=== PATIENT | female | born 1935 | race Caucasian/White ===

== ENCOUNTER → 2017-07-28 | Day surgery (SDC) | payer OTHER, BC ==
[2017-07-20 10:43] VITALS: Ht 161.3 cm; Wt 67.3 kg
[~2017-07-28] VITALS: Ht 161.3 cm; Wt 67.3 kg
[~2017-07-28] MED LIST: 500ML BSS 0.3ML EPI 1:1000PF IRRIG ONE; ACETAMINOPHEN 325 MG TAB PO PRN; AMVISC PLUS 0.8ML SYRINGE INT OCU ONE; ASPI-435 PO; ATOR-24 PO; ATROPINE SULFATE 0.1 MG/ML 5ML SYR IV PRN; BSS FLUSH ONE; CARV3.122 PO; DULO60CA44 PO; ENDOCOAT 0.85ML SYRINGE INT OCU ONE; EpHEDrine SULFATE INJ 50 MG/ML AMP IV PRN; EpINEphrine INJ 1MG/ML AMP 1 MG/ML AMP ONE; GABA-113 PO; HYDR-4716 PO; ISOS60TA2 PO; LACTATED RINGER'S 1000ML 500 ML IV SCH; LIDOCAINE 4% OP SOLN DROP CHARGE ONE; LIDOCAINE 4% OP SOLN DROP CHARGE OPR SCH; LIDOCAINE HCL 1% MPF 2 ML VIAL ONE; LISI20TA3 PO; MIDAZOLAM HCL 1 MG/ML 2ML VIAL ONE; MIX: 4ML BSS 1ML EPI 1:1000 PF TOP ONE; MOXIFLOXACIN OPH SOLN PER DROP CHARGE ONE; PLN/10 PO; POVIDONE-IODINE OP SOLN 30 ML BTL ONE; PROPARACAINE 0.5% OP SOLN PER DROP CHARGE OPR SCH; TOBRAMYCIN/DEXAMETHASONE OPH OINT PER APPLN CHARGE ONE
[2017-07-28] MEDS: PHENYLEPHRINE HCL 2.5% OP SOLN PER DROP CHARGE OPR SCH ×3 (08:31→08:41)
[2017-07-28] MEDS: TROPICAMIDE 1% OP SOLN PER DROP CHARGE OPR SCH ×3 (08:32→08:42)
[2017-07-28] MEDS: CYCLOPENTOLATE HCL 1% OP SOLN PER DROP CHARGE OPR SCH ×3 (08:33→08:43)
[2017-07-28] MEDS: MOXIFLOXACIN OPH SOLN PER DROP CHARGE OPR SCH ×3 (08:34→08:44)
--- NOTE | 2017-07-28 08:40 | History & Physical Bridge - [place] ---
H&P Re-Evaluation Bridge Note: I have examined the patient, reviewed the History & Physical and in the interval since the performance of the History & Physical I have noted the following changes of clinical significance: No changes noted
--- NOTE | 2017-07-28 09:44 | [facility] Post Operative Brief Note ---
Immediate Operative Summary Operative Date Jul 28, 2017. Pre-Operative Diagnosis Right Eye Cataract Post-Operative Diagnosis same as preop Procedure(s) Performed Right Cataract Phacoemulsification With Intraocular Lens Implant Surgeon Dr. Nieves Manager [employer] Surgeon(s) none Estimated Blood Loss 0ml Findings right cataract Specimens none per surgeon Complication(s) None Disposition
--- NOTE | 2017-07-28 09:45 | [facility] Operative Report ---
Operative Report Date of Service Jul 28, 2017. Operative Report DATE OF OPERATION: 07/28/17 PREOPERATIVE DIAGNOSIS: Senile nuclear cataract, right eye POSTOPERATIVE DIAGNOSIS: Senile nuclear cataract, right eye PROCEDURE PERFORMED: Phacoemulsification with intraocular lens implantation, right eye SURGEON: Dr. Brandyn Nieves ANESTHESIA: Topical with 1% intracameral lidocaine and monitored anesthesia care COMPLICATIONS: None DESCRIPTION OF PROCEDURE: After positively identifying the patient both verbally and by wristband in the preoperative area, the right eye was marked as the operative eye. The patient was then brought back to the operating room by the anesthesia and nursing staff where they were given a drop of Lidocaine and betadine into the operative eye. They were then sterilely prepped and draped in the standard fashion typical for ophthalmic surgery. Steri-strips were placed along the upper eyelids to keep the lashes back, and a lid speculum was placed into the operative eye. At this point, a documented time out was performed with members of the ophthalmology, nursing, and anesthesia staffs all agreeing upon the correct patient, correct location for surgery, correct procedure, and correct type and power of intraocular lens to be implanted. The microscope was then swung into position. First, a paracentesis wound was made using a sideport blade. Then, in sequence, 1% preservative-free lidocaine followed by Endocoat viscoelastic was injected into the anterior chamber. Next , the main incision was made with a keratome blade in triplanar fashion. A sharp cystotome was introduced into the eye and used to create a tear in the anterior capsule, which was directed into a continuous curvilinear capsulorrhexis using Utrata forceps. Hydrodissection was then performed with BSS on a flat-tip cannula. Next, the phacoemulsification handpiece was introduced into the eye and used to remove the nucleus in a [id number] fashion. This was done without complication and then the irrigation-aspiration handpiece was introduced into the eye and used to remove all remaining cortical and epinuclear material. Amvisc was then injected into the anterior chamber as well as into the capsular bag and using the lens injector system, an MX60 22.5 D lens, serial number [id number], and expiration date 01/2020 was injected into the capsular bag and rotated into the correct position. Next, the irrigation- aspiration handpiece was used to remove all remaining Amvisc. BSS was used to hydrate the main wound, and then BSS was injected into the paracentesis site to reach physiologic pressure and then the main wound was checked and found to be watertight. The patient was given drops of Vigamox and Tobradex ointment into the operative eye, and then the surrounding area was cleaned and dried. A clear plastic shield was placed over the eye and the patient was then sat up and taken from the operating room by the anesthesia staff having tolerated the procedure well and suffering no complications. DISPOSITION: The patient was returned to the recovery room in stable condition. I attest to the content of the Intraoperative Record and any orders documented therein. Any exceptions are noted below.
[2017-07-28 09:46] VITALS: TEMP 36.3
--- NOTE | 2017-07-28 09:46 | Discharge Instructions-SurgCtr ---
Discharge Instructions Date of Service Jul 28, 2017. Visit Reason for Visit: Cataract Right Eye Discharge Discharge Diagnosis / Problem: right cataract Discharge Goals Goal(s): Decrease discomfort, Improve function Activity Recommendations Activity Limitations: as noted below Anesthesia . Post Anesthesia Instructions: If you have had General Anesthesia or IV Sedation: * Do not drive today. * Resume driving when surgeon permits. * Do not make important decisions or sign legal documents today. * Call surgeon for: 1. Temperature elevations greater than 101 degrees F. 2. Uncontrollable pain. 3. Excessive bleeding. 4. Persistent nausea and vomiting. 5. Medication intolerance (nausea, vomiting or rash). * For nausea and vomiting use only clear liquids such as: tea, soda, bouillon until nausea subsides, then gradually increase diet as tolerated. * If you have any concerns or questions, call your surgeon's office. If physician is unavailable and it is an emergency, call 911 or go to the nearest emergency room. . Instructions / Follow-Up Instructions / Follow-Up ACTIVITY RECOMMENDATIONS: * Light activities. * You may walk outside, read, watch television. * You may notice redness on the white part of the eye and some blurry vision - this is normal. MEDICATIONS: Resume previous medications unless instructed otherwise by your surgeon. Start all eye drops at 12 pm today: * Eye drops (today): Prednisone - one drop in operative eye every 2 hours while awake Ofloxacin - one drop in operative eye every 2 hours while awake Prolensa - one drop in operative eye daily SPECIAL CARE INSTRUCTIONS: * Tape plastic shield over eye to sleep at night. Call your doctor at with any concerns or problems. FOLLOW UP VISIT: Follow-up with Dr Nieves at [facility] as scheduled. Diet Recommendations Home Diet: no limitations Procedures Procedures Performed: Right Cataract Phacoemulsification With Intraocular Lens Implant Pending Studies Studies pending at discharge: no Medical Emergencies . Who to Call and When: Medical Emergencies: If at any time you feel your situation is an emergency, please call 911 immediately. . Non-Emergent Contact Non-Emergency issues call your: Surgeon . . "Provider Documentation" section prepared by Brandyn Nieves. .
[2017-07-28 10:10] VITALS: BP 118/64; PULSE 59; O2SAT 96
--- NOTE | 2017-07-28 10:25 | Anesthesia Progress Nt - [facility] ---
Anesthesia Post Op Note Date & Time Jul 28, 2017 at 10:25 Vital Signs Pain Intensity: 0 Vital Signs Past 12 Hours Date Time Temp Pulse Resp B/P (MAP) Pulse Ox O2 Delivery O2 Flow Rate FiO2 07/28/17 10:10 59 18 118/64 (82) 96 Room Air 07/28/17 09:46 36.3 85 16 127/74 (91) 96 Room Air 07/28/17 08:22 36.2 70 22 114/67 (83) 98 Room Air Notes Mental Status: alert / awake / arousable, participated in evaluation Pt Amnestic to Procedure: Yes Nausea / Vomiting: adequately controlled Pain: adequately controlled Airway Patency, RR, SpO2: stable & adequate BP & HR: stable & adequate Hydration State: stable & adequate Anesthetic Complications: no major complications apparent
== END | disposition home or self-care (01) ==
LOC: X.SURG 08:11
PROVIDERS: ATTEND Ophthalmology
DX: H25.11 Age-related nuclear cataract, right eye (principal); E11.9 Type 2 diabetes mellitus without complications; I10 Essential (primary) hypertension; E78.00 Pure hypercholesterolemia, unspecified; M06.9 Rheumatoid arthritis, unspecified; Z79.82 Long term (current) use of aspirin; Z79.899 Other long term (current) drug therapy

== ENCOUNTER → 2017-08-11 | Day surgery (SDC) | payer OTHER, BC ==
[2017-08-05 07:37] VITALS: Ht 161.3 cm; Wt 67.3 kg
[~2017-08-11] VITALS: Ht 161.3 cm; Wt 67.3 kg
[~2017-08-11] MED LIST changes: +CYCLOPENTOLATE HCL 1% OP SOLN PER DROP CHARGE OPL SCH; +LACTATED RINGER'S 1000ML 1,000 ML IV SCH; +LIDOCAINE 4% OP SOLN DROP CHARGE OPL SCH; -LIDOCAINE 4% OP SOLN DROP CHARGE OPR SCH; +MOXIFLOXACIN OPH SOLN PER DROP CHARGE OPL SCH; +PHENYLEPHRINE HCL 2.5% OP SOLN PER DROP CHARGE OPL SCH; +PROPARACAINE 0.5% OP SOLN PER DROP CHARGE OPL SCH; -PROPARACAINE 0.5% OP SOLN PER DROP CHARGE OPR SCH; +TROPICAMIDE 1% OP SOLN PER DROP CHARGE OPL SCH
[2017-08-11] MEDS: PHENYLEPHRINE HCL 2.5% OP SOLN PER DROP CHARGE OPL SCH ×3 (08:02→08:12)
[2017-08-11] MEDS: TROPICAMIDE 1% OP SOLN PER DROP CHARGE OPL SCH ×3 (08:03→08:13)
[2017-08-11] MEDS: CYCLOPENTOLATE HCL 1% OP SOLN PER DROP CHARGE OPL SCH ×3 (08:04→08:14)
[2017-08-11] MEDS: MOXIFLOXACIN OPH SOLN PER DROP CHARGE OPL SCH ×3 (08:05→08:15)
--- NOTE | 2017-08-11 09:15 | [facility] Post Operative Brief Note ---
Immediate Operative Summary Operative Date Aug 11, 2017. Pre-Operative Diagnosis Cataract Left Eye Post-Operative Diagnosis Same Procedure(s) Performed Left Cataract Phacoemulsification With Intraocular Lens Implant Surgeon Dr. Nieves Director Trade Surgeon(s) None Estimated Blood Loss 0 mL Findings Consistent with Post-Op Diagnosis Specimens None Anesthesia Type MAC Complication(s) none Disposition Accompanied Pt To Recovery: no Disposition:
--- NOTE | 2017-08-11 09:16 | [facility] Operative Report ---
Operative Report Date of Service Aug 11, 2017. Operative Report DATE OF OPERATION: 08/11/17 PREOPERATIVE DIAGNOSIS: Senile nuclear cataract, left eye POSTOPERATIVE DIAGNOSIS: Senile nuclear cataract, left eye PROCEDURE PERFORMED: Phacoemulsification with intraocular lens implantation, left eye SURGEON: Dr. Brandyn Nieves ANESTHESIA: Topical with 1% intracameral lidocaine and monitored anesthesia care COMPLICATIONS: None DESCRIPTION OF PROCEDURE: After positively identifying the patient both verbally and by wristband in the preoperative area, the left eye was marked as the operative eye. The patient was then brought back to the operating room by the anesthesia and nursing staff where they were given a drop of Lidocaine and betadine into the operative eye. They were then sterilely prepped and draped in the standard fashion typical for ophthalmic surgery. Steri-strips were placed along the upper eyelids to keep the lashes back, and a lid speculum was placed into the operative eye. At this point, a documented time out was performed with members of the ophthalmology, nursing, and anesthesia staffs all agreeing upon the correct patient, correct location for surgery, correct procedure, and correct type and power of intraocular lens to be implanted. The microscope was then swung into position. First, a paracentesis wound was made using a sideport blade. Then, in sequence, 1% preservative-free lidocaine followed by Endocoat viscoelastic was injected into the anterior chamber. Next , the main incision was made with a keratome blade in triplanar fashion. A sharp cystotome was introduced into the eye and used to create a tear in the anterior capsule, which was directed into a continuous curvilinear capsulorrhexis using Utrata forceps. Hydrodissection was then performed with BSS on a flat-tip cannula. Next, the phacoemulsification handpiece was introduced into the eye and used to remove the nucleus in a [id number] fashion. This was done without complication and then the irrigation-aspiration handpiece was introduced into the eye and used to remove all remaining cortical and epinuclear material. Amvisc was then injected into the anterior chamber as well as into the capsular bag and using the lens injector system, an MX60 22.0 D lens, serial number [id number], and expiration date 03/2020 was injected into the capsular bag and rotated into the correct position. Next, the irrigation- aspiration handpiece was used to remove all remaining Amvisc. BSS was used to hydrate the main wound, and then BSS was injected into the paracentesis site to reach physiologic pressure and then the main wound was checked and found to be watertight. The patient was given drops of Vigamox and Tobradex ointment into the operative eye, and then the surrounding area was cleaned and dried. A clear plastic shield was placed over the eye and the patient was then sat up and taken from the operating room by the anesthesia staff having tolerated the procedure well and suffering no complications. DISPOSITION: The patient was returned to the recovery room in stable condition. I attest to the content of the Intraoperative Record and any orders documented therein. Any exceptions are noted below.
--- NOTE | 2017-08-11 09:17 | Discharge Instructions-SurgCtr ---
Discharge Instructions Date of Service Aug 11, 2017. Visit Reason for Visit: Cataract Left Eye Discharge Discharge Diagnosis / Problem: left cataract Discharge Goals Goal(s): Decrease discomfort, Improve function Activity Recommendations Activity Limitations: as noted below Anesthesia . Post Anesthesia Instructions: If you have had General Anesthesia or IV Sedation: * Do not drive today. * Resume driving when surgeon permits. * Do not make important decisions or sign legal documents today. * Call surgeon for: 1. Temperature elevations greater than 101 degrees F. 2. Uncontrollable pain. 3. Excessive bleeding. 4. Persistent nausea and vomiting. 5. Medication intolerance (nausea, vomiting or rash). * For nausea and vomiting use only clear liquids such as: tea, soda, bouillon until nausea subsides, then gradually increase diet as tolerated. * If you have any concerns or questions, call your surgeon's office. If physician is unavailable and it is an emergency, call 911 or go to the nearest emergency room. . Instructions / Follow-Up Instructions / Follow-Up ACTIVITY RECOMMENDATIONS: * Light activities. * You may walk outside, read, watch television. * You may notice redness on the white part of the eye and some blurry vision - this is normal. MEDICATIONS: Resume previous medications unless instructed otherwise by your surgeon. Start all eye drops at 11:30 am today: * Eye drops (today): Prednisone - one drop in operative eye every 2 hours while awake Ofloxacin - one drop in operative eye every 2 hours while awake Prolensa - one drop in operative eye daily SPECIAL CARE INSTRUCTIONS: * Tape plastic shield over eye to sleep at night. Call your doctor at with any concerns or problems. FOLLOW UP VISIT: Follow-up with Dr Nieves at [facility] as scheduled. Diet Recommendations Home Diet: no limitations Procedures Procedures Performed: Left Cataract Phacoemulsification With Intraocular Lens Implant Pending Studies Studies pending at discharge: no Medical Emergencies . Who to Call and When: Medical Emergencies: If at any time you feel your situation is an emergency, please call 911 immediately. . Non-Emergent Contact Non-Emergency issues call your: Surgeon . . "Provider Documentation" section prepared by Brandyn Nieves. .
[2017-08-11 09:18] VITALS: TEMP 36.3
[2017-08-11 09:47] VITALS: BP 144/65; PULSE 55; O2SAT 96
--- NOTE | 2017-08-11 09:49 | Anesthesia Progress Nt - [facility] ---
Anesthesia Post Op Note Date & Time Aug 11, 2017 at 09:49 Vital Signs Pain Intensity: 0 Vital Signs Past 12 Hours Date Time Temp Pulse Resp B/P (MAP) Pulse Ox O2 Delivery O2 Flow Rate FiO2 08/11/17 09:47 55 20 144/65 (91) 96 Room Air 08/11/17 09:18 36.3 50 16 145/64 (91) 96 Room Air 08/11/17 07:52 36.7 60 16 133/70 (91) 96 Room Air Notes Mental Status: alert / awake / arousable, participated in evaluation Pt Amnestic to Procedure: Yes Nausea / Vomiting: adequately controlled Pain: adequately controlled Airway Patency, RR, SpO2: stable & adequate BP & HR: stable & adequate Hydration State: stable & adequate Anesthetic Complications: no major complications apparent
== END | disposition home or self-care (01) ==
LOC: X.SURG 07:31
PROVIDERS: ATTEND Ophthalmology
DX: H25.12 Age-related nuclear cataract, left eye (principal); I25.10 Atherosclerotic heart disease of native coronary artery without angina pectoris; I10 Essential (primary) hypertension; E11.9 Type 2 diabetes mellitus without complications; F01.50 Vascular dementia, unspecified severity, without behavioral disturbance, psychotic disturbance, mood disturbance, and anxiety; M06.9 Rheumatoid arthritis, unspecified; E78.00 Pure hypercholesterolemia, unspecified; Z90.49 Acquired absence of other specified parts of digestive tract; Z90.710 Acquired absence of both cervix and uterus; Z79.82 Long term (current) use of aspirin

== ENCOUNTER 2022-05-11 16:49 | Inpatient (IN) ==
[2022-05-11] MEDS ORDERED: ALBUT/IPRATROP 3MG/0.5MG NEB 3 ML VIAL NEB STA (16:58)
--- NOTE | 2022-05-11 17:02 | Emergency Department Note ---
Impression & Plan Pulmonary edema, AMARIS (acute kidney injury), Hypoxia, Abnormal EKG, Elevated troponin I level ED Provider Note NAME: LEV BRODY AGE: 87 SEX: F : 1935 ARRIVES VIA: Ambulance INFORMANT: Patient, EMS ED PROVIDER(S): Case Valdovinos DO CHIEF COMPLAINT: Shortness of breath HPI: The patient is an 87-year-old female who presented to the emergency department from her personal [place] [facility] for an evaluation of shortness of breath. The patient does not normally wear oxygen. She was noted to have significant shortness of breath yesterday. She had supplemental oxygen placed. The patient had a COVID test done yesterday which was negative. She continued to have worsening symptoms today and was referred to the emergency department by the primary care physician for further evaluation. She denies having any cough. She denies having any chest pain or vomiting. She denies having any recent fevers. The patient has been vaccinated against COVID-19. She denies any recent traveling. She said no lower extremity swelling or pain. The patient states that she has had worsening symptoms with exertion. She notices when she lies flat she also has worsening symptoms. ROS: See above HPI for pertinent positives & negatives. A total of 10 systems reviewed and were otherwise negative. PAST MEDICAL HISTORY: See Below PAST SURGICAL HISTORY: See Below FAMILY HISTORY: See Below SOCIAL HISTORY: See Below HOME MEDICATIONS: See Below ALLERGIES: See Below VITALS: See Below PHYSICAL EXAMINATION: GENERAL: Patient is awake alert in no acute distress patient is resting comfortably and showing no signs of anxiety EYES: The conjunctivae are clear. The pupils are round and reactive. EARS, NOSE, MOUTH AND THROAT: The nose is without any evidence of any deformity. Mucous membranes are moist. Tongue is midline. NECK: The neck is nontender and supple. RESPIRATORY: Shallow respirations were noted. Scattered rhonchi were noted throughout. There was mild conversational dyspnea appreciated. CARDIOVASCULAR: Regular rate and rhythm noted there no murmurs rubs or gallops normal S1 normal S2. GASTROINTESTINAL: The abdomen is soft. Abdomen is nontender. MUSCULOSKELETAL/EXTREMITIES: There is no evidence of gross deformity full range of motion is noted in the hips and shoulders. SKIN: The skin is warm and dry. There is no significant pedal edema. Trace pedal edema was noted bilaterally. NEUROLOGIC: Patient is awake alert and oriented x3 MEDICAL DECISION MAKING: The patient is an 87-year-old female who presented to the emergency department for an evaluation of difficulty breathing. The patient's history and physical exam appear to be consistent with pulmonary edema. Chest x-ray was not overwhelmingly consistent but blood work would appear to be more consistent with pulmonary edema. I discussed the patient's laboratory and radiographic studies with her. She was treated with IV Lasix in the emergency department. She was reevaluated multiple times. Ultimately I [facility] have agreed to evaluate the patient in the emergency department for further management and disposition. Triage Nursing notes reviewed. Prior medical records reviewed Vital Signs: reviewed and remarkable for elevated blood pressure. Differential diagnosis: Reactive airway disease, pneumonia, pneumothorax, COPD, CHF, infections, cardiac ischemia, pulmonary embolism, musculoskeletal, gastrointestinal, as well as other pathologies. ER treatment provided: See below Diagnostics interpreted by me: ECG: EKG was obtained in the emergency department. My interpretation is sinus rhythm at 87 bpm. There was no PVCs noted. Inferior and low lateral ST depressions were noted. This was compared to a tracing from April 19, 2019. The ST segment abnormalities are new compared to the previous tracing. Cardiac Monitoring: An order was placed for continuous cardiac monitoring. The monitor shows a rate of 74 bpm with sinus rhythm. Laboratory studies: As stated above and show below. Imaging studies: See below Consultation(s): I discussed this case with Dr. Fonseca who [facility]. Past Med/Surg History Medical History (Updated 05/11/22 @ 19:36 by Case Valdovinos DO) Arthritis "RA + osteo per records" Cerebrovascular disease "TIA 2011" Chronic kidney disease (CKD), stage III (moderate) Dementia Diabetes mellitus, type II Dyslipidemia History of ischemic bowel disease "ischemic colitis 2011" History of squamous cell carcinoma of skin Hypertension Peripheral neuropathy Surgical History Status post cholecystectomy Status post hysterectomy Family History Other No pertinent family history Social History Smoking Status: Former smoker Tobacco Type: Cigarettes Preferred Language: Setswana marital status: current occupational status: retired Feels Safe at Home: Yes Allergies Allergies Allergy/AdvReac Type Severity Reaction Status Date / Time Penicillins Allergy Intermediate RASH - HAS Verified 05/11/22 19:37 TOLERATED ROCEPHIN codeine Allergy Unknown Verified 05/11/22 19:38 meloxicam Allergy Unknown Verified 05/11/22 19:38 ferrous fumarate AdvReac Mild stomach Verified 05/11/22 19:37 upset Home Meds Home Medications Medication Instructions Recorded Confirmed atorvastatin 40 mg tablet 40 mg PO QPM 10/28/18 05/11/22 gabapentin 300 mg capsule 300 mg PO BID 10/28/18 05/11/22 isosorbide mononitrate 60 mg 60 mg PO DAILY 10/28/18 05/11/22 tablet,extended release 24 hr acetaminophen 500 mg capsule 500 mg PO Q6H 05/11/22 05/11/22 acetaminophen 500 mg tablet 500 mg PO Q6H PRN Pain 05/11/22 05/11/22 aspirin 81 mg chewable tablet 81 mg PO DAILY 05/11/22 05/11/22 (Aspirin Childrens) calcium carbonate 600 mg-vitamin 1 tab PO QPM 05/11/22 05/11/22 D3 10 mcg (400 unit) tablet (Calcium 600 + D(3)) chlorthalidone 25 mg tablet 12.5 mg PO QAM 05/11/22 05/11/22 cyanocobalamin (vitamin B-12) 1,000 mcg PO DAILY 05/11/22 05/11/22 1,000 mcg tablet (Vitamin B-12) felodipine 5 mg tablet,extended 5 mg PO DAILY 05/11/22 05/11/22 release 24 hr guaifenesin 600 mg tablet, 600 mg PO Q12H PRN Congestion 05/11/22 05/11/22 extended release 12 hr hydralazine 50 mg tablet 50 mg PO TID 05/11/22 05/11/22 lisinopril 40 mg tablet 40 mg PO QPM 05/11/22 05/11/22 omeprazole 40 mg capsule,delayed 40 mg PO DAILY 05/11/22 05/11/22 release Results & Data (ED) Vital Signs Vital Signs - 24 hr 05/11/22 17:37 05/11/22 17:38 05/11/22 17:38 Temperature Temperature Source Pulse Rate 84 89 Pulse Rate from SpO2 Sensor 86 88 Pulse Rhythm Pulse Strength Respiratory Rate Respiratory Effort / Characteristics Respiratory Depth Respiratory Pattern Blood Pressure 178/98 H Blood Pressure Mean 124 Blood Pressure Position Pulse Oximetry 97 96 Oxygen Delivery Method Oxygen Flow Rate Sepsis Recent Fever Within 48 Hours Sepsis New/Unexplained Change in Mental Status Sepsis Action Taken by Nursing 05/11/22 17:40 05/11/22 17:50 05/11/22 17:52 Temperature Temperature Source Pulse Rate 88 85 88 Pulse Rate from SpO2 Sensor 88 84 88 Pulse Rhythm Pulse Strength Respiratory Rate 21 20 Respiratory Effort / Characteristics Respiratory Depth Respiratory Pattern Blood Pressure Blood Pressure Mean Blood Pressure Position Pulse Oximetry 97 96 96 Oxygen Delivery Method Oxygen Flow Rate Sepsis Recent Fever Within 48 Hours Sepsis New/Unexplained Change in Mental Status Sepsis Action Taken by Nursing 05/11/22 17:52 05/11/22 17:55 05/11/22 17:55 Temperature Temperature Source Pulse Rate 92 H Pulse Rate from SpO2 Sensor 92 H Pulse Rhythm Pulse Strength Respiratory Rate 20 Respiratory Effort / Characteristics Respiratory Depth Respiratory Pattern Blood Pressure 221/140 H 191/99 H Blood Pressure Mean 167 129 Blood Pressure Position Pulse Oximetry 96 Oxygen Delivery Method Oxygen Flow Rate Sepsis Recent Fever Within 48 Hours Sepsis New/Unexplained Change in Mental Status Sepsis Action Taken by Nursing 05/11/22 18:00 05/11/22 18:01 05/11/22 18:01 Temperature Temperature Source Pulse Rate 92 H 92 H Pulse Rate from SpO2 Sensor 92 H 93 H Pulse Rhythm Pulse Strength Respiratory Rate 19 20 Respiratory Effort / Characteristics Respiratory Depth Respiratory Pattern Blood Pressure 217/96 H Blood Pressure Mean 136 Blood Pressure Position Pulse Oximetry 97 96 Oxygen Delivery Method Oxygen Flow Rate Sepsis Recent Fever Within 48 Hours Sepsis New/Unexplained Change in Mental Status Sepsis Action Taken by Nursing 05/11/22 18:10 05/11/22 17:59 05/11/22 17:59 Temperature 37.2 C Temperature Source Oral Pulse Rate 89 90 Pulse Rate from SpO2 Sensor 90 Pulse Rhythm Regular Pulse Strength Normal Respiratory Rate 16 20 Respiratory Effort / Characteristics Spontaneous Non-Labored Spontaneous Respiratory Depth Normal Normal Respiratory Pattern Regular Regular Blood Pressure 178/86 H Blood Pressure Mean 116 Blood Pressure Position Lying Pulse Oximetry 97 98 Oxygen Delivery Method Nasal Cannula Nasal Cannula Oxygen Flow Rate 4 4 Sepsis Recent Fever Within 48 Hours No Sepsis New/Unexplained Change in Mental Status N/A Sepsis Action Taken by Nursing No Action Required 05/11/22 18:15 05/11/22 18:15 05/11/22 18:30 Temperature Temperature Source Pulse Rate 87 91 H Pulse Rate from SpO2 Sensor 88 91 H Pulse Rhythm Pulse Strength Respiratory Rate 15 21 Respiratory Effort / Characteristics Respiratory Depth Respiratory Pattern Blood Pressure 220/105 H Blood Pressure Mean 143 Blood Pressure Position Pulse Oximetry 97 100 Oxygen Delivery Method Oxygen Flow Rate Sepsis Recent Fever Within 48 Hours Sepsis New/Unexplained Change in Mental Status Sepsis Action Taken by Nursing 05/11/22 18:31 05/11/22 18:31 05/11/22 18:45 Temperature Temperature Source Pulse Rate 91 H Pulse Rate from SpO2 Sensor 92 H Pulse Rhythm Pulse Strength Respiratory Rate 22 Respiratory Effort / Characteristics Respiratory Depth Respiratory Pattern Blood Pressure 198/106 H 211/114 H Blood Pressure Mean 136 146 Blood Pressure Position Pulse Oximetry 99 Oxygen Delivery Method Oxygen Flow Rate Sepsis Recent Fever Within 48 Hours Sepsis New/Unexplained Change in Mental Status Sepsis Action Taken by Nursing 05/11/22 18:45 05/11/22 19:00 05/11/22 19:00 Temperature Temperature Source Pulse Rate 91 H 88 Pulse Rate from SpO2 Sensor 91 H 88 Pulse Rhythm Pulse Strength Respiratory Rate 16 15 Respiratory Effort / Characteristics Respiratory Depth Respiratory Pattern Blood Pressure 191/105 H Blood Pressure Mean 133 Blood Pressure Position Pulse Oximetry 97 97 Oxygen Delivery Method Oxygen Flow Rate Sepsis Recent Fever Within 48 Hours Sepsis New/Unexplained Change in Mental Status Sepsis Action Taken by Nursing 05/11/22 19:15 05/11/22 19:15 05/11/22 19:30 Temperature Temperature Source Pulse Rate 85 Pulse Rate from SpO2 Sensor 85 Pulse Rhythm Pulse Strength Respiratory Rate 14 Respiratory Effort / Characteristics Respiratory Depth Respiratory Pattern Blood Pressure 206/81 H 181/75 H Blood Pressure Mean 122 110 Blood Pressure Position Pulse Oximetry 98 Oxygen Delivery Method Oxygen Flow Rate Sepsis Recent Fever Within 48 Hours Sepsis New/Unexplained Change in Mental Status Sepsis Action Taken by Nursing 05/11/22 19:30 05/11/22 19:45 05/11/22 19:45 Temperature Temperature Source Pulse Rate 72 83 Pulse Rate from SpO2 Sensor 72 82 Pulse Rhythm Pulse Strength Respiratory Rate 16 17 Respiratory Effort / Characteristics Respiratory Depth Respiratory Pattern Blood Pressure 200/80 H Blood Pressure Mean 120 Blood Pressure Position Pulse Oximetry 97 98 Oxygen Delivery Method Oxygen Flow Rate Sepsis Recent Fever Within 48 Hours Sepsis New/Unexplained Change in Mental Status Sepsis Action Taken by Nursing 05/11/22 20:00 05/11/22 20:00 05/11/22 20:15 Temperature Temperature Source Pulse Rate 79 Pulse Rate from SpO2 Sensor 80 Pulse Rhythm Pulse Strength Respiratory Rate 14 Respiratory Effort / Characteristics Respiratory Depth Respiratory Pattern Blood Pressure 214/80 H 218/84 H Blood Pressure Mean 124 128 Blood Pressure Position Pulse Oximetry 97 Oxygen Delivery Method Oxygen Flow Rate Sepsis Recent Fever Within 48 Hours Sepsis New/Unexplained Change in Mental Status Sepsis Action Taken by Nursing 05/11/22 20:15 05/11/22 20:30 05/11/22 20:30 Temperature Temperature Source Pulse Rate 84 81 Pulse Rate from SpO2 Sensor 84 81 Pulse Rhythm Pulse Strength Respiratory Rate 17 14 Respiratory Effort / Characteristics Respiratory Depth Respiratory Pattern Blood Pressure 208/93 H Blood Pressure Mean 131 Blood Pressure Position Pulse Oximetry 98 98 Oxygen Delivery Method Oxygen Flow Rate Sepsis Recent Fever Within 48 Hours Sepsis New/Unexplained Change in Mental Status Sepsis Action Taken by Nursing 05/11/22 20:45 05/11/22 20:45 05/11/22 21:00 Temperature Temperature Source Pulse Rate 79 Pulse Rate from SpO2 Sensor 78 Pulse Rhythm Pulse Strength Respiratory Rate 18 Respiratory Effort / Characteristics Respiratory Depth Respiratory Pattern Blood Pressure 190/84 H 177/78 H Blood Pressure Mean 119 111 Blood Pressure Position Pulse Oximetry 98 Oxygen Delivery Method Oxygen Flow Rate Sepsis Recent Fever Within 48 Hours Sepsis New/Unexplained Change in Mental Status Sepsis Action Taken by Nursing 05/11/22 21:00 05/11/22 21:15 05/11/22 21:15 Temperature Temperature Source Pulse Rate 76 75 Pulse Rate from SpO2 Sensor 76 75 Pulse Rhythm Pulse Strength Respiratory Rate 19 15 Respiratory Effort / Characteristics Respiratory Depth Respiratory Pattern Blood Pressure 160/77 H Blood Pressure Mean 104 Blood Pressure Position Pulse Oximetry 98 98 Oxygen Delivery Method Oxygen Flow Rate Sepsis Recent Fever Within 48 Hours Sepsis New/Unexplained Change in Mental Status Sepsis Action Taken by Nursing 05/11/22 21:30 05/11/22 21:30 05/11/22 21:45 Temperature Temperature Source Pulse Rate 81 Pulse Rate from SpO2 Sensor 81 Pulse Rhythm Pulse Strength Respiratory Rate 17 Respiratory Effort / Characteristics Respiratory Depth Respiratory Pattern Blood Pressure 205/95 H 201/135 H Blood Pressure Mean 131 157 Blood Pressure Position Pulse Oximetry 96 Oxygen Delivery Method Oxygen Flow Rate Sepsis Recent Fever Within 48 Hours Sepsis New/Unexplained Change in Mental Status Sepsis Action Taken by Nursing 05/11/22 21:45 05/11/22 22:00 05/11/22 22:00 Temperature Temperature Source Pulse Rate 85 77 Pulse Rate from SpO2 Sensor 85 76 Pulse Rhythm Pulse Strength Respiratory Rate 16 17 Respiratory Effort / Characteristics Respiratory Depth Respiratory Pattern Blood Pressure 205/86 H Blood Pressure Mean 125 Blood Pressure Position Pulse Oximetry 94 94 Oxygen Delivery Method Oxygen Flow Rate Sepsis Recent Fever Within 48 Hours Sepsis New/Unexplained Change in Mental Status Sepsis Action Taken by Nursing 05/11/22 22:15 05/11/22 22:15 Temperature Temperature Source Pulse Rate 74 Pulse Rate from SpO2 Sensor 75 Pulse Rhythm Pulse Strength Respiratory Rate 14 Respiratory Effort / Characteristics Respiratory Depth Respiratory Pattern Blood Pressure 195/78 H Blood Pressure Mean 117 Blood Pressure Position Pulse Oximetry 92 Oxygen Delivery Method Oxygen Flow Rate Sepsis Recent Fever Within 48 Hours Sepsis New/Unexplained Change in Mental Status Sepsis Action Taken by [facility] Medications Current Medication List: was personally reviewed by me Laboratory Data Attestation: I reviewed the patient's lab results. Result diagrams: 05/11/22 17:52 05/11/22 17:52 Lab Results 05/11/22 05/11/22 05/11/22 Range/Units 17:30 17:52 17:52 WBC 15.27 H (4.8-10.8) K/ul RBC 3.72 L (3.93-5.22) M/uL Hgb 11.7 L (12.0-16.0) g/dl Hct 35.1 (34.1-44.9) % MCV 94.4 (80.0-100.0) fL MCH 31.5 (25.0-34.0) pg MCHC 33.3 (32.0-36.0) g/dL RDW Std Deviation 41.1 (36.4-46.3) fL RDW Coeff of Paul 11.9 (11.5-14.5) % Plt Count 171 (130-400) K/uL MPV 9.9 (9.4-12.3) fL Immature Gran % (Auto) 0.5 % Neut % (Auto) 90.7 % Lymph % (Auto) 4.6 % [place] % (Auto) 3.5 % Eos % (Auto) 0.1 % Baso % (Auto) 0.6 % Neut # (Auto) 13.85 H (1.4-6.5) K/uL Lymph # (Auto) 0.70 L (1.2-3.4) K/uL [place] # (Auto) 0.54 (0.24-0.82) K/uL Eos # (Auto) 0.01 (0-0.50) K/uL Baso # (Auto) 0.09 (0-0.2) K/uL Immature Gran # (Auto) 0.08 H (0.00-0.02) K/uL PT (9.0-12.0) Seconds INR (0.9-1.1) APTT (21.0-31.0) Seconds PTT Ratio VBG pH (7.36-7.41) VBG pCO2 (38-50) mmHg VBG pO2 mmHg VBG HCO3 mmol/L VBG O2 Saturation % VBG Base Excess mEq/L Sodium (136-145) mmol/L Potassium (3.5-5.1) mmol/L Chloride (98-107) mmol/L Carbon Dioxide (21-32) mmol/L Anion Gap (3-11) BUN (6-23) mg/dl Creatinine (0.6-1.2) mg/dl Est Cr Clr Drug Dosing ml/min Est GFR ( Amer) ml/min Est GFR (Non-Af Amer) ml/min BUN/Creatinine Ratio (10-20) Glucose (70-99(Fasting)) mg/dl Lactate (0.4-2.0) mmol/L Calcium (8.5-10.1) mg/dl Magnesium (1.7-2.4) mg/dl Total Bilirubin (0.2-1.0) mg/dl Direct Bilirubin (0-0.2) mg/dl AST (13-39) U/L ALT (7-52) U/L Alkaline Phosphatase (34-104) U/L Troponin I High Sens (0-14) pg/ml B-Natriuretic Peptide 334 H (0-100) pg/ml Total Protein (6.0-8.3) gm/dl Albumin (3.4-5.0) gm/dl Procalcitonin (0-0.5) ng/ml SARS-CoV-2 (PCR) NEGATIVE (Negative) Influenza Type A (PCR) Negative (Neg) Influenza Type B (PCR) Negative (Neg) RSV (RT-PCR) Negative (Neg) 05/11/22 05/11/22 05/11/22 Range/Units 17:52 17:52 17:52 WBC (4.8-10.8) K/ul RBC (3.93-5.22) M/uL Hgb (12.0-16.0) g/dl Hct (34.1-44.9) % MCV (80.0-100.0) fL MCH (25.0-34.0) pg MCHC (32.0-36.0) g/dL RDW Std Deviation (36.4-46.3) fL RDW Coeff of Paul (11.5-14.5) % Plt Count (130-400) K/uL MPV (9.4-12.3) fL Immature Gran % (Auto) % Neut % (Auto) % Lymph % (Auto) % [place] % (Auto) % Eos % (Auto) % Baso % (Auto) % Neut # (Auto) (1.4-6.5) K/uL Lymph # (Auto) (1.2-3.4) K/uL [place] # (Auto) (0.24-0.82) K/uL Eos # (Auto) (0-0.50) K/uL Baso # (Auto) (0-0.2) K/uL Immature Gran # (Auto) (0.00-0.02) K/uL PT 10.4 (9.0-12.0) Seconds INR 1.0 (0.9-1.1) APTT 24.2 (21.0-31.0) Seconds PTT Ratio 0.9 VBG pH (7.36-7.41) VBG pCO2 (38-50) mmHg VBG pO2 mmHg VBG HCO3 mmol/L VBG O2 Saturation % VBG Base Excess mEq/L Sodium 141 (136-145) mmol/L Potassium 4.4 (3.5-5.1) mmol/L Chloride 108 H (98-107) mmol/L Carbon Dioxide 25 (21-32) mmol/L Anion Gap 8 (3-11) BUN 38 H (6-23) mg/dl Creatinine 2.20 H (0.6-1.2) mg/dl Est Cr Clr Drug Dosing 17.6 ml/min Est GFR ( Amer) 22.8 ml/min Est GFR (Non-Af Amer) 19.6 ml/min BUN/Creatinine Ratio 17.3 (10-20) Glucose 157 H (70-99(Fasting)) mg/dl Lactate 0.8 (0.4-2.0) mmol/L Calcium 9.3 (8.5-10.1) mg/dl Magnesium 1.9 (1.7-2.4) mg/dl Total Bilirubin 0.7 (0.2-1.0) mg/dl Direct Bilirubin 0.1 (0-0.2) mg/dl AST 13 (13-39) U/L ALT 12 (7-52) U/L Alkaline Phosphatase 62 (34-104) U/L Troponin I High Sens 22.4 H (0-14) pg/ml B-Natriuretic Peptide (0-100) pg/ml Total Protein 6.6 (6.0-8.3) gm/dl Albumin 4.0 (3.4-5.0) gm/dl Procalcitonin (0-0.5) ng/ml SARS-CoV-2 (PCR) (Negative) Influenza Type A (PCR) (Neg) Influenza Type B (PCR) (Neg) RSV (RT-PCR) (Neg) 05/11/22 05/11/22 Range/Units 17:52 17:53 WBC (4.8-10.8) K/ul RBC (3.93-5.22) M/uL Hgb (12.0-16.0) g/dl Hct (34.1-44.9) % MCV (80.0-100.0) fL MCH (25.0-34.0) pg MCHC (32.0-36.0) g/dL RDW Std Deviation (36.4-46.3) fL RDW Coeff of Paul (11.5-14.5) % Plt Count (130-400) K/uL MPV (9.4-12.3) fL Immature Gran % (Auto) % Neut % (Auto) % Lymph % (Auto) % [place] % (Auto) % Eos % (Auto) % Baso % (Auto) % Neut # (Auto) (1.4-6.5) K/uL Lymph # (Auto) (1.2-3.4) K/uL [place] # (Auto) (0.24-0.82) K/uL Eos # (Auto) (0-0.50) K/uL Baso # (Auto) (0-0.2) K/uL Immature Gran # (Auto) (0.00-0.02) K/uL PT (9.0-12.0) Seconds INR (0.9-1.1) APTT (21.0-31.0) Seconds PTT Ratio VBG pH 7.36 (7.36-7.41) VBG pCO2 45 (38-50) mmHg VBG pO2 55 mmHg VBG HCO3 25 mmol/L VBG O2 Saturation 88.1 % VBG Base Excess -0.4 mEq/L Sodium (136-145) mmol/L Potassium (3.5-5.1) mmol/L Chloride (98-107) mmol/L Carbon Dioxide (21-32) mmol/L Anion Gap (3-11) BUN (6-23) mg/dl Creatinine (0.6-1.2) mg/dl Est Cr Clr Drug Dosing ml/min Est GFR ( Amer) ml/min Est GFR (Non-Af Amer) ml/min BUN/Creatinine Ratio (10-20) Glucose (70-99(Fasting)) mg/dl Lactate (0.4-2.0) mmol/L Calcium (8.5-10.1) mg/dl Magnesium (1.7-2.4) mg/dl Total Bilirubin (0.2-1.0) mg/dl Direct Bilirubin (0-0.2) mg/dl AST (13-39) U/L ALT (7-52) U/L Alkaline Phosphatase (34-104) U/L Troponin I High Sens (0-14) pg/ml B-Natriuretic Peptide (0-100) pg/ml Total Protein (6.0-8.3) gm/dl Albumin (3.4-5.0) gm/dl Procalcitonin < 0.05 (0-0.5) ng/ml SARS-CoV-2 (PCR) (Negative) Influenza Type A (PCR) (Neg) Influenza Type B (PCR) (Neg) RSV (RT-PCR) (Neg) Administered Medications Discontinued Medications Albuterol (Albut/Ipratrop 3mg/0.5mg Neb 3 Ml Vial) 3 ml NEB NOW STA; Protocol Stop: 05/11/22 16:59 Last Admin: 05/11/22 18:17 Dose: 3 ml Documented By: [id number] Furosemide (Furosemide 40 Mg/4 Ml Vial) 40 mg IV ONE ONE Stop: 05/11/22 19:32 Last Admin: 05/11/22 20:27 Dose: 40 mg Documented By: BRAYAN Labetalol HCl (Labetalol Hcl Iv 5 Mg/Ml 20ml) 10 mg IV NOW STA Stop: 05/11/22 22:33 Last Admin: 05/11/22 23:13 Dose: 10 mg Documented By: DENNIS Co-signed By: WILLOW Imaging Data Radiologist's Impression: Chest X-Ray 05/11/22 16:59 XR chest 1V portable CLINICAL HISTORY: Sepsis TECHNIQUE: Single frontal radiograph of the chest was obtained. Comparison: Comparison is made to chest radiograph 04/19/2019 FINDINGS: No lines and tubes are seen. Calcified aortic knob is seen. The lungs are clear. No evidence of pleural effusion or pneumothorax. IMPRESSION: No acute chest disease. ACT 112: Negative or not required by law. Electronically signed by: Clinton Pat M.D. 05/11/2022 6:30 PM Discharge Plan Visit Data Chief Complaint: Shortness of Breath/Dyspnea Stated Complaint: SUSPECTED COVID, SOB ED Provider: Case Valdovinos Discharge Problem: Pulmonary edema, AMARIS (acute kidney injury), Hypoxia, Abnormal EKG, Elevated troponin I level Patient Disposition: Admitted As Inpatient Discharge Instructions Interventions: ED Discharge Assessment Last Done: 05/11/22 23:19 : Pulmonary edema Qualifiers: Chronicity: acute Qualified Code(s): J81.0 - Acute pulmonary edema
[2022-05-11 18:13] LABS: Hematocrit (blood only) 35.1 % (34.1-44.9); Hemoglobin 11.7 g/dl (12.0-16.0); Mean Corpuscular Hemoglobin 31.5 pg (25.0-34.0); Mean Corpuscular Hgb Conc 33.3 g/dL (32.0-36.0); Mean Corpuscular Volume 94.4 fL (80.0-100.0); Mean Platelet Volume 9.9 fL (9.4-12.3); Platelet Count 171 K/uL (130-400); RDW Coefficient of Variation 11.9 % (11.5-14.5); RDW Standard Deviation 41.1 fL (36.4-46.3); Red Blood Count 3.72 M/uL (3.93-5.22); White Blood Count 15.27 K/ul (4.8-10.8)
[2022-05-11 18:15] LABS: Base Excess VBG -0.4 mEq/L; HCO3 VBG 25 mmol/L; Oxygen Saturation VBG 88.1 %; PCO2 VBG 45 mmHg (38-50); PO2 VBG 55 mmHg; pH VBG 7.36 (7.36-7.41)
[2022-05-11 18:28] LABS: Partial Thromboplastin Ratio 0.9; Partial Thromboplastin Time 24.2 Seconds (21.0-31.0); Prothrombin Time 10.4 Seconds (9.0-12.0)
[2022-05-11 18:30] LABS: Influenza A virus by PCR Negative (Neg); Influenza B virus by PCR Negative (Neg); RSV by PCR Negative (Neg); SARS CoV2 RNA(COVID-19)Cepheid NEGATIVE (Negative)
--- NOTE | 2022-05-11 18:31 | XRay Report ---
XR chest 1V portable CLINICAL HISTORY: Sepsis TECHNIQUE: Single frontal radiograph of the chest was obtained. Comparison: Comparison is made to chest radiograph 04/19/2019 FINDINGS: No lines and tubes are seen. Calcified aortic knob is seen. The lungs are clear. No evidence of pleur al effusion or pneumothorax. IMPRESSION: No acute chest disease. ACT 112: Negative or not required by law. Electronically signed by: Clinton Pat M.D. 05/11/2022 6:30 PM
[2022-05-11 18:37] LABS: Basophils # (auto) 0.09 K/uL (0-0.2); Basophils % (auto) 0.6 %; Eosinophils # (auto) 0.01 K/uL (0-0.50); Eosinophils % (auto) 0.1 %; Immature Granulocytes # (auto) 0.08 K/uL (0.00-0.02); Immature Granulocytes % (auto) 0.5 %; Lymphocytes % (auto) 4.6 %; Monocytes # (auto) 0.54 K/uL (0.24-0.82); Monocytes % (auto) 3.5 %; Neutrophils # (auto) 13.85 K/uL (1.4-6.5); Neutrophils % (auto) 90.7 %
[2022-05-11 18:39] LABS: BUN Creatinine Ratio 17.3 (10-20); Bilirubin Direct 0.1 mg/dl (0-0.2); Bilirubin,Total 0.7 mg/dl (0.2-1.0); Calcium 9.3 mg/dl (8.5-10.1); Creatinine Clr Calc Pharmacy 17.6 ml/min; Est GFR (African American) 22.8 ml/min; Est GFR (Non-African American) 19.6 ml/min; Magnesium 1.9 mg/dl (1.7-2.4); Potassium 4.4 mmol/L (3.5-5.1); Total Protein 6.6 gm/dl (6.0-8.3)
[2022-05-11 19:06] LABS: Troponin I High Sensitivity 22.4 pg/ml (0-14)
[2022-05-11] MEDS ORDERED: FUROSEMIDE 40 MG/4 ML VIAL IV ONE (19:31)
[2022-05-11] MEDS ORDERED: LABETALOL HCL IV 5 MG/ML 20ML IV STA (22:32)
--- NOTE | 2022-05-11 23:39 | History and Physical Report ---
DATE OF ADMISSION: 05/11/2022. CHIEF COMPLAINT: Shortness of breath. 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 As per the daughter and as per the longterm, the patient was feeling weak. Her legs gave away and she was short of breath and oxygen saturation was like in the 80s on room air and her blood pressure was running high and she has low-grade fever of 99.9 and she was brought in here. The ER thought her to be in pulmonary congestion and gave her a dose of Lasix. The patient is currently mostly drowsy. Blood pressure running high in 200s. She can tell her name, she knows that she is in the hospital, but she denies all the complaints. Denies any headache. Denies chest pain. Denies nausea, denies abdominal pain, no diarrhea. As per longterm, no other complaints. Currently on nasal cannula, she is saturating okay. ALLERGIES: PENICILLINS, CODEINE, MELOXICAM, FERROUS FUMARATE. PAST MEDICAL HISTORY: As mentioned above. PAST SURGICAL HISTORY: Cataract surgery, EGD, EGD with endoscopic ultrasound, injection to lumbosacral spine, radical hysterectomy, cholecystectomy, tonsillectomy and adenoidectomy. MEDICATIONS: The patient is on Tylenol 500 mg p.o. q.6 hours p.r.n., aspirin 81 mg p.o. daily, atorvastatin 40 mg p.o. p.m., calcium plus vitamin D one tablet p.o. p.m., chlorthalidone 12.5 mg p.o. a.m., vitamin B12 1000 mcg p.o. daily, felodipine 5 mg p.o. daily, gabapentin 300 mg p.o. t.i.d., guaifenesin 600 mg p.o. b.i.d. p.r.n., hydralazine 50 mg p.o. t.i.d., Imdur 60 mg p.o. daily, lisinopril 40 mg p.o. daily, omeprazole 40 mg p.o. daily. FAMILY HISTORY: Significant for mother had melanoma metastatic cancer, hypertension; father has heart disorder, hypertension; brother has diabetes. SOCIAL HISTORY: , no smoking, no alcohol, no drug use. Currently living at [facility]. REVIEW OF SYSTEMS: As per HPI. Could not get complete review of systems. PHYSICAL EXAMINATION: GENERAL: The patient is old and frail, not in acute distress, somewhat drowsy. VITAL SIGNS: Temperature 37.2, pulse 74, respiratory rate 14, blood pressure 195/78, oxygen 92% on 4 liters. HEENT: Pupils equal, round and reactive to light. Oral mucosa dry. NECK: No JVD. No neck masses. CARDIOVASCULAR: S1 and S2 heard. Regular rate and rhythm. No murmur, no gallop. RESPIRATORY SYSTEM: Normal AP diameter. No accessory muscle use. No wheezing, no crackles. ABDOMEN: Soft, bowel sounds present, nontender, no distention. CENTRAL NERVOUS SYSTEM: Alert and oriented to name and place. Obeys simple commands. No facial droop. Speech is low voice. Moves extremities. EXTREMITIES: Bilateral lower extremity +2 edema present, no erythema seen. LABORATORY DATA: WBC 15.2, hemoglobin 11.7, hematocrit 35.1, platelets 171. PT 10.4, INR 1, APTT 24.2. Venous blood gas; pH of 7.36, pCO2 of 45. Sodium 141, potassium 4.4, chloride 108, bicarbonate 25, BUN 38, creatinine 2.2, serum glucose 157. Lactate 0.8, calcium 9.3, magnesium 1.9, total bilirubin 0.7, direct bilirubin 0.1, AST 13, ALT 12, alkaline phosphatase 62. Troponin I high sensitivity 22.4. BNP 334. Procalcitonin less than 0.015. SARS-CoV-2 PCR negative. Influenza A and B PCR negative. RSV PCR negative. IMAGING: Chest x-ray: No acute chest disease. EKG: Accelerated junctional rhythm, nonspecific ST abnormalities at a rate of 87. ASSESSMENT AND PLAN: This is an 87-year-old female who presents with it looks like the reason for shortness of breath. 1. Shortness of breath requiring oxygen, low-grade fever at longterm, has some leukocytosis. Chest x-ray is okay. We will follow the cultures. We will follow the urinalysis. COVID, influenza and RSV negative. Emergency Room gave her a dose of Lasix for possible congestive heart failure or pulmonary congestion. Empirically starting on doxycycline and Rocephin for any bronchitis. Could be a viral illness. Closely monitor in the med-telemetry. 2. Hypertensive urgency. As per daughter, the patient has difficult to control blood pressure. She is on felodipine, hydralazine, Imdur, and lisinopril. The patient is on chlorthalidone. We will place on IV labetalol p.r.n. Monitor in the telemetry floor. Monitor blood pressure. Consult cardiology to help with blood pressure control. 3. Lower extremity edema, probably could be from the chronic kidney disease. We will also get an echocardiogram. Received a dose of Lasix in the Emergency Room. We will also get lower extremity Dopplers and D-dimer levels. 4. Chronic kidney disease stage IV, creatinine of 2.2, seems to be at baseline. While she is in the hospital, consult with nephrology. Follow the repeat laboratories in the a.m. 5. Gastroesophageal reflux disease, on omeprazole. 6. Diabetes, not on any medication. Place on insulin sliding scale. Follow HbA1c levels. 7. Hyperlipidemia, on statin. 8. Mild vascular dementia. As per daughter, she knows where she is and she is alert and oriented, but sometimes had difficulty with daily activities. We will monitor for any delirium. 9. History of transient ischemic attack, on statin and aspirin. 10. Deep venous thrombosis prophylaxis, IV heparin. Addendum; Lower extremity Doppler came back positive with left lower extremity DVT. Started on iv heparin. DISPOSITION: Closely monitor in the med-tele. PT/OT prior to discharge. Social service to help with discharge planning. Level 1, full code if there is a chance of recovery as per my discussion with the daughter. Job ID: [id number] [facility]
[2022-05-12] MEDS ORDERED: INFLUENZA VACCINE HIGH DOSE PF 65+ 0.7 ML SYR IM ONE (00:04)
[2022-05-12] MEDS ORDERED: LABETALOL HCL IV 5 MG/ML 20ML IV PRN (00:08)
[2022-05-12] MEDS ORDERED: LEVALBUTEROL HCL 0.63 MG/3 ML NEB NEB PRN (00:08)
[2022-05-12] MEDS ORDERED: ACETAMINOPHEN 325 MG TAB PO PRN (00:08)
[2022-05-12] MEDS ORDERED: POLYETHYLENE (MIRALAX) 17 GM PACK PO PRN (00:08)
[2022-05-12] MEDS ORDERED: NITROGLYCERIN SL 0.4 MG/TAB TAB SL PRN (00:08)
[2022-05-12] MEDS ORDERED: guaiFENesin 600 MG TABCR PO PRN (00:08)
[2022-05-12] MEDS: cefTRIAXone SODIUM 1,000 MG in DEXTROSE 5% 50 ML IV SCH (01:03)
[2022-05-12] MEDS: DOXYCYCLINE HYCLATE 100 MG in DEXTROSE 5% 100 ML IV SCH ×2 (01:59→12:51)
[2022-05-12] MEDS ORDERED: Heparin IV Adult Wt-Based Low-Dose WITH Bolus Protocol IV SCH (03:17)
[2022-05-12] MEDS ORDERED: HEPARIN SOD (PORCINE) 1000 UNIT/ML IV ONE ×2 (03:21→10:35)
[2022-05-12] MEDS ORDERED: HEPARIN SODIUM/DEXTROSE 25,000 UNITS/500 ML BAG IV SCH (03:30)
[2022-05-12] MEDS ORDERED: HEPARIN SOD 5,000 UNIT/0.5 ML VIAL SQ SCH (06:00)
[2022-05-12 06:38] LABS: Basophils # (auto) 0.09 K/uL (0-0.2); Basophils % (auto) 0.8 %; Eosinophils # (auto) 0.25 K/uL (0-0.50); Eosinophils % (auto) 2.1 %; Hematocrit (blood only) 34.5 % (34.1-44.9); Hemoglobin 11.1 g/dl (12.0-16.0); Immature Granulocytes # (auto) 0.05 K/uL (0.00-0.02); Immature Granulocytes % (auto) 0.4 %; Lymphocytes # (auto) 1.34 K/uL (1.2-3.4); Lymphocytes % (auto) 11.5 %; Mean Corpuscular Hemoglobin 30.6 pg (25.0-34.0); Mean Corpuscular Hgb Conc 32.2 g/dL (32.0-36.0); Mean Platelet Volume 9.6 fL (9.4-12.3); Monocytes # (auto) 0.62 K/uL (0.24-0.82); Monocytes % (auto) 5.3 %; Neutrophils # (auto) 9.31 K/uL (1.4-6.5); Neutrophils % (auto) 79.9 %; Platelet Count 159 K/uL (130-400); RDW Coefficient of Variation 11.9 % (11.5-14.5); Red Blood Count 3.63 M/uL (3.93-5.22); White Blood Count 11.66 K/ul (4.8-10.8)
--- NOTE | 2022-05-12 06:43 | Ultrasound Report ---
BILATERAL LOWER EXTREMITY VENOUS DOPPLER HISTORY: Acute pain and swelling of the bilateral lower extremities LOWER EXT EDEMA. DVT? COMPARISON STUDY: Doppler study 06/01/2010 FINDINGS: There is normal compressibility, flow, and augmentation within the right lower extremity de ep venous structures. Occlusive thrombus is noted within one of the duplicated left-sided popliteal v eins. The left lower leg veins are suboptimally visualized secondary to patient body habitus. Subcuta neous edema of the lower legs. IMPRESSION: 1. Left lower extremity DVT. 2. No DVT of the right lower extremity. ACT 112: Negative or not required by law. Electronically signed by: Hilton Martinez M.D. 05/12/2022 6:41 AM
[2022-05-12 07:21] LABS: BUN Creatinine Ratio 16.8 (10-20); Calcium 9.1 mg/dl (8.5-10.1); Creatinine Clr Calc Pharmacy 15.9 ml/min; Est GFR (African American) 20.7 ml/min; Est GFR (Non-African American) 17.9 ml/min; Potassium 4.1 mmol/L (3.5-5.1)
[2022-05-12 07:22] LABS: Troponin I High Sensitivity 31.1 pg/ml (0-14)
[2022-05-12 07:24] LABS: D Dimer 1010 ug/L FEU (0-500)
[2022-05-12] MEDS: INSULIN ASPART PER UNIT SC SCH ×4 (08:05→21:40)
[2022-05-12] MEDS: ASPIRIN 81 MG CHEW PO SCH (08:21)
[2022-05-12] MEDS: CHLORTHALIDONE 25 MG TAB PO SCH (08:22)
[2022-05-12] MEDS: CYANOCOBALAMIN (B-12) 500 MCG TABLET PO SCH (08:22)
[2022-05-12] MEDS: FELODIPINE 5 MG TABCR PO SCH (08:23)
[2022-05-12] MEDS: GABAPENTIN 300 MG CAP PO SCH ×2 (08:23→20:59)
[2022-05-12 10:29] LABS: Partial Thromboplastin Ratio 1.2; Partial Thromboplastin Time 33.7 Seconds (21.0-31.0)
[2022-05-12] MEDS ORDERED: HEPARIN IV BOLUS 2,000 UNITS in SYRINGE 0 ML IV ONE (10:45)
--- NOTE | 2022-05-12 11:12 | Electrocardiogram Report ---
Test Reason : Blood Pressure : / mmHG Vent. Rate : 087 BPM Atrial Rate : 089 BPM P-R Int : 000 ms QRS Dur : 084 ms QT Int : 362 ms P-R-T Axes : 000 027 040 degrees QTc Int : 435 ms Probably sinus rhythm Nonspecific ST and T wave abnormality Abnormal ECG When compared with ECG of 19-APR-2019 14:42, Nonspecific T wave abnormality, worse in Lateral leads Confirmed by Bryan Acuña ([id number]) on 05/12/2022 11:12:01 AM Referred By: REFERRED SELF Confirmed By:Shawn Acuña
--- NOTE | 2022-05-12 11:19 | Consultation Report ---
NEPHROLOGY CONSULTATION NOTE DATE OF SERVICE: 05/12/2022. REASON FOR CONSULTATION: Chronic kidney disease with shortness of breath and hypoxia. HISTORY OF PRESENT ILLNESS: The patient is an 87-year-old female who is a resident of [facility] resident with past medical history significant for longstanding diabetes, chron ic kidney disease stage IV with more recent baseline creatinine in the low 2s, diabetic peripheral ne uropathy, hyperlipidemia, hypertension, junctional bradycardia, history of mild mitral regurgitation, history of 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, fibromyalgia and vascular dementia, presented to [facility] yesterday because of shortness of breath, low-grade fever, chills as well as severe gener alized weakness. Daughter felt she was short of breath and her oxygen saturation dropped to 80% on r oom air, and she had a low-grade temperature of 99.9, after which she was brought to the Emergency De partment. In the Emergency Department, she did receive one dose of Lasix for presumed pulmonary krishna estion. Blood pressure has been high at the assisted living as well as in the Emergency Department a nd it is still high. She is currently getting heparin drip for presumptive/rule out DVT/PE. She has already had a duplex of the lower extremity and was positive for the blood clot in the left lower ex tremity. The patient is requiring 3 liters oxygen as of now. Normally, she does not require oxygen. Renal function for now has remained pretty close to baseline with a reading of a creatinine of 2.38 . She is making urine. ALLERGIES: PENICILLIN, CODEINE, MELOXICAM, FERROUS FUMARATE. PAST MEDICAL HISTORY: As mentioned in the HPI. PAST SURGICAL HISTORY: Cataract surgery, EGD, endoscopic ultrasound, lumbosacral spine injection, ra dical hysterectomy, cholecystectomy, tonsillectomy and adenoidectomy. MEDICATIONS: At home was reviewed in detail and is as per the reconciliation list and the H and P. FAMILY HISTORY: Not significant for any renal disease or dialysis. SOCIAL HISTORY: She is . No smoking, no alcohol, no drugs. She is currently a resident of [facility]. REVIEW OF SYSTEMS: As detailed in HPI; unless stated otherwise, 12 systems reviewed and negative. PHYSICAL EXAMINATION: GENERAL: Elderly white female who is awake, alert, oriented x3. She is not in overt respiratory dis tress, although she is requiring 3 liters of oxygen by nasal cannula. VITAL SIGNS: Blood pressure most recently is 171/74, pulse rate 70, temperature 37.4. HEENT: Mucous membrane is moist. NECK: Supple. No jugular venous distention. CHEST: Bilateral decreased breath sounds, occasional crackles. CARDIOVASCULAR: S1 and S2, regular. ABDOMEN: Soft, nontender, slightly obese. EXTREMITIES: Show edema, about 1+ in the left lower extremity and trace in the right. NEUROLOGIC: She is awake, alert and oriented. Normal speech. Moving all 4 extremities. LABORATORY TEST: She had a duplex of the lower extremity, which was positive for left lower extremit y DVT. Chest x-ray was unremarkable. D-dimer was very elevated. Creatinine is 2.38. BUN is 40. S odium, potassium bicarbonate, calcium are normal. Magnesium is normal. Hemoglobin 11.1, WBC count w as elevated at 15,000, platelet count 159,000. Influenza, COVID, RSV negative. ASSESSMENT AND PLAN: An 87-year-old female with multiple medical problems including longstanding abram betkelvin with chronic kidney disease stage IV with baseline creatinine in the low 2s, is now admitted wi th shortness of breath, hypoxia. She was found to have left lower extremity DVT, so at this point, t he presumptive diagnosis is PE causing hypoxia and shortness of breath. I have been consulted for di uretics management given her underlying CKD IV. Chronic kidney disease IV. Current creatinine is very slightly higher than her baseline. This is no t unexpected given acute hemodynamic issues related with possible PE and left lower extremity DVT, wh ich does cause some hypoxia. At this advanced age with underlying CKD, hypoxia is enough to cause so me renal dysfunction. As of now, the rise of creatinine is very minimal, if any. Continue to suppor t hemodynamic status, especially oxygen, and blood pressure. As long as her hemodynamic status and h er oxygen level remains good, we can expect stabilization of the kidney. I would avoid giving contra st agent. At this point, I would empirically assume this is a case of PE. Noninvasive tests like ec hocardiogram and V/Q scan can be done. Cardiology is on board and we will defer to them. No further workup is needed from acute renal failure standpoint unless we see significant rise in her creatinin e in the coming days. Thank you very much for the consult. Job ID: [id number]
--- NOTE | 2022-05-12 11:24 | Cardiology Consultation ---
Date of Consultation May 12, 2022 Assessment & Plan (1) Hypoxia: (2) Elevated troponin I level: (3) Deep vein thrombosis, lower left extremity: (4) Hypertension: (5) Hypertensive urgency: Plan 87-year-old female admitted from [facility] with concern for COVID-like symptoms - shortness of breath, weakness, fatigue, aches, observed hypoxemia. Testing for COVID, influenza, and RSV negative. Chest x-ray clear. Examination with mild volume overload clinically appearing to be secondary to medications (felodipine, hydralazine, gabapentin). History and examination not suggestive of an acute coronary syndrome or systolic dysfunction. Patient may have an element of diastolic heart failure secondary to the longstanding hypertension (chronically requiring five antihypertensive agents). Cardiology consultation requested secondary to hypertensive urgency; blood pressures improving after receiving her typical antihypertensive regimen as well as one dose of IV furosemide and 10 mg IV labetalol on admission. Recommend observation of blood pressure for now, continuing her typical outpatient antihypertensive regimen. Venous duplex notable for left lower extremity DVT with overall clinical presentation concerning for suspected acute pulmonary embolism. Patient prescribed IV heparin, maintaining oxygen saturations with supplemental oxygen at 3 L/min via nasal cannula. Recommend further workup as per Hospitalist. Supervising Physician Co-Signing Physician Notes Patient was seen and personally examined. Evaluation and findings as above. 87-year-old female with longstanding hypertension multiple drug regimen presented with hypertension and dyspnea/hypoxia with clear chest x-ray. Venous duplex consistent with left lower extremity DVT and physical findings and testing suspicious for probable pulmonary embolus as well. Physical exam not notable for acute distress. Blood pressures are trending towards better control. No audible rales or wheeze Echocardiogram demonstrates mild left hypertrophy with normal left ventricular systolic function, aortic sclerosis. Indirect evidence of moderate elevation in pulmonary pressure Issues addressed as follows 1. Longstanding hypertension with elevated blood pressures on presentation. As above would resume prehospital medications. On review patient on hydralazine and isosorbide prehospital not ordered. Hydralazine order will be placed at slightly reduced dosing 25 mg 3 times daily. Will likely need to titrate up and resume isosorbide as clinical course progresses. 2. DVT and likely pulmonary embolus. Would treat as such. Echocardiogram reflects moderate elevation in pulmonary pressures with normal left ventricular systolic function. History of Present Illness Reason for Consultation: Hypertensive Urgency Requesting Physician: Raymundo Attending Physician: Santino History of Present Illness Ms. Fidelia Hidalgo is a very pleasant 87-year-old female who was admitted to [facility] on May 11, 2022 from [facility] with complaints of COVID-like symptoms, feeling achy, fatigued, weakness, short of breath. Mild fall noted by daughter. Daughter Kerline Stacy present for consultation. Hypoxemia observed along with low-grade fever leading to ER evaluation. In the ER the patient received a dose of IV Lasix due to concern for pulmonary congestion. Chest x-ray showed no active chest disease, with clear lungs, no evidence of pleural effusion or pneumothorax. SARS-CoV2 as well as testing for Influenza and RSV were negative. An elevated D-dimer lead to a bilateral lower extremity venous duplex revealing occlusive thrombus within one of the duplicated left-sided popliteal veins. The lower left leg was suboptimally visualized. No right lower extremity DVT observed. Subcutaneous edema noted in both lower extremities. High-sensitivity troponin I mildly elevated 22.4, 31.1, 28.4 pg/mL. EKG was technically limited, appearing to reveal sinus rhythm at 87 bpm, without overt acute ST segment elevated. Continuous telemetry monitoring revealing sinus rhythm predominantly in the 60s; no atrial fibrillation, significant bradycardia, pauses, or high degree heart block observed. Supplemental oxygen corrected with 3 L/min via nasal cannula with attempts at discontinuation revealing ongoing hypoxemia this morning. Creatinine 2.20 on admission, 2.38 this morning. Patient denies pleuritic chest pain, exertional chest pain, palpitations, cough, orthopnea, or PND. Patient with chronic peripheral edema, notably prescribed felodipine, hydralazine, and gabapentin. No dizziness, near syncope, or true syncope. No chills. No night sweats. No new or notable lumps, bumps, bruises, or bleeding. No hemoptysis, melena, hematochezia, or hematuria. No dysuria. No rash. Appetite has been OK. No dysphagia. Past Medical and Surgical History: Longstanding labile hypertension Stage IV chronic kidney disease Vascular dementia History of TIA Type 2 diabetes mellitus with peripheral neuropathy Dyslipidemia Finley's esophagus Fibromyalgia Ischemic bowel disease Chart history of rheumatoid arthritis Nonmelanoma skin cancer Lumbar spinal stenosis Depression Cataract surgery Hysterectomy Cholecystectomy Tonsillectomy and adenoidectomy Family History: Father following a [place]. Mother from liver cancer. Social History: Non-smoker. Rare alcohol. No illegal drug use. Originally from [place], [place]. 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 Resident of [facility]. 1 daughter, Adriana Stacy ) Allergies Allergy/AdvReac Type Severity Reaction Status Date / Time Penicillins Allergy Intermediate RASH - HAS Verified 05/11/22 19:37 TOLERATED ROCEPHIN codeine Allergy Unknown Verified 05/11/22 19:38 meloxicam Allergy Unknown Verified 05/11/22 19:38 ferrous fumarate AdvReac Mild stomach Verified 05/11/22 19:37 upset Home Medications Medication Instructions Recorded Confirmed Type atorvastatin 40 mg tablet 40 mg PO QPM 10/28/18 05/11/22 History gabapentin 300 mg capsule 300 mg PO BID 10/28/18 05/11/22 History isosorbide mononitrate 60 mg 60 mg PO DAILY 10/28/18 05/11/22 History tablet,extended release 24 hr acetaminophen 500 mg capsule 500 mg PO Q6H 05/11/22 05/11/22 History acetaminophen 500 mg tablet 500 mg PO Q6H PRN Pain 05/11/22 05/11/22 History aspirin 81 mg chewable tablet 81 mg PO DAILY 05/11/22 05/11/22 History (Aspirin Childrens) calcium carbonate 600 mg-vitamin 1 tab PO QPM 05/11/22 05/11/22 History D3 10 mcg (400 unit) tablet (Calcium 600 + D(3)) chlorthalidone 25 mg tablet 12.5 mg PO QAM 05/11/22 05/11/22 History cyanocobalamin (vitamin B-12) 1,000 mcg PO DAILY 05/11/22 05/11/22 History 1,000 mcg tablet (Vitamin B-12) felodipine 5 mg tablet,extended 5 mg PO DAILY 05/11/22 05/11/22 History release 24 hr guaifenesin 600 mg tablet, 600 mg PO Q12H PRN Congestion 05/11/22 05/11/22 History extended release 12 hr hydralazine 50 mg tablet 50 mg PO TID 05/11/22 05/11/22 History lisinopril 40 mg tablet 40 mg PO QPM 05/11/22 05/11/22 History omeprazole 40 mg capsule,delayed 40 mg PO DAILY 05/11/22 05/11/22 History release Patient History Medical History (Updated 05/12/22 @ 11:23 by Rom Ayon) Arthritis "RA + osteo per records" Cerebrovascular disease "TIA 2011" Chronic kidney disease (CKD), stage III (moderate) Dementia Diabetes mellitus, type II Dyslipidemia History of ischemic bowel disease "ischemic colitis 2011" History of squamous cell carcinoma of skin Hypertension Peripheral neuropathy Surgical History Status post cholecystectomy Status post hysterectomy Family History Other No pertinent family history Social History Smoking Status: Never smoker Tobacco Type: Cigarettes Hx Alcohol Use: Yes Alcohol type: wine Hx Substance Use: No Preferred Language: [place] Rheumatology Specialist Required: No Beliefs That Will Affect Care: None marital status: Current Living Situation: Personal Care Facility Current Living Situation Comment: lives in an assisted living appartment current occupational status: retired Feels Safe at Home: Yes Safety Concerns: Feels Safe At This Time Assistive Devices: Cane and Walker Review of Systems Review of Systems: Complete Review of Systems is as stated above, negative, or noncontributory. Physical Exam Physical Exam: General: A&Ox3. NAD. HENT: Normocephalic. Atraumatic. Eyes: PER. Conjunctiva pink, sclera clear. Neck: No carotid bruits. No JVD. No HJR. Heart: RRR, 66 bpm. Grade II/ systolic murmur heart best at the lower left sternal border. No rub. Lungs: Clear to auscultation. Abdomen: +BS. Soft. Nontender. No masses or organomegaly. Extremities: Mild nonpitting edema, lymphedematous changes. No clubbing. No cyanosis. Limited neurological examination is without focal deficits. Pulses: radial=2/4, posterior tibial=1/4. Results & Data ([facility]) Vital Signs (Past 12 Hours) Vital Signs Temp Pulse Pulse Resp BP Pulse Ox Pulse Ox 05/12/22 07:15 37.4 C 70 18 171/74 H 98 05/12/22 04:43 70 05/12/22 00:00 05/12/22 03:03 36.8 C 56 L 18 178/72 H 96 05/12/22 00:08 94 05/11/22 23:30 37.1 C 69 17 96 O2 Del Method O2 Del Method O2 Flow Rate O2 Flow Rate 05/12/22 07:15 Nasal Cannula 3 05/12/22 04:43 05/12/22 00:00 Nasal Cannula 05/12/22 03:03 Nasal Cannula 2.0 05/12/22 00:08 Nasal Cannula 3 05/11/22 23:30 Nasal Cannula 2 Laboratory Results Cardiac Enzymes 05/11/22 05/11/22 05/12/22 Range/Units 17:52 17:52 06:13 AST 13 (13-39) U/L Troponin I High Sens 22.4 H 31.1 H (0-14) pg/ml B-Natriuretic Peptide 334 H (0-100) pg/ml 05/12/22 Range/Units 09:56 AST (13-39) U/L Troponin I High Sens 28.4 H (0-14) pg/ml B-Natriuretic Peptide (0-100) pg/ml Coagulation 05/11/22 05/11/22 05/12/22 Range/Units 17:52 17:52 09:56 PT 10.4 (9.0-12.0) Seconds APTT 24.2 33.7 H (21.0-31.0) Seconds B-Natriuretic Peptide 334 H (0-100) pg/ml CBC 05/11/22 05/12/22 Range/Units 17:52 06:13 WBC 15.27 H 11.66 H (4.8-10.8) K/ul RBC 3.72 L 3.63 L (3.93-5.22) M/uL Hgb 11.7 L 11.1 L (12.0-16.0) g/dl Hct 35.1 34.5 (34.1-44.9) % Plt Count 171 159 (130-400) K/uL Neut # (Auto) 13.85 H 9.31 H (1.4-6.5) K/uL Lymph # (Auto) 0.70 L 1.34 (1.2-3.4) K/uL Pike # (Auto) 0.54 0.62 (0.24-0.82) K/uL Eos # (Auto) 0.01 0.25 (0-0.50) K/uL Baso # (Auto) 0.09 0.09 (0-0.2) K/uL Comprehensive Metabolic Panel 05/11/22 05/12/22 Range/Units 17:52 06:13 Sodium 141 142 (136-145) mmol/L Potassium 4.4 4.1 (3.5-5.1) mmol/L Chloride 108 H 106 (98-107) mmol/L Carbon Dioxide 25 28 (21-32) mmol/L BUN 38 H 40 H (6-23) mg/dl Creatinine 2.20 H 2.38 H (0.6-1.2) mg/dl Glucose 157 H 135 H (70-99(Fasting)) mg/dl Calcium 9.3 9.1 (8.5-10.1) mg/dl Direct Bilirubin 0.1 (0-0.2) mg/dl AST 13 (13-39) U/L ALT 12 (7-52) U/L Alkaline Phosphatase 62 (34-104) U/L Total Protein 6.6 (6.0-8.3) gm/dl Albumin 4.0 (3.4-5.0) gm/dl Intake and Output 05/11/22 05/12/22 05/12/22 22:59 06:59 14:59 Intake Total 420 / 420 87.967 / 87.967 Balance 420 / 420 87.967 / 87.967 Intake: IV 170 / 170 87.967 / 87.967 Doxycycline Hyclate 100 mg In 110 / 110 Dextrose 5% 100 ml @ 50 mls/hr IV Q12H RANI Rx#:[id number] Heparin Sodium/Dextrose 25,000 87.967 / 87.967 units In 500 ml @ 700 UNITS/HR 14 mls/hr IV .Q24H RANI Rx#: [id number] cefTRIAXone SODIUM 1,000 mg In 60 / 60 Dextrose 5% 50 ml @ 100 mls/hr IV Q24H RANI Rx#:[id number] Oral 250 / 250 Other: Weight 73.3 kg 70.1 kg Weight Measurement Method Built in [facility] Built in [facility]
--- NOTE | 2022-05-12 12:31 | Hospitalist Progress Note ---
Date of Service May 12, 2022 Assessment & Plan (1) Hypoxia: Plan: - patient with hypoxia in high 80s - continue oxygen supplementation by NC - wean as tolerated - concern for PE given findings of DVT and no signs of pneumonia on CXR or by history - given unclear picture, will continue empiric abx for now - can discontinue if V/Q scan positive - started on heparin ggt for DVT - will continue - V/Q scan to evaluate for PE - no CTA due to CKD - TTE ordered - will likely transition to apixaban once TTE completed - continue on telemetry for now (2) Deep vein thrombosis, lower left extremity: Plan: - started on heparin ggt as above - transition to apixaban pending TTE (3) Chronic kidney disease (CKD), stage III (moderate): Plan: - mild elevation in Cr from baseline likely in setting of likely PE and hypoxia - continue oxygen supplementation while hypoxic - renal consult - monitor UOP - trend Cr - avoid nephrotoxic medications (4) Dementia: Plan: - noted - AAOx3 (5) Dyslipidemia: Plan: - continue statin (6) Diabetes mellitus, type II: Plan: - a1c 10/2021 6.4% - repeat pending - SSI for now - monitor FSG AC+HS - diabetic diet Plan DVT ppx: heparin ggt Code Status: Full Code Dispo: telemetry Quoc De MD [facility] Medicine Admission and Anticipated Discharge Date Admission Date: May 11, 2022 Subjective Patient with DM, CKD, HLD, HTN, vascular dementia, spinal stenosis with walker assistance with ambulation presented with weakness and shortness of breath. Found to have left LE DVT, started on heparin drip. Hypoxia requiring O2 by NC, not in respiratory distress, concern for PE. V/Q scan pending. Renal and cardiology consulted for elevated Cr and HTN. Patient reports feeling better since admission. Denies chest pain, shortness of breath, n/v/d, abdominal pain, leg swelling. Reports did have a small fall but denied hitting her head, LOC, chest pain, palpitations, SOB, light headedness prior to fall. Review of Systems Review of Systems: All systems reviewed & are unremarkable except as noted in Subjective Physical Exam Physical Exam: GENERAL: The patient is old and frail, not in acute distress, somewhat drowsy. HEENT: Pupils equal, round and reactive to light. Oral mucosa dry. NECK: No JVD. No neck masses. CARDIOVASCULAR: S1 and S2 heard. Regular rate and rhythm. No murmur, no gallop. RESPIRATORY SYSTEM: Normal AP diameter. No accessory muscle use. No wheezing, no crackles. ABDOMEN: Soft, bowel sounds present, nontender, no distention. CENTRAL NERVOUS SYSTEM: Alert and oriented to name and place. Obeys simple commands. No facial droop. Speech is low voice. Moves extremities. EXTREMITIES: Bilateral lower extremity with no edema present, no erythema seen. Results & Data Results & Data ([facility]) Vital Signs (Past 12 Hours) Vital Signs Temp Pulse Pulse Resp BP Pulse Ox O2 Del Method 05/12/22 11:23 37.6 C H 59 L 18 134/48 L 96 Nasal Cannula 05/12/22 07:15 37.4 C 70 18 171/74 H 98 Nasal Cannula 05/12/22 04:43 70 05/12/22 03:03 36.8 C 56 L 18 178/72 H 96 Nasal Cannula O2 Flow Rate 05/12/22 11:23 3 05/12/22 07:15 3 05/12/22 04:43 05/12/22 03:03 2.0 Diagnostic Findings Laboratory Results WBC 11.66 K/ul (4.8-10.8) H 05/12/22 06:13 RBC 3.63 M/uL (3.93-5.22) L 05/12/22 06:13 Hgb 11.1 g/dl (12.0-16.0) L 05/12/22 06:13 Hct 34.5 % (34.1-44.9) 05/12/22 06:13 MCV 95.0 fL (80.0-100.0) 05/12/22 06:13 MCH 30.6 pg (25.0-34.0) 05/12/22 06:13 MCHC 32.2 g/dL (32.0-36.0) 05/12/22 06:13 RDW Std Deviation 42.0 fL (36.4-46.3) 05/12/22 06:13 RDW Coeff of Paul 11.9 % (11.5-14.5) 05/12/22 06:13 Plt Count 159 K/uL (130-400) 05/12/22 06:13 MPV 9.6 fL (9.4-12.3) 05/12/22 06:13 Immature Gran % (Auto) 0.4 % 05/12/22 06:13 Neut % (Auto) 79.9 % 05/12/22 06:13 Lymph % (Auto) 11.5 % 05/12/22 06:13 [place] % (Auto) 5.3 % 05/12/22 06:13 Eos % (Auto) 2.1 % 05/12/22 06:13 Baso % (Auto) 0.8 % 05/12/22 06:13 Neut # (Auto) 9.31 K/uL (1.4-6.5) H 05/12/22 06:13 Lymph # (Auto) 1.34 K/uL (1.2-3.4) 05/12/22 06:13 [place] # (Auto) 0.62 K/uL (0.24-0.82) 05/12/22 06:13 Eos # (Auto) 0.25 K/uL (0-0.50) 05/12/22 06:13 Baso # (Auto) 0.09 K/uL (0-0.2) 05/12/22 06:13 Immature Gran # (Auto) 0.05 K/uL (0.00-0.02) H 05/12/22 06:13 PT 10.4 Seconds (9.0-12.0) 05/11/22 17:52 INR 1.0 (0.9-1.1) 05/11/22 17:52 APTT 33.7 Seconds (21.0-31.0) H 05/12/22 09:56 PTT Ratio 1.2 05/12/22 09:56 D-Dimer 1010 ug/L FEU (0-500) H* 05/12/22 06:13 VBG pH 7.36 (7.36-7.41) 05/11/22 17:53 VBG pCO2 45 mmHg (38-50) 05/11/22 17:53 VBG pO2 55 mmHg 05/11/22 17:53 VBG HCO3 25 mmol/L 05/11/22 17:53 VBG O2 Saturation 88.1 % 05/11/22 17:53 VBG Base Excess -0.4 mEq/L 05/11/22 17:53 Sodium 142 mmol/L (136-145) 05/12/22 06:13 Potassium 4.1 mmol/L (3.5-5.1) 05/12/22 06:13 Chloride 106 mmol/L (98-107) 05/12/22 06:13 Carbon Dioxide 28 mmol/L (21-32) 05/12/22 06:13 Anion Gap 8 (3-11) 05/12/22 06:13 BUN 40 mg/dl (6-23) H 05/12/22 06:13 Creatinine 2.38 mg/dl (0.6-1.2) H 05/12/22 06:13 Est Cr Clr Drug Dosing 15.9 ml/min 05/12/22 06:13 Est GFR ( Amer) 20.7 ml/min 05/12/22 06:13 Est GFR (Non-Af Amer) 17.9 ml/min 05/12/22 06:13 BUN/Creatinine Ratio 16.8 (10-20) 05/12/22 06:13 Glucose 135 mg/dl (70-99(Fasting)) H 05/12/22 06:13 POC Glucose 189 mg/dl (70-99) H 05/12/22 11:43 Lactate 0.8 mmol/L (0.4-2.0) 05/11/22 17:52 Calcium 9.1 mg/dl (8.5-10.1) 05/12/22 06:13 Magnesium 2.0 mg/dl (1.7-2.4) 05/12/22 06:13 Total Bilirubin 0.7 mg/dl (0.2-1.0) 05/11/22 17:52 Direct Bilirubin 0.1 mg/dl (0-0.2) 05/11/22 17:52 AST 13 U/L (13-39) 05/11/22 17:52 ALT 12 U/L (7-52) 05/11/22 17:52 Alkaline Phosphatase 62 U/L (34-104) 05/11/22 17:52 Troponin I High Sens 28.4 pg/ml (0-14) H 05/12/22 09:56 B-Natriuretic Peptide 334 pg/ml (0-100) H 05/11/22 17:52 Total Protein 6.6 gm/dl (6.0-8.3) 05/11/22 17:52 Albumin 4.0 gm/dl (3.4-5.0) 05/11/22 17:52 Procalcitonin < 0.05 ng/ml (0-0.5) 05/11/22 17:52 SARS-CoV-2 (PCR) NEGATIVE (Negative) 05/11/22 17:30 Influenza Type A (PCR) Negative (Neg) 05/11/22 17:30 Influenza Type B (PCR) Negative (Neg) 05/11/22 17:30 RSV (RT-PCR) Negative (Neg) 05/11/22 17:30 Impressions Chest X-Ray 05/11/22 16:59 XR chest 1V portable CLINICAL HISTORY: Sepsis TECHNIQUE: Single frontal radiograph of the chest was obtained. Comparison: Comparison is made to chest radiograph 04/19/2019 FINDINGS: No lines and tubes are seen. Calcified aortic knob is seen. The lungs are clear. No evidence of pleural effusion or pneumothorax. IMPRESSION: No acute chest disease. ACT 112: Negative or not required by law. Electronically signed by: Clinton Pat M.D. 05/11/2022 6:30 PM Venous Doppler Study 05/12/22 00:08 BILATERAL LOWER EXTREMITY VENOUS DOPPLER HISTORY: Acute pain and swelling of the bilateral lower extremities LOWER EXT EDEMA. DVT? COMPARISON STUDY: Doppler study 06/01/2010 FINDINGS: There is normal compressibility, flow, and augmentation within the right lower extremity deep venous structures. Occlusive thrombus is noted within one of the duplicated left-sided popliteal veins. The left lower leg veins are suboptimally visualized secondary to patient body habitus. Subcutaneous edema of the lower legs. IMPRESSION: 1. Left lower extremity DVT. 2. No DVT of the right lower extremity. ACT 112: Negative or not required by law. Electronically signed by: Hilton Martinez M.D. 05/12/2022 6:41 AM Medications Administered Current Inpatient Medications Acetaminophen (Acetaminophen 325 Mg Tab) 650 mg PO Q4H PRN PRN Reason: Pain or Fever Stop: 06/11/22 00:07 Aspirin (Aspirin 81 Mg Chew) 81 mg PO DAILY RANI Stop: 06/11/22 08:59 Last Admin: 05/12/22 08:21 Dose: 81 mg Atorvastatin Calcium (Atorvastatin 40 Mg Tab) 40 mg PO QPM RANI Stop: 06/11/22 20:59 Calcium/Vitamin D (Calcium 600mg + Vit D 400 Iu Tab) 1 tab PO QPM RANI Stop: 06/11/22 20:59 Chlorthalidone (Chlorthalidone 25 Mg Tab) 12.5 mg PO QAM RANI Stop: 06/11/22 08:59 Last Admin: 05/12/22 08:22 Dose: 12.5 mg Cyanocobalamin (Cyanocobalamin (B-12) 500 Mcg Tablet) 1,000 mcg PO DAILY RANI Stop: 06/11/22 08:59 Last Admin: 05/12/22 08:22 Dose: 1,000 mcg Felodipine (Felodipine 5 Mg Tabcr) 5 mg PO DAILY RANI Stop: 06/11/22 08:59 Last Admin: 05/12/22 08:23 Dose: 5 mg Gabapentin (Gabapentin 300 Mg Cap) 300 mg PO BID RANI Stop: 06/11/22 08:59 Last Admin: 05/12/22 08:23 Dose: 300 mg Guaifenesin (Guaifenesin 600 Mg Tabcr) 600 mg PO Q12H PRN PRN Reason: Congestion Stop: 06/11/22 00:07 Doxycycline Hyclate 100 mg/ (Dextrose) 110 mls @ 50 mls/hr IV Q12H [facility] Stop: 05/19/22 00:59 Last Infusion: 05/12/22 04:33 Dose: Infused Ceftriaxone Sodium 1,000 mg/ (Dextrose) 60 mls @ 100 mls/hr IV Q24H [facility]; Protocol Stop: 05/19/22 00:29 Last Infusion: 05/12/22 02:03 Dose: Infused Heparin Sodium/Dextrose (Heparin Sodium/Dextrose) 25,000 units in 500 mls @ 16 mls/hr IV .Q24H [facility]; Protocol Stop: 06/11/22 03:29 Last Titration: 05/12/22 10:34 Dose: 800 units/hr, 16 mls/hr Insulin Aspart (Insulin Aspart Per Unit) 0 units SC ACHS [facility] Stop: 06/11/22 07:29 Last Admin: 05/12/22 08:05 Dose: Not Given Labetalol HCl (Labetalol Hcl Iv 5 Mg/Ml 20ml) 10 mg IV Q4H PRN PRN Reason: Hypertension Stop: 06/11/22 00:07 Levalbuterol HCl (Levalbuterol Hcl 0.63 Mg/3 Ml Neb) 0.63 mg NEB Q4H PRN; Protocol PRN Reason: Shortness Of Breath Or Wheezing Stop: 06/11/22 00:07 Nitroglycerin (Nitroglycerin Sl 0.4 Mg/Tab Tab) 0.4 mg SL Q5M PRN PRN Reason: Chest Pain Stop: 06/11/22 00:07 Polyethylene Glycol (Polyethylene (Miralax) 17 Gm Pack) 17 gm PO DAILY PRN PRN Reason: Constipation Stop: 06/11/22 00:07
[2022-05-12 13:55] LABS: Estimated Average Glucose 151 mg/dl; Hemoglobin A1C 6.9 % (4.5-5.6)
--- NOTE | 2022-05-12 15:02 | Nuclear Medicine Report ---
NM pul perfusion CLINICAL HISTORY: eval for PE Technique: Perfusion imaging was performed in multiple projections after the intravenous injection of 5.4 mCi of Tc-99m labeled macroaggregated albumin (MAA). Comparison: None available at the time of this dictation. FINDINGS/IMPRESSION: Homogeneous perfusion was seen bilaterally. Low probability of pulmonary emboli sm. ACT 112: Negative or not required by law. Electronically signed by: Clinton Pat M.D. 05/12/2022 3:01 PM
[2022-05-12 17:29] LABS: Partial Thromboplastin Time 56.3 Seconds (21.0-31.0)
[2022-05-12] MEDS: hydrALAZINE HCL 25 MG TAB PO SCH (20:59)
[2022-05-12] MEDS: ATORVASTATIN 40 MG TAB PO SCH (20:59)
[2022-05-12] MEDS: CALCIUM 600MG + VIT D 400 IU TAB PO SCH (20:59)
[2022-05-12] MEDS: APIXABAN 5 MG TABLET PO SCH (20:59)
[2022-05-13] MEDS: cefTRIAXone SODIUM 1,000 MG in DEXTROSE 5% 50 ML IV SCH ×2 (01:02→22:45)
[2022-05-13] MEDS: DOXYCYCLINE HYCLATE 100 MG in DEXTROSE 5% 100 ML IV SCH (01:40)
[2022-05-13 03:00] LABS: Appearance Urine Clear (Clear); Bacteria Urine Automated Negative (Negative); Bilirubin Urine Negative (Negative); Blood Urine Negative (Negative); Color Urine Yellow; Epithelial Cell Urine Auto >30 /lpf (0-5); Glucose Urine UA Negative (Negative); Ketones Urine Negative (Negative); Leukocyte Esterase Urine Trace (Negative); Nitrite Urine Negative (Negative); Protein Urine 3+ (Negative); Specific Gravity Urine 1.014 (1.000-1.030); Urobilinogen Urine Negative (Negative); pH Urine 6.5 (4.5-7.5)
[2022-05-13 06:11] LABS: Basophils # (auto) 0.08 K/uL (0-0.2); Basophils % (auto) 1.2 %; Eosinophils # (auto) 0.33 K/uL (0-0.50); Eosinophils % (auto) 4.9 %; Hematocrit (blood only) 30.7 % (34.1-44.9); Hemoglobin 9.7 g/dl (12.0-16.0); Immature Granulocytes # (auto) 0.02 K/uL (0.00-0.02); Immature Granulocytes % (auto) 0.3 %; Lymphocytes # (auto) 1.34 K/uL (1.2-3.4); Mean Corpuscular Hemoglobin 30.5 pg (25.0-34.0); Mean Corpuscular Hgb Conc 31.6 g/dL (32.0-36.0); Mean Corpuscular Volume 96.5 fL (80.0-100.0); Mean Platelet Volume 9.9 fL (9.4-12.3); Monocytes % (auto) 10.5 %; Neutrophils # (auto) 4.22 K/uL (1.4-6.5); Neutrophils % (auto) 63.1 %; Platelet Count 135 K/uL (130-400); RDW Standard Deviation 42.3 fL (36.4-46.3); Red Blood Count 3.18 M/uL (3.93-5.22); White Blood Count 6.69 K/ul (4.8-10.8)
[2022-05-13 06:20] LABS: Partial Thromboplastin Time 27.5 Seconds (21.0-31.0)
[2022-05-13 07:10] LABS: Albumin Globulin Ratio 1.5 (0.9-2); Albumin Level 3.3 gm/dl (3.4-5.0); BUN Creatinine Ratio 18.1 (10-20); Bilirubin,Total 0.4 mg/dl (0.2-1.0); Calcium 8.6 mg/dl (8.5-10.1); Creatinine Clr Calc Pharmacy 16.6 ml/min; Globulin 2.2 gm/dl (2.5-4.0); Magnesium 1.9 mg/dl (1.7-2.4); Phosphorus 4.3 mg/dl (2.5-4.9); Potassium 4.4 mmol/L (3.5-5.1); Total Protein 5.5 gm/dl (6.0-8.3)
[2022-05-13] MEDS: GABAPENTIN 300 MG CAP PO SCH ×2 (08:00→22:44)
[2022-05-13] MEDS: CYANOCOBALAMIN (B-12) 500 MCG TABLET PO SCH (08:00)
[2022-05-13] MEDS: hydrALAZINE HCL 25 MG TAB PO SCH ×3 (08:00→22:44)
[2022-05-13] MEDS: ASPIRIN 81 MG CHEW PO SCH (08:00)
[2022-05-13] MEDS: CHLORTHALIDONE 25 MG TAB PO SCH (08:00)
[2022-05-13] MEDS: FELODIPINE 5 MG TABCR PO SCH (08:01)
[2022-05-13] MEDS: APIXABAN 5 MG TABLET PO SCH ×2 (08:01→22:44)
[2022-05-13] MEDS: INSULIN ASPART PER UNIT SC SCH ×4 (08:06→22:22)
--- NOTE | 2022-05-13 09:32 | Nephrology Progress Note ---
Date of Service May 13, 2022 Assessment & Plan Admission and Anticipated Discharge Date Admission Date: May 11, 2022 Subjective S----Still on 2 lit o2. making urine. BP somewhat lower than yesterday. No new issues, PHYSICAL EXAMINATION: GENERAL: Elderly white female who is awake, alert, oriented x3. She is not in overt respiratory distress, although she is requiring 3 liters of oxygen by nasal cannula. HEENT: Mucous membrane is moist. NECK: Supple. No jugular venous distention. CHEST: Bilateral decreased breath sounds, occasional crackles. CARDIOVASCULAR: S1 and S2, regular. ABDOMEN: Soft, nontender, slightly obese. EXTREMITIES: Show edema, about 1+ in the left lower extremity and trace in the right. NEUROLOGIC: She is awake, alert and oriented. Normal speech. Moving all 4 extremities. LABORATORY TEST: She had a duplex of the lower extremity, which was positive for left lower extremity DVT. Chest x-ray was unremarkable. D-dimer was very elevated. Creatinine down a bit today. Sodium, potassium bicarbonate, calcium are normal. Magnesium is normal. ASSESSMENT AND PLAN: An 87-year-old female with multiple medical problems including longstanding diabetes with chronic kidney disease stage IV with baseline creatinine in the low 2s, is now admitted with shortness of breath, hypoxia. She was found to have left lower extremity DVT, so at this point, the presumptive diagnosis is PE causing hypoxia and shortness of breath. I have been consulted for diuretics management given her underlying CKD IV. Chronic kidney disease IV with Slight AMARIS in the setting OF Hypoxia, DVT/ ? PE--- Admission creatinine is very slightly higher than her baseline. This is not unexpected given acute hemodynamic issues related with possible PE and left lower extremity DVT, which does cause some hypoxia. At this advanced age with underlying CKD, hypoxia is enough to cause some renal dysfunction. As of now, the rise of creatinine is very minimal, if any. Continue to support hemodynamic status, especially oxygen, and blood pressure. As long as her hemodynamic status and her oxygen level remains good, we can expect stabilization of the kidney. I would avoid giving contrast agent. At this point, I would empirically assume this is a case of PE. Noninvasive tests like echocardiogram and V/Q scan can be done. Cardiology is on board and we will defer to them. No further workup is needed from acute renal failure standpoint unless we see significant rise in her creatinine in the coming days. Creat is down a bit today . Continue same. Results & Data ([facility]) Vital Signs (Past 12 Hours) Vital Signs Temp Pulse Pulse Resp BP BP Pulse Ox 05/13/22 07:44 144/93 H 05/13/22 07:32 37.5 C 55 L 18 145/71 H 99 05/13/22 07:00 50 L 05/12/22 22:10 52 L 05/13/22 04:06 36.9 C 53 L 18 145/71 H 98 05/13/22 00:08 05/13/22 00:03 36.8 C 51 L 18 169/62 H 99 Pulse Ox O2 Del Method O2 Del Method O2 Flow Rate O2 Flow Rate 05/13/22 07:44 05/13/22 07:32 05/13/22 07:00 05/12/22 22:10 05/13/22 04:06 Nasal Cannula 2.0 05/13/22 00:08 99 Nasal Cannula 3.5 05/13/22 00:03 Nasal Cannula 3.5
--- NOTE | 2022-05-13 10:22 | Cardiology Progress Note ---
Date of Service May 13, 2022 Assessment & Plan (1) Hypoxia: (2) Elevated troponin I level: (3) Deep vein thrombosis, lower left extremity: (4) Hypertension: (5) Hypertensive urgency: Plan 87-year-old female admitted from [facility] with concern for COVID-like symptoms - shortness of breath, weakness, fatigue, aches, observed hypoxemia. Testing for COVID, influenza, and RSV negative. Chest x-ray clear. Examination with mild volume overload clinically appearing to be secondary to medications (felodipine, hydralazine, gabapentin). History and examination not suggestive of an acute coronary syndrome or systolic dysfunction. Patient may have an element of diastolic heart failure secondary to the longstanding hypertension (chronically requiring five antihypertensive agents). Cardiology consultation requested secondary to hypertensive urgency. Blood pressures have improved since presentation. Recommend resumption of isosorbide at 30 mg/day. There is room to increase hydralazine if/when needed. Venous duplex notable for left lower extremity DVT with overall clinical presentation concerning for suspected acute pulmonary embolism despite pulmonary perfusion imaging findings of low probability of pulmonary embolism. Echocardiogram this admission with moderate elevation in pulmonary pressures, preserved left ventricular systolic function. Admission and Anticipated Discharge Date Admission Date: May 11, 2022 Supervising Physician Co-Signing Physician Notes Patient chart and patient examined assessment as above. No acute cardiac complaints. Chest x-ray on admission without signs or symptoms of heart failure exam not consistent with such. Hydralazine resumed at reduced dose as well as isosorbide mononitrate would continue as above Subjective Patient seen and examined. Chart, medications, and telemetry reviewed. Lone complaint voiced is that of epistaxis when blowing her nose. No chest pain, palpitations, unusual shortness of breath, orthopnea, PND, dizziness, near syncope, hemoptysis, melena, hematochezia, or hematuria. Telemetry: Sinus/sinus bradycardia with heart rates predominantly in the 50s and 60s. PVCs in a pattern of bigeminy observed overnight, asymptomatic. May 12, 2022 TTE interpretation summary ([facility], Dr. Granados): Normal size LV. Mild concentric LVH. Normal LV wall motion. Ejection fraction 55 to 60%. Normal RV wall thickness. Aortic valve sclerosis without significant aortic valve stenosis. Trace tricuspid regurgitation. RVSP 40 to 50 mmHg. Review of Systems Review of Systems: Complete Review of Systems is as stated above, negative, or noncontributory. Physical Exam Physical Exam: General: A&Ox3. NAD. HENT: Normocephalic. Atraumatic. Eyes: PER. Conjunctiva pink, sclera clear. Neck: No carotid bruits. No JVD. No HJR. Heart: RRR, 60 bpm. Grade II/ systolic murmur heart best at the lower left sternal border. No rub. Lungs: Clear to auscultation. Abdomen: +BS. Soft. Nontender. No masses or organomegaly. Extremities: Mild nonpitting edema, lymphedematous changes. No clubbing. No cyanosis. Limited neurological examination is without focal deficits. Pulses: radial=2/4, posterior tibial=1/4. Results & Data ([facility]) Vital Signs (Past 12 Hours) Vital Signs Temp Pulse Pulse Resp BP BP Pulse Ox 05/13/22 08:00 05/13/22 07:44 144/93 H 05/13/22 07:32 37.5 C 55 L 18 145/71 H 99 05/13/22 07:00 50 L 05/13/22 04:06 36.9 C 53 L 18 145/71 H 98 05/13/22 00:08 05/13/22 00:03 36.8 C 51 L 18 169/62 H 99 Pulse Ox O2 Del Method O2 Del Method O2 Flow Rate O2 Flow Rate 05/13/22 08:00 Nasal Cannula 2 05/13/22 07:44 05/13/22 07:32 05/13/22 07:00 05/13/22 04:06 Nasal Cannula 2.0 05/13/22 00:08 99 Nasal Cannula 3.5 05/13/22 00:03 Nasal Cannula 3.5 Laboratory Results Cardiac Enzymes 05/12/22 05/13/22 Range/Units 09:56 05:34 AST 13 (13-39) U/L Troponin I High Sens 28.4 H (0-14) pg/ml Coagulation 05/12/22 05/12/22 05/13/22 Range/Units 09:56 16:43 05:34 APTT 33.7 H 56.3 H* 27.5 (21.0-31.0) Seconds CBC 05/13/22 Range/Units 05:34 WBC 6.69 (4.8-10.8) K/ul RBC 3.18 L (3.93-5.22) M/uL Hgb 9.7 L (12.0-16.0) g/dl Hct 30.7 L (34.1-44.9) % Plt Count 135 (130-400) K/uL Neut # (Auto) 4.22 (1.4-6.5) K/uL Lymph # (Auto) 1.34 (1.2-3.4) K/uL Stokes # (Auto) 0.70 (0.24-0.82) K/uL Eos # (Auto) 0.33 (0-0.50) K/uL Baso # (Auto) 0.08 (0-0.2) K/uL Comprehensive Metabolic Panel 05/13/22 Range/Units 05:34 Sodium 141 (136-145) mmol/L Potassium 4.4 (3.5-5.1) mmol/L Chloride 109 H (98-107) mmol/L Carbon Dioxide 27 (21-32) mmol/L BUN 41 H (6-23) mg/dl Creatinine 2.26 H (0.6-1.2) mg/dl Glucose 116 H (70-99(Fasting)) mg/dl Calcium 8.6 (8.5-10.1) mg/dl AST 13 (13-39) U/L ALT 10 (7-52) U/L Alkaline Phosphatase 45 (34-104) U/L Total Protein 5.5 L (6.0-8.3) gm/dl Albumin 3.3 L (3.4-5.0) gm/dl Intake and Output 05/12/22 05/13/22 05/13/22 22:59 06:59 14:59 Intake Total 298.933 / 740.900 354 / 740.900 Output Total 201 / 251 50 / 251 100 / 100 Balance 97.933 / 489.900 304 / 489.900 -100 / -100 Intake: IV 248.933 / 690.900 354 / 690.900 Doxycycline Hyclate 100 mg In 110 / 220 110 / 220 Dextrose 5% 100 ml @ 50 mls/hr IV Q12H [facility] Rx#:[id number] Heparin Sodium/Dextrose 25,000 138.933 / 410.900 184 / 410.900 units In 500 ml @ 800 UNITS/HR 16 mls/hr IV .Q24H [facility] Rx#: [id number] cefTRIAXone SODIUM 1,000 mg In 60 / 60 Dextrose 5% 50 ml @ 100 mls/hr IV Q24H [facility] Rx#:[id number] Oral 50 / 50 Output: Urine 200 / 250 50 / 250 100 / 100 # Bowel Movements / Other: # Unmeasured Voids 1 Weight 68.9 kg Weight Measurement Method Standing Scale
[2022-05-13] MEDS: ISOSORBIDE MONO EXTENDED REL 30 MG TABCR PO SCH (10:57)
--- NOTE | 2022-05-13 11:08 | CT Scan Report ---
CT chest diagnostic wo con CT DOSE: 213.97 mGy.cm HISTORY: hypoxia TECHNIQUE: Multiaxial CT images of the chest were performed without contrast. A dose lowering techni que was utilized adhering to the principles of ALARA. COMPARISON: None. FINDINGS: There is mild respiratory motion artifact. Moderate diffuse bronchial wall thickening. Part ial opacification of a few the bibasilar bronchi. There is moderate focal narrowing within the bronch us intermedius likely due to secretions. There are trace secretions within the left mainstem bronchus . Scattered punctate calcified granuloma within the lungs. There are few scattered tree-in-bud nodula r opacities within the lungs. There are few scattered subcentimeter indeterminate pulmonary nodules w ith the largest in the right lower lobe on image 138 measuring 3 mm. These are of doubtful clinical s ignificance given the patient's age. No focal lung consolidations. No pneumothorax. The visualized li nasreen, spleen, and adrenal glands are unremarkable. Partially visualized right renal hypodense lesions. Questionable dilatation of the main pancreatic duct may be artifactual. This is only partially visua lized on this study. Normal esophagus. The heart is normal in size. Normal caliber thoracic aorta. No pleural or pericardial effusions. Small hiatus hernia is noted. There are few prominent AP window ly mph nodes measuring up to 12 mm in short axis diameter. There are few prominent bilateral hilar lymph nodes measuring up to 9 mm in short axis diameter. IMPRESSION: 1. Moderate diffuse bronchial wall thickening with a small amount of tracheal/bronchial secretions an d a few scattered tree-in-bud nodular opacities. This is nonspecific but could be due to a chronic br onchitis and/or mild infectious bronchiolitis. 2. No focal lung consolidations identified. 3. A few prominent mediastinal and bilateral hilar lymph nodes. These may be reactive. 4. Questionable dilatation of the main pancreatic duct which may be artifactual. This is only partial ly visualized on this study. Consider follow-up abdominal ultrasound for further evaluation. ACT 112: Negative or not required by law. Electronically signed by: Clement Carson M.D. 05/13/2022 11:07 AM
[2022-05-13] MEDS ORDERED: OXYMETAZOLINE 0.05% 30 ML BTL ONE (12:00)
--- NOTE | 2022-05-13 12:12 | Hospitalist Progress Note ---
Date of Service May 13, 2022 Assessment & Plan (1) Hypoxia: Plan: Secondary to acute bronchitis Pulmonary embolism ruled out COVID-19 PUI - patient with hypoxia in high 80s - continue oxygen supplementation by UT - wean as tolerated - concern for PE given findings of DVT and no signs of pneumonia on CXR or by history - given unclear picture, will continue empiric abx for now - can discontinue if V/Q scan positive - started on heparin ggt for DVT - will continue - V/Q scan to evaluate for PE -negative 05/13 Weaned off oxygen Continue ceftriaxone plus doxycycline And hypertonic saline twice daily Ask incentive spirometry, flutter valve Add Mucinex Discussed with infection control committee, patient exhibiting signs and symptoms of COVID-19 infection, outbreak of COVID-19 in [facility] reported by daughter Will place patient under isolation, repeat COVID test on May 15 Acute on chronic diastolic (congestive) heart failure, resolved -Lasix given Hold chlorthalidone for now in light of patient's creatinine level Repeat in the morning (2) Deep vein thrombosis, lower left extremity: Plan: - started on heparin ggt as above -Transitioned to Eliquis (3) Chronic kidney disease (CKD), stage III (moderate): Plan: - mild elevation in Cr from baseline likely in setting of likely PE and hypoxia - renal consult - monitor UOP - avoid nephrotoxic medications Monitor creatinine (4) Dementia: Plan: - noted - AAOx2 (5) Dyslipidemia: Plan: - continue statin (6) Diabetes mellitus, type II: Plan: - a1c 10/2021 6.4% -A1c 6.9 - SSI for now - monitor FSG AC+HS - diabetic diet BSG 113, 151 Plan DVT ppx: heparin ggt Code Status: Full Code Dispo: Pending PT and OT evaluation plan of care discussed with patient and her daughter Kerline over the phone in detail and at length all questions answered They are understanding, agreeable, comfortable with the plan of care Admission and Anticipated Discharge Date Admission Date: May 11, 2022 Subjective Follow-up for hypoxia, left lower extremity DVT, etc. Seen sitting up in bedside chair, comfortable, in good spirits Mostly oriented, answering all questions mostly appropriate States she feels improved compared to admission Still having some cough, nonproductive No chest pain, hemoptysis No leg pain No other symptoms Review of Systems Review of Systems: all noted and negative except for above Physical Exam 2 Physical Exam: General- oriented x 2, not in distress, speaks in sentences with no effort or accessory muscle use Eyes- anicteric Neck- no JVD Lungs-mild rhonchi bilaterally, no wheezing Heart- normal rate, regular rhythm; no murmurs Abdomen- normal bowel sounds, nondistended, soft, nontender Extremities- no pretibial edema, no calf tenderness Neuro- alert, oriented x 2; no gross focal neurologic deficits Skin- warm & dry Results & Data Results & Data ([facility]) Vital Signs (Past 12 Hours) Vital Signs Temp Pulse Pulse Resp BP BP Pulse Ox 05/13/22 11:27 05/13/22 10:39 68 05/13/22 10:15 36.8 C 72 18 192/68 H 95 05/13/22 08:00 05/13/22 07:44 144/93 H 05/13/22 07:32 37.5 C 55 L 18 145/71 H 99 05/13/22 07:00 50 L 05/13/22 04:06 36.9 C 53 L 18 145/71 H 98 O2 Del Method O2 Flow Rate 05/13/22 11:27 Room Air 05/13/22 10:39 05/13/22 10:15 05/13/22 08:00 Nasal Cannula 2 05/13/22 07:44 05/13/22 07:32 05/13/22 07:00 05/13/22 04:06 Nasal Cannula 2.0 all noted and reviewed including below
[2022-05-13] MEDS: SODIUM CHLOR 7% 4 ML NEB NEB SCH ×2 (12:17→19:26)
[2022-05-13] MEDS: DOXYCYCLINE HYCLATE 100 MG CAP PO SCH ×2 (13:15→22:44)
[2022-05-13] MEDS: CALCIUM 600MG + VIT D 400 IU TAB PO SCH (22:44)
[2022-05-13] MEDS: ATORVASTATIN 40 MG TAB PO SCH (22:45)
[2022-05-14] MEDS: SODIUM CHLOR 7% 4 ML NEB NEB SCH ×2 (06:02→19:25)
[2022-05-14] MEDS: CYANOCOBALAMIN (B-12) 500 MCG TABLET PO SCH (08:13)
[2022-05-14] MEDS: ISOSORBIDE MONO EXTENDED REL 30 MG TABCR PO SCH (08:13)
[2022-05-14] MEDS: DOXYCYCLINE HYCLATE 100 MG CAP PO SCH ×2 (08:14→20:54)
[2022-05-14] MEDS: FELODIPINE 5 MG TABCR PO SCH (08:14)
[2022-05-14] MEDS: hydrALAZINE HCL 25 MG TAB PO SCH (08:15)
[2022-05-14] MEDS: GABAPENTIN 300 MG CAP PO SCH ×2 (08:15→20:54)
[2022-05-14] MEDS: APIXABAN 5 MG TABLET PO SCH ×2 (08:15→20:55)
[2022-05-14] MEDS: INSULIN ASPART PER UNIT SC SCH ×4 (08:39→20:38)
[2022-05-14] MEDS ORDERED: ISOSORBIDE MONO EXTENDED REL 30 MG TABCR PO ONE (10:45)
--- NOTE | 2022-05-14 10:48 | Cardiology Progress Note ---
Date of Service May 14, 2022 Assessment & Plan (1) Hypoxia: (2) Elevated troponin I level: (3) Deep vein thrombosis, lower left extremity: (4) Hypertension: (5) Hypertensive urgency: Plan 87-year-old female admitted from [facility] with concern for COVID-like symptoms. Initial COVID testing negative with repeat testing scheduled for 05/15/2022. Cardiology consultation requested secondary to hypertensive urgency in a patient with known longstanding labile hypertension requiring five antihypertensive drug regimen chronically. Blood pressures have improved with resumption of patient's outpatient antihypertensive drugs with hydralazine and isosorbide dosing reduced as compared to prior to arrival dosages. Would resume prior dosing of isosorbide of 60 mg/day prior to titration of hydralazine if/when needed. Venous duplex notable for left lower extremity DVT with overall clinical presentation concerning for suspected acute pulmonary embolism despite pulmonary perfusion imaging findings of low probability of pulmonary embolism. Echocardiogram this admission with moderate elevation in pulmonary pressures, preserved left ventricular systolic function. Telemetry remains benign. Please contact with further questions or concerns. Admission and Anticipated Discharge Date Admission Date: May 11, 2022 Supervising Physician Co-Signing Physician Notes Chart and management will be reviewed. Assessment as above. Medications increased to prehospital dosings of hydralazine and isosorbide. Patient appropriately anticoagulated Would consider formal nocturnal oximetry given transient hypoxia noted Subjective Patient seen and examined in Room 280 while in full PPE - patient under isolation, scheduled for repeat COVID testing on May 15. Chart, medications, and telemetry reviewed. No complaints or concerns. + Cough, productive of phlegm observed. No chest pain, palpitations, shortness of breath, orthopnea, PND, dizziness, near syncope, hemoptysis, melena, hematochezia, or hematuria. Telemetry: Sinus/sinus bradycardia with heart rates predominantly in the 50s and 60s. May 12, 2022 TTE interpretation summary ([facility], Dr. Granados): Normal size LV. Mild concentric LVH. Normal LV wall motion. Ejection fraction 55 to 60%. Normal RV wall thickness. Aortic valve sclerosis without significant aortic valve stenosis. Trace tricuspid regurgitation. RVSP 40 to 50 mmHg. Review of Systems Review of Systems: Complete Review of Systems is as stated above, negative, or noncontributory. Physical Exam Physical Exam: General: A&Ox3. NAD. HENT: Normocephalic. Atraumatic. Eyes: PER. Conjunctiva pink, sclera clear. Neck: No carotid bruits. No JVD. No HJR. Heart: RRR, 60 bpm. Grade II/ systolic murmur heart best at the lower left sternal border. No rub. Lungs: Decreased. Diminished. Scattered expiratory wheeze. Diffuse rhonchi that improve post cough. Abdomen: +BS. Soft. Nontender. No masses or organomegaly. Extremities: Lymphedematous changes. No clubbing. No cyanosis. Limited neurological examination is without focal deficits. Pulses: radial=2/4, posterior tibial=1/4. Results & Data ([facility]) Vital Signs (Past 12 Hours) Vital Signs Temp Pulse Pulse Resp BP BP Pulse Ox 05/14/22 08:30 05/14/22 07:00 37.1 C 64 18 168/70 H 93 05/14/22 07:18 67 05/14/22 07:07 76 05/14/22 06:03 71 18 89 L 05/14/22 03:43 37.4 C 67 18 169/70 H 90 05/13/22 23:58 189/73 H O2 Del Method 05/14/22 08:30 Room Air 05/14/22 07:00 Room Air 05/14/22 07:18 05/14/22 07:07 05/14/22 06:03 Room Air 05/14/22 03:43 Room Air 05/13/22 23:58 Laboratory Results Intake and Output 05/13/22 05/14/22 05/14/22 22:59 06:59 14:59 Intake Total 150 / 600 210 / 600 Balance 150 / 500 210 / 500 Intake: IV 60 / 60 cefTRIAXone SODIUM 1,000 mg In 60 / 60 Dextrose 5% 50 ml @ 100 mls/hr IV Q24H [facility] Rx#:[id number] Oral 150 / 540 150 / 540 Other: # Unmeasured Voids 2 Weight 70.5 kg Weight Measurement Method Built in [facility]
[2022-05-14] MEDS: hydrALAZINE TAB 50 MG TAB PO SCH ×2 (13:12→20:53)
--- NOTE | 2022-05-14 14:52 | Hospitalist Progress Note ---
Date of Service May 14, 2022 Assessment & Plan (1) Hypoxia: Plan: Secondary to acute bronchitis Pulmonary embolism ruled out COVID-19 PUI - patient with hypoxia in high 80s - continue oxygen supplementation by [place] - wean as tolerated - concern for PE given findings of DVT and no signs of pneumonia on CXR or by history - given unclear picture, will continue empiric abx for now - can discontinue if V/Q scan positive - started on heparin ggt for DVT - will continue - V/Q scan to evaluate for PE -negative 05/14 Off oxygen since yesterday Gradually improving daily Continue ceftriaxone plus doxycycline hypertonic saline twice daily incentive spirometry, flutter valve Mucinex twice daily Discussed with infection control committee, patient exhibiting signs and symptoms of COVID-19 infection, outbreak of COVID-19 in [place] facility reported by daughter Will place patient under isolation, repeat COVID test on May 15 Acute on chronic diastolic (congestive) heart failure, resolved -Lasix given Resume chlorthalidone Repeat PRP tomorrow Hypertension Hydralazine started 50 mg 3 times daily Imdur increased to 60 mg p.o. daily (2) Deep vein thrombosis, lower left extremity: Plan: - started on heparin ggt as above -Transitioned to Eliquis (3) Chronic kidney disease (CKD), stage III (moderate): Plan: - mild elevation in Cr from baseline likely in setting of likely PE and hypoxia - renal consult - monitor UOP - avoid nephrotoxic medications Monitor creatinine (4) Dementia: Plan: - noted - AAOx2 (5) Dyslipidemia: Plan: - continue statin (6) Diabetes mellitus, type II: Plan: - a1c 10/2021 6.4% -A1c 6.9 - SSI for now - monitor FSG AC+HS - diabetic diet BSG 142, 151 Plan DVT ppx: Eliquis Code Status: Full Code Dispo: Return to [place] when medically stable PT and OT evaluation plan of care discussed with patient and her daughter Kerline over the phone in detail and at length all questions answered They are understanding, agreeable, comfortable with the plan of care Admission and Anticipated Discharge Date Admission Date: May 11, 2022 Subjective Follow-up for acute bronchitis, left lower extremity DVT, etc. Seen resting in bed, watching TV, alert, answers questions appropriately States she feels improved overall Breathing continues to improve, coughing less No chest pain No leg pain No fevers or chills, appetite is good No other symptoms Review of Systems Review of Systems: all noted and negative except for above Physical Exam Physical Exam: General- oriented x 3, not in distress, speaks in sentences with no effort or accessory muscle use Eyes- anicteric Neck- no JVD Lungs-mild rhonchi bilaterally, no crackles or wheezing Heart- normal rate, regular rhythm; no murmurs Abdomen- normal bowel sounds, nondistended, soft, no tenderness Extremities- no pretibial edema, no calf tenderness Neuro- alert, oriented x 3; no gross focal neurologic deficits Skin- warm & dry Results & Data Results & Data ([facility]) Vital Signs (Past 12 Hours) Vital Signs Temp Pulse Pulse Resp BP BP Pulse Ox 05/14/22 13:08 61 152/60 H 94 05/14/22 11:00 37.0 C 61 18 133/67 94 05/14/22 08:30 05/14/22 07:00 37.1 C 64 18 168/70 H 93 05/14/22 07:18 67 05/14/22 07:07 76 05/14/22 06:03 71 18 89 L 05/14/22 03:43 37.4 C 67 18 169/70 H 90 O2 Del Method 05/14/22 13:08 Room Air 05/14/22 11:00 Room Air 05/14/22 08:30 Room Air 05/14/22 07:00 Room Air 05/14/22 07:18 05/14/22 07:07 05/14/22 06:03 Room Air 05/14/22 03:43 Room Air all noted and reviewed including below
[2022-05-14] MEDS: LEVALBUTEROL 1.25MG/0.5ML NEB NEB SCH (19:25)
[2022-05-14] MEDS: guaiFENesin 600 MG TABCR PO SCH (20:54)
[2022-05-14] MEDS: CALCIUM 600MG + VIT D 400 IU TAB PO SCH (20:55)
[2022-05-14] MEDS: ATORVASTATIN 40 MG TAB PO SCH (20:55)
[2022-05-14] MEDS ORDERED: hydrALAZINE HCL 25 MG TAB PO STA (23:18)
[2022-05-15] MEDS: cefTRIAXone SODIUM 1,000 MG in DEXTROSE 5% 50 ML IV SCH (00:01)
[2022-05-15] MEDS: FELODIPINE 5 MG TABCR PO SCH (02:19)
[2022-05-15] MEDS: LEVALBUTEROL 1.25MG/0.5ML NEB NEB SCH ×2 (07:10→19:19)
[2022-05-15] MEDS: SODIUM CHLOR 7% 4 ML NEB NEB SCH (07:10)
[2022-05-15] MEDS: INSULIN ASPART PER UNIT SC SCH ×5 (07:59→20:34)
[2022-05-15] MEDS: hydrALAZINE HCL 25 MG TAB PO SCH ×3 (08:05→20:03)
[2022-05-15] MEDS: APIXABAN 5 MG TABLET PO SCH ×2 (08:05→20:25)
[2022-05-15] MEDS: GABAPENTIN 300 MG CAP PO SCH ×2 (08:06→20:27)
[2022-05-15] MEDS: guaiFENesin 600 MG TABCR PO SCH ×2 (08:06→20:04)
[2022-05-15] MEDS: ISOSORBIDE MONO EXTENDED REL 60 MG TABCR PO SCH (08:06)
[2022-05-15] MEDS: DOXYCYCLINE HYCLATE 100 MG CAP PO SCH ×2 (08:06→20:26)
[2022-05-15] MEDS: CYANOCOBALAMIN (B-12) 500 MCG TABLET PO SCH (08:07)
[2022-05-15 09:31] LABS: Creatinine Clr Calc Pharmacy 16.5 ml/min; Est GFR (African American) 21.7 ml/min; Est GFR (Non-African American) 18.7 ml/min
[2022-05-15 09:53] LABS: BUN Creatinine Ratio 20.5 (10-20); Calcium 9.4 mg/dl (8.5-10.1); Creatinine Clr Calc Pharmacy 16.5 ml/min; Est GFR (African American) 21.7 ml/min; Est GFR (Non-African American) 18.7 ml/min; Potassium 4.1 mmol/L (3.5-5.1)
[2022-05-15] MEDS: CHLORTHALIDONE 25 MG TAB PO SCH (10:24)
[2022-05-15] MEDS: ACETYLCYSTEINE 10% INHAL SOLN 4 ML **DISPENSED BY RESP. INH SCH ×2 (10:38→19:19)
[2022-05-15] MEDS: ADVANCED PROBIOTIC 1250 MG CAPSULE PO SCH (10:53)
--- NOTE | 2022-05-15 18:02 | Hospitalist Progress Note ---
Date of Service May 15, 2022 Assessment & Plan (1) Hypoxia: Plan: Secondary to acute bronchitis Pulmonary embolism ruled out COVID-19 infection ruled out - patient with hypoxia in high 80s - continue oxygen supplementation by [place] - wean as tolerated - concern for PE given findings of DVT and no signs of pneumonia on CXR or by history - given unclear picture, will continue empiric abx for now - can discontinue if V/Q scan positive - started on heparin ggt for DVT - will continue - V/Q scan to evaluate for PE -negative 05/15 Weaned off of oxygen since 2 days ago, but was noted to have desaturation while ambulating with PT 2 days ago Gradually improving daily, still having rhonchi Change hypertonic saline to Mucomyst twice daily Chest percussion therapy ordered twice daily Continue ceftriaxone plus doxycycline Probiotics daily incentive spirometry, flutter valve Mucinex twice daily Continue to monitor closely Will need two-step exercise test before discharge Third COVID test negative Discussed with infection control committee, will remove isolation precautions for COVID-19 Acute on chronic diastolic (congestive) heart failure, resolved -Lasix given Resume chlorthalidone Hypertension Hydralazine started 50 mg 3 times daily Imdur 60 mg p.o. daily Felodipine restarted Continue to monitor closely (2) Deep vein thrombosis, lower left extremity: Plan: - started on heparin ggt as above -Transitioned to Eliquis Tolerating Eliquis so far (3) Chronic kidney disease (CKD), stage III (moderate): Plan: - mild elevation in Cr from baseline likely in setting of likely PE and hypoxia - renal consult - monitor UOP - avoid nephrotoxic medications Monitor creatinine, stable 2.2 (4) Dementia: Plan: - noted - AAOx2 (5) Dyslipidemia: Plan: - continue statin (6) Diabetes mellitus, type II: Plan: - a1c 10/2021 6.4% -A1c 6.9 - SSI for now - monitor FSG AC+HS - diabetic diet BSG 117, 137 Plan DVT ppx: Eliquis Code Status: Full Code Dispo: Return to [place] when medically stable PT and OT evaluation plan of care discussed with patient and her daughter Kerline at the bedside in detail and at length all questions answered They are understanding, agreeable, comfortable with the plan of care Admission and Anticipated Discharge Date Admission Date: May 11, 2022 Subjective Follow-up for acute bronchitis, left extremity DVT, etc. Seen with patient's daughter Kerline at the bedside visiting Sitting up in bed, awake and alert, comfortable, not in distress States she feels better today Breathing is okay, has occasional intermittent dry cough No chest pain, no fevers or chills No leg pain No other symptoms Review of Systems Review of Systems: all noted and negative except for above Physical Exam Physical Exam: General- oriented x 2, not in distress, speaks in sentences with no effort or accessory muscle use Eyes- anicteric Neck- no JVD Lungs-positive rhonchi bilaterally, no wheezing Heart- normal rate, regular rhythm; no murmurs Abdomen- normal bowel sounds, nondistended, soft, nontender Extremities- no pretibial edema, no calf tenderness Neuro- alert, oriented x 3; no gross focal neurologic deficits Skin- warm & dry Results & Data Results & Data ([facility]) Vital Signs (Past 12 Hours) Vital Signs Temp Pulse Pulse Resp BP Pulse Ox O2 Del Method 05/15/22 15:15 61 05/15/22 15:14 36.9 C 57 L 20 174/61 H 94 Room Air 05/15/22 12:08 37.1 C 67 21 144/83 H 94 Room Air 05/15/22 10:38 62 20 95 Room Air 05/15/22 09:27 Room Air 05/15/22 08:16 36.9 C 61 19 173/65 H 91 Room Air 05/15/22 07:14 57 L 05/15/22 07:10 59 L 18 95 Room Air all noted and reviewed including below
[2022-05-15] MEDS: CALCIUM 600MG + VIT D 400 IU TAB PO SCH (20:26)
[2022-05-15] MEDS: ATORVASTATIN 40 MG TAB PO SCH (20:26)
[2022-05-16] MEDS: cefTRIAXone SODIUM 1,000 MG in DEXTROSE 5% 50 ML IV SCH (00:30)
[2022-05-16] MEDS: ACETYLCYSTEINE 10% INHAL SOLN 4 ML **DISPENSED BY RESP. INH SCH ×2 (07:07→20:18)
[2022-05-16] MEDS: APIXABAN 5 MG TABLET PO SCH ×2 (07:45→20:00)
[2022-05-16] MEDS: CHLORTHALIDONE 25 MG TAB PO SCH (07:46)
[2022-05-16] MEDS: GABAPENTIN 300 MG CAP PO SCH ×2 (07:47→20:00)
[2022-05-16] MEDS: ISOSORBIDE MONO EXTENDED REL 60 MG TABCR PO SCH (07:47)
[2022-05-16] MEDS: hydrALAZINE HCL 25 MG TAB PO SCH ×2 (07:47→13:28)
[2022-05-16] MEDS: CYANOCOBALAMIN (B-12) 500 MCG TABLET PO SCH (07:47)
[2022-05-16] MEDS: DOXYCYCLINE HYCLATE 100 MG CAP PO SCH ×2 (07:47→19:58)
[2022-05-16] MEDS: FELODIPINE 5 MG TABCR PO SCH (07:47)
[2022-05-16] MEDS: guaiFENesin 600 MG TABCR PO SCH ×2 (07:47→19:59)
[2022-05-16] MEDS: ADVANCED PROBIOTIC 1250 MG CAPSULE PO SCH (07:48)
[2022-05-16] MEDS: INSULIN ASPART PER UNIT SC SCH ×4 (08:28→21:15)
[2022-05-16] MEDS ORDERED: FELODIPINE 5 MG TABCR PO ONE (09:00)
--- NOTE | 2022-05-16 14:17 | Hospitalist Progress Note ---
Date of Service May 16, 2022 Assessment & Plan (1) Hypoxia: Plan: Secondary to acute bronchitis Pulmonary embolism ruled out COVID-19 infection ruled out - patient with hypoxia in high 80s - continue oxygen supplementation by [place] - wean as tolerated - concern for PE given findings of DVT and no signs of pneumonia on CXR or by history - given unclear picture, will continue empiric abx for now - can discontinue if V/Q scan positive - started on heparin ggt for DVT - will continue - V/Q scan to evaluate for PE -negative 05/16 Weaned off of oxygen since 2 days ago, but was noted to have desaturation while ambulating with PT 2 days ago remains stable on room air still has rhonchi Mucomyst twice daily Chest percussion therapy ordered --> patient cannot tolerated Continue ceftriaxone plus doxycycline Probiotics daily incentive spirometry, flutter valve Mucinex twice daily Continue to monitor closely Will need two-step exercise test before discharge Third COVID test negative Discussed with infection control committee, will remove isolation precautions f or COVID-19 Acute on chronic diastolic (congestive) heart failure, resolved -Lasix given Resume chlorthalidone Hypertension Hydralazine started 50 mg 3 times daily Imdur 60 mg p.o. daily Felodipine increased to 10mg daily Continue to monitor closely --> BP decreased to systolic 120s HR 40s- likely from vasovagal reflex from flutter valve, improved to 70s --> Hold BP meds for now to prevent hypotension Reevaluate in the afternoon (2) Deep vein thrombosis, lower left extremity: Plan: - started on heparin ggt as above -Transitioned to Eliquis Tolerating Eliquis so far (3) Chronic kidney disease (CKD), stage III (moderate): Plan: - mild elevation in Cr from baseline likely in setting of likely PE and hypoxia - renal consult - monitor UOP - avoid nephrotoxic medications Monitor creatinine, stable 2.2 (4) Dementia: Plan: - noted - AAOx2 (5) Dyslipidemia: Plan: - continue statin (6) Diabetes mellitus, type II: Plan: - a1c 10/2021 6.4% -A1c 6.9 - SSI for now - monitor FSG AC+HS - diabetic diet BSG 106, 135 Plan DVT ppx: Eliquis Code Status: Full Code Dispo: Return to [place] when medically stable PT and OT evaluation plan of care discussed with patient and her daughter Kerline at the bedside in detail and at length all questions answered They are understanding, agreeable, comfortable with the plan of care Admission and Anticipated Discharge Date Admission Date: May 11, 2022 Subjective ff up for LLE DVT, Acute Bronchitis, etc seen resting in bed, comfortable states she feels fine overall breathing is fine dry cough- intermittent now no chest pain, dyspnea, palpitations, dizziness no other symptoms Review of Systems Review of Systems: all noted and negative except for above Physical Exam Physical Exam: General- oriented x 2, not in distress, speaks in sentences with no effort or accessory muscle use Eyes- anicteric Neck- no JVD Lungs- (+) rhonchi BL no wheezing Heart- normal rate, regular rhythm; no murmurs Abdomen- normal bowel sounds, nondistended, soft, nontender Extremities- no pretibial edema, no calf tenderness Neuro- alert, oriented x 2; no gross focal neurologic deficits Skin- warm & dry Results & Data Results & Data ([facility]) Vital Signs (Past 12 Hours) Vital Signs Temp Pulse Pulse Resp BP BP Pulse Ox 05/16/22 13:24 72 20 128/60 92 05/16/22 12:27 44 L 05/16/22 11:41 36.8 C 57 L 19 146/68 H 97 05/16/22 08:00 55 L 05/16/22 07:54 37 C 55 L 20 200/68 H 94 05/16/22 04:39 05/16/22 04:37 59 L 05/16/22 03:36 36.9 C 63 18 197/61 H 95 O2 Del Method 05/16/22 13:24 Room Air 05/16/22 12:27 05/16/22 11:41 Room Air 05/16/22 08:00 05/16/22 07:54 Room Air 05/16/22 04:39 Room Air 05/16/22 04:37 05/16/22 03:36 Room Air all noted and reviewed including below
[2022-05-16] MEDS: CALCIUM 600MG + VIT D 400 IU TAB PO SCH (19:59)
[2022-05-16] MEDS: ATORVASTATIN 40 MG TAB PO SCH (19:59)
[2022-05-17] MEDS: cefTRIAXone SODIUM 1,000 MG in DEXTROSE 5% 50 ML IV SCH (01:27)
[2022-05-17] MEDS: INSULIN ASPART PER UNIT SC SCH ×2 (07:48→13:10)
[2022-05-17] MEDS: CHLORTHALIDONE 25 MG TAB PO SCH (08:05)
[2022-05-17] MEDS: APIXABAN 5 MG TABLET PO SCH ×2 (08:05→20:54)
[2022-05-17] MEDS: ISOSORBIDE MONO EXTENDED REL 60 MG TABCR PO SCH (08:06)
[2022-05-17] MEDS: FELODIPINE 5 MG TABCR PO SCH (08:06)
[2022-05-17] MEDS: guaiFENesin 600 MG TABCR PO SCH ×2 (08:06→20:55)
[2022-05-17] MEDS: DOXYCYCLINE HYCLATE 100 MG CAP PO SCH ×2 (08:06→20:55)
[2022-05-17] MEDS: CYANOCOBALAMIN (B-12) 500 MCG TABLET PO SCH (08:06)
[2022-05-17] MEDS: ADVANCED PROBIOTIC 1250 MG CAPSULE PO SCH (08:06)
[2022-05-17] MEDS: GABAPENTIN 300 MG CAP PO SCH ×2 (08:06→20:55)
[2022-05-17] MEDS ORDERED: FELODIPINE 5 MG TABCR PO SCH (09:00)
[2022-05-17 11:38] LABS: Basophils # (auto) 0.11 K/uL (0-0.2); Basophils % (auto) 1.3 %; Eosinophils # (auto) 0.28 K/uL (0-0.50); Eosinophils % (auto) 3.4 %; Hematocrit (blood only) 32.6 % (34.1-44.9); Hemoglobin 10.5 g/dl (12.0-16.0); Immature Granulocytes # (auto) 0.06 K/uL (0.00-0.02); Immature Granulocytes % (auto) 0.7 %; Lymphocytes # (auto) 2.16 K/uL (1.2-3.4); Mean Corpuscular Hemoglobin 30.4 pg (25.0-34.0); Mean Corpuscular Hgb Conc 32.2 g/dL (32.0-36.0); Mean Corpuscular Volume 94.5 fL (80.0-100.0); Mean Platelet Volume 9.7 fL (9.4-12.3); Monocytes # (auto) 0.69 K/uL (0.24-0.82); Monocytes % (auto) 8.3 %; Neutrophils % (auto) 60.3 %; Platelet Count 196 K/uL (130-400); RDW Coefficient of Variation 11.7 % (11.5-14.5); RDW Standard Deviation 39.8 fL (36.4-46.3); Red Blood Count 3.45 M/uL (3.93-5.22)
[2022-05-17] MEDS: hydrALAZINE HCL 25 MG TAB PO SCH ×3 (11:55→21:11)
[2022-05-17 12:01] LABS: BUN Creatinine Ratio 22.8 (10-20); Calcium 9.4 mg/dl (8.5-10.1); Creatinine Clr Calc Pharmacy 15.4 ml/min; Est GFR (African American) 20.4 ml/min; Est GFR (Non-African American) 17.6 ml/min; Potassium 4.7 mmol/L (3.5-5.1)
--- NOTE | 2022-05-17 12:21 | Hospitalist Progress Note ---
Date of Service May 17, 2022 Assessment & Plan (1) Hypoxia: Plan: Secondary to acute bronchitis Pulmonary embolism ruled out COVID-19 infection ruled out - patient with hypoxia in high 80s - continue oxygen supplementation by [place] - wean as tolerated - concern for PE given findings of DVT and no signs of pneumonia on CXR or by history - given unclear picture, will continue empiric abx for now - can discontinue if V/Q scan positive - started on heparin ggt for DVT - will continue - V/Q scan to evaluate for PE -negative 05/17 Remains on room air at rest Two-step exercise test performed today, no hypoxia noted Rhonchi improving Patient cannot tolerate Mucomyst, transition back to hypertonic saline Chest percussion therapy ordered --> patient cannot tolerate Continue ceftriaxone plus doxycycline day number 6 out of 7 Probiotics daily incentive spirometry, flutter valve encouraged Mucinex twice daily Continue to monitor closely Third COVID test negative Discussed with infection control committee, will remove isolation precautions for COVID-19 Acute on chronic diastolic (congestive) heart failure, resolved -Lasix given Resumed chlorthalidone Hypertension Hydralazine increased to 75 mg 3 times daily Usual Imdur 60 mg p.o. daily, Felodipine 5 mg p.o. 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 Yesterday, junctional bradycardia episode noted around 11 30-12 30, patient asymptomatic, BP stable Today, had another episode at 10:30 AM, asymptomatic, BP stable Messaged cardiology service, no intervention unless patient develops symptoms-in that case, discussion for pacemaker will be performed Continue to monitor closely (2) Deep vein thrombosis, lower left extremity: Plan: - started on heparin ggt as above -Transitioned to Eliquis Tolerating Eliquis, no signs of bleeding (3) Chronic kidney disease (CKD), stage III (moderate): Plan: - mild elevation in Cr from baseline likely in setting of likely PE and hypoxia - renal consult - monitor UOP - avoid nephrotoxic medications Monitor creatinine, stable 2.4 (4) Dementia: Plan: - noted - AAOx2 (5) Dyslipidemia: Plan: - continue statin (6) Diabetes mellitus, type II: Plan: - a1c 10/2021 6.4% -A1c 6.9 - SSI for now - monitor FSG AC+HS - diabetic diet BSG 164 Plan DVT ppx: Eliquis Code Status: Full Code Dispo: Return to [place] when medically stable PT and OT evaluation Admission and Anticipated Discharge Date Admission Date: May 11, 2022 Subjective Follow-up for left lower extremity DVT, acute bronchitis, etc. Seen resting in bed, comfortable, not in distress Good spirits, smiling On room air States she feels fine overall Denies shortness of breath, cough Denies abdominal pain, nausea or vomiting Denies leg pain or chest pain Ambulate in the hallways today with no problems No other symptoms Review of Systems 2 Review of Systems: all noted and negative except for above Physical Exam Physical Exam: General- oriented x 3, not in distress, speaks in sentences with no effort or accessory muscle use Eyes- anicteric Neck- no JVD Lungs-mild rhonchi bilaterally, improved compared to yesterday No wheezing Heart- normal rate, regular rhythm; no murmurs Abdomen- normal bowel sounds, nondistended, soft, nontender Extremities- no pretibial edema, no calf tenderness Neuro- alert, oriented x 3; no gross focal neurologic deficits Skin- warm & dry Results & Data Results & Data ([facility]) Vital Signs (Past 12 Hours) Vital Signs Temp Pulse Pulse Pulse Pulse Pulse Resp 05/17/22 11:49 37.1 C 68 19 05/17/22 08:00 52 L 05/17/22 09:17 71 86 60 05/17/22 07:51 36.9 C 49 L 21 05/17/22 07:42 05/17/22 02:59 36.8 C 57 L 16 05/17/22 01:49 EST Resp Resp Resp BP BP Pulse Ox Pulse Ox 05/17/22 11:49 141/69 H 91 05/17/22 08:00 05/17/22 09:17 19 18 18 90 05/17/22 07:51 189/72 H 95 05/17/22 07:42 05/17/22 02:59 193/65 H 93 05/17/22 01:49 EST Pulse Ox Pulse Ox O2 Del Method 05/17/22 11:49 Room Air 05/17/22 08:00 05/17/22 09:17 91 96 05/17/22 07:51 Room Air 05/17/22 07:42 Room Air 05/17/22 02:59 Room Air 05/17/22 01:49 EST Room Air all noted and reviewed including below
[2022-05-17] MEDS: SODIUM CHLOR 7% 4 ML NEB NEB SCH ×2 (12:51→19:46)
--- NOTE | 2022-05-17 13:41 | Nephrology Progress Note ---
Date of Service May 17, 2022 Assessment & Plan Admission and Anticipated Discharge Date Admission Date: May 11, 2022 Subjective Subjective S----Now room air. Slowly getting better. Some issues with heart rhythm yesterday but was felt chronic. making urine. BP fine, PHYSICAL EXAMINATION: GENERAL: Elderly white female who is awake, alert, oriented x3. She is not in overt respiratory distress, although she is requiring 3 liters of oxygen by nasal cannula. HEENT: Mucous membrane is moist. NECK: Supple. No jugular venous distention. CHEST: Bilateral decreased breath sounds, occasional crackles. CARDIOVASCULAR: S1 and S2, regular. ABDOMEN: Soft, nontender, slightly obese. EXTREMITIES: Show edema, about 1+ in the left lower extremity and trace in the right. NEUROLOGIC: She is awake, alert and oriented. Normal speech. Moving all 4 extremities. LABORATORY TEST: She had a duplex of the lower extremity, which was positive for left lower extremity DVT. Chest x-ray was unremarkable. D-dimer was very elevated. Creatinine down a bit today. Sodium, potassium bicarbonate, calcium are normal. Magnesium is normal. ASSESSMENT AND PLAN: An 87-year-old female with multiple medical problems including longstanding diabetes with chronic kidney disease stage IV with baseline creatinine in the low 2s, is now admitted with shortness of breath, hypoxia. She was found to have left lower extremity DVT, so at this point, the presumptive diagnosis is PE causing hypoxia and shortness of breath. I have been consulted for diuretics management given her underlying CKD IV. Chronic kidney disease IV with Slight AMARIS in the setting OF Hypoxia, DVT/ ? PE--- Admission creatinine is very slightly higher than her baseline. This is not unexpected given acute hemodynamic issues related with possible PE and left lower extremity DVT, which does cause some hypoxia. At this advanced age with underlying CKD, hypoxia is enough to cause some renal dysfunction. As of now, the rise of creatinine is very minimal, if any. Continue to support hemodynamic status, especially oxygen, and blood pressure. As long as her hemodynamic status and her oxygen level remains good, we can expect stabilization of the kidney. I would avoid giving contrast agent. At this point, I would empirically assume this is a case of PE. Noninvasive tests like echocardiogram and V/Q scan can be done. Cardiology is on board and we will defer to them. No further workup is needed from acute renal failure standpoint unless we see significant rise in her creatinine in the coming days. rec: 1 Creat up a tiny bit today but overall has been near baseline in the 2.2 to 2.4 range for almost a week now. Continue same. daily labs. maintain good vital signs and o2 level. Results & Data ([facility]) Vital Signs (Past 12 Hours) Vital Signs Temp Pulse Pulse Pulse Pulse Pulse Resp 05/17/22 12:51 65 18 05/17/22 11:49 37.1 C 68 19 05/17/22 08:00 52 L 05/17/22 09:17 71 86 60 05/17/22 07:51 36.9 C 49 L 21 05/17/22 07:42 05/17/22 02:59 36.8 C 57 L 16 05/17/22 01:49 EST Resp Resp Resp BP BP Pulse Ox Pulse Ox 05/17/22 12:51 93 05/17/22 11:49 141/69 H 91 05/17/22 08:00 05/17/22 09:17 19 18 18 90 05/17/22 07:51 189/72 H 95 05/17/22 07:42 05/17/22 02:59 193/65 H 93 05/17/22 01:49 EST Pulse Ox Pulse Ox O2 Del Method 05/17/22 12:51 Room Air, Nasal Cannula 05/17/22 11:49 Room Air 05/17/22 08:00 05/17/22 09:17 91 96 05/17/22 07:51 Room Air 05/17/22 07:42 Room Air 05/17/22 02:59 Room Air 05/17/22 01:49 EST Room Air
--- NOTE | 2022-05-17 13:42 | Electrocardiogram Report ---
Test Reason : Blood Pressure : / mmHG Vent. Rate : 044 BPM Atrial Rate : 032 BPM P-R Int : 000 ms QRS Dur : 082 ms QT Int : 500 ms P-R-T Axes : 000 029 069 degrees QTc Int : 427 ms Junctional bradycardia with retrogarde P wave Abnormal ECG When compared with ECG of 11-MAY-2022 17:24, Junctional rhythm has replaced NSR Nonspecific T wave abnormality no longer evident in Lateral leads Confirmed by Jose Suh ([id number]) on 05/17/2022 1:41:59 PM Referred By: REFERRED SELF Confirmed By:Jose Suh
[2022-05-17] MEDS: ATORVASTATIN 40 MG TAB PO SCH (20:54)
[2022-05-17] MEDS: CALCIUM 600MG + VIT D 400 IU TAB PO SCH (20:55)
[2022-05-17 23:54] LABS: BUN Creatinine Ratio 23.4 (10-20); Calcium 9.2 mg/dl (8.5-10.1); Creatinine Clr Calc Pharmacy 15.2 ml/min; Est GFR (African American) 20.1 ml/min; Est GFR (Non-African American) 17.3 ml/min; Potassium 4.1 mmol/L (3.5-5.1)
[2022-05-18] MEDS: cefTRIAXone SODIUM 1,000 MG in DEXTROSE 5% 50 ML IV SCH (00:10)
[2022-05-18] MEDS ORDERED: hydrALAZINE TAB 50 MG TAB PO SCH (04:45)
[2022-05-18] MEDS: SODIUM CHLOR 7% 4 ML NEB NEB SCH (07:06)
--- NOTE | 2022-05-18 07:12 | Nephrology Progress Note ---
Date of Service May 18, 2022 Assessment & Plan (1) Hypertensive urgency: Plan: ongoing -started on hydralazine overnight -consider increasing felodipine as well -continue chlorthalidone -daily bmp (2) CKD (chronic kidney disease) stage 4, GFR 15-29 ml/min: Plan: 87-year-old female with multiple medical problems including longstanding diabetes and chronic kidney disease stage IV with baseline creatinine in the low 2s admitted 05/11 with shortness of breath, hypoxia. She was found to have left lower extremity DVT >>> presumptive diagnosis is PE causing hypoxia and shortness of breath. Nephro consulted for diuretics management given her underlying CKD IV. Chronic kidney disease IV w/ creatinine as of yesterday at upper limit of her range in the setting OF Hypoxia, DVT/ ? PE--- Admission creatinine is very slightly higher than her baseline, not reaching AMARIS so far though certainly at risk for this. most recent creat levels not unexpected given acute hemodynamic issues related with possible PE and left lower extremity DVT, hypoxia. At this advanced age with underlying CKD, hypoxia is enough to cause some renal dysfunction. As of now, the rise of creatinine is very minimal, if any. -f/u today's labs -Continue to support hemodynamic status, especially oxygen -continue avoiding IV contrast and other nephrotoxins Admission and Anticipated Discharge Date Admission Date: May 11, 2022 Results & Data ([facility]) Vital Signs (Past 12 Hours) Vital Signs Temp Pulse Pulse Resp BP BP Pulse Ox 05/18/22 04:24 36.7 C 51 L 18 185/72 H 95 05/17/22 22:20 55 L 05/17/22 22:42 36.7 C 58 L 20 180/69 H 94 05/17/22 23:50 05/17/22 19:29 36.7 C 57 L 18 176/93 H 94 05/17/22 19:47 68 18 95 O2 Del Method 05/18/22 04:24 Room Air 05/17/22 22:20 05/17/22 22:42 Room Air 05/17/22 23:50 Room Air 05/17/22 19:29 Room Air 05/17/22 19:47 Room Air
[2022-05-18 07:53] LABS: Creatinine Clr Calc Pharmacy 15.3 ml/min; Est GFR (African American) 20.1 ml/min; Est GFR (Non-African American) 17.3 ml/min
[2022-05-18] MEDS: guaiFENesin 600 MG TABCR PO SCH (08:38)
[2022-05-18] MEDS: APIXABAN 5 MG TABLET PO SCH (08:38)
[2022-05-18] MEDS: ADVANCED PROBIOTIC 1250 MG CAPSULE PO SCH (08:38)
[2022-05-18] MEDS: DOXYCYCLINE HYCLATE 100 MG CAP PO SCH (08:38)
[2022-05-18] MEDS: GABAPENTIN 300 MG CAP PO SCH (08:38)
[2022-05-18] MEDS: CHLORTHALIDONE 25 MG TAB PO SCH (08:38)
[2022-05-18] MEDS: ISOSORBIDE MONO EXTENDED REL 60 MG TABCR PO SCH (08:39)
[2022-05-18] MEDS: FELODIPINE 5 MG TABCR PO SCH (08:39)
[2022-05-18] MEDS: CYANOCOBALAMIN (B-12) 500 MCG TABLET PO SCH (08:39)
[2022-05-18] MEDS: hydrALAZINE TAB 50 MG TAB PO SCH ×2 (08:52→13:05)
--- NOTE | 2022-05-18 10:38 | Hospitalist Progress Note ---
Date of Service May 18, 2022 Assessment & Plan (1) Deep vein thrombosis, lower left extremity: Plan: (1) Hypoxia: Plan: Secondary to acute bronchitis Pulmonary embolism ruled out COVID-19 infection ruled out - patient with hypoxia in high 80s - continue oxygen supplementation by MA - wean as tolerated - concern for PE given findings of DVT and no signs of pneumonia on CXR or by history - given unclear picture, will continue empiric abx for now - can discontinue if V/Q scan positive - started on heparin ggt for DVT - will continue - V/Q scan to evaluate for PE -negative 05/18 Remains on room air at rest Two-step exercise test performed, no hypoxia noted Rhonchi much better Given hypertonic saline nebs twice daily Patient cannot tolerate Mucomyst or chest percussion therapy Completed course of ceftriaxone and doxycycline x7 days Given probiotics Given incentive spirometry and flutter valve Given Mucinex, continue x2 more days Third COVID test negative Discussed with infection control committee, okay to remove isolation precautions for COVID-19 Acute on chronic diastolic (congestive) heart failure, resolved -Lasix given Resumed chlorthalidone -Euvolemic now Hypertension Hydralazine increased to 75 mg 3 times daily--blood pressure on the lower side For now continue hydralazine 50 mg 3 times daily, may increase gradually to 75 mg 1-3 times a day for blood pressure persistently above 160 Continue usual Imdur 60 mg p.o. daily, Felodipine 5 mg p.o. daily Lisinopril discontinued given patient's CKD, creatinine clearance Junctional bradycardia Chronic as per [facility] records 05/16/2022, junctional bradycardia episode noted around 11 30-12 30, patient asymptomatic, BP stable 05/17/2020, had another episode at 10:30 AM, asymptomatic, BP stable Messaged cardiology service, no intervention unless patient develops symptoms-in that case, discussion for pacemaker will be performed Continue to monitor closely Follow-up with cardiology as an outpatient (2) Deep vein thrombosis, lower left extremity: Plan: - started on heparin ggt as above -Transitioned to Eliquis Tolerating Eliquis, no signs of bleeding -Eliquis 10 mg twice daily times 6 out of 7 Will need 10 mg Eliquis twice daily until tomorrow May 19, 2022 and then Transition to Eliquis 5 mg twice daily (3) Chronic kidney disease (CKD), stage III (moderate): Plan: - mild elevation in Cr from baseline likely in setting of likely PE and hypoxia - renal consulted - monitor UOP - avoid nephrotoxic medications Monitor creatinine, slightly higher than baseline, 2.4 Continue to monitor as an outpatient closely Repeat PRP in 1 week per primary care physician (4) Dementia: Plan: - noted - AAOx2 (5) Dyslipidemia: Plan: - continue statin (6) Diabetes mellitus, type II: Plan: - a1c 10/2021 6.4% Continue diabetic diet Disposition: Return to [facility] today Follow-up with PCP in 1 week Follow-up with cardiology and nephrology in 2 weeks. Admission and Anticipated Discharge Date Admission Date: May 11, 2022 Subjective ff up for acute bronchitis, LLE DVT, etc seen resting in bed, comfortable in good spirits oriented, answers questions appropriately states she feels fine overall today Breathing is much better, denies cough, shortness of breath Ambulating with her walker with no problems No chest pain or leg pain No other symptoms States she is ready for discharge today Review of Systems Review of Systems: all noted and negative except for above Physical Exam Physical Exam: General- oriented x 3, not in distress, speaks in sentences with no effort or accessory muscle use Eyes- anicteric Neck- no JVD Lungs-very mild rhonchi bilaterally, no wheezing, good air entry bilaterally Heart- normal rate, regular rhythm; no murmurs Abdomen- normal bowel sounds, nondistended, soft, nontender Extremities- no pretibial edema, no calf tenderness Neuro- alert, oriented x 3; no gross focal neurologic deficits Skin- warm & dry Results & Data Results & Data ([facility]) Vital Signs (Past 12 Hours) Vital Signs Temp Pulse Pulse Resp BP BP Pulse Ox 05/18/22 09:43 05/18/22 08:37 68 H 172/71 H 05/18/22 07:36 36.8 C 53 L 18 176/56 H 94 05/18/22 07:20 57 L 05/18/22 07:14 60 18 93 05/18/22 04:24 36.7 C 51 L 18 185/72 H 95 05/17/22 22:42 36.7 C 58 L 20 180/69 H 94 05/17/22 23:50 O2 Del Method 05/18/22 09:43 Room Air 05/18/22 08:37 05/18/22 07:36 Room Air 05/18/22 07:20 05/18/22 07:14 Room Air 05/18/22 04:24 Room Air 05/17/22 22:42 Room Air 05/17/22 23:50 Room Air all noted and reviewed including below
--- NOTE | 2022-05-18 11:07 | Discharge Summary ---
Discharge Summary Date of Service May 18, 2022 Notes For Next Care Provider Repeat basic metabolic profile to assess renal function in 1 week postdischarge. Lisinopril discontinued secondary to elevated creatinine, CKD stage IV. Will need cardiology and nephrology follow-up in 2 to 3 weeks. Started on Eliquis for first episode of left lower extremity DVT, seems to be unprovoked. Abdominal ultrasound to assess Questionable dilatation of the main pancreatic duct which may be artifactual. This is only partially visualized on this study. Medication Changes From Visit Eliquis 10 mg p.o. twice daily x2 days then 5 mg p.o. 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 As per the daughter and as per the care home, the patient was feeling weak. Her legs gave away and she was short of breath and oxygen saturation was like in the 80s on room air and her blood pressure was running high and she has low-grade fever of 99.9 and she was brought in here. The ER thought her to be in pulmonary congestion and gave her a dose of Lasix. The patient is currently mostly drowsy. Blood pressure running high in 200s. She can tell her name, she knows that she is in the hospital, but she denies all the complaints. Denies any headache. Denies chest pain. Denies nausea, denies abdominal pain, no diarrhea. As per care home, no other complaints. Currently on nasal cannula, she is saturating okay. Admission Exam Per Admitting Provider GENERAL: The patient is old and frail, not in acute distress, somewhat drowsy. VITAL SIGNS: Temperature 37.2, pulse 74, respiratory rate 14, blood pressure 195/78, oxygen 92% on 4 liters. HEENT: Pupils equal, round and reactive to light. Oral mucosa dry. NECK: No JVD. No neck masses. CARDIOVASCULAR: S1 and S2 heard. Regular rate and rhythm. No murmur, no gallop. RESPIRATORY SYSTEM: Normal AP diameter. No accessory muscle use. No wheezing, no crackles. ABDOMEN: Soft, bowel sounds present, nontender, no distention. CENTRAL NERVOUS SYSTEM: Alert and oriented to name and place. Obeys simple commands. No facial droop. Speech is low voice. Moves extremities. EXTREMITIES: Bilateral lower extremity +2 edema present, no erythema seen. Principal Dx & Hospital Course #1 = Principal Diagnosis (1) Deep vein thrombosis, lower left extremity: Hypoxia: Plan: Secondary to acute bronchitis Pulmonary embolism ruled out COVID-19 infection ruled out - patient with hypoxia in high 80s - V/Q scan to evaluate for PE -negative 05/18 Remains on room air at rest Two-step exercise test performed, no hypoxia noted Rhonchi much better Given hypertonic saline nebs twice daily Patient cannot tolerate Mucomyst or chest percussion therapy Completed course of ceftriaxone and doxycycline x7 days Given probiotics Given incentive spirometry and flutter valve Given Mucinex, continue x2 more days Third COVID test negative Discussed with infection control committee, okay to remove isolation precautions for COVID-19 Deep vein thrombosis, lower left extremity: Plan: -Appears to be unprovoked DVT - started on heparin ggt as above -Transitioned to Eliquis Tolerating Eliquis, no signs of bleeding -Eliquis 10 mg twice daily times 6 out of 7 Will need 10 mg Eliquis twice daily until tomorrow May 19, 2022 and then Transition to Eliquis 5 mg twice daily Mild Acute on chronic diastolic (congestive) heart failure, resolved -Lasix given at the ER Resumed chlorthalidone -Euvolemic now Hypertension Hydralazine increased to 75 mg 3 times daily--blood pressure on the lower side For now continue hydralazine 50 mg 3 times daily, may increase gradually to 75 mg 1-3 times a day for blood pressure persistently above 160 Continue usual Imdur 60 mg p.o. daily, Felodipine 5 mg p.o. daily Lisinopril discontinued given patient's CKD, creatinine clearance Junctional bradycardia Chronic as per [facility] records 05/16/2022, junctional bradycardia episode noted around 11 30-12 30, patient asymptomatic, BP stable 05/17/2020, had another episode at 10:30 AM, asymptomatic, BP stable Messaged cardiology service, no intervention unless patient develops symptoms-in that case, discussion for pacemaker will be performed Continue to monitor closely Follow-up with cardiology as an outpatient Abnormal CT finding Questionable dilatation of the main pancreatic duct which may be artifactual. This is only partially visualized on this study. Consider follow-up abdominal ultrasound for further evaluation. -- patient needs abdominal US (3) Chronic kidney disease (CKD), stage III (moderate): Plan: - mild elevation in Cr from baseline likely in setting of likely PE and hypoxia - renal consulted - monitor UOP - avoid nephrotoxic medications Monitor creatinine, slightly higher than baseline, 2.4 Continue to monitor as an outpatient closely Repeat PRP in 1 week per primary care physician (4) Dementia: Plan: - noted - AAOx2 (5) Dyslipidemia: Plan: - continue statin (6) Diabetes mellitus, type II: Plan: - a1c 10/2021 6.4% Continue diabetic diet Disposition: Return to [facility] today Follow-up with PCP in 1 week Follow-up with cardiology and nephrology in 2 weeks. Discharge Exam General- oriented x 3, not in distress, speaks in sentences with no effort or accessory muscle use Eyes- anicteric Neck- no JVD Lungs-very mild rhonchi bilaterally, no wheezing, good air entry bilaterally Heart- normal rate, regular rhythm; no murmurs Abdomen- normal bowel sounds, nondistended, soft, nontender Extremities- no pretibial edema, no calf tenderness Neuro- alert, oriented x 3; no gross focal neurologic deficits Skin- warm & dry Updated Medication List Medication Instructions Recorded Confirmed Type atorvastatin 40 mg tablet 40 mg PO QPM 10/28/18 05/11/22 History gabapentin 300 mg capsule 300 mg PO BID 10/28/18 05/11/22 History isosorbide mononitrate 60 mg 60 mg PO DAILY 10/28/18 05/11/22 History tablet,extended release 24 hr acetaminophen 500 mg capsule 500 mg PO Q6H 05/11/22 05/11/22 History acetaminophen 500 mg tablet 500 mg PO Q6H PRN Pain 05/11/22 05/11/22 History aspirin 81 mg chewable tablet 81 mg PO DAILY 05/11/22 05/11/22 History (Aspirin Childrens) calcium carbonate 600 mg-vitamin 1 tab PO QPM 05/11/22 05/11/22 History D3 10 mcg (400 unit) tablet (Calcium 600 + D(3)) chlorthalidone 25 mg tablet 12.5 mg PO QAM 05/11/22 05/11/22 History cyanocobalamin (vitamin B-12) 1,000 mcg PO DAILY 05/11/22 05/11/22 History 1,000 mcg tablet (Vitamin B-12) felodipine 5 mg tablet,extended 5 mg PO DAILY 05/11/22 05/11/22 History release 24 hr guaifenesin 600 mg tablet, 600 mg PO Q12H PRN Congestion 05/11/22 05/11/22 History extended release 12 hr hydralazine 50 mg tablet 50 mg PO TID 05/11/22 05/11/22 History lisinopril 40 mg tablet 40 mg PO QPM 05/11/22 05/11/22 History omeprazole 40 mg capsule,delayed 40 mg PO DAILY 05/11/22 05/11/22 History release L.acidop,casei,lactis,rham-B.lact,ema 2 cap PO DAILY 14 days #28 caps 05/18/22 Rx 625 mg (10 billion cell) capsule (Advanced Probiotic) apixaban 5 mg tablet (Eliquis) 5 mg PO UD #60 tabs 05/18/22 Rx Hospital Stay Data Consultations 05/11/22 20:27 ED Decision to Admit Stat 05/12/22 08:00 Consult Cardiology Routine Consult Nephrology Routine Diagnostic Imagining Performed 05/12/22 00:08 US venous doppler LE BI Urgent FINDINGS: There is normal compressibility, flow, and augmentation within the right lower extremity deep venous structures. Occlusive thrombus is noted within one of the duplicated left-sided popliteal veins. The left lower leg veins are suboptimally visualized secondary to patient body habitus. Subcutaneous edema of the lower legs. IMPRESSION: 1. Left lower extremity DVT. 2. No DVT of the right lower extremity. 05/13/22 08:49 CT chest diagnostic wo con Routine CT chest diagnostic wo con CT DOSE: 213.97 mGy.cm HISTORY: hypoxia TECHNIQUE: Multiaxial CT images of the chest were performed without contrast. A dose lowering technique was utilized adhering to the principles of ALARA. COMPARISON: None. FINDINGS: There is mild respiratory motion artifact. Moderate diffuse bronchial wall thickening. Partial opacification of a few the bibasilar bronchi. There is moderate focal narrowing within the bronchus intermedius likely due to secretions. There are trace secretions within the left mainstem bronchus. Scattered punctate calcified granuloma within the lungs. There are few scattered tree-in-bud nodular opacities within the lungs. There are few scattered subcentimeter indeterminate pulmonary nodules with the largest in the right lower lobe on image 138 measuring 3 mm. These are of doubtful clinical significance given the patient's age. No focal lung consolidations. No p neumothorax. The visualized liver, spleen, and adrenal glands are unremarkable. Partially visualized right renal hypodense lesions. Questionable dilatation of the main pancreatic duct may be artifactual. This is only partially visualized on this study. Normal esophagus. The heart is normal in size. Normal caliber thoracic aorta. No pleural or pericardial effusions. Small hiatus hernia is noted. There are few prominent AP window lymph nodes measuring up to 12 mm in short axis diameter. There are few prominent bilateral hilar lymph nodes measuring up to 9 mm in short axis diameter. IMPRESSION: 1. Moderate diffuse bronchial wall thickening with a small amount of tracheal/bronchial secretions and a few scattered tree-in-bud nodular opacities. This is nonspecific but could be due to a chronic bronchitis and/or mild infectious bronchiolitis. 2. No focal lung consolidations identified. 3. A few prominent mediastinal and bilateral hilar lymph nodes. These may be reactive. 4. Questionable dilatation of the main pancreatic duct which may be artifactual. This is only partially visualized on this study. Consider follow-up abdominal ultrasound for further evaluation. ACT 112: Negative or not required by law. Pending Results Patient Have Any Pending Studies at Discharge: Yes Discharge Instructions Given to Patient (Per Discharging Provider) PLEASE REFER TO YOUR NEW MEDICATION LIST AND FOLLOW INSTRUCTIONS CAREFULLY. YOUR NEW MEDICATIONS INCLUDE: ELIQUIS: 10 MG TWICE DAILY, FROM MAY 18, to MAY AT 8, THEN 5 MG TWICE DAILY MUCINEX 600 MG TWICE DAILY X2 DAYS CHECK BLOOD PRESSURE TWICE A DAY IN THE MORNING AND LATE AFTERNOON. CAN INCREASE HYDRALAZINE TO 75 MG IF SYSTOLIC BLOOD PRESSURE MORE THAN 160. FALL PRECAUTIONS PLEASE ASKED PATIENT CURRENTLY ON ELIQUIS AND ASPIRIN. IF PATIENT HAS HAD TRAUMA, EVEN IF SHE IS ASYMPTOMATIC, PLEASE SEND THE PATIENT TO THE ER FOR CT SCAN OF THE HEAD. PLEASE CALL YOUR PRIMARY CARE PHYSICIAN OR RETURN TO THE ER IF WITH WORSENING OF SYMPTOMS, INCLUDING Shortness of breath, cough, fevers or chills, bleeding, dizziness, etc. FOLLOW UP WITH PRIMARY CARE PHYSICIAN OUTLINED ABOVE. Follow-up with anchor operator and sieve repairer in 2 to 3 weeks. Total Time Total Time Spent Total Time Spent (In Minutes): >30 minutes
[2022-05-19] MEDS ORDERED: APIXABAN 5 MG TABLET PO SCH (21:00)
[2022-05-20] MEDS ORDERED: APIXABAN 5 MG TABLET PO SCH (21:00)
== END 2022-05-18 14:02 | disposition home or self-care (01) | DRG 299 ==
LOC: ED 16:49 → SUATTDRO 22:30 → 2E 22:30 → 2N 05-13 10:00

== ENCOUNTER 2024-08-17 19:19 | Inpatient (IN) ==
--- NOTE | 2024-08-17 19:22 | Emergency Department Note ---
Past Med/Surg History Problem List (Updated 08/17/24 @ 21:31 by Sotero Brown DO) Pulmonary hypertension Vascular dementia without behavioral disturbance Uncontrolled hypertension Acute on chronic heart failure with preserved ejection fraction Left lower lobe pneumonia Acute hypoxic respiratory failure Severe sepsis with acute organ dysfunction CKD (chronic kidney disease) stage 4, GFR 15-29 ml/min Hypertensive urgency Deep vein thrombosis, lower left extremity Pulmonary edema (Acute) AMARIS (acute kidney injury) (Acute) Hypoxia (Acute) Abnormal EKG (Acute) Elevated troponin I level (Acute) Hypertension (Chronic) Chronic kidney disease (CKD), stage III (moderate) (Chronic) Diabetes mellitus, type II (Chronic) Dementia (Chronic) Dyslipidemia (Chronic) History of squamous cell carcinoma of skin (Chronic) Peripheral neuropathy (Chronic) Cerebrovascular disease (Chronic) "TIA 2011" History of ischemic bowel disease (Chronic) "ischemic colitis 2011" Arthritis (Chronic) "RA + osteo per records" AMARIS (acute kidney injury) Medical History Arthritis "RA + osteo per records" Cerebrovascular disease "TIA 2011" CKD (chronic kidney disease) stage 4, GFR 15-29 ml/min Dementia Diabetes mellitus, type II Dyslipidemia History of ischemic bowel disease "ischemic colitis 2011" History of squamous cell carcinoma of skin Hypertension Peripheral neuropathy Surgical History Status post cholecystectomy Status post hysterectomy Family History Other No pertinent family history Social History Smoking Status: Never smoker Tobacco Type: Cigarettes Hx Alcohol Use: Yes Alcohol type: wine Hx Substance Use: No Preferred Language: [place]se Communication Ability: Effective Chain Repairer Required: No Beliefs That Will Affect Care: Anabaptist marital status: / Current Living Situation: Care Home Current Living Situation Comment: at [place] current occupational status: retired Feels Safe at Home: Yes Assistive Devices: Walker Allergies Allergies Allergy/AdvReac Type Severity Reaction Status Date / Time Penicillins Allergy Intermediate RASH - HAS Verified 08/17/24 20:11 TOLERATED ROCEPHIN codeine Allergy Unknown Verified 08/17/24 20:11 meloxicam Allergy Unknown Verified 08/17/24 20:11 ferrous fumarate AdvReac Mild stomach Verified 08/17/24 20:11 upset Home Meds Home Medications Medication Instructions Recorded Confirmed atorvastatin 40 mg tablet 40 mg PO QPM 10/28/18 08/17/24 gabapentin 300 mg capsule 300 mg PO BID 10/28/18 08/17/24 isosorbide mononitrate 60 mg 60 mg PO DAILY 10/28/18 08/17/24 tablet,extended release 24 hr acetaminophen 500 mg capsule 500 mg PO Q6H 05/11/22 08/17/24 acetaminophen 500 mg tablet 500 mg PO QID PRN .SEVERE PAIN 05/11/22 08/17/24 aspirin 81 mg chewable tablet 81 mg PO DAILY 05/11/22 08/17/24 (Aspirin Childrens) calcium 600 mg (as 1 tab PO QPM 05/11/22 08/17/24 carbonate)-vitamin D3 10 mcg (400 unit) tablet (Calcium 600 + D(3)) cyanocobalamin (vitamin B-12) 1,000 mcg PO QAM 05/11/22 08/17/24 1,000 mcg tablet (Vitamin B-12) hydralazine 50 mg tablet 50 mg PO TID 05/11/22 08/17/24 Kzsmuywkbuqbk-Ejsgdtjxmspxhkv-O.thermophilus 2 cap PO TID 06/12/22 08/17/24 3 billion cell capsule (Advanced Probiotic-14) meclizine 12.5 mg tablet 12.5 mg PO Q6 PRN Dizziness 06/12/22 08/17/24 torsemide 20 mg tablet 20 mg PO QAM 06/12/22 08/17/24 felodipine 10 mg tablet,extended 10 mg PO QAM 08/17/24 08/17/24 release 24 hr isosorbide mononitrate 30 mg 30 mg PO DAILY PRN SBP > 170 08/17/24 08/17/24 tablet,extended release 24 hr omeprazole 20 mg capsule,delayed 20 mg PO QAM 08/17/24 08/17/24 release polyvinyl alcohol 1.4 % eye drops 2 drp ophthalmic (eye) QID 08/17/24 08/17/24 Results & Data (ED) Vital Signs Vital Signs - 24 hr 08/17/24 19:20 08/17/24 19:23 08/17/24 19:36 Temperature 38.8 C H Temperature Source Axillary Pulse Rate 90 81 68 Pulse Rate [Apical] Respiratory Rate 25 H 22 18 Respiratory Effort / Characteristics Non-Labored Spontaneous Short of Breath Respiratory Depth Normal Deep Respiratory Pattern Regular Blood Pressure 192/76 H Blood Pressure [Left Arm] Blood Pressure Mean 114 Blood Pressure Mean [Left Arm] Blood Pressure Position Lying Blood Pressure Position [Left Arm] Pulse Oximetry 100 100 98 Oxygen Delivery Method BiPAP BiPAP Oxygen Flow Rate Fraction of Inspired Oxygen 40 Sepsis Recent Fever Within 48 Hours Yes Sepsis New/Unexplained Change in Mental Status N/A Sepsis Action Taken by Nursing Physician Notified 08/17/24 19:38 08/17/24 19:46 08/17/24 19:53 Temperature Temperature Source Pulse Rate 74 Pulse Rate [Apical] 67 60 Respiratory Rate 16 Respiratory Effort / Characteristics Non-Labored Spontaneous Respiratory Depth Normal Respiratory Pattern Regular Blood Pressure Blood Pressure [Left Arm] 175/86 H 166/107 H Blood Pressure Mean Blood Pressure Mean [Left Arm] 115 126 Blood Pressure Position Blood Pressure Position [Left Arm] Semi-fowlers Lying Pulse Oximetry 98 98 Oxygen Delivery Method BiPAP BiPAP Oxygen Flow Rate Fraction of Inspired Oxygen Sepsis Recent Fever Within 48 Hours Sepsis New/Unexplained Change in Mental Status Sepsis Action Taken by Nursing 08/17/24 21:00 08/17/24 21:38 Temperature 37.0 C Temperature Source Oral Pulse Rate Pulse Rate [Apical] 60 60 Respiratory Rate 16 17 Respiratory Effort / Characteristics Non-Labored Spontaneous Respiratory Depth Normal Respiratory Pattern Regular Blood Pressure Blood Pressure [Left Arm] 171/69 H 164/64 H Blood Pressure Mean Blood Pressure Mean [Left Arm] 103 97 Blood Pressure Position Blood Pressure Position [Left Arm] Lying Lying Pulse Oximetry 98 98 Oxygen Delivery Method Nasal Cannula Nasal Cannula Oxygen Flow Rate 3 3 Fraction of Inspired Oxygen Sepsis Recent Fever Within 48 Hours Sepsis New/Unexplained Change in Mental Status Sepsis Action Taken by Nursing Laboratory Data 08/17/24 19:34 08/17/24 19:34 Lab Results 08/17/24 08/17/24 Range/Units 19:34 19:40 WBC 23.07 H (4.8-10.8) K/ul RBC 4.02 L (4.20-5.40) M/uL Hgb 11.8 L (12.0-16.0) g/dl Hct 36.6 L (37.0-47.0) % MCV 91.0 (80.0-100.0) fL MCH 29.4 (25.0-34.0) pg MCHC 32.2 (32.0-36.0) g/dL RDW Std Deviation 40.0 (36.4-46.3) fL RDW Coeff of Paul 11.9 (11.5-14.5) % Plt Count 253 (130-400) K/uL MPV 10.0 (9.4-12.4) fL Immature Gran % (Auto) 0.5 % Neut % (Auto) 88.5 % Lymph % (Auto) 4.7 % [place] % (Auto) 5.2 % Eos % (Auto) 0.6 % Baso % (Auto) 0.5 % Neut # (Auto) 20.41 H (1.40-6.50) K/uL Lymph # (Auto) 1.09 L (1.20-3.40) K/uL [place] # (Auto) 1.19 H (0.11-0.59) K/uL Eos # (Auto) 0.14 (0.00-0.50) K/uL Baso # (Auto) 0.12 (0.00-0.20) K/uL Immature Gran # (Auto) 0.12 (0.01-0.20) K/uL PT 10.6 (9.0-12.0) Seconds INR 1.0 (0.9-1.1) APTT 24 (21-31) Seconds PTT Ratio 0.9 VBG pH 7.30 L (7.36-7.41) VBG pCO2 48 (38-50) mmHg VBG pO2 44 mmHg VBG HCO3 24 mmol/L VBG O2 Saturation 70.0 % VBG Base Excess -3.2 mEq/L Sodium 140 (136-145) mmol/L Potassium 5.1 (3.5-5.1) mmol/L Chloride 103 (98-107) mmol/L Carbon Dioxide 26 (21-32) mmol/L Anion Gap 11 (3-11) BUN 51 H (6-23) mg/dl Creatinine 3.64 H (0.6-1.2) mg/dl Est Cr Clr Drug Dosing 9.7 ml/min eGFR 11.50 BUN/Creatinine Ratio 14.0 (10-20) Glucose 239 H (70-99(Fasting)) mg/dl Lactate 3.2 H* (0.4-2.0) mmol/L Calcium 9.8 (8.6-10.3) mg/dl Magnesium 2.0 (1.7-2.4) mg/dl Total Bilirubin 0.6 (0.2-1.0) mg/dl Direct Bilirubin 0.1 (0-0.2) mg/dl AST 12 L (13-39) U/L ALT 11 (7-52) U/L Alkaline Phosphatase 75 (34-104) U/L Troponin I High Sens 30.2 H (0-14) pg/ml B-Natriuretic Peptide 348 H (0-100) pg/ml Total Protein 7.8 (6.0-8.3) gm/dl Albumin 4.5 (3.4-5.0) gm/dl Procalcitonin 0.84 H (0-0.5) ng/ml Adenovirus (PCR) Not Detected (NotDetected) B. pertussis DNA (PCR) Not Detected (NotDetected) B.parapertussis DNA PCR Not Detected (NotDetected) C. pneumoniae DNA (PCR) Not Detected (NotDetected) Coronavirus OC43 (PCR) Not Detected (NotDetected) Coronavirus HKU1 (PCR) Not Detected (NotDetected) Coronavirus 229E (PCR) Not Detected (NotDetected) SARS-CoV-2 (PCR) Not Detected (NotDetected) Coronavirus NL63 (PCR) Not Detected (NotDetected) Human Metapneumovir PCR Not Detected (NotDetected) Influenza Type A (PCR) Not Detected (NotDetected) Influenza Type B (PCR) Not Detected (NotDetected) M. pneumoniae (PCR) Not Detected (NotDetected) Parainfluenza 1 (PCR) Not Detected (NotDetected) Parainfluenza 2 (PCR) Not Detected (NotDetected) Parainfluenza 3 (PCR) Not Detected (NotDetected) Parainfluenza 4 (PCR) Not Detected (NotDetected) RSV (PCR) Not Detected (NotDetected) Entero/Rhino (PCR) Not Detected (NotDetected) Administered Medications Discontinued Medications Piperacillin Sod/Tazobactam Sod (Zosyn) 4.5 gm in 120 mls @ 240 mls/hr IV NOW ONE Stop: 08/17/24 20:55 Last Admin: 08/17/24 21:05 Dose: 240 mls/hr Documented By: Acetaminophen (Ofirmev) 1,000 mg in 100 mls @ 400 mls/hr IV NOW STA Stop: 08/17/24 20:44 Last Infusion: 08/17/24 21:04 Dose: Infused Documented By: Admin: 08/17/24 20:51 Dose: 400 mls/hr Documented By: Imaging Data Radiologist's Impression: Chest X-Ray 08/17/24 19:22 EXAM: Radiograph of the Chest 1 View INDICATION: Sepsis. TECHNIQUE: Frontal view of the chest. COMPARISON: 06/18/2024 FINDINGS: Lungs and pleural spaces: Increased airspace consolidation left lung base and new small left pleural effusion. No pneumothorax. Underlying interstitial scarring is stable. Heart: Stable mild cardiomegaly and pacing device. Mediastinum: Normal contour. Bones/joints: Degenerative changes noted throughout the spine. No acute osseous abnormality seen. Soft tissues: No abnormality noted. No radiopaque foreign body noted. Upper abdomen: No abnormality noted. IMPRESSION: New left basilar pneumonia and small left pleural effusion. Consider mucous plugging. ACT 112: Negative or not required by law. Electronically signed by Luciana Dumont 08-17-2024 7:49 PM Discharge Plan Visit Data Chief Complaint: Hypertension Stated Complaint: SOB, HYPERTENSION ED Provider: Bobby Underwood Forms Stand Alone Forms: My [facility] Prescriptions Prescriptions: No Action atorvastatin 40 mg Tablet 40 mg PO QPM isosorbide mononitrate 60 mg Tablet Extended Release 24 Hr 60 mg PO DAILY gabapentin 300 mg Capsule 300 mg PO BID aspirin [Aspirin Childrens] 81 mg Tablet,Chewable 81 mg PO DAILY hydralazine 50 mg tablet 50 mg PO TID calcium carbonate-vitamin D3 [Calcium 600 + D(3)] 600 mg-10 mcg (400 unit) Tablet 1 tab PO QPM cyanocobalamin (vitamin B-12) [Vitamin B-12] 1,000 mcg tablet 1,000 mcg PO QAM acetaminophen 500 mg Capsule 500 mg PO Q6H Rx Instructions: DO NOT AWAKEN TO ADMINISTER acetaminophen 500 mg Tablet 500 mg PO QID PRN (Reason: .SEVERE PAIN) torsemide 20 mg tablet 20 mg PO QAM Advanced Probiotic-14 3 billion cell Capsule 2 cap PO TID meclizine 12.5 mg Tablet 12.5 mg PO Q6 PRN (Reason: Dizziness) polyvinyl alcohol [Dry Eyes] 1.4 % Drops 2 drp OPHTHALMIC (EYE) QID felodipine 10 mg tablet extended release 24 hr 10 mg PO QAM omeprazole 20 mg capsule,delayed release(DR/EC) 20 mg PO QAM isosorbide mononitrate 30 mg tablet extended release 24 hr 30 mg PO DAILY PRN (Reason: SBP > 170) Rx Instructions: GIVE IN ADDITION TO THE REGULAR ISOSORBIDE 60 MG Referrals Referrals: Harjeet Meneses MD [Primary Care Provider] -
[2024-08-17 19:55] LABS: Base Excess VBG -3.2 mEq/L; HCO3 VBG 24 mmol/L; PCO2 VBG 48 mmHg (38-50); PO2 VBG 44 mmHg
[2024-08-17 20:01] LABS: Hematocrit (blood only) 36.6 % (37.0-47.0); Hemoglobin 11.8 g/dl (12.0-16.0); Mean Corpuscular Hemoglobin 29.4 pg (25.0-34.0); Mean Corpuscular Hgb Conc 32.2 g/dL (32.0-36.0); Platelet Count 253 K/uL (130-400); RDW Coefficient of Variation 11.9 % (11.5-14.5); Red Blood Count 4.02 M/uL (4.20-5.40); White Blood Count 23.07 K/ul (4.8-10.8)
[2024-08-17 20:15] LABS: Albumin Level 4.5 gm/dl (3.4-5.0); Bilirubin Direct 0.1 mg/dl (0-0.2); Bilirubin,Total 0.6 mg/dl (0.2-1.0); Calcium 9.8 mg/dl (8.6-10.3); Creatinine Clr Calc Pharmacy 9.7 ml/min; Potassium 5.1 mmol/L (3.5-5.1); Total Protein 7.8 gm/dl (6.0-8.3)
[2024-08-17 20:20] LABS: Troponin I High Sensitivity 30.2 pg/ml (0-14)
[2024-08-17 20:22] LABS: Basophils # (auto) 0.12 K/uL (0.00-0.20); Basophils % (auto) 0.5 %; Eosinophils # (auto) 0.14 K/uL (0.00-0.50); Eosinophils % (auto) 0.6 %; Immature Granulocytes # (auto) 0.12 K/uL (0.01-0.20); Immature Granulocytes % (auto) 0.5 %; Lymphocytes # (auto) 1.09 K/uL (1.20-3.40); Lymphocytes % (auto) 4.7 %; Monocytes # (auto) 1.19 K/uL (0.11-0.59); Monocytes % (auto) 5.2 %; Neutrophils # (auto) 20.41 K/uL (1.40-6.50); Neutrophils % (auto) 88.5 %
[2024-08-17 20:26] LABS: Partial Thromboplastin Ratio 0.9; Partial Thromboplastin Time 24 Seconds (21-31); Prothrombin Time 10.6 Seconds (9.0-12.0)
--- OUTSIDE RECORDS SUMMARY | 2024-08-17 20:27 | External Medical Summary | Summary of Care ---
Author Name Unknown Organization [facility] Address [address] [place] [address] Phone [phone] Care Team Providers Care Grinding Room Inspector Name Role Phone Harjeet Meneses MD Primary Care Provider + Encounter Details Date Type Department Care Team (Late st Contact Info) Description 08/03/2024 Population Health External Data Unspecified Department Allergies Active Allergy Reactions Criticality Noted Date Comments Codeine 12/07/2012 "bad rashes' Cephalexin Hives 01/14/2022 Fe Fumarate-Fe Gluc-Fe So4 4 Irritates stomach Meloxicam 04/28/2004 May bother stomach . Pt is unsure Penicillins 04/28/2004 Rashes documented as of this encounter (statuses as of 08/03/2024) Medications Gabapentin 300 MG Oral Capsule (Neurontin)Indica tions:Fibromyalgi a Take by mouth 1 Capsule in the morning AND 1 Capsule before bedtime. 180 Capsule 3 11/29/19 22 Active Isosorbide Mononitrate ER 30 MG Oral Tablet Extended Release 24 Hour (Imdur) 1 tablet by mouth NEEDED when systolic blood pressure is greater than 170. This is in addition to the regular isosorbide 60 mg daily 100 Tablet 3 07/28/19 23 Active Meclizine HCl 12.5 MG Oral Tablet (Antivert) 1 Tablet 4 times a day as needed for Dizziness. 06/12/20 22 Active hydrALAZINE HCl 50 MG Oral Tablet (Apresoline)Indic ations:Benign hypertension with chronic kidney disease, stage IV (HCC) Take 1 Tablet by mouth in the morning and 1 Tablet at noon and 1 Tablet before bedtime. 15 Tablet 01/01/20 Active B-12 1000 MCG Oral Tablet Take 1,000 mcg by mouth in the morning. 5 Tablet 01/01/20 Active Aspirin 81 MG Oral Tablet Chewable Take 1 Tablet by mouth in the morning. 5 Tablet 01/01/20 Active Probiotic Advanced Oral Capsule Take 2 capsules 3 times a day 30 Capsule 01/01/20 Active Additional Information Patient taking differently: Take 2 capsules once daily, Reported on 07/18/2024 Torsemide 20 MG Oral Tablet (Demadex) TAKE ONE TABLET BY MOUTH EVERY MORNING FOR FLUID RETENTION 90 Tablet 1 03/30/20 Active Isosorbide Mononitrate ER 60 MG Oral Tablet Extended Release 24 Hour (Imdur)Indication s:HTN, goal below 140/90 TAKE ONE TABLET BY MOUTH EVERY DAY FOR HEARTDO NOT CUT,CRUSH OR CHEW* 90 Tablet 1 03/30/20 Active Atorvastatin Calcium 40 MG Oral Tablet (Lipitor)Indicati ons:Fibromyalgia, Dyslipidemia, goal LDL below 100 TAKE ONE TABLET BY MOUTH EVERY DAY FOR CHOLESTEROL 90 Tablet 1 03/30/20 Active Artificial Tears 0.1-0.3 % Ophthalmic Solution (Dextran 70-Hypromellose) Instill 2 Drops into eye 4 times a day. Active Acetaminophen 500 MG Oral Tablet (Tylenol Extra Strength)Indicati ons:Osteoarthriti s of spine with radiculopathy, lumbar region Take 1 Tablet by mouth 4 times a day as needed for Pain, Severe (Do not wake her up at night.). 20 Tablet 08/27/19 24 Active Omeprazole 20 MG Oral Tablet Delayed Release Take 1 Tablet by mouth in the morning. 90 Tablet 06/16/20 24 Active Zoster Vac Recomb Adjuvanted 50 MCG/0.5ML Intramuscular Suspension Reconstituted (Shingrix)Indicat ions:Need for vaccination for zoster Inject 0.5 mL into a large muscle now and repeat dose in 60 to 180 days 1 Each 07/18/2024 11:30 AM EST 07/18/19 25 Active Felodipine ER 10 MG Oral Tablet Extended Release 24 Hour (Plendil) TAKE ONE TABLET BY MOUTH EVERY DAY IN THE MORNING FOR HYPERTENSION 90 Tablet 3 07/18/19 25 Active documented as of this encounter (statuses as of 08/03/2024) Active Problems Problem Noted Date Diagnosed Date CKD (chronic kidney disease) stage 5, GFR less than 15 ml/min 07/18/2024 History of DVT in adulthood 09/07/2023 Overview (09/07/2023): Left popliteal 2021 Pacemaker 09/07/2023 DM type 2 with diabetic peripheral neuropathy Lumbar spinal stenosis 10/22/2021 Type 2 diabetes mellitus wit h stage 4 chronic kidney disease, without long-term current use of insulin 08/25/2021 Overview: Per CKD protocol Benign hypertension with chronic kidney disease, stage IV 08/25/2021 Overview: Per CKD protocol Mild mitral regurgitation 10/16/2020 Sick sinus syndrome 03/21/2020 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 07/27/2019 Type 2 diabetes mellitus wit h hemoglobin A1c goal of less than 8.0% 07/17/2019 History of TIA (transient ischemic attack) 10/18 History of ischemic bowel disease 07/13/2017 History of nonmelanoma skin cancer 05/24/2017 Overview (05/24/2017): Hx of SCC in situ on left anterior prajapati - 2012 Inflamed seborrheic keratosis 09/14/2013 Mixed hyperlipidemia Dementia, vascular Fibromyalgia documented as of this encounter (statuses as of 08/03/2024) Resolved Problems Problem Noted Date Diagnosed Date Resolved Date Acute deep vein thrombosis ( DVT) of popliteal vein of left lower extremity 05/28/2022 09/07/2023 Chronic kidney disease, stage 4 (severe) 08/25/2021 09/07/2023 Overview: Per CKD protocol Chronic kidney disease, stage 3b 12/24/2020 08/27/2021 Overview: Per CKD protocol Type 2 diabetes mellitus wit h stage 3b chronic kidney disease 11/19/2020 08/27/2021 Overview: Per CKD protocol Benign hypertension with sta ge 3b chronic kidney disease 11/19/2020 08/27/2021 Overview: Per CKD protocol Diabetes mellitus with stage 3 chronic kidney disease 05/20/2020 11/21/2020 Overview: Per CKD protocol Diabetes mellitus with nephropathy 07/13/2017 08/06/2022 DM type 2 causing CKD stage 3 07/13/2017 05/23/2020 Overview: Per CKD protocol Kidney disease, chronic, sta ge III (GFR 30-59 ml/min) 09/10/2014 10/22/2017 Edema 04/09/2014 07/13/2017 Type 2 diabetes mellitus wit h hemoglobin A1c goal of less than 7.0% 10/13/2013 07/17/2019 Overview (11/05/2015): ICD-10 update of inactive term Type 2 diabetes mellitus wit h hemoglobin A1c goal of 7.0%-8.0% 05/02/2013 10/13/2013 Overview (11/07/2015): ICD-10 update of inactive term Type 2 diabetes, HbA1c goal < 7% 01/13/2013 05/02/2013 SCC (squamous cell carcinoma), leg 12/08/2012 07/13/2017 Overview (12/08/2012): Removed - in situ TIA (transient ischemic attack) 12/04/2011 10/18/2017 Overview (12/04/2011): 2012 Polyneuropathy in other dise ases classified elsewhere 04/28/2004 07/13/2017 Overview (04/28/2004): peripheral OTHER 04/28/2004 12/04/2011 Overview (04/28/2004): vascular dementia Arthritis, rheumatoid 04/28/20042012 Benign hypertension with CKD (chronic kidney disease) stage III 11/21/2020 Overview: Per CKD protocol CKD (chronic kidney disease) stage 3, GFR 30-59 ml/min 03/06/2013 Ischemic bowel disease 07/13 documented as of this encounter (statuses as of 08/03/2024) Immunizations Name Administration Dates Next Due COVID-19 mRNA, LNP-s, No Pre serve, 2-Dose Series (Moderna) 05/26/2021,09/01/2020,08/04/2020 COVID-19 mRNA, LNP-s, No Pre serve, 2-Dose Series (Pfizer) 05/01/2021 Covid-19, Mrna, Lnp-s, Pf, B ivalent, 50 Mcg, IM, 12 yrs and above (Moderna) 12/02/2021 Pneumococcal Conjugate Vacc, 13 Valent (Prevnar) 09/10/2014 Pneumococcal Polysaccharide PPV23 (Pneumovax) 06/16/2004 Season Influenza, Quad, PF, Adjuvanted, 65+ Yrs, IM (FLUAD) 03/21/2020 Seasonal Influenza Vac., MDV , IM, 0.5 mL (Fluzone) 04/26/2014,05/01/2013,05/06/2012,04/1204/26/2015 Seasonal Influenza, PF, 6 M & above, IM , (FluLaval or Fluzone) 05/26/2021,04/07/2018,04/12/2017 Seasonal Influenza, Quadriva lent, No Preserve, IM 05/06/2016,05/21/2015 Seasonal Influenza, Trivalen t, Adjuvanted, 65+ YRS, PF, (Fluad) 03/28/2019 TDAP, Age 7 and older, IM (Adacel) 05/08/2010 Varicella Zoster Vaccine (Adult) 08/04/2007 Zoster Vaccine Recombinant (Shingrix) 07/18/2024 documented as of this encounter Social History Tobacco Use Types Packs/Day Years Used Date Smoking Tobacco: Never Smokeless Tobacco: Never Alcohol Use Standard Drinks/Week Comments Yes 0 (1 standard drink = 0.6 oz pur e alcohol) rarely PHQ-2 Answer Date Recorded PHQ Adult Total Score 0 05/28/2022 Hunger Vital Sign Answer Date Recorded Within the past 12 months, y ou worried that your food would run out before you got the money to buy more. Never true 05/28/20 22 Within the past 12 months, t he food you bought just didn't last and you didn't have money to get more. 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 Not on file Not on file documented as of this encounter Plan of Treatment Upcoming Encounters Date Type Department Care Team (Late st Contact Info) Description 08/24/2024 3:00 PM EST Office Visit Nephrology, [facility] [address] [place] [address] Shaun Solis MD [address] [place] [address] [place] [address] 01/24/2025 3:20 PM EDT Office Visit General Internal Medicine [facility] [address] [address] Harjeet Meneses MD [address] [place] [address] 04/06/2025 10:00 AM EDT Office Visit General Internal Medicine [facility] [address] [place] [address] Harjeet Meneses MD [address] [place] [address] Scheduled Procedures Name Priority Associated Diagnoses Date/Ti me ESOPHAGOGASTRODUODENOSCOPY ( EGD), FLEXIBLE, TRANSORAL, DIAGNOSTIC Recall Finley's esophagus Health Maintenance Due Date Last Done Comments Adult Wellness Visit 03/08/2018 03/08/2017 Depression Screening 05/28/2023 05/28/2022, 12/10/2015 (Unable to do) Finley's Esophagus Surveilance 10/17/2023 10/16/2020, 07/26/2019, 07/26/2019, Additional history exists COVID-19 Vaccine ( season) 2024 12/02/2021, 12/02/2021, 05/26/2021, Additional history exists Influenza Vaccine (FLU shot) (#1) 2024 05/26/2023, 05/26/2021, 05/26/2021, Additional history exists Diabetic Eye Exam 09/07/2024 09/07/2023, , 03/21/2020, Additional history exists Zoster Vaccines (3 of 3) 09/12/2024 07/18/2024, 07/13 HbA1c 01/15/2025 07/18/2024, 08/13, 02/11/2023, Additional history exists Hgb 04/21/2025 04/21/2024, 05/0 12/2023, 10/26/2023, Additional history exists Nephrology Referral 04/21/2025 04/21/2024 PTH 04/21/2025 04/21/2024, 08/12, 02/11/2023, Additional history exists Phosphate 04/21/2025 04/21/2024, 08/12, 02/11/2023, Additional history exists Diabetic Foot Exam 07/18/2025 07/18/2024, 0 02/11/2023, 12/30/2021, Additional history exists DTap/Tdap Vaccines (3 - Td or Tdap) 04/26/2034 04/26/2024, 05/08/2010 Pneumococcal Vaccine: 50+ Years Completed 09/10/2014, 06/16/2004 Albumin/Creatinine Ratio Discontinued 025, 08/27/2023, 02/11/2023, Additional history exists HPV (Gardasil) Vaccine Aged Out No lo nger eligible based on patient's age to complete this topic Hepatitis B Vaccine Aged Out No longe r eligible based on patient's age to complete this topic MENINGOCOCCAL (MENACTRA/MENVEO) Aged Out No longer eligible based on patient's age to complete this topic documented as of this encounter Medical Devices Not on filedocumented as of this encounter Advance Directives Documents on File Type Date Recorded Patient Treating Inspector Expl anation POLST 06/17/2021 [place] [facility] LIFE-SUSTAINING TREATMENT Advance Directives and Living Will 04/21/2016 LIVING WILL LIVING W ILL [facility] Care Teams Grinding Room Inspector Relationship Specialty Start Date End Date Harjeet Meneses MD [address] [facility] [place] [address] PCP - General Internal Medicine 12/04/11 documented as of this encounter
--- OUTSIDE RECORDS SUMMARY | 2024-08-17 20:27 | External Medical Summary | Summary of Care ---
Author Name Unknown Organization [facility] Address [address] [place] [address] Phone [phone] Care Team Providers Care Munitions Factory Worker Name Role Phone Harjeet Meneses MD Primary Care Provider + Encounter Details Date Type Department Care Team (Late st Contact Info) Description 08/04/2024 Result Scan Unspecified Department Seble Barajas, DO [address] [facility] [address] <No scans attached> Allergies Active Allergy Reactions Criticality Noted Date Comments Codeine 12/07/2012 "bad rashes' Cephalexin Hives 01/14/2022 Fe Fumarate-Fe Gluc-Fe So4 4 Irritates stomach Meloxicam 04/28/2004 May bother stomach . Pt is unsure Penicillins 04/28/2004 Rashes documented as of this encounter (statuses as of 08/04/2024) Medications Gabapentin 300 MG Oral Capsule (Neurontin)Indica [...] 60 mg daily 100 Tablet 3 07/28/19 Active Meclizine HCl 12.5 MG Oral Tablet (Antivert) 1 Tablet 4 times a day as needed for Dizziness. 06/12/20 Active hydrALAZINE HCl 50 MG Oral Tablet [...] her up at night.). 20 Tablet 08/27/19 Active Omeprazole 20 MG Oral Tablet Delayed Release Take 1 Tablet by mouth in the morning. 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 04/28/2004 07/13/2017 Overview (04/28/2004): peripheral OTHER 04/28/2004 12/04/2011 Overview (04/28/2004): vascular dementia Arthritis, rheumatoid 04/28/20042012 Benign hypertension with CKD (chronic kidney disease) stage III 11/21/2020 Overview: Per CKD protocol CKD (chronic kidney disease) stage 3, GFR 30-59 ml/min 03/06/2013 Ischemic bowel disease 07/13 documented as of this encounter (statuses as of 08/04/2024) Immunizations Name Administration Dates Next Due COVID-19 [...] Date Job End Date 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 Not on file Not on file documented as of this encounter Plan of Treatment Upcoming Encounters Date Type Department Care Team (Late st Contact Info) Description 08/24/2024 3:00 PM EST Office Visit Nephrology, [place] [address] [place] [address] Shaun Solis MD [address] [place], [place] [address] [address] 01/24/2025 3:20 PM EDT Office Visit General Internal Medicine [facility] [place] [address] [place] [address] Harjeet Meneses MD [facility] [address] [facility] [place] [address] 04/06/2025 10:00 AM EDT Office Visit General Internal Medicine [facility] [place] [address] [place] [address] Harjeet Meneses MD [address] [place] [address] Scheduled Procedures Name Priority Associated Diagnoses Date/Ti [...] Not on filedocumented as of this encounter Procedures Procedure Name Priority Date/Time Associated Diagnosis Comments CARDIOLOGY SCANNED RESULT 08/04/2024 documented in this encounter Results * CARDIOLOGY SCANNED RESULT (08/04/2024) 08/04/2024 Seble Barajas DO OTHER Final R esult documented in this encounter Advance Directives Documents on File Type Date Recorded Patient Data Processing Systems Project Planner Expl anation POLST 06/17/2021 [place] FOR LIFE-SUSTAINING TREATMENT Advance Directives and Living Will 04/21/2016 LIVING WILL LIVING W ILL [facility] Care Teams Munitions Factory Worker Relationship Specialty Start Date End Date Harjeet Meneses MD [address] [place] [address] PCP - General Internal Medicine 12/04/11 documented as of this encounter
--- OUTSIDE RECORDS SUMMARY | 2024-08-17 20:28 | External Medical Summary ---
Author Name Unknown Address Unknown Organization [id number]:[facility] - [address] [facility] [address] Laboratory Report Ordering Provider Test Date Status CHESTER JIMENEZ 07/18/2024 10:01:09 Final Observation Date Value Abnormality Reference (Units ) Status HbA1C 07/18/2024 10:01:09 8.0 Above high normal 4. 0-5.6 (%) Final The use of HbA1c to monitor glycemic status is based on normal hemoglobin and HbA composition. This test should not be used in patients with abnormal hemoglobin that affects the half life of the red blood cell or the in vivo glycation rates. Glucose, estimated average 07/18/2024 10:01:09 183 Above high normal <126 (mg/dL) Jose rosa Performing Location [facility] - [address] [facility] [address]
--- OUTSIDE RECORDS SUMMARY | 2024-08-17 20:28 | External Medical Summary ---
Author Name Unknown Address Unknown Organization [id number]:[facility] [place] [address] Laboratory Report Ordering Provider Test Date Status CHESTER JIMENEZ 07/18/2024 10:01:09 Final Observation Date Value Abnormality Reference (Units ) Status Albumin 07/18/2024 10:01:09 4.5 3.8-5.0 (g/dL) Final AST (Aspartate aminotransferase) 07/18/2024 10:01:09 16 10-35 (U/L) Final Result may be falsely elevat ed due to hemolysis. Alk Phos 07/18/2024 10:01:09 80 35-130 (U/ L) Final ALT (Alanine aminotransferase) 07/18/2024 10:01:09 14 10-35 (U/L) Final Bilirubin, Total 07/18/2024 10:01:09 0.4 <=1 .2 (mg/dL) Final Bilirubin, Direct 07/18/2024 10:01:09 <0.1 0. 0-0.3 (mg/dL) Final Result may be falsely decrea sed due to hemolysis. Protein 07/18/2024 10:01:09 6.9 6.0-8.3 (g /dL) Final Performing Location [facility] [place] [address]
--- OUTSIDE RECORDS SUMMARY | 2024-08-17 20:28 | External Medical Summary | Summary of Care ---
Author Name Unknown Organization [facility] Address [address] [place] [address] Phone [phone] Care Team Providers Care Spooling Supervisor Name Role Phone Harjeet Meneses MD Primary Care Provider + Reason for Visit * Reason Onset Date Comments Advice 07/31/2024 Encounter Details Date Type Department Care Team (Late st Contact Info) Description 07/31/2024 Telephone Nephrology, [address] [address] Shaun Solis MD [address] [place] [id number] Advice Allergies Active Allergy Reactions Criticality Noted Date Comments Codeine 12/07/2012 "bad rashes' Cephalexin Hives 01/14/2022 Fe Fumarate-Fe Gluc-Fe So4 4 Irritates stomach Meloxicam 04/28/2004 May bother stomach . 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 documented in this encounter Plan of Treatment Upcoming Encounters Date Type Department Care Team (Late st Contact Info) Description 08/24/2024 3:00 PM EST Office Visit Nephrology, [facility] [place] [address] [place] [address] [address] Shaun Solis MD [address] [place] [address] [place] [address] 01/24/2025 3:20 PM EDT Office Visit General Internal Medicine [facility] [place] [address] [place] [address] [address] Harjeet Meneses MD [address] [facility] [place] [address] 04/06/2025 10:00 AM EDT Office Visit General Internal Medicine [facility] [place] [address] [place] [address] Harjeet Meneses MD [address] [facility] [place] [address] Scheduled Procedures Name Priority Associated Diagnoses Date/Ti [...] Nephrology Referral 04/21/2025 04/21/2024 PTH 04/21/2025 04/21/2024, 02/12/2023, 02/11/2023, Additional history exists Phosphate 04/21/2025 04/21/2024, [...] Documents on File Type Date Recorded Patient Box Lining Machine Feeder Expl anation POLST 06/17/2021 [place] [facility] FOR LIFE-SUSTAINING TREATMENT Advance Directives and Living Will 04/21/2016 LIVING WILL LIVING W ILL [facility] Care Teams Spooling Supervisor Relationship Specialty Start Date End Date Harjeet Meneses MD [address] [facility] [place] [address] PCP - General Internal Medicine 12/04/11 documented as of this encounter
--- OUTSIDE RECORDS SUMMARY | 2024-08-17 20:28 | External Medical Summary ---
Author Name Unknown Address Unknown Organization [id number]:[facility] [address] [facility] [address] Laboratory Report Ordering Provider Test Date Status CHESTER JIMENEZ 07/18/2024 10:01:09 Final Observation Date Value Abnormality Reference (Units ) Status Triglyceride 07/18/2024 10:01:09 277 Above high normal <=174 (mg/dL) Final Triglyceride Reference Range s (mg/dL):
<150 Acceptable
150-174 Borderline high
175-499 High
>=500 Very high Cholesterol 07/18/2024 10:01:09 200 Above high normal <200 (mg/dL) Final Total Cholesterol Reference Ranges (mg/dL):
<200 Desirable
200-239 Borderline high
>=240 High HDL 07/18/2024 10:01:09 39 Below low normal >49 (mg/dL) Final HDL Cholesterol Reference Ra nges (mg/dL):
>=60 High (Desirable)
<50 Low (Undesirable) For Females
<40 Low (Undesirable) For Males NON-HDL CHOLESTEROL 07/18/2024 10:01:09 161 Above high normal <=159 (mg/dL) Final Non-HDL Cholesterol Referenc e Range (mg/dL):
<100 Target level for high risk ASCVD patient
<130 Optimal for general population
130-159 Near optimal for general population
160-189 Borderline High
190-219 High
>=220 Very High LDL, (calculated) 07/18/2024 10:01:09 106 <= 129 (mg/dL) Final LDL Cholesterol Reference Ra nges (mg/dL):
<70 Target level for high risk ASCVD patient
<100 Optimal for general population
100-129 Near optimal for general population
130-159 Borderline high
160-189 High
>=190 Very high Performing Location [facility] - [address] [facility] [address]
--- OUTSIDE RECORDS SUMMARY | 2024-08-17 20:28 | External Medical Summary | Summary of Care ---
Author Name Unknown Organization [facility] Address [address] [place] [address] Phone [phone] Care Team Providers Care Feed Elevator Worker Name Role Phone Harjeet Meneses MD Primary Care Provider + Reason for Visit * Reason Comments Outpatient Testing Encounter Details Date Type Department Care Team (Late st Contact Info) Description 07/18/2024 10:00 AM EST Laboratory Laboratory [facility] [address] [place] [id number] [facility] Lab Scen[address] [place] [address] Type 2 diabetes mellitus with stage 4 chronic kidney disease, without long-term current use of insulin (HCC); Mixed hyperlipidemia; Encounter for long-term (current) use of medications; DM type 2 with diabetic peripheral neuropathy (HCC) Allergies Active Allergy Reactions Criticality Noted Date Comments Codeine 12/07/2012 "bad rashes' Cephalexin Hives 01/14/2022 Fe Fumarate-Fe Gluc-Fe So4 4 Irritates stomach Meloxicam 04/28/2004 May bother stomach . Pt is unsure Penicillins 04/28/2004 Rashes documented as of this encounter (statuses as of 07/18/2024) Medications Gabapentin 300 MG Oral Capsule (Neurontin)Indica tions:Fibromyalgi a Take by mouth 1 Capsule in the morning AND 1 Capsule before bedtime. 180 Capsule 3 2 Active Isosorbide Mononitrate ER 30 MG Oral Tablet Extended Release 24 Hour (Imdur) 1 tablet by mouth NEEDED when systolic blood pressure is greater than 170. This is in addition to the regular isosorbide 60 mg daily 100 Tablet 3 3 Active Meclizine HCl 12.5 MG Oral Tablet (Antivert) 1 Tablet 4 times a day as needed for Dizziness. 2 Active hydrALAZINE HCl 50 MG Oral Tablet (Apresoline)Indic ations:Benign hypertension with chronic kidney disease, stage IV (HCC) Take 1 Tablet by mouth in the morning and 1 Tablet at noon and 1 Tablet before bedtime. 15 Tablet 3 Active B-12 1000 MCG Oral Tablet Take 1,000 mcg by mouth in the morning. 5 Tablet 3 Active Aspirin 81 MG Oral Tablet Chewable Take 1 Tablet by mouth in the morning. 5 Tablet 3 Active Probiotic Advanced Oral Capsule Take 2 capsules 3 times a day 30 Capsule 3 Active Additional Information Patient taking differently: Take 2 capsules once daily, Reported on 07/18/2024 Torsemide 20 MG Oral Tablet (Demadex) TAKE ONE TABLET BY MOUTH EVERY MORNING FOR FLUID RETENTION 90 Tablet 1 3 Active Isosorbide Mononitrate ER 60 MG Oral Tablet Extended Release 24 Hour (Imdur)Indication s:HTN, goal below 140/90 TAKE ONE TABLET BY MOUTH EVERY DAY FOR HEARTDO NOT CUT,CRUSH OR CHEW* 90 Tablet 1 3 Active Atorvastatin Calcium 40 MG Oral Tablet (Lipitor)Indicati ons:Fibromyalgia, Dyslipidemia, goal LDL below 100 TAKE ONE TABLET BY MOUTH EVERY DAY FOR CHOLESTEROL 90 Tablet 1 3 Active Artificial Tears 0.1-0.3 % Ophthalmic Solution (Dextran 70-Hypromellose) Instill 2 Drops into eye 4 times a day. Active Felodipine ER 10 MG Oral Tablet Extended Release 24 Hour (Plendil) Take 1 Tablet by mouth in the morning. For blood pressure.. 90 Tablet 3 4 Active Acetaminophen 500 MG Oral Tablet (Tylenol Extra Strength)Indicati ons:Osteoarthriti s of spine with radiculopathy, lumbar region Take 1 Tablet by mouth 4 times a day as needed for Pain, Severe (Do not wake her up at night.). 20 Tablet 4 Active Omeprazole 20 MG Oral Tablet Delayed Release Take 1 Tablet by mouth in the morning. 90 Tablet 4 Active Zoster Vac Recomb Adjuvanted 50 MCG/0.5ML Intramuscular Suspension Reconstituted (Shingrix)Indicat ions:Need for vaccination for zoster Inject 0.5 mL into a large muscle now and repeat dose in 60 to 180 days 1 Each 5 Active documented as of this encounter (statuses as of 07/18/2024) Active Problems Problem Noted Date Diagnosed Date [...] as of this encounter (statuses as of 07/18/2024) Resolved Problems Problem Noted Date Diagnosed Date [...] as of this encounter (statuses as of 07/18/2024) Immunizations Name Administration Dates Next Due COVID-19 [...] money to get more. Never true 05/28/2022 Utilities Answer Date Recorded Do you have trouble paying y our heating, water, or electric bill? (Adult - for ages 18 years and over) Not on file 12/28/2023 Is your family able to pay t he heat, water, or electric bill? (Household - for ages 0-17 years) Not on file 12/28/2023 Does your family have access to good internet? (Household - for ages 0-17 years) Not on file 12/28/2023 Social Connections Answer Date Recorded How often do you feel lonely or isolated from those around you? 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 [address] [facility] [place] [id number] Harjeet Meneses MD [address] [facility] [place] [id number] 04/06/2025 10:00 AM EDT Office Visit General Internal Medicine [facility] [place] [address] [facility] [place] [address] Harjeet Meneses MD [address] [facility] [place] [id number] Pending Results Name Type Priority Associated Diagnoses Date /Time HEPATIC FUNCTION PANEL Lab Routine Type 2 diabetes mellitus with stage 4 chronic kidney disease, without long-term current use of insulin ([facility]) 07/18/2024 10:01 AM EST LIPID PANEL WITH DIRECT LDL IF TG IS HIGH Lab Routine Type 2 diabetes mellitus with stage 4 chronic kidney disease, without long-term current use of insulin ([facility]) Mixed hyperlipidemia 07/18/2024 10:01 AM EST MAGNESIUM Lab Routine Encounter for long-term (current) use of medications 07/18/2024 10:01 AM EST HEMOGLOBIN A1C Lab Routine DM type 2 with diabetic peripheral neuropathy ([facility]) 07/18/2024 10:01 AM EST ALBUMIN / CREATININE RATIO, URINE Lab Routine DM type 2 with diabetic peripheral neuropathy ([facility]) 07/18/2024 10:01 AM EST Scheduled Procedures Name Priority Associated Diagnoses Date/Ti me ESOPHAGOGASTRODUODENOSCOPY ( EGD), FLEXIBLE, TRANSORAL, DIAGNOSTIC Recall Finley's esophagus Health Maintenance Due Date Last Done Comments Adult Wellness Visit 03/08/2018 03/08/2017 Depression Screening 05/28/2023 05/28/2022, 12/10/2015 (Unable to do) Finley's Esophagus Surveilance 10/17/2023 10/16/2020, 07/26/2019, 07/26/2019, Additional history exists HbA1c 03/07/2024 09/07/2023, 08/0 09/2022, 08/06/2022, Additional history exists COVID-19 Vaccine ( season) 2024 12/02/2021, 12/02/2021, 05/26/2021, Additional history exists Influenza Vaccine (FLU shot) (#1) 2024 05/26/2023, 05/26/2021, 05/26/2021, Additional history exists Diabetic Eye Exam 09/07/2024 09/07/2023, , 03/21/2020, Additional history exists Zoster Vaccines (3 of 3) 09/12/2024 07/18/2024, 07/13 Hgb 04/21/2025 04/21/2024, 05/0 12/2023, 10/26/2023, Additional history exists Nephrology Referral 04/21/2025 04/21/2024 PTH 04/21/2025 04/21/2024, 08/12, 02/11/2023, Additional history exists Phosphate 04/21/2025 04/21/2024, 08/12, 02/11/2023, Additional history exists Diabetic Foot Exam 07/18/2025 07/18/2024, 0 02/11/2023, 12/30/2021, Additional history exists DTap/Tdap Vaccines (3 - Td or Tdap) 04/26/2034 04/26/2024, 05/08/2010 Pneumococcal Vaccine: 50+ Years Completed 09/10/2014, 06/16/2004 Albumin/Creatinine Ratio Discontinued 024, 02/11/2023, 08/06/2022, Additional history exists HPV (Gardasil) Vaccine Aged [...] Not on filedocumented as of this encounter Visit Diagnoses Diagnosis Type 2 diabetes mellitus with stage 4 chronic kidney disease, without long-term current use of insulin (HCC) Mixed hyperlipidemia Encounter for long-term (current) use of medications Encounter for long-term (current) use of other medications DM type 2 with diabetic peripheral neuropathy (HCC) Type II or unspecified type diabetes mellitus with neurological manifestations, not stated as uncontrolled documented in this encounter Advance Directives Documents on File Type Date Recorded Patient Dust Handler Expl anation POLST 06/17/2021 [place] [facility] FOR LIFE-SUSTAINING TREATMENT Advance Directives and Living Will 04/21/2016 LIVING WILL LIVING W ILL [facility] Care Teams Feed Elevator Worker Relationship Specialty Start Date End Date Harjeet Meneses MD [address] [place] [address] PCP - General Internal Medicine 12/04/11 documented as of this encounter
--- OUTSIDE RECORDS SUMMARY | 2024-08-17 20:28 | External Medical Summary | Summary of Care ---
Author Name Unknown Organization [facility] Address [address] [place] [address] Phone [phone] Care Team Providers Care Med Aide Name Role Phone Harjeet Meneses MD Primary Care Provider + Reason for Visit * Reason Comments eRx-Medication Refill Encounter Details Date Type Department Care Team (Late st Contact Info) Description 07/18/2024 Refill Nephrology, [address] [address] Luma Solis MD [address] [place] [address] Allergies Active Allergy Reactions Criticality Noted Date Comments Codeine 12/07/2012 "bad rashes' Cephalexin Hives 01/14/2022 Fe Fumarate-Fe Gluc-Fe So4 4 Irritates stomach Meloxicam 04/28/2004 May bother stomach . Pt is unsure Penicillins 04/28/2004 Rashes documented as of this encounter (statuses as of 07/18/2024) Medications Gabapentin 300 MG Oral Capsule (Neurontin)Indic ations:Fibromyal claudia Take by mouth 1 Capsule in the morning AND 1 Capsule before bedtime. 180 Capsule 3 022 Active Isosorbide Mononitrate ER 30 MG Oral Tablet Extended Release 24 Hour (Imdur) 1 tablet by mouth NEEDED when systolic blood pressure is greater than 170. This is in addition to the regular isosorbide 60 mg daily 100 Tablet 3 023 Active Meclizine HCl 12.5 MG Oral Tablet (Antivert) 1 Tablet 4 times a day as needed for Dizziness. Active hydrALAZINE HCl 50 MG Oral Tablet (Apresoline)Priya cations:Benign hypertension with chronic kidney disease, stage IV (HCC) Take 1 Tablet by mouth in the morning and 1 Tablet at noon and 1 Tablet before bedtime. 15 Tablet 023 Active B-12 1000 MCG Oral Tablet Take 1,000 mcg by mouth in the morning. 5 Tablet Active Aspirin 81 MG Oral Tablet Chewable Take 1 Tablet by mouth in the morning. 5 Tablet 023 Active Probiotic Advanced Oral Capsule Take 2 capsules 3 times a day 30 Capsule Active Additional Information Patient taking differently: Take 2 capsules once daily, Reported on 07/18/2024 Torsemide 20 MG Oral Tablet (Demadex) TAKE ONE TABLET BY MOUTH EVERY MORNING FOR FLUID RETENTION 90 Tablet 1 023 Active Isosorbide Mononitrate ER 60 MG Oral Tablet Extended Release 24 Hour (Imdur)Indicatio ns:HTN, goal below 140/90 TAKE ONE TABLET BY MOUTH EVERY DAY FOR HEARTDO NOT CUT,CRUSH OR CHEW* 90 Tablet 1 023 Active Atorvastatin Calcium 40 MG Oral Tablet (Lipitor)Indicat ions:Fibromyalgi a,Dyslipidemia, goal LDL below 100 TAKE ONE TABLET BY MOUTH EVERY DAY FOR CHOLESTEROL 90 Tablet 1 023 Active Artificial Tears 0.1-0.3 % Ophthalmic Solution (Dextran 70-Hypromellose) Instill 2 Drops into eye 4 times a day. Active Acetaminophen 500 MG Oral Tablet (Tylenol Extra Strength)Indicat ions:Osteoarthri tis of spine with radiculopathy, lumbar region Take 1 Tablet by mouth 4 times a day as needed for Pain, Severe (Do not wake her up at night.). 20 Tablet 024 Active Omeprazole 20 MG Oral Tablet Delayed Release Take 1 Tablet by mouth in the morning. 90 Tablet 024 Active Zoster Vac Recomb Adjuvanted 50 MCG/0.5ML Intramuscular Suspension Reconstituted (Shingrix)Indica tions:Need for vaccination for zoster Inject 0.5 mL into a large muscle now and repeat dose in 60 to 180 days 1 Each 11:30 AM EST 025 Active Felodipine ER 10 MG Oral Tablet Extended Release 24 Hour (Plendil) TAKE ONE TABLET BY MOUTH EVERY DAY IN THE MORNING FOR HYPERTENSION 90 Tablet 3 025 Active Felodipine ER 10 MG Oral Tablet Extended Release 24 Hour (Plendil) Take 1 Tablet by mouth in the morning. For blood pressure.. 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 Not on file Not on file documented as of this encounter Miscellaneous Notes * Telephone Encounter - Luma Solis MD - 07/18/2024 5:35 PM ESTSigned Prescriptions: Disp Refills Felodipine ER 10 MG Oral Tablet Extended R*90 Tab*3 Sig: TAKE ONE TABLET BY MOUTH EVERY DAY IN THE MORNING FOR HYPERTENSION Authorizing Provider: LUMA SOLIS * Telephone Encounter - Deepa Valdes RN - 07/18/2024 1:24 PM ESTPending Prescriptions: Disp Refills Felodipine ER 10 MG Oral Tablet Extended R*90 Tab*3 Sig: TAKE ONE TABLET BY MOUTH EVERY DAY IN THE MORNING FOR HYPERTENSION * Telephone Encounter - Deepa Valdes RN - 07/18/2024 1:20 PM EST Prescription request received from pharmacy pending. Please authorize. Last OV 04/21/24 Next OV 08/24/24 documented in this encounter Plan of Treatment Upcoming Encounters Date Type Department Care Team (Late st Contact Info) Description 08/24/2024 3:00 PM EST Office Visit Nephrology, [place] [address] [address] [employer], [place] [address] Luma Solis MD [address] [place], [place] [address] [address] 01/24/2025 3:20 PM EDT Office Visit General Internal Medicine [facility] [place] [address] [address] [place] [address] Harjeet Meneses MD [facility] [address] [place], [place] [address] 04/06/2025 10:00 AM EDT Office Visit General Internal Medicine [facility] [place] [address] [place] [address] Harjeet Meneses MD [address] [place], [place] [address] Scheduled Procedures Name Priority Associated Diagnoses Date/Ti me ESOPHAGOGASTRODUODENOSCOPY ( EGD), FLEXIBLE, TRANSORAL, DIAGNOSTIC Recall Finley's esophagus Health Maintenance Due Date Last Done Comments Adult Wellness Visit 03/08/2018 03/08/2017 Depression Screening 05/28/2023 05/28/2022, 12/10/2015 (Unable to do) Finley's Esophagus Surveilance 10/17/2023 10/16/2020, 07/26/2019, 07/26/2019, Additional history exists HbA1c 03/07/2024 07/18/2024, 08/13, 02/11/2023, Additional history exists COVID-19 Vaccine ( season) [...] Documents on File Type Date Recorded 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
--- OUTSIDE RECORDS SUMMARY | 2024-08-17 20:28 | External Medical Summary ---
Author Name Unknown Address Unknown Organization K09[facility] [place] [address] Laboratory Report Ordering Provider Test Date Status LISBETH MESA 07/18/2024 10:01:09 Final Observation Date Value Abnormality Reference (Units ) Status Magnesium 07/18/2024 10:01:09 2.5 1.5-2.6 (m g/dL) Final Performing Location [facility] [place] [address]
--- OUTSIDE RECORDS SUMMARY | 2024-08-17 20:28 | External Medical Summary | Summary of Care ---
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 Name Role Phone Harjeet Meneses MD Primary Care Provider + Reason for Visit * Reason Onset Date Comments Re-Check Routine check up - patient accompanied by daughter Kerline Immunizations 07/18/2024 Shingrix Immunizations 07/18/2024 Encounter Details Date Type Department Care Team (Late st Contact Info) Description 07/18/2024 9:20 AM EST Office Visit General Internal Medicine [facility] [place] [address] [place] [address] Harjeet Meneses MD [address] [place] [address] Vascular dementia without behavioral disturbance (HCC)*; Sick sinus syndrome (HCC); Type 2 diabetes mellitus with stage 4 chronic kidney disease, without long-term current use of insulin (HCC); Benign hypertension with chronic kidney disease, stage IV (HCC); Mixed hyperlipidemia; Type 2 diabetes mellitus with hemoglobin A1c goal of less than 8.0% (HCC); DM type 2 with diabetic peripheral neuropathy (HCC); Need for vaccination for zoster Allergies Active Allergy Reactions Criticality Noted Date [...] 1 Tablet before bedtime. 15 Tablet 01/01/20 23 Active B-12 1000 MCG Oral Tablet Take 1,000 mcg by mouth in the morning. 5 Tablet 01/01/20 23 Active Aspirin 81 MG Oral Tablet Chewable Take 1 Tablet by mouth in the morning. 5 Tablet 01/01/20 23 Active Probiotic Advanced Oral Capsule Take 2 capsules 3 times a day 30 Capsule 01/01/20 23 Active Additional Information Patient taking differently: Take 2 capsules once daily, Reported on 07/18/2024 Torsemide 20 MG Oral Tablet (Demadex) TAKE ONE TABLET BY MOUTH EVERY MORNING FOR FLUID RETENTION 90 Tablet 1 03/30/20 23 Active Isosorbide Mononitrate ER 60 MG Oral Tablet Extended Release 24 Hour (Imdur)Indicatio ns:HTN, goal below 140/90 TAKE ONE TABLET BY MOUTH EVERY DAY FOR HEARTDO NOT CUT,CRUSH OR CHEW* 90 Tablet 1 03/30/20 Active Atorvastatin Calcium 40 MG Oral Tablet (Lipitor)Indicat ions:Fibromyalgi a,Dyslipidemia, goal LDL below 100 TAKE ONE TABLET BY MOUTH EVERY DAY FOR CHOLESTEROL 90 Tablet 1 03/30/20 23 Active Artificial Tears 0.1-0.3 % Ophthalmic Solution (Dextran 70-Hypromellose) Instill 2 Drops into eye 4 times a day. Active Felodipine ER 10 MG Oral Tablet Extended Release 24 Hour (Plendil) Take 1 Tablet by mouth in the morning. For blood pressure.. 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 Not on file 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 Not on file Not on file documented as of this encounter Last Filed Vital Signs Vital Sign Reading Time Taken Comments Blood Pressure 136/46 07/18/2024 9:17 AM EST Pulse 68 07/18/2024 9:17 AM EST Temperature 36.4 C (97.6 F) 07/18/2024 9:17 AM ES T Respiratory Rate 16 07/18/2024 9:17 AM EST Oxygen Saturation - - Inhaled Oxygen Concentration - - Weight 74.1 kg (163 lb 6.4 oz) 07/18/2024 9:17 A M EST Height - - Body Mass Index 28.95 10/26/2023 10:31 AM EDT documented in this encounter Patient Instructions * Patient Instructions* Lawrence Cain RN - 07/18/2024 9:24 AM EST Diabetes: Keeping Feet Healthy Inspect your feet every day for signs of a problem. Diabetes can damage nerves in your feet and cause neuropathy. This condition makes it hard for you to feel injuries or sore spots. Diabetes can also change blood flow, making it harder for small problems, like a blister, to heal properly. In fact, minor injuries can quickly become serious infections that send you to the hospital. Practice self-care to protect your feet and keep them healthy. Take Special Care Inspect your feet daily for problems such as redness, blisters, cracks, dry skin, or numbness. Use a mirror to see the bottoms of your feet. Or, ask for help. Manage your diabetes. Monitor and control your blood sugar. Take all your medications as prescribed. Avoid walking barefoot, even indoors. Wash your feet with warm water and mild soap. Dry well, especially between toes. Dont treat corns or calluses yourself. Talk to your doctor or [employer] (a doctor who specializes in foot care) if you need assistance trimming your toenails. Use moisturizing cream or lotion if you have dry skin, but dont use it between toes. Dont use heating pads on your feet. If you have neuropathy, you could get a burn and not feel it. Stop smoking. Smoking restricts blood flow and can make it harder for wounds to heal. Have Regular Checkups Foot problems can develop quickly. So be sure to follow your healthcare teams schedule for regular checkups. During office visits, take off your shoes and socks as soon as you get in the exam room. Ask your healthcare provider to examine your feet for problems. This will make it easier to find and treat small skin irritations before they get worse. Regular checkups can also help keep track of the blood flow and feeling in your feet. If you have neuropathy, you may need to have checkups more often. Wear Proper Footwear Wearing proper footwear is very important. If areas of your feet have been damaged by too much pressure, your healthcare provider may recommend changing your footwear. In some cases, avoiding high heels or tight work boots may be all thats needed. Or, your healthcare provider may recommend special shoes or custom inserts. These help protect your feet and keep existing irritations from getting worse. If you need special footwear, ask your healthcare provider if you qualify for [employer] diabetic shoe program. Make Sure Shoes and Socks Fit Any pair of shoes--new or old--should feel comfortable as soon as you put them on. There shouldnt be any rubbing when you walk. Wear the right shoe for any activity. For instance, a running shoe is designed to keep your feet injury-free while jogging. Buy shoes at the end of the day, when your feet are larger. Make sure they provide support without feeling too loose. Make sure your socks fit, t oo. Wear soft, seamless, well-padded socks for activity. Cotton or microfiber socks are best to help to absorb sweat. To protect your feet, avoid shoes that are open-toed or open-heeled. If you have questions about what kinds of shoes and socks are best, talk to your healthcare team. Get Regular Exercise Regular exercise improves blood flow in your feet. It also increases foot strength and flexibility.Gentle exercises, like walking or riding a stationary bicycle, are best. You can also do special foot exercises. Just be sure to talk with your healthcare provider before starting any exercise program. Also mention if any exercise causes pain, redness, or other signs of foot problems. Note: If you have any kind of break in the skin of your foot or ankle, keep the area clean. Then call your doctor--especially if the area doesnt appear to be healing. [id number] [employer], [address] [place] [address], [place] [address]. All rights reserved. This information is not intended as a substitute for professional medical care. Always follow your healthcare professional's instructions. ~~PATIENT INSTRUCTIONS FOR SHINGRIX VACCINE~~ Possible side effects of Shingrix vaccine, (shingles), are usually mild and can include: 1. Soreness or redness at injection site 2. Low grade fever 3. Body aches You may use a fever / pain reducing medication as needed for these symptoms. LET YOUR DOCTOR KNOW IMMEDIATELY IF YOU HAVE DIFFICULTY BREATHING OR SWALLOWING, EXPERIENCE ITCHINGOF FEET OR HANDS, HAVE SWELLING OF EYES, FACE OR INSIDE OF NOSE. Shingrix Insurance Billing and Co-Pay Information: Patient was advised they may still have a bill or copay due for the dispensed medication and therefore, [facility] will need to still attempt to collect the bill or copay over the phone or via mailed statement, but any questions regarding the amount billed or ability to pay please contact the pharmacy using the contact information on the bill received. [employer] copays are close to $0. In most cases copays will be around $10. The maximum co-pay patients may get is $200 but [facility] will work on a payment plan with patients if needed. ~~PATIENT INSTRUCTIONS FOR TDAP VACCINE~~ Possible side effects of TDAP vaccine, (tetanus shot), are usually mild and can include: 1. Soreness or redness at injection site 2. Low grade fever 3. Body aches You may use a fever / pain reducing medication as needed for these symptoms. LET YOUR DOCTOR KNOW IMMEDIATELY IF YOU HAVE DIFFICULTY BREATHING OR SWALLOWING, EXPERIENCE ITCHINGOF FEET OR HANDS, HAVE SWELLING OF EYES, FACE OR INSIDE OF NOSE. documented in this encounter Progress Notes * Harjeet Meneses MD - 07/18/2024 9:43 AM EST Chief Complaint Patient presents with Re-Check Routine check up - patient accompanied by daughter Kerline Immunizations Shingrix Immunizations SUBJECTIVE: Fidelia Hidalgo is a 89 year old female with PMH as below who presents for follow up dementia, CKD, HTN. She is with her daughter. Feels good. Memory slowly declining per daughter, but in 01/02 care,doing adl's. Had a fall when didn't use walker, no injury, aware to use 01/02 when moving. Mood is good. Moving bowels. No cp sob, abraham. Follows with nephrology, sometimes bp 180 in evening with automated cuff. No headache complaints. Last pacer check 05/04, daughter feels she is due. Also states have flu and covid booster at residence Patient Active Problem List Diagnosis Mixed hyperlipidemia Dementia, vascular (HCC) Fibromyalgia Inflamed seborrheic keratosis History of nonmelanoma skin cancer History of ischemic bowel disease History of TIA (transient ischemic attack) Type 2 diabetes mellitus with hemoglobin A1c goal of less than 8.0% (HCC) 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 Sick sinus syndrome (HCC) Mild mitral regurgitation Type 2 diabetes mellitus with stage 4 chronic kidney disease, without long-term current use of insulin (HCC) Benign hypertension with chronic kidney disease, stage IV (HCC) Lumbar spinal stenosis DM type 2 with diabetic peripheral neuropathy ([facility]) History of DVT in adulthood Pacemaker CKD (chronic kidney disease) stage 5, GFR less than 15 ml/min ([facility]) Current Outpatient Medications Medication Sig Dispense Refill Gabapentin 300 MG Oral Capsule (Neurontin) Take by mouth 1 Capsule in the morning AND 1 Capsule before bedtime. 180 Capsule 3 Isosorbide Mononitrate ER 30 MG Oral Tablet Extended Release 24 Hour (Imdur) 1 tablet by mouth NEEDED when systolic blood pressure is greater than 170. This is in addition to the regular isosorbide 60 mg daily 100 Tablet 3 hydrALAZINE HCl 50 MG Oral Tablet (Apresoline) Take 1 Tablet by mouth in the morning and 1 Tablet at noon and 1 Tablet before bedtime. 15 Tablet 0 B-12 1000 MCG Oral Tablet Take 1,000 mcg by mouth in the morning. 5 Tablet 0 Aspirin 81 MG Oral Tablet Chewable Take 1 Tablet by mouth in the morning. 5 Tablet 0 Probiotic Advanced Oral Capsule Take 2 capsules 3 times a day (Patient taking differently: Take 2 capsules once daily) 30 Capsule 0 Torsemide 20 MG Oral Tablet (Demadex) TAKE ONE TABLET BY MOUTH EVERY MORNING FOR FLUID RETENTION 90Tablet 1 Isosorbide Mononitrate ER 60 MG Oral Tablet Extended Release 24 Hour (Imdur) TAKE ONE TABLET BY MOUTH EVERY DAY FOR HEARTDO NOT CUT,CRUSH OR CHEW* 90 Tablet 1 Atorvastatin Calcium 40 MG Oral Tablet (Lipitor) TAKE ONE TABLET BY MOUTH EVERY DAY FOR [id number] Tablet 1 Artificial Tears 0.1-0.3 % Ophthalmic Solution (Dextran 70-Hypromellose) Instill 2 Drops into eye 4times a day. Felodipine ER 10 MG Oral Tablet Extended Release 24 Hour (Plendil) Take 1 Tablet by mouth in the morning. For blood pressure.. 90 Tablet 3 Acetaminophen 500 MG Oral Tablet (Tylenol Extra Strength) Take 1 Tablet by mouth 4 times a day as needed for Pain, Severe (Do not wake her up at night.). 20 Tablet 0 Omeprazole 20 MG Oral Tablet Delayed Release Take 1 Tablet by mouth in the morning. 90 Tablet 0 Zoster Vac Recomb Adjuvanted 50 MCG/0.5ML Intramuscular Suspension Reconstituted (Shingrix) Inject 0.5 mL into a large muscle now and repeat dose in 60 to 180 days 1 Each 0 Meclizine HCl 12.5 MG Oral Tablet (Antivert) 1 Tablet 4 times a day as needed for Dizziness. (Patient not taking: Reported on 07/18/2024) No current facility-administered medications for this visit. Review of patient's allergies indicates: Allergen Reactions Codeine "bad rashes' Ed A-Ceph [Cephalexin] Hives Fe Fumarate-Fe Gluc-Fe So4 Irritates stomach Meloxicam May bother stomach . Pt is unsure Penicillins Rashes Health Maintenance Due Topic Date Due Zoster Vaccines (2 of 3) 09/29/2007 Adult Wellness Visit 03/08/2018 Depression Screening 05/28/2023 Finley's Esophagus Surveilance 10/17/2023 HbA1c 03/07/2024 Influenza Vaccine (FLU shot) (1) 03/12/2024 COVID-19 Vaccine ( season) 2024 Albumin/Creatinine Ratio 08/27/2024 ROS: CONSTITUTIONAL: No fevers, sweats, or chills EYE: No recent significant change in vision, No eye pain, redness, discharge, and No diplopia PULMONARY: No cough, sputum, or hemoptysis, No wheezing, No rales, No shortness of breath, and No recent change in breathing CARDIOVASCULAR: No chest pain, No shortness of breath, No dyspnea on exertion, No orthopnea, No paroxysmal nocturnal dyspnea, No edema, No palpitations, and No syncope GASTROINTESTINAL: No abdominal pain, No change in bowel habits, No significant heartburn, No significant change in appetite, No nausea, vomiting, diarrhea, or constipation, No hematemesis, No blood in stools or black tarry stools, No abdominal bloating or early satiety, and No dysphagia ALL OTHER SYSTEMS NEGATIVE I reviewed social, PMH, PSH, and family history and updated where needed. 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 Tobacco Use Smoking status: Never Smokeless tobacco: Never Vaping Use Vaping status: Never Used Substance and Sexual Activity Alcohol use: Yes Comment: rarely Drug use: No Sexual activity: Not Currently Other Topics Concern Not on file Social History Narrative Not on file Social Needs Financial Resource Strain: Not on file Food Insecurity: No Food Insecurity (05/28/2022) Hunger Vital Sign Worried About Running Out of Food in the Last Year: Never true Ran Out of Food in the Last Year: Never true Transportation Needs: Not on file Social Connections: Unknown (12/28/2023) Social Connections How often do you feel lonely or isolated from those around you? (Adult - for ages 18 years and over): Not on file Housing Stability: Not on file Past Medical History: Diagnosis Date Arthritis, rheumatoid (HCC) 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 07/27/2019 Dementia, vascular (HCC) Depressive disorder, not elsewhere classified Diabetes mellitus with nephropathy (HCC) 07/13/2017 DM type 2 causing CKD stage 3 (HCC) 07/13/2017 DM type 2, goal A1c below 7 10/13/2013 Dyslipidemia, goal LDL below 100 Fibromyalgia History of ischemic bowel disease 07/13/2017 History of TIA (transient ischemic attack) 10/18/2017 HTN, goal below 140/90 Ischemic bowel disease (HCC) 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/21/2020 Mild mitral regurgitation 10/16/2020 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) peripheral Preeclampsia At the age of 33 (first ) SCC (squamous cell carcinoma), 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 - in situ TIA (transient ischemic attack) 12/04/2011 Past Surgical History: Procedure Laterality Date CATARACT SURGERY,COMPLEX Bilateral 2018 EGD, FLEXIBLE, DIAGNOSTIC 07/26/2019 Barretts, hiatal hernia, repeat 3 yrs/ESOPHAGOGASTRODUODENOSCOPY (EGD), FLEXIBLE, TRANSORAL, DIAGNOSTIC performed by Deisy Bustamante DO at [facility] EGD, W/ENDOSCOPIC US 07/26/2019 normal bx/ESOPHAGOGASTRODUODENOSCOPY (EGD), FLEXIBLE, TRANSORAL, ENDOSCOPIC ULTRASOUND performed byDeisy Bustamante DO at [facility] EGD, W/ENDOSCOPIC US 10/16/2020 Barretts, hiatal hernia, pancreatic cyst - pseudocyst, CBD dilation, fatty liver, repeat EUS 1 yr, repeat EGD 3 yrs / ESOPHAGOGASTRODUODENOSCOPY (EGD), FLEXIBLE, TRANSORAL, ENDOSCOPIC ULTRASOUND performed by Deisy Bustamante DO at [facility] LUMBAR / SACRAL EPIDURAL, SINGLE LEVEL 07/17/2021 INJECTION TRANSFORAMINAL EPIDURAL LUMBAR OR SACRAL performed by [place] Marlo Martin DO at [facility] LUMBAR / SACRAL EPIDURAL, SINGLE LEVEL 08/07/2021 INJECTION TRANSFORAMINAL EPIDURAL LUMBAR OR SACRAL performed by [place] Marlo Martin DO at [facility] LUMBAR / SACRAL EPIDURAL, SINGLE LEVEL 08/21/2021 INJECTION TRANSFORAMINAL EPIDURAL LUMBAR OR SACRAL performed by Janes Martin DO at OR [facility] RADICAL HYSTERECTOMY 1972 cervix removed REMOVE GALLBLADDER 1985 REMOVE TONSILS & ADENOIDS, AGE 12+ 1945 Family History Problem Relation Name Age of Onset Hypertension Mother Cancer Mother metastatic, unknown Suspected Melanoma Heart Disorder Father Hypertension Father No Past Hx Sister Diabetes Brother Diabetes Grandfather (Maternal) OBJECTIVE: PHYSICAL EXAM: BP 136/46 (BP Site: Left Arm, BP Position: Sitting, BP Cuff Size: Regular) | Pulse 68 | Temp 97.6 F (36.4 C) (Tympanic) | Resp 16 | Wt 163 lb 6.4 oz (74.1 kg) | BMI 28.95 kg/m | BSA 1.81 m General: alert, healthy, and no distress Head: Normocephalic, No masses, lesions, tenderness or abnormalities Eye Exam: conjunctiva are pink and non-injected, sclera clear Heart: regular rate & rhythm, no murmur, no gallops, PMI non-displaced, S-1 normal, and S-2 normal Lungs: normal respiratory rate and rhythm, lungs clear to auscultation Psych: normal affect, no flight of ideas or tangential thought, good eye contact, no pressured speech I reviewed last lft, lipid, A1c ASSESSMENT: (F01.50) Vascular dementia without behavioral disturbance (HCC) (primary encounter diagnosis) (I49.5) Sick sinus syndrome (HCC) (E11.22, N18.4) Type 2 diabetes mellitus with stage 4 chronic kidney disease, without long-term current use of insulin (HCC) (I12.9, N18.4) Benign hypertension with chronic kidney disease, stage IV (HCC) (E78.2) Mixed hyperlipidemia (E11.9) Type 2 diabetes mellitus with hemoglobin A1c goal of less than 8.0% (HCC) (E11.42) DM type 2 with diabetic peripheral neuropathy (HCC) (Z23) Need for vaccination for zoster PLAN: Vascular dementia without behavioral disturbance (HCC) (Primary) Cont assisted living Seems stable Sick sinus syndrome (HCC) Schedule pacer check Type 2 diabetes mellitus with stage 4 chronic kidney disease, without long-term current use of insulin (HCC) Labs today as ordered Benign hypertension with chronic kidney disease, stage IV (HCC) Follows with nephrology Cont felodipine, imdur, torsemide, hydralazine, Mixed hyperlipidemia Cont lipitor Type 2 diabetes mellitus with hemoglobin A1c goal of less than 8.0% (HCC) As above DM type 2 with diabetic peripheral neuropathy (HCC) - DIABETES FOOT EXAM - HEMOGLOBIN A1C; Future; Expected date: 07/18/2024 - ALBUMIN / CREATININE RATIO, URINE; Future; Expected date: 07/18/2024 Need for vaccination for zoster - ZOSTER VACCINE RECOMB, 2 DOSE, IM (SHINGRIX) - ZOSTER VACCINE RECOMB, 2 DOSE, IM (SHINGRIX); Future; Expected date: 09/15/2024 - Zoster Vac Recomb Adjuvanted 50 MCG/0.5ML Intramuscular Suspension Reconstituted (Shingrix); Inject 0.5 mL into a large muscle now and repeat dose in 60 to 180 days Follow Up: Return in about 6 months (around 01/15/2025), or if symptoms worsen or fail to improve, for Labs Today. | For: Labs Today | Check-out note: Pls schedule pacer check with EP(cardiology) Harjeet Meneses MD Lawrence Mckinnon RN - 07/18/2024 9:22 AM EST Socks and Shoes Removed for Annual Diabetic Foot Screening RIGHT FOOT: No Reddened, Cracking, Or Open Areas Noted. RIGHT Dorsalis Pedis Pulse: Palpable RIGHT Posterior Tibial Pulse: Unable to locate RIGHT Monofilament:Patient reports difficulty feeling monofilament at Great toe- plantar surface, Third toe-plantar surface, Ball of Foot-base of 3rd toe, and Ball of Foot-base of little toe LEFT FOOT: No Reddened, Cracking or Open Areas Noted. LEFT Dorsalis Pedis Pulse: Palpable LEFT Posterior Tibial Pulse: Unable to locate LEFT Monofilament:Patient reports difficulty feeling monofilament at Great toe- plantar surface, Ball of Foot-base of great toe, and Ball of Foot-base of little toe Do you need diabetic shoes: N/A DM Foot Exam completed today. Provider aware. Lawrence Cain, RN Hemoglobin a1c ordered today. Provider aware. Lawrence Cain RN Urine albumin/creatinine ratio ordered today. Provider aware. Does the patient have active shingles? No If, yes, patient must wait to receive vaccine till after rash is gone. Does the patient have an illness today with a fever more than 101?F? No Has the patient ever had a serious allergic reaction after receiving a vaccination? No Has the patient had a blood test showing they are not immune to Chicken Pox (rare)? No If yes, should get Chicken pox vaccine instead of shingrix. Verified patient has prescription/drug coverage. Patient has been informed that [facility] [employer] copays are close to $0. In most cases copays will be around $10. The maximum co-pay patients may get could as high as $200. yes Shingrix Vaccine Information Sheet has been provided. Lawrence Cain RN 07/18/2024 9:25 AM Tdap covered under Medicare Part D, prescription order pended for physician to sign. Lawrence Cain RN documented in this encounter Nursing Notes * Lawrence Cain RN - 07/18/2024 9:44 AM EST Pre-Administration Time Out Procedure Performed: Yes Patient Identified (Ask Name/Date of ): Yes Does the patient have a fever greater than 101 degrees today? No Patient allergic to latex? No Has the patient ever fainted after receiving an injection? No VFC Stock: No Immunization(s) verified: Yes, Immunization Name: Shingrix, VIS Sheet(s) given: Yes Verified Side and Site: Yes Verified Shot(s) with Parent(s)/Patient: Yes * Lawrence Cain RN - 07/18/2024 9:27 AM EST Chief Complaint Patient presents with Re-Check Routine check up - patient accompanied by daughter Kerline Immunizations Shingrix Immunizations documented in this encounter Plan of Treatment Upcoming Encounters Date Type Department Care Team (Late st Contact Info) Description 08/24/2024 3:00 PM EST Office Visit Nephrology, [facility] [address] [place] [address] Shaun Solis MD [address] [place] [id number] 01/24/2025 3:20 PM EDT Office Visit General Internal Medicine [facility] [address] [place] [address] Harjeet Meneses MD [address] [facility] [place], [place] [address] 04/06/2025 10:00 AM EDT Office Visit General Internal Medicine [facility] [address] [facility] [place], [place] [address] Harjeet Meneses MD [address] [facility] [place], [place] [address] Pending Results Name Type Priority Associated Diagnoses Date /Time HEMOGLOBIN A1C Lab Routine DM type 2 with diabetic peripheral neuropathy (HCC) 07/18/2024 10:01 AM EST ALBUMIN / CREATININE RATIO, URINE Lab Routine DM type 2 with diabetic peripheral neuropathy (HCC) 07/18/2024 10:01 AM EST Scheduled Orders Name Type Priority Associated Diagnoses Orde r Schedule HEMOGLOBIN A1C Lab Routine DM type 2 with diabetic peripheral neuropathy (HCC) Expected: 07/18/2024 (Approximate), Expires: 08/18/2025 ALBUMIN / CREATININE RATIO, URINE Lab Routine DM type 2 with diabetic peripheral neuropathy (HCC) Expected: 07/18/2024, Expires: 07/18/2025 Scheduled Procedures Name Priority Associated Diagnoses Date/Ti [...] as of this encounter Visit Diagnoses Diagnosis Vascular dementia without behavioral disturbance (HCC)- Primary Vascular dementia, uncomplicated Sick sinus syndrome (HCC) Sinoatrial node dysfunction Type 2 diabetes mellitus with stage 4 chronic kidney disease, without long-term current use of insulin (HCC) Benign hypertension with chronic kidney disease, stage IV (HCC) Benign hypertensive kidney disease with chronic kidney disease stage I through stage IV, or unspecified Mixed hyperlipidemia Type 2 diabetes mellitus with hemoglobin A1c goal of less than 8.0% (HCC) DM type 2 with diabetic peripheral neuropathy (HCC) Type II or unspecified type diabetes mellitus with neurological manifestations, not stated as uncontrolled Need for vaccination for zoster Need for prophylactic vaccination and inoculation against other viral diseases documented in this encounter Advance Directives Documents on File Type Date Recorded Patient Cath Lab Technologist Expl anation POLST 06/17/2021 [place] [facility] FOR LIFE-SUSTAINING TREATMENT Advance Directives and Living Will 04/21/2016 LIVING WILL LIVING W ILL DECLARATION Care Teams Organic Lab Worker Relationship Specialty Start Date End Date Harjeet Meneses MD [address] [place] [address] PCP - General Internal Medicine 12/04/11 documented as of this encounter
--- OUTSIDE RECORDS SUMMARY | 2024-08-17 20:28 | External Medical Summary | Summary of Care ---
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 Not on file [...] 08/24/2024 3:00 PM EST Office Visit Nephrology, [facility] [place] [address] [place] [place] [address] Shaun Solis MD [address] [place] [address] [place] [address] 01/24/2025 3:20 PM EDT Office Visit General Internal Medicine [facility] [place] [address] [place] [address] Harjeet Meneses MD [address] [facility] [place] [address] 04/06/2025 10:00 AM EDT Office Visit General Internal Medicine [facility] [place] [address] [place] [address] Harjeet Meneses MD [address] [facility] [place] [place] [address] Scheduled Procedures Name Priority Associated Diagnoses Date/Ti [...] Documents on File Type Date Recorded Patient Network Project Manager Expl anation POLST 06/17/2021 [place] OR [facility] FOR LIFE-SUSTAINING TREATMENT Advance Directives and Living Will 04/21/2016 LIVING WILL LIVING W ILL DECLARATION Care Teams Electronic Train Control Technician Relationship Specialty Start Date End Date Harjeet Meneses MD [address] [place] [address] PCP - General Internal Medicine 12/04/11 documented as of this encounter
--- OUTSIDE RECORDS SUMMARY | 2024-08-17 20:28 | External Medical Summary | Summary of Care ---
Author Name Unknown Organization [facility] Address [address] [place] [address] Phone [phone] Care Team Providers Care Sewing Machine Operator Zipper Name Role Phone Harjeet Meneses MD Primary Care Provider + Encounter Details Date Type Department Care Team (Late st Contact Info) Description 06/20/2024 Orders Only PATIENT PORTAL DO NOT DELETE THIS DEPT USED BY [place] [id number] Allergies Active Allergy Reactions Criticality Noted Date Comments Codeine 12/07/2012 "bad rashes' Cephalexin Hives 01/14/2022 Fe Fumarate-Fe Gluc-Fe So4 4 Irritates stomach Meloxicam 04/28/2004 May bother stomach . Pt is unsure Penicillins 04/28/2004 Rashes documented as of this encounter (statuses as of 06/20/2024) Medications Gabapentin 300 MG Oral Capsule (Neurontin)Indica tions:Fibromyalgi a Take by mouth 1 Capsule in the morning AND 1 Capsule before bedtime. 180 Capsule 3 2 Active Zoster Vac Recomb Adjuvanted 50 MCG/0.5ML Intramuscular Suspension Reconstituted (Shingrix)Indicat ions:Need for shingles vaccine Inject 0.5 mL into a large muscle now and repeat dose in 60 to 180 days 1 Each 1 2 Active Isosorbide Mononitrate ER 30 MG [...] Take 2 capsules once daily, Reported on 05/04/2023 Torsemide 20 MG Oral Tablet (Demadex) TAKE [...] in the morning. 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 [address] [place] [address] Harjeet Meneses MD [address] [place] [address] 08/24/2024 3:00 PM EST Office Visit Nephrology, [facility] [address] [place] [address] Shaun Solis MD [address] [place] [address] [place] [id number] 01/24/2025 3:20 PM EDT Office Visit General Internal Medicine [facility] [address] [place] [address] Harjeet Meneses MD [address] [place] [address] Scheduled Procedures Name Priority Associated Diagnoses Date/Ti me ESOPHAGOGASTRODUODENOSCOPY ( EGD), FLEXIBLE, TRANSORAL, DIAGNOSTIC Recall Finley's esophagus Health Maintenance Due Date Last Done Comments Zoster Vaccines (2 of 3) 09/29/2007 08/04/2007 Adult Wellness Visit 03/08/2018 03/08/2017 DTap/Tdap Vaccines (2 - Td or Tdap) 05/08/2020 05/08/2010 Depression Screening 05/28/2023 05/28/2022, 12/10/2015 (Unable to do) Finley's Esophagus Surveilance 10/17/2023 10/16/2020, 07/26/2019, 07/26/2019, Additional history exists Diabetic Foot Exam 02/12/2024 02/11/2023, 0 12/30/2021, 10/16/2020, Additional history exists HbA1c 03/07/2024 09/07/2023, 08/0 09/2022, 08/06/2022, Additional history exists COVID-19 Vaccine ( season) 2024 12/02/2021, 05/26/2021, 05/01/2021, Additional history exists Influenza Vaccine (FLU shot) (#1) 2024 05/26/2023, 05/26/2021, 03/21/2020, Additional history exists Albumin/Creatinine Ratio 08/27/202408/27/2 024, 02/11/2023, 08/06/2022, Additional history exists Diabetic Eye Exam 09/07/2024 09/07/2023, , 03/21/2020, Additional history exists Hgb 04/21/2025 04/21/2024, 05/0 12/2023, 10/26/2023, Additional history exists Nephrology Referral 04/21/2025 04/21/2024 PTH 04/21/2025 04/21/2024, 08/12, 02/11/2023, Additional history exists Phosphate 04/21/2025 04/21/2024, 08/12, 02/11/2023, Additional history exists Pneumococcal Vaccine: 65+ Years Completed 09/10/2014, 06/16/2004 HPV (Gardasil) Vaccine Aged Out No lo [...] Documents on File Type Date Recorded Patient Station Tender Expl anation POLST 06/17/2021 [facility] FOR LIFE-SUSTAINING TREATMENT Advance Directives and Living Will 04/21/2016 LIVING WILL LIVING W ILL DECLARATION Care Teams Sewing Machine Operator Zipper Relationship Specialty Start Date End Date Harjeet Meneses MD [address] [place] [address] PCP - General Internal Medicine 12/04/11 documented as of this encounter
--- OUTSIDE RECORDS SUMMARY | 2024-08-17 20:28 | External Medical Summary ---
Author Name Unknown Address Unknown Organization [id number]:[facility]ORY [facility] - [address] [place] [address] Laboratory Report Ordering Provider Test Date Status [place] JIMENEZ 07/18/2024 10:01:09 Final Normal: <30 mg/g creatinine< br/>High: 30-300 mg/g creatinine
Very High: >300 mg/g creatinine
Nephrotic: >2200 mg/g creatinine Observation Date Value Abnormality Reference (Units ) Status Albumin, Urine 07/18/2024 10:01:09 71.00 (mg/dL) Final Creatinine, Urine 07/18/2024 10:01:09 47 (mg/dL) Final Albumin/Creatinine [Mass Ratio] in Urine 07/18/2024 10:01:09 1511 Above high normal <30 (mg/g Creat) Final Performing Location [facility] - [address] [place] [address]
--- NOTE | 2024-08-17 20:31 | XRay Report ---
EXAM: Radiograph of the Chest 1 View INDICATION: Sepsis. TECHNIQUE: Frontal view of the chest. COMPARISON: 06/18/2024 FINDINGS: Lungs and pleural spaces: Increased airspace consolidation left lung base and new small left pleural effusion. No pneumothorax. Underlying interstitial scarring is stable. Heart: Stable mild cardiomegaly and pacing device. Mediastinum: Normal contour. Bones/joints: Degenerative changes noted throughout the spine. No acute osseous abnormality seen. Soft tissues: No abnormality noted. No radiopaque foreign body noted. Upper abdomen: No abnormality noted. IMPRESSION: New left basilar pneumonia and small left pleural effusion. Consider mucous plugging. ACT 112: Negative or not required by law. Electronically signed by Luciana Dumont 08-17-2024 7:49 PM
[2024-08-17 20:43] LABS: Adenovirus PCR Not Detected (NotDetected); Bordetella parapertussis PCR Not Detected (NotDetected); Bordetella pertussis PCR Not Detected (NotDetected); Chlamydia pneumoniae PCR Not Detected (NotDetected); Coronavirus 229E PCR Not Detected (NotDetected); Coronavirus CoV-2 (COVID19)PCR Not Detected (NotDetected); Coronavirus HKU1 PCR Not Detected (NotDetected); Coronavirus NL63 PCR Not Detected (NotDetected); Coronavirus OC43PCR Not Detected (NotDetected); Human Metapneumovirus PCR Not Detected (NotDetected); Influenza A PCR Not Detected (NotDetected); Influenza B PCR Not Detected (NotDetected); Mycoplasma pneumoniae PCR Not Detected (NotDetected); Parainfluenza Virus 1 PCR Not Detected (NotDetected); Parainfluenza Virus 2 PCR Not Detected (NotDetected); Parainfluenza Virus 3 PCR Not Detected (NotDetected); Parainfluenza Virus 4 PCR Not Detected (NotDetected); Respiratory Syncytial VirusPCR Not Detected (NotDetected); Rhinovirus/Enterovirus PCR Not Detected (NotDetected)
[2024-08-17] MEDS: ACETAMINOPHEN 1,000 MG/100 ML VIAL IV STA (20:51)
[2024-08-17] MEDS: PIPERACILLIN/TAZOBACTAM 4.5 GM/120 ML BAG IV ONE (21:05)
--- NOTE | 2024-08-17 21:26 | History & Physical Report ---
Date of Service August 17, 2024 Assessment & Plan (1) Severe sepsis with acute organ dysfunction: (2) Acute hypoxic respiratory failure: (3) Left lower lobe pneumonia: (4) Acute on chronic heart failure with preserved ejection fraction: (5) CKD (chronic kidney disease) stage 4, GFR 15-29 ml/min: (6) Uncontrolled hypertension: (7) Diabetes mellitus, type II: (8) Vascular dementia without behavioral disturbance: (9) Pulmonary hypertension: Plan Patient is an 89-year-old female presents from [facility] with fever, hypoxia and weakness. Evaluation in the emergency room severe sepsis with organ dysfunction as evidenced by hypoxia/respiratory failure, leukocytosis, fever. Patient is critically ill requires hospital level care, monitoring, IV medications and oxygen. Admit to a monitored unit Rocephin and doxycycline for pneumonia IV Lasix for evidence of volume overload monitor daily weights, intake and output Echocardiogram Monitor laboratory studies Monitor glucose with short acting insulin treatment Increase hydralazine for blood pressure control, first dose tonight Attempted to contact daughter, no answer to clarify CODE STATUS. Attempted to discuss CODE STATUS with patient. Unsure if patient could fully understand conversation with her dementia she will be full code based on previous admissions. No discussion of CODE STATUS and review about side EMR therapies and case management to assist with return to care facility History of Present Illness Chief Complaint: Fever and hypoxia Primary Care Provider: Harjeet Meneses MD Patient is a 89-year-old female brought to the emergency room from [place] with complaints of fever and hypoxia. In transit she also had an episode of emesis. In the emergency room she was noted to be febrile and hypoxic and was placed on BiPAP. Evaluation emergency room showed an elevated white blood cell count as well as what appeared to be infiltrate on chest x-ray was referred for further evaluation. Time my evaluation patient was sleeping but easily awakened. She is on BiPAP. She denied any chest pain or shortness of breath. She did not not say that she had any vomiting throughout the day. But really cannot give me much history at all. On review of her records and outside EMR documents that she does have some vascular dementia. On further questioning patient really cannot contribute much to her history present on this or review of systems. Attempted to call daughter but no answer. Allergies Allergy/AdvReac Type Severity Reaction Status Date / Time Penicillins Allergy Intermediate RASH - HAS Verified 08/17/24 20:11 TOLERATED ROCEPHIN codeine Allergy Unknown Verified 08/17/24 20:11 meloxicam Allergy Unknown Verified 08/17/24 20:11 ferrous fumarate AdvReac Mild stomach Verified 08/17/24 20:11 upset Home Medications Medication Instructions Recorded Confirmed Type atorvastatin 40 mg tablet 40 mg PO QPM 10/28/18 08/17/24 History gabapentin 300 mg capsule 300 mg PO BID 10/28/18 08/17/24 History isosorbide mononitrate 60 mg 60 mg PO DAILY 10/28/18 08/17/24 History tablet,extended release 24 hr acetaminophen 500 mg capsule 500 mg PO Q6H 05/11/22 08/17/24 History acetaminophen 500 mg tablet 500 mg PO QID PRN .SEVERE PAIN 05/11/22 08/17/24 History aspirin 81 mg chewable tablet 81 mg PO DAILY 05/11/22 08/17/24 History (Aspirin Childrens) calcium 600 mg (as 1 tab PO QPM 05/11/22 08/17/24 History carbonate)-vitamin D3 10 mcg (400 unit) tablet (Calcium 600 + D(3)) cyanocobalamin (vitamin B-12) 1,000 mcg PO QAM 05/11/22 08/17/24 History 1,000 mcg tablet (Vitamin B-12) hydralazine 50 mg tablet 50 mg PO TID 05/11/22 08/17/24 History Gqsotqcwqquyj-Yqgqfmfkostbxmx-L.thermophilus 2 cap PO TID 06/12/22 08/17/24 History 3 billion cell capsule (Advanced Probiotic-14) meclizine 12.5 mg tablet 12.5 mg PO Q6 PRN Dizziness 06/12/22 08/17/24 History torsemide 20 mg tablet 20 mg PO QAM 06/12/22 08/17/24 History felodipine 10 mg tablet,extended 10 mg PO QAM 08/17/24 08/17/24 History release 24 hr isosorbide mononitrate 30 mg 30 mg PO DAILY PRN SBP > 170 08/17/24 08/17/24 History tablet,extended release 24 hr omeprazole 20 mg capsule,delayed 20 mg PO QAM 08/17/24 08/17/24 History release polyvinyl alcohol 1.4 % eye drops 2 drp ophthalmic (eye) QID 08/17/24 08/17/24 History Past Med/Surg History Problem List (Updated 08/17/24 @ 21:31 by Sotero Brown DO) Pulmonary hypertension Vascular dementia without behavioral disturbance Uncontrolled hypertension Acute on chronic heart failure with preserved ejection fraction Left lower lobe pneumonia Acute hypoxic respiratory failure Severe sepsis with acute organ dysfunction CKD (chronic kidney disease) stage 4, GFR 15-29 ml/min Hypertensive urgency Deep vein thrombosis, lower left extremity Pulmonary edema (Acute) AMARIS (acute kidney injury) (Acute) Hypoxia (Acute) Abnormal EKG (Acute) Elevated troponin I level (Acute) Hypertension (Chronic) Chronic kidney disease (CKD), stage III (moderate) (Chronic) Diabetes mellitus, type II (Chronic) Dementia (Chronic) Dyslipidemia (Chronic) History of squamous cell carcinoma of skin (Chronic) Peripheral neuropathy (Chronic) Cerebrovascular disease (Chronic) "TIA 2011" History of ischemic bowel disease (Chronic) "ischemic colitis 2011" Arthritis (Chronic) "RA + osteo per records" AMARIS (acute kidney injury) Medical History Arthritis "RA + osteo per records" Cerebrovascular disease "TIA 2011" CKD (chronic kidney disease) stage 4, GFR 15-29 ml/min Dementia Diabetes mellitus, type II Dyslipidemia History of ischemic bowel disease "ischemic colitis 2011" History of squamous cell carcinoma of skin Hypertension Peripheral neuropathy Surgical History Status post cholecystectomy Status post hysterectomy Family History Other No pertinent family history Social History Smoking Status: Never smoker Tobacco Type: Cigarettes Hx Alcohol Use: Yes Alcohol type: wine Hx Substance Use: No Preferred Language: Azeri Communication Ability: Effective 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 Limited due to patient's mental status and dementia Physical Exam Physical Exam: Constitutional: Sleeping but easily awakened, ill in appearance, mildly toxic HEENT: Mucous membranes slightly dry. Sclera clear Neck: Soft, no adenopathy Lungs: Decreased breath sounds with crackles at bases with some rhonchi CV: S1-S2, regular Abdomen: Soft, nontender, nondistended Extremities: 2-3+ pitting edema lower extremities Musculoskeletal: No significant joint tenderness Neuro: No focal deficits, generalized weakness Psych: Cooperative, impaired memory Results & Data Results & Data Vital Signs (Past 12 Hours) Vital Signs Temp Pulse Pulse Resp BP BP Pulse Ox 08/17/24 21:00 60 16 171/69 H 98 08/17/24 19:53 74 08/17/24 19:46 60 16 166/107 H 98 08/17/24 19:38 67 175/86 H 98 08/17/24 19:36 68 18 98 08/17/24 19:23 38.8 C H 81 22 192/76 H 100 08/17/24 19:20 90 25 H 100 O2 Del Method O2 Flow Rate FiO2 08/17/24 21:00 Nasal Cannula 3 08/17/24 19:53 08/17/24 19:46 BiPAP 08/17/24 19:38 BiPAP 08/17/24 19:36 BiPAP 08/17/24 19:23 BiPAP 08/17/24 19:20 40 Diagnostic Findings Reviewed imaging, laboratory and diagnostic studies. Pertinent findings as below. WBCs 23.0 Hemoglobin 0.8 Platelets 253 Electrolytes stable Creatinine 3.64 about baseline Glucose 239 Lactate 3.2 Troponin 30.2 BNP 348 Procalcitonin 0.84 Respiratory viral panel negative Personally reviewed chest x-ray bilateral congestion, left lobe infiltrate with small effusion Reviewed outside EMR. Echocardiogram 2021 showed normal ejection fraction some mild pulm hypertension Could not find any previous conversation or documentation of CODE STATUS. Hemoglobin A1c 8.0% from July 2024 Code Status & VTE Plan VTE Prophylaxis Plan VTE Prophylaxis will be ordered: Yes
--- NOTE | 2024-08-17 21:45 | Emergency Department Note ---
History of Present Illness General Chief complaint: Hypertension Stated complaint: SOB, HYPERTENSION Time Seen by Provider: 08/17/24 19:21 Source: EMS History of Present Illness Provider complaint: Shortness of breath hypertension 89-year-old female from [facility] presents emergency department for shortness of breath and hypertension. EMS reports are called to the [facility] as patient was having difficulty breathing in the [facility] thought she aspirated. She was hypotensive and hypoxic as well as tachycardic. No reported falls or traumas. Patient has a history of dementia and history is limited. Home Medications Medication Instructions Recorded Confirmed Type atorvastatin 40 mg tablet 40 mg PO QPM 10/28/18 08/17/24 History gabapentin 300 mg capsule 300 mg PO BID 10/28/18 08/17/24 History isosorbide mononitrate 60 mg 60 mg PO DAILY 10/28/18 08/17/24 History tablet,extended release 24 hr acetaminophen 500 mg capsule 500 mg PO Q6H 05/11/22 08/17/24 History acetaminophen 500 mg tablet 500 mg PO QID PRN .SEVERE PAIN 05/11/22 08/17/24 History aspirin 81 mg chewable tablet 81 mg PO DAILY 05/11/22 08/17/24 History (Aspirin Childrens) calcium 600 mg (as 1 tab PO QPM 05/11/22 08/17/24 History carbonate)-vitamin D3 10 mcg (400 unit) tablet (Calcium 600 + D(3)) cyanocobalamin (vitamin B-12) 1,000 mcg PO QAM 05/11/22 08/17/24 History 1,000 mcg tablet (Vitamin B-12) hydralazine 50 mg tablet 50 mg PO TID 05/11/22 08/17/24 History Dzrcstoptviqo-Nolfyiqufrpqrwx-O.thermophilus 2 cap PO TID 06/12/22 08/17/24 History 3 billion cell capsule (Advanced Probiotic-14) meclizine 12.5 mg tablet 12.5 mg PO Q6 PRN Dizziness 06/12/22 08/17/24 History torsemide 20 mg tablet 20 mg PO QAM 06/12/22 08/17/24 History felodipine 10 mg tablet,extended 10 mg PO QAM 08/17/24 08/17/24 History release 24 hr isosorbide mononitrate 30 mg 30 mg PO DAILY PRN SBP > 170 08/17/24 08/17/24 History tablet,extended release 24 hr omeprazole 20 mg capsule,delayed 20 mg PO QAM 08/17/24 08/17/24 History release polyvinyl alcohol 1.4 % eye drops 2 drp ophthalmic (eye) QID 08/17/24 08/17/24 History Allergies Allergy/AdvReac Type Severity Reaction Status Date / Time Penicillins Allergy Intermediate RASH - HAS Verified 08/17/24 20:11 TOLERATED ROCEPHIN codeine Allergy Unknown Verified 08/17/24 20:11 meloxicam Allergy Unknown Verified 08/17/24 20:11 ferrous fumarate AdvReac Mild stomach Verified 08/17/24 20:11 upset Past Med/Surg History Problem List (Updated 08/17/24 @ 21:54 by Bobby Underwood MD) Sepsis (Acute) Pneumonia (Acute) Pulmonary hypertension Vascular dementia without behavioral disturbance Uncontrolled hypertension Acute on chronic heart failure with preserved ejection fraction Left lower lobe pneumonia Acute hypoxic respiratory failure Severe sepsis with acute organ dysfunction CKD (chronic kidney disease) stage 4, GFR 15-29 ml/min Hypertensive urgency Deep vein thrombosis, lower left extremity Pulmonary edema (Acute) AMARIS (acute kidney injury) (Acute) Hypoxia (Acute) Abnormal EKG (Acute) Elevated troponin I level (Acute) Hypertension (Chronic) Chronic kidney disease (CKD), stage III (moderate) (Chronic) Diabetes mellitus, type II (Chronic) Dementia (Chronic) Dyslipidemia (Chronic) History of squamous cell carcinoma of skin (Chronic) Peripheral neuropathy (Chronic) Cerebrovascular disease (Chronic) "TIA 2011" History of ischemic bowel disease (Chronic) "ischemic colitis 2011" Arthritis (Chronic) "RA + osteo per records" AMARIS (acute kidney injury) Family History Other No pertinent family history Social History Smoking Status: Never smoker Tobacco Type: Cigarettes Hx Alcohol Use: Yes Alcohol type: wine Hx Substance Use: No Preferred Language: Hebrew Communication Ability: Effective 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 Beliefs That Will Affect Care: Sikh marital status: / Current Living Situation: [facility] current occupational status: retired Feels Safe at Home: Yes Assistive Devices: Walker Physical Exam Vital Signs Vital Signs - 24 hr 08/17/24 19:20 08/17/24 19:23 08/17/24 19:36 Temperature 38.8 C H Temperature Source Axillary Pulse Rate 90 81 68 Pulse Rate [Apical] Respiratory Rate 25 H 22 18 Respiratory Effort / Characteristics Non-Labored Spontaneous Short of Breath Respiratory Depth Normal Deep Respiratory Pattern Regular Blood Pressure 192/76 H Blood Pressure [Left Arm] Blood Pressure Mean 114 Blood Pressure Mean [Left Arm] Blood Pressure Position Lying Blood Pressure Position [Left Arm] Pulse Oximetry 100 100 98 Oxygen Delivery Method BiPAP BiPAP Oxygen Flow Rate Fraction of Inspired Oxygen 40 Sepsis Recent Fever Within 48 Hours Yes Sepsis New/Unexplained Change in Mental Status N/A Sepsis Action Taken by Nursing Physician Notified 08/17/24 19:38 08/17/24 19:46 08/17/24 19:53 Temperature Temperature Source Pulse Rate 74 Pulse Rate [Apical] 67 60 Respiratory Rate 16 Respiratory Effort / Characteristics Non-Labored Spontaneous Respiratory Depth Normal Respiratory Pattern Regular Blood Pressure Blood Pressure [Left Arm] 175/86 H 166/107 H Blood Pressure Mean Blood Pressure Mean [Left Arm] 115 126 Blood Pressure Position Blood Pressure Position [Left Arm] Semi-fowlers Lying Pulse Oximetry 98 98 Oxygen Delivery Method BiPAP BiPAP Oxygen Flow Rate Fraction of Inspired Oxygen Sepsis Recent Fever Within 48 Hours Sepsis New/Unexplained Change in Mental Status Sepsis Action Taken by Nursing 08/17/24 21:00 08/17/24 21:38 Temperature 37.0 C Temperature Source Oral Pulse Rate Pulse Rate [Apical] 60 60 Respiratory Rate 16 17 Respiratory Effort / Characteristics Non-Labored Spontaneous Respiratory Depth Normal Respiratory Pattern Regular Blood Pressure Blood Pressure [Left Arm] 171/69 H 164/64 H Blood Pressure Mean Blood Pressure Mean [Left Arm] 103 97 Blood Pressure Position Blood Pressure Position [Left Arm] Lying Lying Pulse Oximetry 98 98 Oxygen Delivery Method Nasal Cannula Nasal Cannula Oxygen Flow Rate 3 3 Fraction of Inspired Oxygen Sepsis Recent Fever Within 48 Hours Sepsis New/Unexplained Change in Mental Status Sepsis Action Taken by Nursing Physical Exam HENT: Exam performed. - Head: Normocephalic and atraumatic. EYES: Conjunctivae and EOM are normal. Right eye exhibits no discharge. Left eye exhibits no discharge. No scleral icterus. NECK: Normal range of motion. Neck supple. No JVD present. CV: Normal rate, regular rhythm, normal heart sounds and intact distal pulses. 1+ pitting edema of the bilateral lower extremities palpable radial pulses bue. PULM/CHEST: Rhonchi bilaterally. ABD: The abdomen is soft. There is no tenderness. NEURO: Motor and sensation grossly intact. SKIN: Skin is warm and dry. He is not diaphoretic. Course Course 1920: The patient was evaluated in room B1. A complete history and physical exam was performed Cardiac monitoring: An order was placed for continuous cardiac monitoring. The monitor shows a rate of 90 with sinus rhythm interpreted by me Patient found to be febrile hypotensive and hypoxic. Patient started on BiPAP. Sepsis protocols initiated. Patient has a history of CHF and pulmonary hypertension, blood pressure is not hypotensive, will hold off on IV fluids at this time. 2100: Vital signs stable on BiPAP. Patient's blood pressure improved on BiPAP. Patient's labs show a leukocytosis of 23.07. Venous pH of 7.3 venous pCO2 48. Creatinine 3.64 at patient's baseline. Lactic acid 3.2. Blood pressure stable. BNP 348. Procalcitonin 0.84. Discussed with pharmacy and they stated would be okay to give the patient Zosyn. Blood pressure is stable and given the patient's history of pulmonary artery hypertension as well as CHF we will hold off on IV fluid boluses at this time. Patient be admitted to the [facility]. Administered Medications Discontinued Medications Piperacillin Sod/Tazobactam Sod (Zosyn) 4.5 gm in 120 mls @ 240 mls/hr IV NOW ONE Stop: 08/17/24 20:55 Last Admin: 08/17/24 21:05 Dose: 240 mls/hr Documented By: Acetaminophen (Ofirmev) 1,000 mg in 100 mls @ 400 mls/hr IV NOW STA Stop: 08/17/24 20:44 Last Infusion: 08/17/24 21:04 Dose: Infused Documented By: Admin: 08/17/24 20:51 Dose: 400 mls/hr Documented By: Critical Care Time Critical Care Time: Yes Total Critical Care Time: 54 I have personally spent greater than 54 minutes of critical care time in the direct management of this patient. This includes bedside care, interpretation of diagnostic studies, and testing, discussion with consultants, patient, and family members, and other required patient management activities. This 54 minutes is in excess of all separately billable procedures. Medical Decision Making Laboratory Data Attestation: I reviewed the patient's lab results. 08/17/24 19:34 08/17/24 19:34 Lab Results 08/17/24 08/17/24 Range/Units 19:34 19:40 WBC 23.07 H (4.8-10.8) K/ul RBC 4.02 L (4.20-5.40) M/uL Hgb 11.8 L (12.0-16.0) g/dl Hct 36.6 L (37.0-47.0) % MCV 91.0 (80.0-100.0) fL MCH 29.4 (25.0-34.0) pg MCHC 32.2 (32.0-36.0) g/dL RDW Std Deviation 40.0 (36.4-46.3) fL RDW Coeff of Paul 11.9 (11.5-14.5) % Plt Count 253 (130-400) K/uL MPV 10.0 (9.4-12.4) fL Immature Gran % (Auto) 0.5 % Neut % (Auto) 88.5 % Lymph % (Auto) 4.7 % Fountain % (Auto) 5.2 % Eos % (Auto) 0.6 % Baso % (Auto) 0.5 % Neut # (Auto) 20.41 H (1.40-6.50) K/uL Lymph # (Auto) 1.09 L (1.20-3.40) K/uL Fountain # (Auto) 1.19 H (0.11-0.59) K/uL Eos # (Auto) 0.14 (0.00-0.50) K/uL Baso # (Auto) 0.12 (0.00-0.20) K/uL Immature Gran # (Auto) 0.12 (0.01-0.20) K/uL PT 10.6 (9.0-12.0) Seconds INR 1.0 (0.9-1.1) APTT 24 (21-31) Seconds PTT Ratio 0.9 VBG pH 7.30 L (7.36-7.41) VBG pCO2 48 (38-50) mmHg VBG pO2 44 mmHg VBG HCO3 24 mmol/L VBG O2 Saturation 70.0 % VBG Base Excess -3.2 mEq/L Sodium 140 (136-145) mmol/L Potassium 5.1 (3.5-5.1) mmol/L Chloride 103 (98-107) mmol/L Carbon Dioxide 26 (21-32) mmol/L Anion Gap 11 (3-11) BUN 51 H (6-23) mg/dl Creatinine 3.64 H (0.6-1.2) mg/dl Est Cr Clr Drug Dosing 9.7 ml/min eGFR 11.50 BUN/Creatinine Ratio 14.0 (10-20) Glucose 239 H (70-99(Fasting)) mg/dl Lactate 3.2 H* (0.4-2.0) mmol/L Calcium 9.8 (8.6-10.3) mg/dl Magnesium 2.0 (1.7-2.4) mg/dl Total Bilirubin 0.6 (0.2-1.0) mg/dl Direct Bilirubin 0.1 (0-0.2) mg/dl AST 12 L (13-39) U/L ALT 11 (7-52) U/L Alkaline Phosphatase 75 (34-104) U/L Troponin I High Sens 30.2 H (0-14) pg/ml B-Natriuretic Peptide 348 H (0-100) pg/ml Total Protein 7.8 (6.0-8.3) gm/dl Albumin 4.5 (3.4-5.0) gm/dl Procalcitonin 0.84 H (0-0.5) ng/ml Adenovirus (PCR) Not Detected (NotDetected) B. pertussis DNA (PCR) Not Detected (NotDetected) B.parapertussis DNA PCR Not Detected (NotDetected) C. pneumoniae DNA (PCR) Not Detected (NotDetected) Coronavirus OC43 (PCR) Not Detected (NotDetected) Coronavirus HKU1 (PCR) Not Detected (NotDetected) Coronavirus 229E (PCR) Not Detected (NotDetected) SARS-CoV-2 (PCR) Not Detected (NotDetected) Coronavirus NL63 (PCR) Not Detected (NotDetected) Human Metapneumovir PCR Not Detected (NotDetected) Influenza Type A (PCR) Not Detected (NotDetected) Influenza Type B (PCR) Not Detected (NotDetected) M. pneumoniae (PCR) Not Detected (NotDetected) Parainfluenza 1 (PCR) Not Detected (NotDetected) Parainfluenza 2 (PCR) Not Detected (NotDetected) Parainfluenza 3 (PCR) Not Detected (NotDetected) Parainfluenza 4 (PCR) Not Detected (NotDetected) RSV (PCR) Not Detected (NotDetected) Entero/Rhino (PCR) Not Detected (NotDetected) Imaging Data Attestation: I personally reviewed and interpreted this imaging study as follows: My Impression: Chest x-ray: Left-sided infiltrate Radiologist's Impression: Chest X-Ray 08/17/24 19:22 EXAM: Radiograph of the Chest 1 View INDICATION: Sepsis. TECHNIQUE: Frontal view of the chest. COMPARISON: 06/18/2024 FINDINGS: Lungs and pleural spaces: Increased airspace consolidation left lung base and new small left pleural effusion. No pneumothorax. Underlying interstitial scarring is stable. Heart: Stable mild cardiomegaly and pacing device. Mediastinum: Normal contour. Bones/joints: Degenerative changes noted throughout the spine. No acute osseous abnormality seen. Soft tissues: No abnormality noted. No radiopaque foreign body noted. Upper abdomen: No abnormality noted. IMPRESSION: New left basilar pneumonia and small left pleural effusion. Consider mucous plugging. ACT 112: Negative or not required by law. Electronically signed by Luciana Dumont 08-17-2024 7:49 PM ECG Data Attestation: I personally reviewed and interpreted this ECG as follows: Additional Comments: Junctional rhythm with rate 73. QRS and QTc intervals within normal limits. No ST elevation or ST depression. [facility] Narrative 1921: The patient was evaluated in room B1. A complete history and physical exam was performed Cardiac monitoring: An order was placed for continuous cardiac monitoring. The monitor shows a rate of 90 with sinus rhythm interpreted by me Patient found to be febrile hypotensive and hypoxic. Patient started on BiPAP. Sepsis protocols initiated. Patient has a history of CHF and pulmonary hypertension, blood pressure is not hypotensive, will hold off on IV fluids at this time. 2100: Vital signs stable on BiPAP. Patient's blood pressure improved on BiPAP. Patient's labs show a leukocytosis of 23.07. Venous pH of 7.3 venous pCO2 48. Creatinine 3.64 at patient's baseline. Lactic acid 3.2. Blood pressure stable. BNP 348. Procalcitonin 0.84. Discussed with pharmacy and they stated would be okay to give the patient Zosyn. Blood pressure is stable and given the patient's history of pulmonary artery hypertension as well as CHF we will hold off on IV fluid boluses at this time. Patient be admitted to the [facility] team. Impression & Plan Pneumonia, Sepsis Discharge Plan Visit Data Chief Complaint: Hypertension Stated Complaint: SOB, HYPERTENSION ED Provider: Bobby Underwood Discharge Problem: Pneumonia, Sepsis Patient Disposition: Admitted As Inpatient Forms Stand Alone Forms: [facility] Prescriptions Prescriptions: No Action atorvastatin 40 mg Tablet 40 mg PO QPM isosorbide mononitrate 60 mg Tablet Extended Release 24 Hr 60 mg PO DAILY gabapentin 300 mg Capsule 300 mg PO BID aspirin [Aspirin Childrens] 81 mg Tablet,Chewable 81 mg PO DAILY hydralazine 50 mg tablet 50 mg PO TID calcium carbonate-vitamin D3 [Calcium 600 + D(3)] 600 mg-10 mcg (400 unit) Tablet 1 tab PO QPM cyanocobalamin (vitamin B-12) [Vitamin B-12] 1,000 mcg tablet 1,000 mcg PO QAM acetaminophen 500 mg Capsule 500 mg PO Q6H Rx Instructions: DO NOT AWAKEN TO ADMINISTER acetaminophen 500 mg Tablet 500 mg PO QID PRN (Reason: .SEVERE PAIN) torsemide 20 mg tablet 20 mg PO QAM Advanced Probiotic-14 3 billion cell Capsule 2 cap PO TID meclizine 12.5 mg Tablet 12.5 mg PO Q6 PRN (Reason: Dizziness) polyvinyl alcohol [Dry Eyes] 1.4 % Drops 2 drp OPHTHALMIC (EYE) QID felodipine 10 mg tablet extended release 24 hr 10 mg PO QAM omeprazole 20 mg capsule,delayed release(DR/EC) 20 mg PO QAM isosorbide mononitrate 30 mg tablet extended release 24 hr 30 mg PO DAILY PRN (Reason: SBP > 170) Rx Instructions: GIVE IN ADDITION TO THE REGULAR ISOSORBIDE 60 MG Referrals Referrals: Harjeet Meneses MD [Primary Care Provider] -
[2024-08-17] MEDS ORDERED: GLUCOSE 40% GEL 15 GM TUBE PO PRN (22:07)
[2024-08-17] MEDS ORDERED: ONDANSETRON INJ 2 MG/ML 2 ML VIAL IV PRN (22:07)
[2024-08-17] MEDS ORDERED: GLUCOSE 10 TAB/TUBE PO PRN (22:07)
[2024-08-17] MEDS ORDERED: POLYVINYL ALCOHOL 1.4% OP SCH (22:07)
[2024-08-17] MEDS ORDERED: DEXTROSE 50% 50 ML SYRINGE IV PRN (22:07)
[2024-08-17] MEDS ORDERED: LACTOBAC PO SCH (22:07)
[2024-08-17] MEDS ORDERED: POLYETHYLENE (MIRALAX) 17 GM PACK PO PRN (22:07)
[2024-08-17] MEDS ORDERED: [UNRECOGNIZED DRUG - OTHER] PO SCH (22:07)
[2024-08-17] MEDS ORDERED: GLUCAGON FOR INJ 1 MG VIAL SQ PRN (22:07)
[2024-08-17] MEDS ORDERED: CARBOHYDRATES FOR HYPOGLYCEMIA PO PRN (22:07)
[2024-08-17] MEDS: DOXYCYCLINE HYCLATE 100 MG CAP PO SCH (23:01)
[2024-08-17] MEDS: INSULIN ASPART PER UNIT CHARGE SC SCH (23:01)
[2024-08-17] MEDS: hydrALAZINE HCL 25 MG TAB PO SCH (23:01)
[2024-08-17] MEDS: FUROSEMIDE 40 MG/4 ML VIAL IV STA (23:02)
[2024-08-17] MEDS: HEPARIN SOD 5,000 UNIT/0.5 ML VIAL SQ SCH (23:02)
[2024-08-17] MEDS: cefTRIAXone SODIUM 2,000 MG/50 ML BAG IV SCH (23:02)
[2024-08-17] MEDS: ATORVASTATIN 40 MG TAB PO SCH (23:03)
[2024-08-17] MEDS: GABAPENTIN 300 MG CAP PO SCH (23:03)
[2024-08-18 04:28] LABS: Hematocrit (blood only) 31.7 % (37.0-47.0); Mean Corpuscular Hemoglobin 28.1 pg (25.0-34.0); Mean Corpuscular Hgb Conc 31.5 g/dL (32.0-36.0); Mean Platelet Volume 9.9 fL (9.4-12.4); Platelet Count 204 K/uL (130-400); RDW Coefficient of Variation 12.1 % (11.5-14.5); RDW Standard Deviation 39.4 fL (36.4-46.3); Red Blood Count 3.56 M/uL (4.20-5.40); White Blood Count 20.82 K/ul (4.8-10.8)
[2024-08-18 04:43] LABS: Calcium 9.3 mg/dl (8.6-10.3); Creatinine Clr Calc Pharmacy 9.5 ml/min; Magnesium 2.1 mg/dl (1.7-2.4); Phosphorus 3.5 mg/dl (2.5-4.9); Potassium 4.7 mmol/L (3.5-5.1)
--- NOTE | 2024-08-18 09:05 | Electrocardiogram Report ---
Test Reason : Blood Pressure : */* mmHG Vent. Rate : 76 BPM Atrial Rate : 76 BPM P-R Int : 178 ms QRS Dur : 86 ms QT Int : 400 ms P-R-T Axes : * 7 71 degrees QTcB Int : 450 ms Atrial-paced rhythm Abnormal ECG When compared with ECG of 18-Jun-2024 20:45, Electronic atrial pacemaker has replaced Junctional rhythm Confirmed by Rayshawn Kaba ([id number]) on 08/18/2024 9:04:42 AM Referred By: NO PCP Confirmed By: Rayshawn Kaba
[2024-08-18] MEDS: ISOSORBIDE MONO EXTENDED REL 60 MG TABCR PO SCH (09:20)
[2024-08-18] MEDS: FUROSEMIDE 40 MG/4 ML VIAL IV SCH ×2 (09:20→20:29)
[2024-08-18] MEDS: ASPIRIN 81 MG ECTAB PO SCH (09:21)
[2024-08-18] MEDS: FELODIPINE 5 MG TABCR PO SCH (09:22)
[2024-08-18] MEDS: PANTOprazole 40 MG TAB PO SCH (09:22)
--- NOTE | 2024-08-18 09:22 | Ultrasound Report ---
RENAL ULTRASOUND HISTORY: Acute kidney injury AMARIS COMPARISON: CTA abdomen and pelvis 01/16/2014. FINDINGS: Right kidney: 8.2 cm. No hydronephrosis. No solid mass lesions. Renal cysts measure up to 5.0 x 4.5 x 4.7 cm, previously 2 cm. Cortical thinning with echogenic parenchyma. Left kidney: 8.3 cm. No hydronephrosis. No solid mass lesions. Cortical thinning with echogenic paren chyma. Bladder: No bladder wall thickening. The bilateral ureteral jets were identified. IMPRESSION: 1. No renal calculi or hydronephrosis. 2. Mildly atrophic kidneys with evidence of chronic medical renal disease. 3. Right-sided renal cysts. ACT 112: Negative or not required by law. Electronically signed by: Hilotn Martinez M.D. 08/18/2024 9:21 AM
--- NOTE | 2024-08-18 12:25 | Nephrology Consultation ---
Date of Consultation August 18, 2024 Assessment & Plan (1) AMARIS (acute kidney injury): patient already has very advanced CKD with a creatinine usually in the threes that is puts her at CKD 4 or almost CKD 5. Current creatinine of 3.73 is higher than her most recent blood work from June 2024 when her creatinine was 3. the acute component is related with sepsis with the primary source being pneumonia and she did have hypoxia. This is evidenced by elevated lactic level. So the acute component is acute tubular ischemia related with sepsis hypoxia with pneumonia. Given her advanced age and very advanced CKD she is extremely susceptible to acute kidney injury with slightest of new medical issues. (2) CKD (chronic kidney disease) stage 4, GFR 15-29 ml/min: she has advanced CKD with a baseline creatinine in the low threes. As for last outpatient Nephrology note from April 2024 patient was leaning towards conservative management which is totally appropriate. Doing chronic maintenance hemodialysis at this advanced stage with dementia is not recommended as per guideline. no evidence of major electrolyte imbalance today and does not need dialysis. in any case very very unlikely she will get to the point of needing dialysis during the weekend. she has had creatinine of 3.7 in the last 1 year. (3) Sepsis: elevated white count hypoxia elevated lactic acid related with sepsis from pneumonia. Being treated with antibiotics. some improvement already noted as she has transitioned from BiPAP to nasal cannula. (4) Acute on chronic heart failure with preserved ejection fraction: CHF with fluid retention driven by very abnormal kidney function. Her cardiac status is actually not that bad and is not the primary cause of CHF. But regardless she is still needs IV Lasix for diuresis. For now will increase the dose of Lasix to 40 mg IV twice daily. Continue to monitor electrolytes and renal function on a daily basis Plan Case complexity high. Total time spent was 65 minutes History of Present Illness Reason for Consultation: acute kidney injury on background CKD 4 approaching CKD 5 Attending Physician: Jered Stevens MD History of Present Illness 89/F who was brought to the emergency room from [facility] with complaints of fever and hypoxia. She also had an episode of emesis. In the emergency room she was noted to be febrile and hypoxic and was placed on BiPAP. Evaluation emergency room showed an elevated white blood cell count as well pneumonia on chest x-ray. at the time of my evaluation patient was on nasal cannula, sleeping but easily awakened. she was able to answer simple questions. she did not exactly know why she was brought to the hospital from [facility]. she has baseline dementia and that is why she is in [facility] which is a [facility] facility for dementia patients. at baseline she has advanced CKD for almost CKD 5 with a baseline creatinine of 3 as of June 2024. she has had fluctuating creatinine but usually in the threes for the last 1 year. She was seen by Nephrology April [address] Solis. since being admitted patient has received antibiotics for pneumonia. Echocardiogram has been done which appears fairly unremarkable but she does have CHF on x-ray and evidence of fluid retention. At home she takes torsemide 20 daily. She has received 1 dose of IV Lasix earlier today current creatinine is 3.73 which is slightly higher than her most recent blood work from June 2024. review of systems unable to obtain as patient can not tell why she was sent over to the hospital. physical examination elderly white female who is chronically ill she appears to be in mild respiratory distress with 97% oxygen saturation on 3 L nasal cannula. blood pressure is high at 161 x 72 pulse rate 75 afebrile mucous membrane is moist neck is supple no JVD chest bilateral diminished breath sound very poor inspiratory effort limiting the quality of the exam CVS S1 and S2 regular soft systolic murmur heard abdomen is soft nontender obese extremities shows chronic edema involving all the way up to the upper thigh with chronic skin changes Allergies Allergy/AdvReac Type Severity Reaction Status Date / Time Penicillins Allergy Intermediate RASH - HAS Verified 08/17/24 20:11 TOLERATED ROCEPHIN codeine Allergy Unknown Verified 08/17/24 20:11 meloxicam Allergy Unknown Verified 08/17/24 20:11 ferrous fumarate AdvReac Mild stomach Verified 08/17/24 20:11 upset Home Medications Medication Instructions Recorded Confirmed Type atorvastatin 40 mg tablet 40 mg PO QPM 10/28/18 08/17/24 History gabapentin 300 mg capsule 300 mg PO BID 10/28/18 08/17/24 History isosorbide mononitrate 60 mg 60 mg PO DAILY 10/28/18 08/17/24 History tablet,extended release 24 hr acetaminophen 500 mg capsule 500 mg PO Q6H 05/11/22 08/17/24 History acetaminophen 500 mg tablet 500 mg PO QID PRN .SEVERE PAIN 05/11/22 08/17/24 History aspirin 81 mg chewable tablet 81 mg PO DAILY 05/11/22 08/17/24 History (Aspirin Childrens) calcium 600 mg (as 1 tab PO QPM 05/11/22 08/17/24 History carbonate)-vitamin D3 10 mcg (400 unit) tablet (Calcium 600 + D(3)) cyanocobalamin (vitamin B-12) 1,000 mcg PO QAM 05/11/22 08/17/24 History 1,000 mcg tablet (Vitamin B-12) hydralazine 50 mg tablet 50 mg PO TID 05/11/22 08/17/24 History Jlqthasxetaft-Fnddehvhvmdmzaz-D.thermophilus 2 cap PO TID 06/12/22 08/17/24 History 3 billion cell capsule (Advanced Probiotic-14) meclizine 12.5 mg tablet 12.5 mg PO Q6 PRN Dizziness 06/12/22 08/17/24 History torsemide 20 mg tablet 20 mg PO QAM 06/12/22 08/17/24 History felodipine 10 mg tablet,extended 10 mg PO QAM 08/17/24 08/17/24 History release 24 hr isosorbide mononitrate 30 mg 30 mg PO DAILY PRN SBP > 170 08/17/24 08/17/24 History tablet,extended release 24 hr omeprazole 20 mg capsule,delayed 20 mg PO QAM 08/17/24 08/17/24 History release polyvinyl alcohol 1.4 % eye drops 2 drp ophthalmic (eye) QID 08/17/24 08/17/24 History Patient History Medical History (Updated 08/18/24 @ 12:31 by Hermelindo Estrada MD) CKD (chronic kidney disease) stage 4, GFR 15-29 ml/min Family History Other No pertinent family history Social History Smoking Status: Never smoker Tobacco Type: Cigarettes Hx Alcohol Use: Yes Alcohol type: wine Hx Substance Use: No Preferred Language: Slovenian Communication Ability: Effective 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 Also reviewed previous blood work done as an outpatient Diagnostic Findings renal ultrasound also reviewed and does not show hydronephrosis
--- NOTE | 2024-08-18 15:26 | Hospitalist Progress Note ---
Date of Service August 18, 2024 Assessment & Plan (1) Severe sepsis with acute organ dysfunction: (2) Acute hypoxic respiratory failure: (3) Left lower lobe pneumonia: (4) Acute on chronic heart failure with preserved ejection fraction: (5) CKD (chronic kidney disease) stage 4, GFR 15-29 ml/min: (6) Uncontrolled hypertension: (7) Diabetes mellitus, type II: (8) Vascular dementia without behavioral disturbance: (9) Pulmonary hypertension: Plan Patient is an 89-year-old female presents from [facility] with fever, hypoxia and weakness. Evaluation in the emergency room severe sepsis with organ dysfunction as evidenced by hypoxia/respiratory failure, leukocytosis, fever. Acute respiratory failure with hypoxia Left basilar pneumonia with pleural effusion Sepsis due to above Lactic acidosis --CXR:New left basilar pneumonia and small left pleural effusion. --Respiratory Biofire: Negative --Nasal MRSA:Negative --Blood Cultures:pending -Urine analysis pending -Empirically on Rocephin and doxycycline Wean off of supplemental oxygen as able Acute HFpEF in setting of CKD Volume overload status Mild troponin elevation likely demand ischemia secondary to above --CXR as above --ECHO: Left ventricle wall thickness normal. Left ventricular wall motion is normal. EF 60 to 65%. No significant valve disease Continue IV Lasix as recommended by nephrology Monitor I's and O's, daily weight, volume status Acute kidney injury on CKD stage IV --Renal USD:No renal calculi or hydronephrosis. Mildly atrophic kidneys with evidence of chronic medical renal disease. Right-sided renal cysts. Cr 3.7 Avoid nephrotoxic agents as able Appreciate nephrology input Continue diuresis as per nephrology to help with volume overload DM Type II: Update HbA1c No tight glycemic management needed given elderly age continue insulin while hospitalize Monitor BGs Hypertension Continue hydralazine, felodipine Monitor blood glucose levels Hyperlipidemia Continue statin DVT Px: Heparin SQ Code Status Full Code Disposition PT OT prior to discharge Admission and Anticipated Discharge Date Admission Date: August 17, 2024 Subjective Patient is seen and examined at bedside Poor historian secondary to memory issues Updated patient's daughter over the phone Dyspnea much improved per patient Denies any cough, chest pain, nausea, vomiting, abdominal pain No other complaints Saturating well on room air Review of Systems Review of Systems: All systems reviewed & are unremarkable except as noted in Subjective Physical Exam Physical Exam: Physical Exam: Vitals signs as noted above General Appearance:Moderately built and nourished, no apparent distress, chronic ill appearing Head: normocephalic, Atraumatic Eyes: normal inspection, EOMI Neck: supple, Trachea midline Respiratory/Chest: Normal breath sounds, CTA, No accessory muscle use Cardiovascular: S1, S2, No murmur Abdomen/GI:Soft, Non tender, Bowel sounds present Extremities/Musculoskeletal:normal inspection, 2-3+ edema Neurologic/Psych:AAOX1, grossly no focal neurological deficits, decreasing hearing, impaired memory Skin: normal color, warm Results & Data Results & Data Vital Signs (Past 12 Hours) Vital Signs Temp Pulse Pulse Resp BP Pulse Ox O2 Del Method 08/18/24 15:08 Room Air 08/18/24 14:59 97 Room Air, Nasal Cannula 08/18/24 14:43 36.7 C 56 L 22 119/67 97 Nasal Cannula 08/18/24 11:20 75 18 161/72 H 97 Nasal Cannula 08/18/24 09:24 75 20 192/103 H 98 Nasal Cannula 08/18/24 07:02 70 20 177/74 H 98 Nasal Cannula 08/18/24 06:06 71 O2 Flow Rate 08/18/24 15:08 08/18/24 14:59 3 08/18/24 14:43 3 08/18/24 11:20 3 08/18/24 09:24 3 08/18/24 07:02 3 08/18/24 06:06 Laboratory Results Short CBC 08/17/24 08/18/24 Range/Units 19:34 04:08 WBC 23.07 H 20.82 H (4.8-10.8) K/ul Hgb 11.8 L 10.0 L (12.0-16.0) g/dl Hct 36.6 L 31.7 L (37.0-47.0) % Plt Count 253 204 (130-400) K/uL BMP 08/17/24 08/18/24 19:34 04:08 Sodium 140 139 Potassium 5.1 4.7 Chloride 103 103 Carbon Dioxide 26 25 BUN 51 H 56 H Creatinine 3.64 H 3.73 H Glucose 239 H 244 H Calcium 9.8 9.3 Liver Function 08/17/24 Range/Units 19:34 Total Bilirubin 0.6 (0.2-1.0) mg/dl Direct Bilirubin 0.1 (0-0.2) mg/dl AST 12 L (13-39) U/L ALT 11 (7-52) U/L Alkaline Phosphatase 75 (34-104) U/L Albumin 4.5 (3.4-5.0) gm/dl
[2024-08-19 04:35] LABS: Appearance Urine Cloudy (Clear); Bacteria Urine Automated 2+ (None Seen); Bilirubin Urine Negative (Negative); Blood Urine Negative (Negative); Cast Urine Automated 0-2 /lpf (0-2); Color Urine Yellow; Epithelial Cell Urine Auto 0-2 /hpf (0-2); Glucose Urine UA Trace (Negative); Ketones Urine Negative (Negative); Leukocyte Esterase Urine Trace (Negative); Nitrite Urine Negative (Negative); Protein Urine 2+ (Negative); Specific Gravity Urine 1.012 (1.000-1.030); Urobilinogen Urine Negative (Negative); WBC Urine Automated 0-5 /hpf (0-5); pH Urine 5.5 (4.5-7.5)
[2024-08-19 05:56] LABS: Hematocrit (blood only) 29.4 % (37.0-47.0); Hemoglobin 9.3 g/dl (12.0-16.0); Mean Corpuscular Hemoglobin 28.4 pg (25.0-34.0); Mean Corpuscular Hgb Conc 31.6 g/dL (32.0-36.0); Mean Corpuscular Volume 89.9 fL (80.0-100.0); Mean Platelet Volume 10.2 fL (9.4-12.4); Platelet Count 183 K/uL (130-400); RDW Coefficient of Variation 12.3 % (11.5-14.5); RDW Standard Deviation 40.5 fL (36.4-46.3); Red Blood Count 3.27 M/uL (4.20-5.40); White Blood Count 15.84 K/ul (4.8-10.8)
[2024-08-19 06:13] LABS: BUN Creatinine Ratio 16.2 (10-20); Calcium 8.9 mg/dl (8.6-10.3); Creatinine Clr Calc Pharmacy 9.1 ml/min; Potassium 4.2 mmol/L (3.5-5.1)
[2024-08-19] MEDS: ADVANCED PROBIOTIC 625 MG CAPSULE PO SCH (10:08)
[2024-08-19 11:48] LABS: Estimated Average Glucose 186 mg/dl; Hemoglobin A1C 8.1 % (4.5-5.6)
--- NOTE | 2024-08-19 13:03 | Hospitalist Progress Note ---
Date of Service August 19, 2024 Assessment & Plan (1) Severe sepsis with acute organ dysfunction: (2) Acute hypoxic respiratory failure: (3) Left lower lobe pneumonia: (4) Acute on chronic heart failure with preserved ejection fraction: (5) CKD (chronic kidney disease) stage 4, GFR 15-29 ml/min: (6) Uncontrolled hypertension: (7) Diabetes mellitus, type II: (8) Vascular dementia without behavioral disturbance: (9) Pulmonary hypertension: Plan Patient is an 89-year-old female presents from [facility] with fever, hypoxia and weakness. Evaluation in the emergency room severe sepsis with organ dysfunction as evidenced by hypoxia/respiratory failure, leukocytosis, fever. Acute respiratory failure with hypoxia Left basilar pneumonia with pleural effusion Sepsis due to above Lactic acidosis --CXR:New left basilar pneumonia and small left pleural effusion. --Respiratory Biofire: Negative --Nasal MRSA:Negative --Blood Cultures: Negative to date -Continue Rocephin and doxycycline Saturating low 90s on room air today Acute HFpEF in setting of CKD Volume overload status Mild troponin elevation likely demand ischemia secondary to above --CXR as above --ECHO: Left ventricle wall thickness normal. Left ventricular wall motion is normal. EF 60 to 65%. No significant valve disease Continue IV Lasix as recommended by nephrology Monitor I's and O's, daily weight, volume status Acute kidney injury on CKD stage IV --Renal USD:No renal calculi or hydronephrosis. Mildly atrophic kidneys with evidence of chronic medical renal disease. Right-sided renal cysts. Cr 3.9 today Avoid nephrotoxic agents as able Appreciate nephrology input Continue diuresis as per nephrology to help with volume overload Abnormal urinalysis Suspected UTI Urine culture pending Continue Rocephin for now Diarrhea Likely due to antibiotics Stool for C. difficile negative Monitor volume status Imodium as needed DM Type II: Update HbA1c No tight glycemic management needed given elderly age continue insulin while hospitalize Monitor BGs Hypertension Continue hydralazine, felodipine Monitor blood glucose levels Hyperlipidemia Continue statin DVT Px: Heparin SQ Code Status Full Code Disposition PT OT prior to discharge Admission and Anticipated Discharge Date Admission Date: August 17, 2024 Subjective Patient is seen and examined at bedside Patient states feeling a lot better today Prefers to be discharged home Patient offers no specific complaints Discussed with patient's family at bedside RN noted patient having multiple episodes of loose BMs today Denies any cough, chest pain, nausea, vomiting, abdominal pain Review of Systems Review of Systems: All systems reviewed & are unremarkable except as noted in Subjective Physical Exam Physical Exam: Physical Exam: Vitals signs as noted above General Appearance:Moderately built and nourished, no apparent distress, chronic ill appearing Head: normocephalic, Atraumatic Eyes: normal inspection, EOMI Neck: supple, Trachea midline Respiratory/Chest: Normal breath sounds, CTA, No accessory muscle use Cardiovascular: S1, S2, No murmur Abdomen/GI:Soft, Non tender, Bowel sounds present Extremities/Musculoskeletal:normal inspection, 2-3+ edema Neurologic/Psych:AAOX1, grossly no focal neurological deficits, decreasing hearing, impaired memory Skin: normal color, warm Results & Data Results & Data Vital Signs (Past 12 Hours) Vital Signs Temp Pulse Pulse Resp BP Pulse Ox Pulse Ox 08/19/24 12:35 92 08/19/24 11:29 36.9 C 78 18 125/69 93 08/19/24 11:05 92 08/19/24 10:45 08/19/24 07:24 36.9 C 72 20 157/64 H 92 08/19/24 07:00 82 08/19/24 03:30 37.4 C 86 16 148/66 H 92 O2 Del Method O2 Flow Rate 08/19/24 12:35 08/19/24 11:29 Room Air 08/19/24 11:05 0 08/19/24 10:45 Room Air 08/19/24 07:24 Room Air 08/19/24 07:00 08/19/24 03:30 Room Air Laboratory Results Short CBC 08/19/24 Range/Units 05:15 WBC 15.84 H (4.8-10.8) K/ul Hgb 9.3 L (12.0-16.0) g/dl Hct 29.4 L (37.0-47.0) % Plt Count 183 (130-400) K/uL BMP 08/19/24 05:15 Sodium 141 Potassium 4.2 Chloride 103 Carbon Dioxide 27 BUN 64 H Creatinine 3.96 H Glucose 161 H Calcium 8.9 Urine 08/19/24 Range/Units 03:30 Urine Color Yellow Urine Appearance Cloudy A (Clear) Urine pH 5.5 (4.5-7.5) Ur Specific [place] 1.012 (1.000-1.030) Urine Protein 2+ H (Negative) Urine Glucose (UA) Trace H (Negative)
[2024-08-19] MEDS: LOPERAMIDE HCL 2 MG CAP PO PRN (13:34)
[2024-08-19] MEDS: LACTOBACILLUS ACIDOPHILUS 1 GM PACK PO SCH (13:34)
--- NOTE | 2024-08-19 14:43 | Nephrology Progress Note ---
Date of Service August 19, 2024 Assessment & Plan (1) AMARIS (acute kidney injury): Plan: patient already has very advanced CKD with a creatinine usually in the threes that is puts her at CKD 4 or almost CKD 5. -most recent blood work from June 2024 when her creatinine was 3. A/W scR of 3.64,Current creatinine of 3.96 today , She is making urine although not adequate, wElectrolytes are safe. - Continue w/ conservative care. the acute component is related with sepsis with the primary source being pneumonia and she did have hypoxia. So the acute component is acute tubular ischemia related with sepsis hypoxia with pneumonia. Given her advanced age and very advanced CKD she is extremely susceptible to acute kidney injury with slightest of new medical issues. (2) CKD (chronic kidney disease) stage 4, GFR 15-29 ml/min: Plan: she has advanced CKD with a baseline creatinine in the low threes. As for last outpatient Nephrology note from April 2024 patient was leaning towards conservative management which is totally appropriate. Doing chronic maintenance hemodialysis at this advanced stage with dementia is not recommended as per guideline. no evidence of major electrolyte imbalance today and does not need dialysis. in any case very very unlikely she will get to the point of needing dialysis during the weekend. she has had creatinine of 3.7 in the last 1 year. (3) Sepsis: Plan: elevated white count hypoxia elevated lactic acid related with sepsis from pneumonia. Being treated with antibiotics. -Improved (4) Acute on chronic heart failure with preserved ejection fraction: Plan: CHF with fluid retention driven by very abnormal kidney function. Her cardiac status is actually not that bad and is not the primary cause of CHF. But regardless she is still needs IV Lasix for diuresis. For now continue w/ Lasix to 80 mg IV twice daily. Difficult a comment about weight when she is comfortable>>> this is very variable. Continue to monitor electrolytes and renal function and Volume status on a daily basis Plan Case complexity high. Total time spent was 65 minutes Admission and Anticipated Discharge Date Admission Date: August 17, 2024 Subjective Patient is seen and examined at bedside Patient states feeling a lot better today Had multiple episodes of loose BMs today Denies any cough, chest pain, nausea, vomiting, abdominal pain Physical Exam 2 Physical Exam: General Appearance:Moderately built and nourished, no apparent distress, chronic ill appearing Head: normocephalic, Atraumatic Eyes: normal inspection, EOMI Neck: supple, Trachea midline Respiratory/Chest: Normal breath sounds, CTA, No accessory muscle use Cardiovascular: S1, S2, No murmur Abdomen/GI:Soft, Non tender, Bowel sounds present Extremities/Musculoskeletal:normal inspection, 2-3+ edema Neurologic/Psych:AAOX1, grossly no focal neurological deficits, decreasing hearing, impaired memory Skin: normal color, warm Results & Data Vital Signs (Past 12 Hours) Vital Signs Temp Pulse Pulse Resp BP Pulse Ox Pulse Ox 08/19/24 12:35 92 08/19/24 11:29 36.9 C 78 18 125/69 93 08/19/24 11:05 92 08/19/24 10:45 08/19/24 07:24 36.9 C 72 20 157/64 H 92 08/19/24 07:00 82 08/19/24 03:30 37.4 C 86 16 148/66 H 92 O2 Del Method O2 Flow Rate 08/19/24 12:35 08/19/24 11:29 Room Air 08/19/24 11:05 0 08/19/24 10:45 Room Air 08/19/24 07:24 Room Air 08/19/24 07:00 08/19/24 03:30 Room Air Laboratory Results 08/19/24 05:15 08/19/24 05:15
[2024-08-20 05:51] LABS: Hematocrit (blood only) 28.2 % (37.0-47.0); Hemoglobin 8.9 g/dl (12.0-16.0); Mean Corpuscular Hgb Conc 31.6 g/dL (32.0-36.0); Mean Corpuscular Volume 88.7 fL (80.0-100.0); Mean Platelet Volume 9.8 fL (9.4-12.4); Platelet Count 190 K/uL (130-400); RDW Coefficient of Variation 12.2 % (11.5-14.5); RDW Standard Deviation 39.8 fL (36.4-46.3); Red Blood Count 3.18 M/uL (4.20-5.40); White Blood Count 12.29 K/ul (4.8-10.8)
[2024-08-20 06:07] LABS: BUN Creatinine Ratio 17.4 (10-20); Calcium 8.9 mg/dl (8.6-10.3); Creatinine Clr Calc Pharmacy 8.8 ml/min; Magnesium 1.9 mg/dl (1.7-2.4); Potassium 3.9 mmol/L (3.5-5.1)
[2024-08-20] MEDS: guaiFENesin SUGAR FREE 100 MG/5 ML UDC PO PRN (08:25)
[2024-08-20] MEDS: ACETAMINOPHEN 325 MG TAB PO PRN (08:28)
--- NOTE | 2024-08-20 10:11 | Nephrology Progress Note ---
Date of Service August 20, 2024 Assessment & Plan (1) AMARIS (acute kidney injury): Plan: patient already has very advanced CKD with a creatinine usually in the threes that is puts her at CKD 4 or almost CKD 5. -most recent blood work from June 2024 when her creatinine was 3. A/W scR of 3.64,Current creatinine of 3.96 again today , She is making urine although not adequate,Electrolytes are safe. - Continue w/ conservative care. - the acute component is related with sepsis with the primary source being pneumonia and she did have hypoxia. So the acute component is acute tubular ischemia related with sepsis hypoxia with pneumonia. Given her advanced age and very advanced CKD she is extremely susceptible to acute kidney injury with slightest of new medical issues. (2) CKD (chronic kidney disease) stage 4, GFR 15-29 ml/min: Plan: she has advanced CKD with a baseline creatinine in the low threes. As for last outpatient Nephrology note from April 2024 patient was leaning towards conservative management which is totally appropriate. Doing chronic maintenance hemodialysis at this advanced stage with dementia is not recommended as per guideline. no evidence of major electrolyte imbalance today and does not need dialysis. in any case very very unlikely she will get to the point of needing dialysis during the weekend. she has had creatinine of 3.7 in the last 1 year. (3) Sepsis: Plan: elevated white count hypoxia elevated lactic acid related with sepsis from pneumonia. Being treated with antibiotics. -Improved (4) Acute on chronic heart failure with preserved ejection fraction: Plan: CHF with fluid retention driven by very abnormal kidney function. Her cardiac status is actually not that bad and is not the primary cause of CHF. But regardless she is still needs IV Lasix for diuresis. For now continue w/ Lasix to 80 mg IV twice daily. Difficult a comment about weight when she is comfortable>>> this is very variable. Continue to monitor electrolytes and renal function and Volume status on a daily basis Admission and Anticipated Discharge Date Admission Date: August 17, 2024 Subjective Patient is seen and examined at bedside Comfortable. no SOB, Pedal edema better Eager to go home Review of Systems 2 Review of Systems: All systems reviewed & are unremarkable except as noted in HPI & below Physical Exam 2 Physical Exam: General Appearance:Moderately built and nourished, no apparent distress, chronic ill appearing Head: normocephalic, Atraumatic Eyes: normal inspection, EOMI Neck: supple, Trachea midline Respiratory/Chest: Normal breath sounds, CTA, No accessory muscle use Cardiovascular: S1, S2, No murmur Abdomen/GI:Soft, Non tender, Bowel sounds present Extremities/Musculoskeletal:normal inspection, 2-3+ edema Neurologic/Psych:AAOX1, grossly no focal neurological deficits, decreasing hearing, impaired memory Skin: normal color, warm Results & Data Vital Signs (Past 12 Hours) Vital Signs Temp Pulse Pulse Resp BP Pulse Ox O2 Del Method 08/20/24 07:48 Room Air 08/20/24 07:42 37.2 C 66 18 157/60 H 92 Room Air 08/20/24 05:45 75 08/20/24 02:55 37.1 C 74 18 160/65 H 91 Room Air 08/19/24 22:13 37.4 C 72 18 166/50 H 91 Room Air Laboratory Results 08/20/24 05:29 08/20/24 05:29
--- NOTE | 2024-08-20 14:35 | Hospitalist Progress Note ---
Date of Service August 20, 2024 Assessment & Plan (1) Severe sepsis with acute organ dysfunction: (2) Acute hypoxic respiratory failure: (3) Left lower lobe pneumonia: (4) Acute on chronic heart failure with preserved ejection fraction: (5) CKD (chronic kidney disease) stage 4, GFR 15-29 ml/min: (6) Uncontrolled hypertension: (7) Diabetes mellitus, type II: (8) Vascular dementia without behavioral disturbance: (9) Pulmonary hypertension: Plan Patient is an 89-year-old female presents from [facility] with fever, hypoxia and weakness. Evaluation in the emergency room severe sepsis with organ dysfunction as evidenced by hypoxia/respiratory failure, leukocytosis, fever. Acute respiratory failure with hypoxia Left basilar pneumonia with pleural effusion Sepsis due to above Lactic acidosis --CXR:New left basilar pneumonia and small left pleural effusion. --Respiratory Biofire: Negative --Nasal MRSA:Negative --Blood Cultures: Negative to date -Continue Rocephin and doxycycline Saturating low 90s on room air today Leukocytosis trending down Continue current management Acute HFpEF in setting of CKD Volume overload status Mild troponin elevation likely demand ischemia secondary to above --CXR as above --ECHO: Left ventricle wall thickness normal. Left ventricular wall motion is normal. EF 60 to 65%. No significant valve disease Continue IV Lasix as recommended by nephrology Monitor I's and O's, daily weight, volume status Leg edema improving Continue IV diuresis Acute kidney injury on CKD stage IV --Renal USD:No renal calculi or hydronephrosis. Mildly atrophic kidneys with evidence of chronic medical renal disease. Right-sided renal cysts. Cr 3.9 today Avoid nephrotoxic agents as able Appreciate nephrology input Continue diuresis as per nephrology to help with volume overload Renal function stable Abnormal urinalysis Suspected UTI Urine culture preliminary culture negative Continue Rocephin for now Diarrhea Likely due to antibiotics Stool for C. difficile negative Monitor volume status Imodium as needed DM Type II: HbA1c 8.1 No tight glycemic management needed given elderly age continue insulin while hospitalize Monitor BGs Hypertension Continue hydralazine, felodipine Monitor blood glucose levels Hyperlipidemia Continue statin DVT Px: Heparin SQ Code Status Full Code Disposition PT OT recommends to return home Likely discharge home when stable Admission and Anticipated Discharge Date Admission Date: August 17, 2024 Subjective Patient is seen and examined at bedside Leg edema improving Less diarrhea per patient Discussed with nephrology today Renal function stable Tried to reach daughter for update, no answer, left voicemail Denies any cough, chest pain, nausea, vomiting, abdominal pain Patient prefers to be discharged home tomorrow Review of Systems Review of Systems: All systems reviewed & are unremarkable except as noted in Subjective Physical Exam Physical Exam: Physical Exam: Vitals signs as noted above General Appearance:Moderately built and nourished, no apparent distress, chronic ill appearing Head: normocephalic, Atraumatic Eyes: normal inspection, EOMI Neck: supple, Trachea midline Respiratory/Chest: Normal breath sounds, CTA, No accessory muscle use Cardiovascular: S1, S2, No murmur Abdomen/GI:Soft, Non tender, Bowel sounds present Extremities/Musculoskeletal:normal inspection, 2-3+ edema Neurologic/Psych:AAOX1, grossly no focal neurological deficits, decreasing hearing, impaired memory Skin: normal color, warm Results & Data Results & Data Vital Signs (Past 12 Hours) Vital Signs Temp Pulse Pulse Resp BP Pulse Ox O2 Del Method 08/20/24 13:03 67 08/20/24 11:24 37.0 C 60 18 105/59 L 93 Room Air 08/20/24 07:48 Room Air 08/20/24 07:42 37.2 C 66 18 157/60 H 92 Room Air 08/20/24 05:45 75 08/20/24 02:55 37.1 C 74 18 160/65 H 91 Room Air Laboratory Results Short CBC 08/20/24 Range/Units 05:29 WBC 12.29 H (4.8-10.8) K/ul Hgb 8.9 L (12.0-16.0) g/dl Hct 28.2 L (37.0-47.0) % Plt Count 190 (130-400) K/uL BMP 08/20/24 05:29 Sodium 138 Potassium 3.9 Chloride 102 Carbon Dioxide 27 BUN 69 H Creatinine 3.96 H Glucose 161 H Calcium 8.9
[2024-08-21 08:10] LABS: Hematocrit (blood only) 29.2 % (37.0-47.0); Hemoglobin 9.2 g/dl (12.0-16.0); Mean Corpuscular Hgb Conc 31.5 g/dL (32.0-36.0); Platelet Count 211 K/uL (130-400); RDW Standard Deviation 39.2 fL (36.4-46.3); Red Blood Count 3.28 M/uL (4.20-5.40); White Blood Count 10.91 K/ul (4.8-10.8)
[2024-08-21 08:29] LABS: Calcium 8.8 mg/dl (8.6-10.3); Creatinine Clr Calc Pharmacy 8.4 ml/min; Potassium 4.3 mmol/L (3.5-5.1)
--- NOTE | 2024-08-21 15:48 | Hospitalist Progress Note ---
Date of Service August 21, 2024 Assessment & Plan (1) Severe sepsis with acute organ dysfunction: (2) Acute hypoxic respiratory failure: (3) Left lower lobe pneumonia: (4) Acute on chronic heart failure with preserved ejection fraction: (5) CKD (chronic kidney disease) stage 4, GFR 15-29 ml/min: (6) Uncontrolled hypertension: (7) Diabetes mellitus, type II: (8) Vascular dementia without behavioral disturbance: (9) Pulmonary hypertension: Plan Patient is an 89-year-old female presents from [facility] with fever, hypoxia and weakness. Evaluation in the emergency room severe sepsis with organ dysfunction as evidenced by hypoxia/respiratory failure, leukocytosis, fever. Acute respiratory failure with hypoxia Left basilar pneumonia with pleural effusion Sepsis due to above Lactic acidosis --CXR:New left basilar pneumonia and small left pleural effusion. --Respiratory Biofire: Negative --Nasal MRSA:Negative --Blood Cultures: Negative to date -Continue Rocephin and doxycycline Saturating low 90s on room air today Leukocytosis near normal Plan to discharge on oral antibiotics to complete the course Acute HFpEF in setting of CKD Volume overload status Mild troponin elevation likely demand ischemia secondary to above --CXR as above --ECHO: Left ventricle wall thickness normal. Left ventricular wall motion is normal. EF 60 to 65%. No significant valve disease Continue IV Lasix as recommended by nephrology Monitor I's and O's, daily weight, volume status Leg edema improved Continue IV diuresis--hold further IV diuresis after a.m. dose of Lasix Acute kidney injury on CKD stage IV --Renal USD:No renal calculi or hydronephrosis. Mildly atrophic kidneys with evidence of chronic medical renal disease. Right-sided renal cysts. Cr 4.1 today Avoid nephrotoxic agents as able Appreciate nephrology input Continue diuresis as per nephrology to help with volume overload Renal function stable Abnormal urinalysis Ruled out UTI Urine culture negative Empirically received Rocephin as above Diarrhea Likely due to antibiotics Stool for C. difficile negative Monitor volume status Imodium as needed DM Type II: HbA1c 8.1 No tight glycemic management needed given elderly age continue insulin while hospitalize Monitor BGs Hypertension Continue hydralazine, felodipine Monitor blood glucose levels Hyperlipidemia Continue statin DVT Px: Heparin SQ Code Status Full Code Disposition PT OT recommends to return home Likely discharge home when stable Admission and Anticipated Discharge Date Admission Date: August 17, 2024 Subjective Patient is seen and examined at bedside States feeling tired today Leg edema continues to improve Discussed with nephrology and patient's daughter over the phone Denies any diarrhea today Denies any cough, chest pain, nausea, vomiting, abdominal pain Review of Systems Review of Systems: All systems reviewed & are unremarkable except as noted in Subjective Physical Exam Physical Exam: Physical Exam: Vitals signs as noted above General Appearance:Moderately built and nourished, no apparent distress, chronic ill appearing Head: normocephalic, Atraumatic Eyes: normal inspection, EOMI Neck: supple, Trachea midline Respiratory/Chest: Normal breath sounds, CTA, No accessory muscle use Cardiovascular: S1, S2, No murmur Abdomen/GI:Soft, Non tender, Bowel sounds present Extremities/Musculoskeletal:normal inspection, 2-3+ edema Neurologic/Psych:AAOX1, grossly no focal neurological deficits, decreasing hearing, impaired memory Skin: normal color, warm Results & Data Results & Data Vital Signs (Past 12 Hours) Vital Signs Temp Pulse Pulse Resp BP Pulse Ox O2 Del Method 08/21/24 15:42 37.0 C 72 18 143/52 H 94 Room Air 08/21/24 12:42 72 08/21/24 11:41 37.1 C 71 20 107/58 L 93 Room Air 08/21/24 07:23 Room Air 08/21/24 07:20 36.4 C L 62 18 127/55 L 98 Room Air 08/21/24 05:44 58 L Laboratory Results Short CBC 08/21/24 Range/Units 07:41 WBC 10.91 H (4.8-10.8) K/ul Hgb 9.2 L (12.0-16.0) g/dl Hct 29.2 L (37.0-47.0) % Plt Count 211 (130-400) K/uL BMP 08/21/24 07:41 Sodium 138 Potassium 4.3 Chloride 100 Carbon Dioxide 29 BUN 74 H Creatinine 4.12 H Glucose 154 H Calcium 8.8
--- NOTE | 2024-08-21 21:06 | Nephrology Progress Note ---
Date of Service August 21, 2024 Assessment & Plan (1) AMARIS (acute kidney injury): Plan: patient already has very advanced CKD with a creatinine usually in the threes that is puts her at CKD 4 or almost CKD 5. -most recent blood work from June 2024 when her creatinine was 3. A/W scR of 3.64,Current creatinine of4.1, so plateau'd x 72 hrs at about 4 , She is making urine although difficult to quantify given incontinence; appreciate nursing efforts - Continue w/ conservative care. - the acute component is related with sepsis with the primary source being pneumonia and she did have hypoxia. So the acute component is acute tubular ischemia related with sepsis hypoxia with pneumonia. Given her advanced age and very advanced CKD she is extremely susceptible to acute kidney injury with slightest of new medical issues. (2) CKD (chronic kidney disease) stage 4, GFR 15-29 ml/min: Plan: she has advanced CKD with a baseline creatinine in the low threes. As for last outpatient Nephrology note from April 2024 patient was leaning towards conservative management which is totally appropriate. Doing chronic maintenance hemodialysis at this advanced stage with dementia is not recommended per guidelines. no evidence of major electrolyte imbalance today and does not need dialysis. she has had creatinine of 3.7 in the last 1 year. (3) Sepsis: Plan: elevated white count hypoxia elevated lactic acid related with sepsis from pneumonia. Being treated with antibiotics. -Improved (4) Acute on chronic heart failure with preserved ejection fraction: Plan: CHF with fluid retention driven by very abnormal kidney function. Her cardiac status is actually not that bad and is not the primary cause of CHF. But regardless she is still needs IV Lasix for diuresis. >>hold further lasix for now Admission and Anticipated Discharge Date Admission Date: August 17, 2024 Subjective late entry for pt seen adn evaluated on mid AM rounds earlier today. pt states "I want to go home;" she denies pain, n/v, breathlessness, edema. RN reports she's eating 100% of her meals. ON LASIX 80 mg IV bid Review of Systems 2 Review of Systems: All systems reviewed & are unremarkable except as noted in Subjective Physical Exam 2 Constitutional: well developed and well nourished Eyes: EOM intact bilaterally ENMT: Ears: no external ear abnormality Nose: no external nose abnormality Mouth: + dry oral mucous membranes Neck: no nuchal rigidity Respiratory: normal respiratory effort Auscultation: + diminished lung sounds Cardiovascular: Rate/Rhythm: regular rate and regular rhythm Heart Sounds: + murmur Extremities: + edema (trace BLE) Gastrointestinal (Abdomen): Inspection/Auscultation: normal bowel sounds P ercussion/Palpation: abdomen soft; abdomen nontender Musculoskeletal: Extremities: strength 5/5 throughout Skin: no rashes, warm and dry Neurologic: sears, fluent speech, no tremor Results & Data Vital Signs (Past 12 Hours) Vital Signs Temp Pulse Pulse Resp BP BP Pulse Ox 08/21/24 19:39 36.9 C 66 17 144/67 H 93 08/21/24 17:14 67 08/21/24 15:42 37.0 C 72 18 143/52 H 94 08/21/24 12:42 72 08/21/24 11:41 37.1 C 71 20 107/58 L 93 O2 Del Method 08/21/24 19:39 Room Air 08/21/24 17:14 08/21/24 15:42 Room Air 08/21/24 12:42 08/21/24 11:41 Room Air Laboratory Results 08/21/24 07:41 08/21/24 07:41
[2024-08-22 07:20] VITALS: RESP 16
[2024-08-22 07:49] LABS: Hematocrit (blood only) 31.1 % (37.0-47.0); Hemoglobin 9.7 g/dl (12.0-16.0); Mean Corpuscular Hgb Conc 31.2 g/dL (32.0-36.0); Mean Corpuscular Volume 89.6 fL (80.0-100.0); Mean Platelet Volume 9.9 fL (9.4-12.4); Platelet Count 230 K/uL (130-400); RDW Standard Deviation 38.8 fL (36.4-46.3); Red Blood Count 3.47 M/uL (4.20-5.40); White Blood Count 9.27 K/ul (4.8-10.8)
[2024-08-22 08:09] LABS: BUN Creatinine Ratio 18.4 (10-20); Calcium 8.8 mg/dl (8.6-10.3); Creatinine Clr Calc Pharmacy 8.7 ml/min; Potassium 4.2 mmol/L (3.5-5.1)
--- NOTE | 2024-08-22 09:39 | Nephrology Progress Note ---
Date of Service August 22, 2024 Assessment & Plan (1) AMARIS (acute kidney injury): Plan: patient already has very advanced CKD with a creatinine usually in the threes that is puts her at CKD 4 or almost CKD 5. -most recent blood work from June 2024 when her creatinine was 3; as OP was 3.7 in april 2024. A/W sCr of 3.64, Current creatinine of 4.0, so plateau'd x 4 days at about 4 , She is making urine although difficult to quantify given incontinence; appreciate nursing efforts - Continue w/ conservative care. - the acute component is from sepsis with the primary source being pneumonia and she did have hypoxia w/ acute tubular ischemia. Given her advanced age and very advanced CKD she is extremely susceptible to acute kidney injury with slightest of new medical issues. -from neph standpoint she coudl be d/c -gave 20 mg po torsemide today NEPHRO D/C RECS -continue felodipine, imdur -resume hydralazine at customary OP doses -increase torsemide dose to 30 mg daily and monitor labs -weekly bmp to be ordered by PCP x 3 -hospital d/c appt w/ Dr Solis in 2-3 weeks w/ neph nurse to order BMP to be done no more than 3 days prior to appt; will need to revisit goals of care at that visit as pt hasn't been sure about dialysis or not; would also check orthostatic VS at that OV Care coordinated w/ Dr Stevens regarding d/c and advanced CKD dispo, d/c meds, f/u labs/appts; we are in agreement. (2) CKD (chronic kidney disease) stage 4, GFR 15-29 ml/min: Plan: she has advanced CKD with a baseline creatinine in the low threes. As per last outpatient Nephrology note from April 2024 patient was leaning towards conservative management though not totally decided. Doing chronic maintenance hemodialysis at this advanced stage with dementia is not recommended per guidelines b/c of challenges for pt to give informed consent. no evidence of major electrolyte imbalance today and does not need dialysis. (3) Sepsis: Plan: elevated white count hypoxia elevated lactic acid related with sepsis from pneumonia intiially >> WBC normalized today at 9.3. Being treated with antibiotics. -Improved (4) Acute on chronic heart failure with preserved ejection fraction: Plan: CHF with fluid retention driven by very abnormal kidney function. Her cardiac status is actually not that bad and is not the primary cause of CHF. But regardless she is still needs IV Lasix for diuresis. >>would resume torsemide at 20 mg daily dose for now, first dose today -BP mgt as above -encourage PT Admission and Anticipated Discharge Date Admission Date: August 17, 2024 Subjective again 2 voids and one diaper past 24 hrs. no sob, no n/v. eager for d/c ; walked w/ PT Review of Systems 2 Review of Systems: All systems reviewed & are unremarkable except as noted in Subjective Physical Exam 2 Constitutional: well developed, well nourished and cooperative (maneuvers independently for exam); no acute distress Eyes: EOM intact bilaterally ENMT: Ears: no external ear abnormality Nose: no external nose abnormality Mouth: + dry oral mucous membranes Neck: no nuchal rigidity Respiratory: normal respiratory effort Auscultation: + diminished lung sounds Cardiovascular: Rate/Rhythm: regular rate and regular rhythm Heart Sounds: + murmur Extremities: + edema (trace BLE) Gastrointestinal (Abdomen): Inspection/Auscultation: normal bowel sounds P ercussion/Palpation: abdomen soft; abdomen nontender Musculoskeletal: Extremities: strength 5/5 throughout Skin: no rashes, warm and dry Results & Data Vital Signs (Past 12 Hours) Vital Signs Temp Pulse Pulse Resp BP Pulse Ox O2 Del Method 08/22/24 07:23 Room Air 08/22/24 07:18 36.7 C 67 16 162/58 H 95 Room Air 08/22/24 05:45 64 08/22/24 03:20 37.0 C 63 17 160/71 H 92 Room Air 08/21/24 23:00 37.2 C 63 16 132/72 94 Room Air 08/21/24 22:22 60 Laboratory Results 08/22/24 07:19 08/22/24 07:19
[2024-08-22 11:39] VITALS: TEMP 98.8; O2SAT 93
--- NOTE | 2024-08-22 12:05 | Hospitalist Progress Note ---
Date of Service August 22, 2024 Assessment & Plan (1) Severe sepsis with acute organ dysfunction: (2) Acute hypoxic respiratory failure: (3) Left lower lobe pneumonia: (4) Acute on chronic heart failure with preserved ejection fraction: (5) CKD (chronic kidney disease) stage 4, GFR 15-29 ml/min: (6) Uncontrolled hypertension: (7) Diabetes mellitus, type II: (8) Vascular dementia without behavioral disturbance: (9) Pulmonary hypertension: Plan Patient is an 89-year-old female presents from [facility] with fever, hypoxia and weakness. Evaluation in the emergency room severe sepsis with organ dysfunction as evidenced by hypoxia/respiratory failure, leukocytosis, fever. Acute respiratory failure with hypoxia Left basilar pneumonia with pleural effusion Sepsis due to above Lactic acidosis --CXR:New left basilar pneumonia and small left pleural effusion. --Respiratory Biofire: Negative --Nasal MRSA:Negative --Blood Cultures: Negative to date -Continue Rocephin and doxycycline Saturating well on room air Leukocytosis resolved Plan to discharge on oral antibiotics to complete the course Plan to [facility] today Acute HFpEF in setting of CKD Volume overload status Mild troponin elevation likely demand ischemia secondary to above --CXR as above --ECHO: Left ventricle wall thickness normal. Left ventricular wall motion is normal. EF 60 to 65%. No significant valve disease Continue IV Lasix as recommended by nephrology Monitor I's and O's, daily weight, volume status Leg edema improved Continue IV Lasix 80 mg twice a day >> transition to torsemide 30 mg daily on discharge Acute kidney injury on CKD stage IV --Renal USD:No renal calculi or hydronephrosis. Mildly atrophic kidneys with evidence of chronic medical renal disease. Right-sided renal cysts. Cr 3.9 today Avoid nephrotoxic agents as able Appreciate nephrology input Continue diuresis as per nephrology to help with volume overload Renal function stable Abnormal urinalysis Ruled out UTI Urine culture negative Empirically received Rocephin as above Diarrhea Likely due to antibiotics Stool for C. difficile negative Monitor volume status Imodium as needed DM Type II: HbA1c 8.1 No tight glycemic management needed given elderly age continue insulin while hospitalize Monitor BGs Hypertension Continue hydralazine, felodipine Monitor blood glucose levels Hyperlipidemia Continue statin DVT Px: Heparin SQ Code Status Full Code Disposition Personal care facility Admission and Anticipated Discharge Date Admission Date: August 17, 2024 Subjective Patient is seen and examined at bedside No new complaints Discussed with nephrology Updated patient's daughter over the phone Cough resolved Denies any dyspnea, chest pain, nausea, vomiting, abdominal pain Review of Systems Review of Systems: All systems reviewed & are unremarkable except as noted in Subjective Physical Exam Physical Exam: Physical Exam: Vitals signs as noted above General Appearance:Moderately built and nourished, no apparent distress, chronic ill appearing Head: normocephalic, Atraumatic Eyes: normal inspection, EOMI Neck: supple, Trachea midline Respiratory/Chest: Normal breath sounds, CTA, No accessory muscle use Cardiovascular: S1, S2, No murmur Abdomen/GI:Soft, Non tender, Bowel sounds present Extremities/Musculoskeletal:normal inspection, 2-3+ edema Neurologic/Psych:AAOX1, grossly no focal neurological deficits, decreasing hearing, impaired memory Skin: normal color, warm Results & Data Results & Data Vital Signs (Past 12 Hours) Vital Signs Temp Pulse Pulse Resp BP Pulse Ox O2 Del Method 08/22/24 11:38 37.1 C 68 16 133/58 L 93 Room Air 08/22/24 07:23 Room Air 08/22/24 07:18 36.7 C 67 16 162/58 H 95 Room Air 08/22/24 05:45 64 08/22/24 03:20 37.0 C 63 17 160/71 H 92 Room Air Laboratory Results Short CBC 08/22/24 Range/Units 07:19 WBC 9.27 (4.8-10.8) K/ul Hgb 9.7 L (12.0-16.0) g/dl Hct 31.1 L (37.0-47.0) % Plt Count 230 (130-400) K/uL [facility] 08/22/24 07:19 Sodium 140 Potassium 4.2 Chloride 101 Carbon Dioxide 29 BUN 73 H Creatinine 3.97 H Glucose 140 H Calcium 8.8
[2024-08-22] MEDS: TORSEMIDE 20 MG TAB PO SCH (12:48)
--- NOTE | 2024-08-22 14:14 | Discharge Summary ---
Date of Service August 22, 2024 Admission HPI Per Admitting Provider Patient is a 89-year-old female brought to the emergency room from [place] with complaints of fever and hypoxia. In transit she also had an episode of emesis. In the emergency room she was noted to be febrile and hypoxic and was placed on BiPAP. Evaluation emergency room showed an elevated white blood cell count as well as what appeared to be infiltrate on chest x-ray was referred for further evaluation. Time my evaluation patient was sleeping but easily awakened. She is on BiPAP. She denied any chest pain or shortness of breath. She did not not say that she had any vomiting throughout the day. But really cannot give me much history at all. On review of her records and outside EMR documents that she does have some vascular dementia. On further questioning patient really cannot contribute much to her history present on this or review of systems. Attempted to call daughter but no answer. Admission Exam Per Admitting Provider Constitutional: Sleeping but easily awakened, ill in appearance, mildly toxic HEENT: Mucous membranes slightly dry. Sclera clear Neck: Soft, no adenopathy Lungs: Decreased breath sounds with crackles at bases with some rhonchi CV: S1-S2, regular Abdomen: Soft, nontender, nondistended Extremities: 2-3+ pitting edema lower extremities Musculoskeletal: No significant joint tenderness Neuro: No focal deficits, generalized weakness Psych: Cooperative, impaired memory Principal Diagnosis Acute respiratory failure with hypoxia Sepsis Pneumonia Acute on chronic HFpEF AMARIS on CKD stage IV Discharge Data Allergies Allergy/AdvReac Type Severity Reaction Status Date / Time Penicillins Allergy Intermediate RASH - HAS Verified 08/17/24 20:11 TOLERATED ROCEPHIN codeine Allergy Unknown Verified 08/17/24 20:11 meloxicam Allergy Unknown Verified 08/17/24 20:11 ferrous fumarate AdvReac Mild stomach Verified 08/17/24 20:11 upset Consultations 08/17/24 20:30 ED Decision to Admit Stat 08/18/24 07:53 Consult Nephrology Routine Procedures Performed Laboratory Results WBC 9.27 K/ul (4.8-10.8) 08/22/24 07:19 RBC 3.47 M/uL (4.20-5.40) L 08/22/24 07:19 Hgb 9.7 g/dl (12.0-16.0) L 08/22/24 07:19 Hct 31.1 % (37.0-47.0) L 08/22/24 07:19 MCV 89.6 fL (80.0-100.0) 08/22/24 07:19 MCH 28.0 pg (25.0-34.0) 08/22/24 07:19 MCHC 31.2 g/dL (32.0-36.0) L 08/22/24 07:19 RDW Std Deviation 38.8 fL (36.4-46.3) 08/22/24 07: RDW Coeff of Paul 12.0 % (11.5-14.5) 08/22/24 07:19 Plt Count 230 K/uL (130-400) 08/22/24 07:19 MPV 9.9 fL (9.4-12.4) 08/22/24 07:19 Immature Gran % (Auto) 0.5 % 08/17/24 19:34 Neut % (Auto) 88.5 % 08/17/24 19:34 Lymph % (Auto) 4.7 % 08/17/24 19:34 Burt % (Auto) 5.2 % 08/17/24 19:34 Eos % (Auto) 0.6 % 08/17/24 19:34 Baso % (Auto) 0.5 % 08/17/24 19:34 Neut # (Auto) 20.41 K/uL (1.40-6.50) H 08/17/24 19:34 Lymph # (Auto) 1.09 K/uL (1.20-3.40) L 08/17/24 19:34 Burt # (Auto) 1.19 K/uL (0.11-0.59) H 08/17/24 19:34 Eos # (Auto) 0.14 K/uL (0.00-0.50) 08/17/24 19:34 Baso # (Auto) 0.12 K/uL (0.00-0.20) 08/17/24 19:34 Immature Gran # (Auto) 0.12 K/uL (0.01-0.20) 08/17/24 19:34 PT 10.6 Seconds (9.0-12.0) 08/17/24 19:34 INR 1.0 (0.9-1.1) 08/17/24 19:34 APTT 24 Seconds (21-31) 08/17/24 19:34 PTT Ratio 0.9 08/17/24 19:34 VBG pH 7.30 (7.36-7.41) L 08/17/24 19:34 VBG pCO2 48 mmHg (38-50) 08/17/24 19:34 VBG pO2 44 mmHg 08/17/24 19:34 VBG HCO3 24 mmol/L 08/17/24 19:34 VBG O2 Saturation 70.0 % 08/17/24 19:34 VBG Base Excess -3.2 mEq/L 08/17/24 19:34 Sodium 140 mmol/L (136-145) 08/22/24 07:19 Potassium 4.2 mmol/L (3.5-5.1) 08/22/24 07:19 Chloride 101 mmol/L (98-107) 08/22/24 07:19 Carbon Dioxide 29 mmol/L (21-32) 08/22/24 07:19 Anion Gap 10 (3-11) 08/22/24 07:19 BUN 73 mg/dl (6-23) H 08/22/24 07:19 Creatinine 3.97 mg/dl (0.6-1.2) H 08/22/24 07:19 Est Cr Clr Drug Dosing 8.7 ml/min 08/22/24 07:19 eGFR 10.36 08/22/24 07:19 BUN/Creatinine Ratio 18.4 (10-20) 08/22/24 07:19 Glucose 140 mg/dl (70-99(Fasting)) H 08/22/24 07:19 POC Glucose 160 mg/dl (70-99) H 08/22/24 11:43 Estimat Average Glucose 186 mg/dl 08/19/24 05:15 Hemoglobin A1c 8.1 % (4.5-5.6) H 08/19/24 05:15 Lactate 3.2 mmol/L (0.4-2.0) H* 08/17/24 21:36 Calcium 8.8 mg/dl (8.6-10.3) 08/22/24 07:19 Phosphorus 3.5 mg/dl (2.5-4.9) 08/18/24 04:08 Magnesium 1.9 mg/dl (1.7-2.4) 08/20/24 05:29 Total Bilirubin 0.6 mg/dl (0.2-1.0) 08/17/24 19:34 Direct Bilirubin 0.1 mg/dl (0-0.2) 08/17/24 19:34 AST 12 U/L (13-39) L 08/17/24 19:34 ALT 11 U/L (7-52) 08/17/24 19:34 Alkaline Phosphatase 75 U/L (34-104) 08/17/24 19:34 Troponin I High Sens 34.1 pg/ml (0-14) H 08/17/24 21:36 B-Natriuretic Peptide 348 pg/ml (0-100) H 08/17/24 19:34 Total Protein 7.8 gm/dl (6.0-8.3) 08/17/24 19:34 Albumin 4.5 gm/dl (3.4-5.0) 08/17/24 19:34 Procalcitonin 0.84 ng/ml (0-0.5) H 08/17/24 19:34 Urine Color Yellow 08/19/24 03:30 Urine Appearance Cloudy (Clear) A 08/19/24 03:30 Urine pH 5.5 (4.5-7.5) 08/19/24 03:30 Ur Specific [place] 1.012 (1.000-1.030) 08/19/24 03:30 Urine Protein 2+ (Negative) H 08/19/24 03:30 Urine Glucose (UA) Trace (Negative) H 08/19/24 03:30 Urine Ketones Negative (Negative) 08/19/24 03:30 Urine Blood Negative (Negative) 08/19/24 03:30 Urine Nitrite Negative (Negative) 08/19/24 03:30 Urine Bilirubin Negative (Negative) 08/19/24 03:30 Urine Urobilinogen Negative (Negative) 08/19/24 03:30 Ur Leukocyte Esterase Trace (Negative) H 08/19/24 03:30 Urine WBC (Auto) 0-5 /hpf (0-5) 08/19/24 03:30 Urine RBC (Auto) 11-20 /hpf (0-2) H 08/19/24 03:30 U Hyaline Cast (Auto) 0-2 /lpf (0-2) 08/19/24 03:30 U Epithel Cells (Auto) 0-2 /hpf (0-2) 08/19/24 03:30 Urine Bacteria (Auto) 2+ (None Seen) H 08/19/24 03:30 Nasal Screen MRSA (PCR) Negative (Negative) 08/18/24 01:05 Stl C. diff Tox B Gene Negative Cdiff Gene (Neg) 08/19/24 08:20 Adenovirus (PCR) Not Detected (NotDetected) 08/17/24 19:40 B. pertussis DNA (PCR) Not Detected (NotDetected) 08/17/24 19:40 B.parapertussis DNA PCR Not Detected (NotDetected) 08/17/24 19:40 C. pneumoniae DNA (PCR) Not Detected (NotDetected) 08/17/24 19:40 Coronavirus OC43 (PCR) Not Detected (NotDetected) 08/17/24 19:40 Coronavirus HKU1 (PCR) Not Detected (NotDetected) 08/17/24 19:40 Coronavirus 229E (PCR) Not Detected (NotDetected) 08/17/24 19:40 SARS-CoV-2 (PCR) Not Detected (NotDetected) 08/17/24 19:40 Coronavirus NL63 (PCR) Not Detected (NotDetected) 08/17/24 19:40 Human Metapneumovir PCR Not Detected (NotDetected) 08/17/24 19:40 Influenza Type A (PCR) Not Detected (NotDetected) 08/17/24 19:40 Influenza Type B (PCR) Not Detected (NotDetected) 08/17/24 19:40 M. pneumoniae (PCR) Not Detected (NotDetected) 08/17/24 19:40 Parainfluenza 1 (PCR) Not Detected (NotDetected) 08/17/24 19:40 Parainfluenza 2 (PCR) Not Detected (NotDetected) 08/17/24 19:40 Parainfluenza 3 (PCR) Not Detected (NotDetected) 08/17/24 19:40 Parainfluenza 4 (PCR) Not Detected (NotDetected) 08/17/24 19:40 RSV (PCR) Not Detected (NotDetected) 08/17/24 19:40 Entero/Rhino (PCR) Not Detected (NotDetected) 08/17/24 19:40 Impressions Chest X-Ray 08/17/24 19:22 EXAM: Radiograph of the Chest 1 View INDICATION: Sepsis. TECHNIQUE: Frontal view of the chest. COMPARISON: 06/18/2024 FINDINGS: Lungs and pleural spaces: Increased airspace consolidation left lung base and new small left pleural effusion. No pneumothorax. Underlying interstitial scarring is stable. Heart: Stable mild cardiomegaly and pacing device. Mediastinum: Normal contour. Bones/joints: Degenerative changes noted throughout the spine. No acute osseous abnormality seen. Soft tissues: No abnormality noted. No radiopaque foreign body noted. Upper abdomen: No abnormality noted. IMPRESSION: New left basilar pneumonia and small left pleural effusion. Consider mucous plugging. ACT 112: Negative or not required by law. Electronically signed by Luciana Dumont 08-17-2024 7:49 PM Renal Ultrasound 08/18/24 07:56 RENAL ULTRASOUND HISTORY: Acute kidney injury AMARIS COMPARISON: CTA abdomen and pelvis 01/16/2014. FINDINGS: Right kidney: 8.2 cm. No hydronephrosis. No solid mass lesions. Renal cysts measure up to 5.0 x 4.5 x 4.7 cm, previously 2 cm. Cortical thinning with echogenic parenchyma. Left kidney: 8.3 cm. No hydronephrosis. No solid mass lesions. Cortical thinning with echogenic parenchyma. Bladder: No bladder wall thickening. The bilateral ureteral jets were identified. IMPRESSION: 1. No renal calculi or hydronephrosis. 2. Mildly atrophic kidneys with evidence of chronic medical renal disease. 3. Right-sided renal cysts. ACT 112: Negative or not required by law. Electronically signed by: Hilton Martinez M.D. 08/18/2024 9:21 AM Ordered Studies 08/18/24 07:56 US Renal Bladder [US renal/blad retro comp] Routine Hospital Course (1) Severe sepsis with acute organ dysfunction: (2) Acute hypoxic respiratory failure: (3) Left lower lobe pneumonia: (4) Acute on chronic heart failure with preserved ejection fraction: (5) CKD (chronic kidney disease) stage 4, GFR 15-29 ml/min: (6) Uncontrolled hypertension: (7) Diabetes mellitus, type II: (8) Vascular dementia without behavioral disturbance: (9) Pulmonary hypertension: Plan Patient is an 89-year-old female presents from [facility] with fever, hypoxia and weakness. Evaluation in the emergency room severe sepsis with organ dysfunction as evidenced by hypoxia/respiratory failure, leukocytosis, fever. Acute respiratory failure with hypoxia Left basilar pneumonia with pleural effusion Sepsis due to above Lactic acidosis --CXR:New left basilar pneumonia and small left pleural effusion. --Respiratory Biofire: Negative --Nasal MRSA:Negative --Blood Cultures: Negative to date -Continue Rocephin and doxycycline Saturating well on room air Leukocytosis resolved Plan to discharge on oral antibiotics to complete the course Plan to discharge to personal care facility today Acute HFpEF in setting of CKD Volume overload status Mild troponin elevation likely demand ischemia secondary to above --CXR as above --ECHO: Left ventricle wall thickness normal. Left ventricular wall motion is normal. EF 60 to 65%. No significant valve disease Continue IV Lasix as recommended by nephrology Monitor I's and O's, daily weight, volume status Leg edema improved Continue IV Lasix 80 mg twice a day >> transition to torsemide 30 mg daily on discharge Acute kidney injury on CKD stage IV --Renal USD:No renal calculi or hydronephrosis. Mildly atrophic kidneys with evidence of chronic medical renal disease. Right-sided renal cysts. Cr 3.9 today Avoid nephrotoxic agents as able Appreciate nephrology input Continue diuresis as per nephrology to help with volume overload Renal function stable Abnormal urinalysis Ruled out UTI Urine culture negative Empirically received Rocephin as above Diarrhea Likely due to antibiotics Stool for C. difficile negative Monitor volume status Imodium as needed DM Type II: HbA1c 8.1 No tight glycemic management needed given elderly age continue insulin while hospitalize Monitor BGs Hypertension Continue hydralazine, felodipine Monitor blood glucose levels Hyperlipidemia Continue statin DVT Px: Heparin SQ Code Status Full Code Disposition Personal care facility Total Time Total Time Spent Total Time Spent (In Minutes): 55 minutes Discharge Plan Discharge Items Patient Disposition: Home - Self-Care Reason For Visit: SEPSIS Discharge Diagnosis: Acute respiratory failure with hypoxia Sepsis Pneumonia Acute on chronic HFpEF AMARIS on CKD stage IV Activity: Resume your previous activity Exercise/Sports: Gradually increase as tolerated Non-emergency contact: Primary Care Provider and Commercial Subcontractor Call non-emergency contact if: you have any medication questions, your symptoms worsen, your pain is concerning for you and you have a fever Follow-up/Referrals: Harjeet Meneses MD [Primary Care Provider] - (Date & Time 08/28/2024 11:00 AM Provider: Harjeet Meneses MD General Internal Medicine [facility] ) Shaun Solis MD [Physician] - 08/24/24 3:00 pm Diet: Carb Consistent or DM2 and Heart Healthy Addtl Attending Provider Instructions: Follow-up with your primary care physician Dr. Meneses as scheduled Follow-up with your direct service provider Dr. 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 Follow-up with your physician for results. -- Your torsemide dose is increased to 30 mg daily as recommended by your direct service provider. Discussed with your physician for further recommendations as outpatient Seek immediate medical attention if your symptoms reoccur or worsen Please take all medications as instructed on discharge list below. Please call if you have any questions or problems. You can reach a [facility] hospitalist on duty at [facility] 24 hours a day by calling [phone] Add Scheduling Coordinator Provider Instructions: Call your Primary Care doctor if any of the following symptoms or problems start or get worse: * Shortness of breath or difficulty breathing * Wake up at night short of breath * Chest pain * Cough * Swelling of your hands, feet, or legs * More fatigued or tired with your normal activity * Palpitations - sudden fast heart beats WEIGHT * Weigh yourself every morning after using the bathroom. * Use the same scale. * Wear the same amount of clothing. * Write your weight down on a chart. * Call your Primary Care doctor if you gain more than 2-3 pounds in 1-2 days. MEDICATIONS * Use this discharge instruction sheet for medication instructions. * Take your medications at the time your doctor ordered. * Do not skip a dose of your medicines. * If you miss a dose of medicine, take it as soon as possible, but DO NOT DOUBLE A DOSE. * Read your medicine information when you get home. * Know all of the side effects of your medicine. If in doubt, ask your pharmacist * Call your Primary Care doctor's office if you have any side effects. * Be sure all of your doctors know what medicine and herbs you take (including cold, flu, and herbal medicine). Take the following with you to your follow-up doctor appointments: * Weight Chart * Medication List * List of questions Do not drink excessive alcohol, beer or wine. Pending Studies at Discharge: Yes Studies:: Blood cultures Stand-Alone Forms: My [facility], Smoking Cessation Medications and DC Order Prescriptions: New doxycycline hyclate 100 mg Capsule 100 mg PO BID Qty: 10 0RF loperamide 2 mg Capsule 2 mg PO Q4H PRN (Reason: loose stool) Qty: 15 0RF cefuroxime axetil 250 mg tablet 250 mg PO DAILY 5 Days Qty: 5 0RF Continued atorvastatin 40 mg Tablet 40 mg PO QPM isosorbide mononitrate 60 mg Tablet Extended Release 24 Hr 60 mg PO DAILY gabapentin 300 mg Capsule 300 mg PO BID aspirin [Aspirin Childrens] 81 mg Tablet,Chewable 81 mg PO DAILY hydralazine 50 mg tablet 50 mg PO TID calcium carbonate-vitamin D3 [Calcium 600 + D(3)] 600 mg-10 mcg (400 unit) Tablet 1 tab PO QPM cyanocobalamin (vitamin B-12) [Vitamin B-12] 1,000 mcg tablet 1,000 mcg PO QAM acetaminophen 500 mg Capsule 500 mg PO Q6H Rx Instructions: DO NOT AWAKEN TO ADMINISTER acetaminophen 500 mg Tablet 500 mg PO QID PRN (Reason: .SEVERE PAIN) Advanced Probiotic-14 3 billion cell Capsule 2 cap PO TID meclizine 12.5 mg Tablet 12.5 mg PO Q6 PRN (Reason: Dizziness) polyvinyl alcohol [Dry Eyes] 1.4 % Drops 2 drp OPHTHALMIC (EYE) QID felodipine 10 mg tablet extended release 24 hr 10 mg PO QAM omeprazole 20 mg capsule,delayed release(DR/EC) 20 mg PO QAM isosorbide mononitrate 30 mg tablet extended release 24 hr 30 mg PO DAILY PRN (Reason: SBP > 170) Rx Instructions: GIVE IN ADDITION TO THE REGULAR ISOSORBIDE 60 MG Changed torsemide 20 mg tablet 30 mg PO QAM Qty: 60 0RF Discharge Orders: Discharge Order (Routine); Ordered 08/22/24 Ordered By: Jered Luna Vangala Admission Data Admit Date/Time: 08/17/24 21:17 Attending Provider: Jered Stevens Admit Provider: Sotero Brown Primary Care Provider: Harjeet Meneses Other Providers: Sotero Brown; Hermelindo Estrada
[2024-08-22 15:19] VITALS: BP 143/52; PULSE 68
== END 2024-08-22 17:10 | disposition home or self-care (01) | DRG 871 ==
LOC: ED 19:19 → EDINP 21:17 → 2W 22:07

== ENCOUNTER 2025-01-05 14:01 | Inpatient (IN) ==
--- NOTE | 2025-01-05 14:59 | Emergency Department Note ---
Impression & Plan Hypoxia, SOB (shortness of breath), Fever, Pedal edema, Cellulitis, Anemia, Elevated troponin ED Provider Note NAME: LEV BRODY AGE: 89 SEX: F : 1935 ARRIVES VIA: Ambulance INFORMANT: [Patient][ems] ED PROVIDER(S): [Theo Peters MD] CHIEF COMPLAINT: Illness HISTORY OF PRESENT ILLNESS: Patient is an 89-year-old female who presents to the ER with cellulitis and documented fever. She is from [facility]. The patient denies pain. She has not had cough or cold or congestion. No urinary complaints. No abdominal pain. No vomiting or diarrhea. Of note, as per the daughter, the patient was complaining of shortness of breath earlier, she was found to be somewhat hypoxic and does not typically wear oxygen. Recent PET scanning suggested fluid overload/CHF. PMHx/PSHx/Social Hx: See Below PHYSICAL EXAM: GENERAL: Patient is in no acute distress. HEENT: No acute trauma, normocephalic atraumatic, mucous membranes moist, no nasal congestion. NECK: No stridor, no adenopathy, no meningismus, trachea is midline. LUNGS: Scattered crackles at both lung bases, no respiratory distress. HEART: 2/6 systolic murmur, regular rate and rhythm. ABDOMEN: Soft, nontender, no peritonitis. EXTREMITIES: No cyanosis, full range of motion of all the joints without pain or difficulty. Mild bilateral pedal edema with some erythema and warmth to both lower extremities, worse on the right. NEUROLOGIC: Awake and alert, no acute motor or sensory deficits, no focal weakness. SKIN: No jaundice, no diaphoresis. DIFFERENTIAL DIAGNOSIS: Cellulitis, bacteremia or sepsis, UTI, pneumonia, among others. EMERGENCY DEPARTMENT PROCEDURES: MEDICAL DECISION MAKING: There is no leukocytosis. The patient is anemic however, this is a chronic issue when looking back at previous testing. There was a normal platelet count. No coagulopathy. There was an elevation to creatinine however, this is a baseline finding. Lactic acid level did not show any elevation and certainly was not consistent with sepsis. No concerning liver enzyme elevation. ECG shows a sinus rhythm, no ischemia or dysrhythmia. Cardiac enzyme testing x 1 is slightly elevated, likely secondary to mismatch from her dyspnea and hypoxia although, cardiac injury is a possibility. Chest x-ray shows bilateral lower lung congestion consistent with pneumonia or potentially fluid overload. BNP value is currently pending. On exam, the patient was requiring nasal cannula O2 supplementation. She had pedal edema and crackles in both lower lungs. Both lower extremities had some slight erythema and warmth. Patient received IV cefepime as antibiotic coverage. She was given a small amount of IV fluid, 500 cc. She was given oral Tylenol. The patient presents hypoxic. She was recently found to have some potential pulmonary edema by PET scan. She now has pedal edema, some shortness of breath and,, was found to have a fever earlier. Cellulitis/pneumonia is now more of a concern. Given the patient's findings and recent history, hospitalization, further workup and care is indicated. I spoke with the daughter and the patient, I spoke with case management. The on-call hospitalist was consulted. Prior/Outside records/notes reviewed: Today's EMS notes describing her presentation and transport to this hospital. ECG per my interpretation: Indication was possible sepsis. The ECG shows what appears to be a normal sinus rhythm with baseline artifact. There is a rate of 73. There is no ST elevation, no PVCs. The QTc is 431. Continuous Cardiac Monitoring per my interpretation: An order was placed for continuous cardiac monitoring. The monitor shows a rate of 62 with normal sinus rhythm. Imaging/x-ray results per my interpretation: Chest x-ray shows congestion/parenchymal infiltrate to both lower lungs consistent with possible pneumonia. Chronic Medical/Social conditions affecting care: Advanced age. Care/Management discussed with: Case management, the on-call hospitalist. Level of care consideration(s): After review of the information above and other included data: --I believe the patient requires escalation of care to admission DISPOSITION: Admission Past Med/Surg History Problem List (Updated 01/05/25 @ 16:52 by Theo Peters MD) Elevated troponin (Acute) Anemia (Acute) Cellulitis (Acute) Pedal edema (Acute) Fever (Acute) SOB (shortness of breath) (Acute) Hypoxia (Acute) Sepsis (Acute) Pneumonia (Acute) Pulmonary hypertension Vascular dementia without behavioral disturbance Uncontrolled hypertension Acute on chronic heart failure with preserved ejection fraction Left lower lobe pneumonia Acute hypoxic respiratory failure Severe sepsis with acute organ dysfunction Hypertensive urgency Deep vein thrombosis, lower left extremity Pulmonary edema (Acute) AMARIS (acute kidney injury) (Acute) Hypoxia (Acute) Abnormal EKG (Acute) Elevated troponin I level (Acute) Hypertension (Chronic) Chronic kidney disease (CKD), stage III (moderate) (Chronic) Diabetes mellitus, type II (Chronic) Dementia (Chronic) Dyslipidemia (Chronic) History of squamous cell carcinoma of skin (Chronic) Peripheral neuropathy (Chronic) Cerebrovascular disease (Chronic) "TIA 2011" History of ischemic bowel disease (Chronic) "ischemic colitis 2011" Arthritis (Chronic) "RA + osteo per records" AMARIS (acute kidney injury) Medical History CKD (chronic kidney disease) stage 4, GFR 15-29 ml/min Family History Other No pertinent family history Social History Smoking Status: Never smoker Tobacco Type: Cigarettes Hx Alcohol Use: Yes Alcohol type: wine Hx Substance Use: No Preferred Language: Kazakh Communication Ability: Effective 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 Beliefs That Will Affect Care: None marital status: / Current Living Situation: Personal Care Facility Current Living Situation Comment: [facility] current occupational status: retired Feels Safe at Home: Yes Assistive Devices: Denture - Upper, Hearing Aid - Bilateral and Walker Allergies Allergies Allergy/AdvReac Type Severity Reaction Status Date / Time Penicillins Allergy Intermediate RASH - HAS Verified 08/17/24 20:11 TOLERATED ROCEPHIN codeine Allergy Unknown Verified 08/17/24 20:11 meloxicam Allergy Unknown Verified 08/17/24 20:11 ferrous fumarate AdvReac Mild stomach Verified 08/17/24 20:11 upset Home Meds Home Medications Medication Instructions Recorded Confirmed atorvastatin 40 mg tablet 40 mg PO QPM 10/28/18 08/17/24 gabapentin 300 mg capsule 300 mg PO BID 10/28/18 08/17/24 isosorbide mononitrate 60 mg 60 mg PO DAILY 10/28/18 08/17/24 tablet,extended release 24 hr acetaminophen 500 mg capsule 500 mg PO Q6H 05/11/22 08/17/24 acetaminophen 500 mg tablet 500 mg PO QID PRN .SEVERE PAIN 05/11/22 08/17/24 aspirin 81 mg chewable tablet 81 mg PO DAILY 05/11/22 08/17/24 (Aspirin Childrens) calcium 600 mg (as 1 tab PO QPM 05/11/22 08/17/24 carbonate)-vitamin D3 10 mcg (400 unit) tablet (Calcium 600 + D(3)) cyanocobalamin (vitamin B-12) 1,000 mcg PO QAM 05/11/22 08/17/24 1,000 mcg tablet (Vitamin B-12) hydralazine 50 mg tablet 50 mg PO TID 05/11/22 08/17/24 Gfhzbdxsadzug-Awkztyghtdgkdet-M.thermophilus 2 cap PO TID 06/12/22 08/17/24 3 billion cell capsule (Advanced Probiotic-14) meclizine 12.5 mg tablet 12.5 mg PO Q6 PRN Dizziness 06/12/22 08/17/24 felodipine 10 mg tablet,extended 10 mg PO QAM 08/17/24 08/17/24 release 24 hr isosorbide mononitrate 30 mg 30 mg PO DAILY PRN SBP > 170 08/17/24 08/17/24 tablet,extended release 24 hr omeprazole 20 mg capsule,delayed 20 mg PO QAM 08/17/24 08/17/24 release polyvinyl alcohol 1.4 % eye drops 2 drp ophthalmic (eye) QID 08/17/24 08/17/24 Previous Rx's Medication Instructions Recorded doxycycline hyclate 100 mg capsule 100 mg PO BID #10 caps 08/22/24 loperamide 2 mg capsule 2 mg PO Q4H PRN loose stool #15 08/22/24 caps torsemide 20 mg tablet 30 mg (1.5 x 20 mg) PO QAM #60 tabs 08/22/24 Results & Data (ED) Vital Signs Vital Signs - 24 hr 01/05/25 13:55 01/05/25 13:55 01/05/25 14:19 Temperature 37.0 C 37.0 C Temperature Source Oral Oral Pulse Rate 60 62 Pulse Rate [Right Brachial] 60 Pulse Rhythm Regular Pulse Rhythm [Right Brachial] Regular Pulse Strength Normal Pulse Strength [Right Brachial] Normal Respiratory Rate 22 22 Respiratory Effort / Characteristics Non-Labored Non-Labored Respiratory Depth Normal Normal Respiratory Pattern Regular Regular Blood Pressure 168/76 H Blood Pressure [Right Arm] 168/76 H Blood Pressure Mean 106 Blood Pressure Mean [Right Arm] 106 Blood Pressure Position Lying Blood Pressure Position [Right Arm] Lying Pulse Oximetry 88 L 88 L Oxygen Delivery Method Room Air Room Air Oxygen Flow Rate Sepsis Recent Fever Within 48 Hours Yes Sepsis New/Unexplained Change in Mental Status No Sepsis Action Taken by Nursing No Action Required 01/05/25 14:31 01/05/25 14:34 Temperature Temperature Source Pulse Rate Pulse Rate [Right Brachial] Pulse Rhythm Pulse Rhythm [Right Brachial] Pulse Strength Pulse Strength [Right Brachial] Respiratory Rate Respiratory Effort / Characteristics Respiratory Depth Respiratory Pattern Blood Pressure Blood Pressure [Right Arm] Blood Pressure Mean Blood Pressure Mean [Right Arm] Blood Pressure Position Blood Pressure Position [Right Arm] Pulse Oximetry 96 96 Oxygen Delivery Method Nasal Cannula Nasal Cannula Oxygen Flow Rate 2 2 Sepsis Recent Fever Within 48 Hours Sepsis New/Unexplained Change in Mental Status Sepsis Action Taken by [facility] Medications Current Medication List: was personally reviewed by me Laboratory Data Attestation: I reviewed the patient's lab results. 01/05/25 14:42 01/05/25 14:42 Lab Results 01/05/25 Range/Units 14:42 WBC 10.20 (4.8-10.8) K/ul RBC 3.42 L (4.20-5.40) M/uL Hgb 9.1 L (12.0-16.0) g/dl Hct 30.0 L (37.0-47.0) % MCV 87.7 (80.0-100.0) fL MCH 26.6 (25.0-34.0) pg MCHC 30.3 L (32.0-36.0) g/dL RDW Std Deviation 42.0 (36.4-46.3) fL RDW Coeff of Paul 13.1 (11.5-14.5) % Plt Count 187 (130-400) K/uL MPV 9.5 (9.4-12.4) fL Immature Gran % (Auto) 0.4 % Neut % (Auto) 79.2 % Lymph % (Auto) 11.4 % Lee % (Auto) 7.6 % Eos % (Auto) 0.4 % Baso % (Auto) 1.0 % Neut # (Auto) 8.08 H (1.40-6.50) K/uL Lymph # (Auto) 1.16 L (1.20-3.40) K/uL Lee # (Auto) 0.78 H (0.11-0.59) K/uL Eos # (Auto) 0.04 (0.00-0.50) K/uL Baso # (Auto) 0.10 (0.00-0.20) K/uL Immature Gran # (Auto) 0.04 (0.01-0.20) K/uL PT 10.6 (9.0-12.0) Seconds INR 1.0 (0.9-1.1) APTT 24 (21-31) Seconds PTT Ratio 0.9 Sodium 139 (136-145) mmol/L Potassium 4.7 (3.5-5.1) mmol/L Chloride 104 (98-107) mmol/L Carbon Dioxide 29 (21-32) mmol/L Anion Gap 6 (3-11) BUN 51 H (6-23) mg/dl Creatinine 3.36 H (0.6-1.2) mg/dl Est Cr Clr Drug Dosing 11.5 ml/min eGFR 12.66 BUN/Creatinine Ratio 15.2 (10-20) Glucose 236 H (70-99(Fasting)) mg/dl Lactate 1.1 (0.4-2.0) mmol/L Calcium 9.1 (8.6-10.3) mg/dl Magnesium 2.2 (1.7-2.4) mg/dl Total Bilirubin 0.6 (0.2-1.0) mg/dl Direct Bilirubin 0.1 (0-0.2) mg/dl AST 9 L (13-39) U/L ALT 9 (7-52) U/L Alkaline Phosphatase 65 (34-104) U/L Troponin I High Sens 14.7 H (0-14) pg/ml Total Protein 6.5 (6.0-8.3) gm/dl Albumin 3.9 (3.4-5.0) gm/dl Procalcitonin 0.08 (0-0.5) ng/ml Administered Medications Discontinued Medications Acetaminophen (Acetaminophen 500 Mg Tab) 1,000 mg PO NOW STA Stop: 01/05/25 16:20 Last Admin: 01/05/25 16:22 Dose: 1,000 mg Documented By: CAP Sodium Chloride (Nss) 500 mls @ 999 mls/hr IV .Q31M RANI Stop: 01/05/25 15:15 Last Infusion: 01/05/25 16:12 Dose: Infused Documented By: Admin: 01/05/25 15:39 Dose: 999 mls/hr Documented By: GREG Cefepime HCl (Maxipime 2000mg) 2,000 mg in 20 mls @ 5 mls/min IV NOW STA; Protocol Stop: 01/05/25 14:37 Last Admin: 01/05/25 15:39 Dose: 5 mls/min Documented By: GREG Imaging Data Radiologist's Impression: Chest X-Ray 01/05/25 14:34 XR chest 1V portable CLINICAL HISTORY: Sepsis COMPARISON STUDY: 08/17/2024 FINDINGS: Stable pacemaker. Heart size and pulmonary vasculature are normal. There is hazy opacity in the lung bases. No pneumothorax. IMPRESSION: Hazy opacity in the lung bases could represent atelectasis, pneumonia, or small pleural effusions. ACT 112: Negative or not required by law. Electronically signed by: Christos Salmeron M.D. 01/05/2025 3:19 PM Discharge Plan Visit Data Chief Complaint: Illness Stated Complaint: CELLULITIS TO LOWER EXTREMITIES, FEVER, HTN ED Provider: Theo Peters Discharge Problem: Hypoxia, SOB (shortness of breath), Fever, Pedal edema, Cellulitis, Anemia, Elevated troponin Patient Disposition: Admitted As Inpatient Condition: Fair Forms Stand Alone Forms: My [facility] Prescriptions Prescriptions: No Action atorvastatin 40 mg Tablet 40 mg PO QPM isosorbide mononitrate 60 mg Tablet Extended Release 24 Hr 60 mg PO DAILY gabapentin 300 mg Capsule 300 mg PO BID aspirin [Aspirin Childrens] 81 mg Tablet,Chewable 81 mg PO DAILY hydralazine 50 mg tablet 50 mg PO TID calcium carbonate-vitamin D3 [Calcium 600 + D(3)] 600 mg-10 mcg (400 unit) Tablet 1 tab PO QPM cyanocobalamin (vitamin B-12) [Vitamin B-12] 1,000 mcg tablet 1,000 mcg PO QAM acetaminophen 500 mg Capsule 500 mg PO Q6H Rx Instructions: DO NOT AWAKEN TO ADMINISTER acetaminophen 500 mg Tablet 500 mg PO QID PRN (Reason: .SEVERE PAIN) Advanced Probiotic-14 3 billion cell Capsule 2 cap PO TID meclizine 12.5 mg Tablet 12.5 mg PO Q6 PRN (Reason: Dizziness) polyvinyl alcohol 1.4 % Drops 2 drp OPHTHALMIC (EYE) QID felodipine 10 mg tablet extended release 24 hr 10 mg PO QAM omeprazole 20 mg capsule,delayed release(DR/EC) 20 mg PO QAM isosorbide mononitrate 30 mg tablet extended release 24 hr 30 mg PO DAILY PRN (Reason: SBP > 170) Rx Instructions: GIVE IN ADDITION TO THE REGULAR ISOSORBIDE 60 MG doxycycline hyclate 100 mg Capsule 100 mg PO BID Qty: 10 0RF loperamide 2 mg Capsule 2 mg PO Q4H PRN (Reason: loose stool) Qty: 15 0RF torsemide 20 mg tablet 30 mg PO QAM Qty: 60 0RF Referrals Referrals: Harjeet Meneses MD [Primary Care Provider] - Discharge Problem: Fever Qualifiers: Fever type: unspecified Qualified Code(s): R50.9 - Fever, unspecified Cellulitis Qualifiers: Site of cellulitis: extremity Site of cellulitis of extremity: lower extremity Laterality: unspecified laterality Qualified Code(s): L03.119 - Cellulitis of unspecified part of limb Anemia Qualifiers: Anemia type: unspecified type Qualified Code(s): D64.9 - Anemia, unspecified
[2025-01-05 15:06] LABS: Hematocrit (blood only) 30.0 % (37.0-47.0); Hemoglobin 9.1 g/dl (12.0-16.0); Immature Granulocytes # (auto) 0.04 K/uL (0.01-0.20); Immature Granulocytes % (auto) 0.4 %; Mean Corpuscular Hemoglobin 26.6 pg (25.0-34.0); Mean Corpuscular Volume 87.7 fL (80.0-100.0); Platelet Count 187 K/uL (130-400); RDW Standard Deviation 42.0 fL (36.4-46.3); Red Blood Count 3.42 M/uL (4.20-5.40); White Blood Count 10.20 K/ul (4.8-10.8)
--- NOTE | 2025-01-05 15:21 | XRay Report ---
XR chest 1V portable CLINICAL HISTORY: Sepsis COMPARISON STUDY: 08/17/2024 FINDINGS: Stable pacemaker. Heart size and pulmonary vasculature are normal. There is hazy opacity in the lung bases. No pneumothorax. IMPRESSION: Hazy opacity in the lung bases could represent atelectasis, pneumonia, or small pleural effusions. ACT 112: Negative or not required by law. Electronically signed by: Christos Salmeron M.D. 01/05/2025 3:19 PM
[2025-01-05 15:25] LABS: Alanine Aminotransferase 9.0 U/L (7-52); Alkaline Phosphatase 65.0 U/L (34-104); Anion Gap 6.0 (3-11); Bilirubin,Total 0.6 mg/dl (0.2-1.0); Blood Urea Nitrogen 51.0 mg/dl (6-23); Calcium 9.1 mg/dl (8.6-10.3); Carbon Dioxide 29.0 mmol/L (21-32); Chloride 104.0 mmol/L (98-107); Creatinine Clr Calc Pharmacy 11.5 ml/min; Glucose 236.0 mg/dl (70-99(Fasting)); Magnesium 2.2 mg/dl (1.7-2.4); Potassium 4.7 mmol/L (3.5-5.1); Sodium 139.0 mmol/L (136-145); Total Protein 6.5 gm/dl (6.0-8.3)
[2025-01-05] MEDS: SODIUM CHLORIDE 0.9% 500 ML IV SCH (15:39)
[2025-01-05] MEDS: CEFEPIME 2000MG 2,000 MG/20 ML SYR IV STA (15:39)
[2025-01-05 15:48] LABS: INR 1.0 (0.9-1.1); Partial Thromboplastin Time 24 Seconds (21-31); Prothrombin Time 10.6 Seconds (9.0-12.0)
[2025-01-05] MEDS: ACETAMINOPHEN 500 MG TAB PO STA (16:22)
[2025-01-05 16:57] LABS: Appearance Urine Clear (Clear); Bacteria Urine Automated None Seen (None Seen); Cast Urine Automated 0-2 /lpf (0-2); Epithelial Cell Urine Auto 0-2 /hpf (0-2); Glucose Urine UA 1+ (Negative); RBC Urine Automated 0-2 /hpf (0-2); WBC Urine Automated 0-5 /hpf (0-5)
[2025-01-05] MEDS ORDERED: POLYETHYLENE (MIRALAX) 17 GM PACK PO PRN (17:33)
[2025-01-05] MEDS ORDERED: ALUMINUM/MAGNESIUM SUSP 30 ML UDC PO PRN (17:33)
[2025-01-05] MEDS ORDERED: GLUCOSE 10 TAB/TUBE PO PRN (17:33)
[2025-01-05] MEDS ORDERED: GLUCAGON FOR INJ 1 MG VIAL SQ PRN (17:33)
[2025-01-05] MEDS ORDERED: CARBOHYDRATES FOR HYPOGLYCEMIA PO PRN (17:33)
[2025-01-05] MEDS ORDERED: DEXTROSE 50% 50 ML SYRINGE IV PRN (17:33)
[2025-01-05] MEDS ORDERED: PHARMACY GLYCEMIC MGMT CONSULT PRN (17:33)
[2025-01-05] MEDS ORDERED: ONDANSETRON INJ 2 MG/ML 2 ML VIAL IV PRN (17:33)
[2025-01-05] MEDS ORDERED: GLUCOSE 40% GEL 15 GM TUBE PO PRN (17:33)
--- NOTE | 2025-01-05 18:00 | History & Physical Report ---
Date of Service January 05, 2025 Assessment & Plan (1) Cellulitis: Plan BLE cellulitis Volume overload: Likely secondary to worsening stage V renal disease. Bilateral pleural effusion Likely secondary to volume overload in the setting of worsening stage V renal disease. Outpatient chart review with creatinine baseline around 3.4, admitting Cr of 3.36. 08/18/2024 echo with EF of 60 to 65%, normal LV wall thickness, normal LV systolic function, normal LV wall motion. No diastolic dysfunction noted. CXR w/ possible b/l small pleural effusion. Patient started on cefepime in the ED, continue, follow admitting blood culture. Procalcitonin and lactate WNL. Will get US venous Doppler BLE, rule out DVT. Continue home probiotic. Will continue with heart healthy diet/fluid restriction/home dose of torsemide/leg elevation. Given worsening renal function, nephrology consult for diuresis/comanagement. Needing 2 L nasal cannula oxygen, wean down as tolerated. Other chronic medical conditions: Continue/resume home meds as and when able. T2DM: A1c appropriate, given elderly is no diet glycemic management. SSI while in hospital. Hypertension: Continue home hydralazine, felodipine, torsemide. Hyperlipidemia: Continue home statin DVT prophylaxis: Heparin subcu CODE STATUS: DNR/DNI History of Present Illness Chief Complaint: BLE edema, cellulitis, shortness of breath Primary Care Provider: Harjeet Meneses MD 89-year-old lady with PMH of T2DM, HLD, HTN, Finley's esophagus, CKD stage V, fibromyalgia, dementia was brought in from [place] due to concern of low-grade fever and lower extremity cellulitis. Patiently recently underwent PET scan on 01/02/2025 which showed fluid overload in the lung and they were notified yesterday of the findings and advised to come to the ED if with any shortness of breath. Patient also noted to have shortness of breath and increasing lower extremity swelling today per patient's daughter at bedside. Fever noted to be 102 F at [facility] per daughter. Patient reports her appetite has been down since 1 day, denies sore throat or cough or chest pain or belly pain or nausea or vomiting/burning with passing urine. Patient is not use oxygen at home, was saturating at 88% on room air at presentation, currently needing 2 L oxygen via nasal cannula at bedside exam. 01/02/2025 PET scan done for history of lymphoma showed interstitial edema and small bilateral pleural effusions. Patient denies smoking/alcohol use. Medications reviewed with the patient's daughter at bedside. Plan of care discussed with the patient and patient's daughter at bedside. DNR/DNI Allergies Allergy/AdvReac Type Severity Reaction Status Date / Time cephalexin Allergy Intermediate Hives Verified 01/05/25 17:06 codeine Allergy Intermediate "BAD" RASH Verified 01/05/25 17:06 Penicillins Allergy Intermediate RASH - HAS Verified 01/05/25 17:06 TOLERATED ROCEPHIN ferrous fumarate AdvReac Intermediate stomach Verified 01/05/25 17:06 upset meloxicam AdvReac Intermediate Gastrointestinal Verified 01/05/25 17:06 Upset Home Medications Medication Instructions Recorded Confirmed Type atorvastatin 40 mg tablet 40 mg PO QPM 10/28/18 01/05/25 History isosorbide mononitrate 60 mg 60 mg PO QAM 10/28/18 01/05/25 History tablet,extended release 24 hr acetaminophen 500 mg capsule 500 mg PO Q6H 05/11/22 01/05/25 History aspirin 81 mg chewable tablet 81 mg PO DAILY 05/11/22 01/05/25 History (Aspirin Childrens) calcium 600 mg (as 1 tab PO QPM 05/11/22 01/05/25 History carbonate)-vitamin D3 10 mcg (400 unit) tablet (Calcium 600 + D(3)) cyanocobalamin (vitamin B-12) 1,000 mcg PO QAM 05/11/22 01/05/25 History 1,000 mcg tablet (Vitamin B-12) hydralazine 50 mg tablet 50 mg PO TID 05/11/22 01/05/25 History Qpovbfkmljpgv-Wzrvjzhudagjucl-N.thermophilus 2 cap PO TID 06/12/22 01/05/25 History 3 billion cell capsule (Advanced Probiotic-14) meclizine 12.5 mg tablet 12.5 mg PO Q6 PRN Dizziness 06/12/22 01/05/25 History felodipine 10 mg tablet,extended 10 mg PO QAM 08/17/24 01/05/25 History release 24 hr isosorbide mononitrate 30 mg 30 mg PO DAILY PRN SBP > 170 08/17/24 01/05/25 History tablet,extended release 24 hr omeprazole 20 mg capsule,delayed 20 mg PO QAM 08/17/24 01/05/25 History release loperamide 2 mg capsule 2 mg PO Q4H PRN loose stool #15 08/22/24 01/05/25 Rx caps torsemide 20 mg tablet 30 mg (1.5 x 20 mg) PO QAM #60 tabs 08/22/24 01/05/25 Rx gabapentin 100 mg capsule 200 mg PO BID 01/05/25 01/05/25 History polyvinyl alcohol 1.4 % eye drops 2 drp ophthalmic (eye) QID 01/05/25 01/05/25 History Past Med/Surg History Problem List (Updated 01/05/25 @ 16:52 by Theo Peters MD) Elevated troponin (Acute) Anemia (Acute) Cellulitis (Acute) Pedal edema (Acute) Fever (Acute) SOB (shortness of breath) (Acute) Hypoxia (Acute) Sepsis (Acute) Pneumonia (Acute) Pulmonary hypertension Vascular dementia without behavioral disturbance Uncontrolled hypertension Acute on chronic heart failure with preserved ejection fraction Left lower lobe pneumonia Acute hypoxic respiratory failure Severe sepsis with acute organ dysfunction Hypertensive urgency Deep vein thrombosis, lower left extremity Pulmonary edema (Acute) AMARIS (acute kidney injury) (Acute) Hypoxia (Acute) Abnormal EKG (Acute) Elevated troponin I level (Acute) Hypertension (Chronic) Chronic kidney disease (CKD), stage III (moderate) (Chronic) Diabetes mellitus, type II (Chronic) Dementia (Chronic) Dyslipidemia (Chronic) History of squamous cell carcinoma of skin (Chronic) Peripheral neuropathy (Chronic) Cerebrovascular disease (Chronic) "TIA 2011" History of ischemic bowel disease (Chronic) "ischemic colitis 2011" Arthritis (Chronic) "RA + osteo per records" AMARIS (acute kidney injury) Medical History CKD (chronic kidney disease) stage 4, GFR 15-29 ml/min Family History Other No pertinent family history Social History Smoking Status: Never smoker Tobacco Type: Cigarettes Hx Alcohol Use: Yes Alcohol type: wine Hx Substance Use: No Preferred Language: Lao Communication Ability: Effective Airplane Cover Maker Required: No Beliefs That Will Affect Care: None marital status: / Current Living Situation: Personal Care Facility Current Living Situation Comment: [facility] current occupational status: retired Feels Safe at Home: Yes Assistive Devices: Denture - Upper, Hearing Aid - Bilateral and Walker Review of Systems Review of Systems: Negative otherwise mentioned in HPI. Physical Exam Physical Exam: GENERAL: Alert and oriented x3. NAD, on 2L NC O2 HEENT: No pallor, no icterus. Pupils equal, round and reactive to light. Oral mucosa moist. NECK: No JVD, no neck masses. HEART: S1 and S2 heard. Regular rate and rhythm. No murmur, no gallop. RESPIRATORY SYSTEM: Normal AP diameter. No accessory muscle use. No wheezing, no crackles. decreased bb sounds. ABDOMEN: Soft, bowel sounds present, nontender, no distention. CENTRAL NERVOUS SYSTEM: No facial droop. Speech is clear. Obeys simple commands. Moves extremities. EXTREMITIES: 2+ ble edema, RLE > LLE erythema and warmth. Results & Data Results & Data Vital Signs (Past 12 Hours) Vital Signs Temp Pulse Pulse Resp BP BP Pulse Ox 01/05/25 16:46 79 18 186/92 H 92 01/05/25 16:30 70 20 153/75 H 93 01/05/25 16:18 73 20 96 01/05/25 16:15 73 18 165/62 H 97 01/05/25 16:00 72 20 138/69 97 01/05/25 15:45 75 19 145/98 H 94 01/05/25 15:31 73 19 169/81 H 96 01/05/25 14:34 96 01/05/25 14:31 96 01/05/25 14:19 62 01/05/25 14:17 61 22 168/76 H 98 01/05/25 13:55 37.0 C 60 22 168/76 H 88 L 01/05/25 13:55 37.0 C 60 22 168/76 H 88 L O2 Del Method O2 Flow Rate 01/05/25 16:46 Nasal Cannula 2 01/05/25 16:30 Nasal Cannula 2 01/05/25 16:18 Nasal Cannula 2 01/05/25 16:15 Nasal Cannula 2 01/05/25 16:00 Nasal Cannula 2 01/05/25 15:45 Nasal Cannula 2 01/05/25 15:31 Nasal Cannula 2 01/05/25 14:34 Nasal Cannula 2 01/05/25 14:31 Nasal Cannula 2 01/05/25 14:19 01/05/25 14:17 01/05/25 13:55 Room Air 01/05/25 13:55 Room Air (1) Cellulitis Laterality: unspecified laterality Site of cellulitis: extremity Site of cellulitis of extremity: lower extremity Qualified Code(s): L03.119 - Cellulitis of unspecified part of limb
[2025-01-05] MEDS ORDERED: ARTIFICIAL TEARS OP PRN (18:57)
[2025-01-05] MEDS: GABAPENTIN 100 MG CAP PO SCH (21:28)
[2025-01-05] MEDS: ATORVASTATIN 40 MG TAB PO SCH (21:29)
[2025-01-05] MEDS: INSULIN ASPART PER UNIT CHARGE SC SCH (21:29)
[2025-01-05] MEDS: HEPARIN SOD 5,000 UNIT/0.5 ML VIAL SQ SCH (21:29)
[2025-01-06] MEDS: ACETAMINOPHEN 325 MG TAB PO PRN (00:59)
[2025-01-06] MEDS: ISOSORBIDE MONO EXTENDED REL 30 MG TABCR PO PRN (00:59)
--- NOTE | 2025-01-06 02:07 | Ultrasound Report ---
Exam(s): US VENOUS BILATERAL LOWER EXTREMITIES EXAM: US Duplex Bilateral Lower Extremities Veins CLINICAL HISTORY: ro dvt. TECHNIQUE: Real-time duplex ultrasound scan of the bilateral lower extremity veins integrating B-mode two-dimensional vascular structure, Doppler spectral analysis, color flow Doppler imaging and compression. COMPARISON: 05/12/2022. FINDINGS: Right deep veins: Unremarkable. No DVT in the right common femoral, femoral, proximal deep femoral or popliteal veins. The veins demonstrate normal color flow, are normally compressible, with normal phasic flow and/or augmentation response. Right superficial veins: Unremarkable. No thrombus in the visualized right great saphenous vein. Left deep veins: No DVT in the left common femoral or superficial femoral or popliteal veins. 1 of 2 distal popliteal veins demonstrates thrombus in a similar location to the prior study.. Left superficial veins: Unremarkable. No thrombus in the visualized left great saphenous vein. Soft tissues: No acute abnormality. No popliteal cyst. IMPRESSION: No evidence of right lower extremity deep venous thrombosis. Redemonstrated thrombosis of 1 of 2 distal left popliteal veins, likely chronic thrombus. Electronically signed by: Julio Cesar Smith M.D. 01/06/25 02:06 AM
[2025-01-06] MEDS: CEFEPIME 1000MG 1,000 MG/10 ML SYR IV SCH (03:58)
[2025-01-06 06:01] LABS: Hematocrit (blood only) 27.5 % (37.0-47.0); Hemoglobin 8.2 g/dl (12.0-16.0); Mean Corpuscular Hemoglobin 26.4 pg (25.0-34.0); Mean Corpuscular Volume 88.4 fL (80.0-100.0); Platelet Count 164 K/uL (130-400); RDW Standard Deviation 41.6 fL (36.4-46.3); Red Blood Count 3.11 M/uL (4.20-5.40); White Blood Count 10.47 K/ul (4.8-10.8)
[2025-01-06 06:19] LABS: Anion Gap 7.0 (3-11); Blood Urea Nitrogen 50.0 mg/dl (6-23); Calcium 8.7 mg/dl (8.6-10.3); Carbon Dioxide 27.0 mmol/L (21-32); Chloride 107.0 mmol/L (98-107); Creatinine Clr Calc Pharmacy 12.0 ml/min; Glucose 152.0 mg/dl (70-99(Fasting)); Magnesium 2.1 mg/dl (1.7-2.4); Potassium 4.7 mmol/L (3.5-5.1); Sodium 141.0 mmol/L (136-145)
[2025-01-06 07:22] LABS: Hemoglobin A1C 8.3 % (4.5-5.6)
--- NOTE | 2025-01-06 07:35 | Nephrology Consultation ---
Date of Consultation January 06, 2025 Assessment & Plan (1) ESRD (end stage renal disease): for conservative management. Her renal function is the same or in fact better than it has been for the past several months: baseline creatinine runs 3.4-3.8 from April 2024-December 2024. That said creatinine may be diluted down somewhat from volume overload. Diuresis as above. Agree with fluid and sodium limits -diuresis as below -BP acceptable currently > would avoid further clonidine due to rebound concerns - low threshold for palliative discussions in this frail patient with multiple comorbidities >> appreciate efforts of primary service Care coordinated multiple times through the day w/ ALEJA Stinson working w/ Dr Castro via [employer]; we are in agreement. (2) Volume overload: As evidenced by bilateral pleural effusions and worsening lower extremity edema. likely multifactorial including from ESRD, HFpEF/cardiorenal syndrome, medications. No new DVT found on lower extremity Dopplers. medications like hydralazine, Imdur, gabapentin can all worsened lower extremity edema. At this point would consider gabapentin and Imdur obligate and agree with holding hydralazine. 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 if role here or not w/ overload History of Present Illness Reason for Consultation: volume overload and worsening renal function Requesting Physician: Dr Plunkett Attending Physician: Jacobo Casas MD History of Present Illness 89-year-old female whom I am asked to evaluate for volume overload and worsening renal function was admitted yesterday evening for same with fever, shortness of breath, concern for lower extremity cellulitis and increasing edema in the setting of conservatively managed ESRD and recent diagnosis of low- grade lymphoma. Past medical history includes CKD 5, fibromyalgia, dementia, hypertension, hyperlipidemia, type 2 diabetes, Finley's esophagus. Diagnosed earlier this month with low-grade follicular lymphoma (follows with [facility]) for which she underwent PET scan on January 02 showing small bilateral pleural effusions and interstitial edema. she [facility] and is for conservative management of her ESRD. Creatinine from April 2024 through December 2024 has run generally 3.4-3.8. admitted here August 2024 for sepsis from pneumonia. Patient brought from her facility because of shortness of breath and increasing lower extremity swelling along with fever to 102 degrees. She had a new oxygen requirement on presentation needing 2 L to maintain sats above 90. Her creatinine on presentation was 3.4, and 3.2 this morning. She takes 30 mg torsemide daily as an outpatient and was maintained on this on presentation. Also started on cefepime. She has been afebrile since presentation and is this morning on 2L NC. Her routine outpatient torsemide 30 mg daily was continued on admission. Her hydralazine was held. Did have a dose of clonidine overnight for uncontroleld HTN. Today pt feels well > she's eaten a full tray of food, denies dyspnea or cough; no chest pain or palpitations; feels her legs are bout at baseline and denies voiding concerns. Allergies Allergy/AdvReac Type Severity Reaction Status Date / Time cephalexin Allergy Intermediate Hives Verified 01/05/25 17:06 codeine Allergy Intermediate "BAD" RASH Verified 01/05/25 17:06 Penicillins Allergy Intermediate RASH - HAS Verified 01/05/25 17:06 TOLERATED ROCEPHIN ferrous fumarate AdvReac Intermediate stomach Verified 01/05/25 17:06 upset meloxicam AdvReac Intermediate Gastrointestinal Verified 01/05/25 17:06 Upset Home Medications Medication Instructions Recorded Confirmed Type atorvastatin 40 mg tablet 40 mg PO QPM 10/28/18 01/05/25 History isosorbide mononitrate 60 mg 60 mg PO QAM 10/28/18 01/05/25 History tablet,extended release 24 hr acetaminophen 500 mg capsule 500 mg PO Q6H 05/11/22 01/05/25 History aspirin 81 mg chewable tablet 81 mg PO DAILY 05/11/22 01/05/25 History (Aspirin Childrens) calcium 600 mg (as 1 tab PO QPM 05/11/22 01/05/25 History carbonate)-vitamin D3 10 mcg (400 unit) tablet (Calcium 600 + D(3)) cyanocobalamin (vitamin B-12) 1,000 mcg PO QAM 05/11/22 01/05/25 History 1,000 mcg tablet (Vitamin B-12) hydralazine 50 mg tablet 50 mg PO TID 05/11/22 01/05/25 History Intjbwstwtzvk-Qtowxzxfbcdtxfa-J.thermophilus 2 cap PO TID 06/12/22 01/05/25 History 3 billion cell capsule (Advanced Probiotic-14) meclizine 12.5 mg tablet 12.5 mg PO Q6 PRN Dizziness 06/12/22 01/05/25 History felodipine 10 mg tablet,extended 10 mg PO QAM 08/17/24 01/05/25 History release 24 hr isosorbide mononitrate 30 mg 30 mg PO DAILY PRN SBP > 170 08/17/24 01/05/25 History tablet,extended release 24 hr omeprazole 20 mg capsule,delayed 20 mg PO QAM 08/17/24 01/05/25 History release loperamide 2 mg capsule 2 mg PO Q4H PRN loose stool #15 08/22/24 01/05/25 Rx caps torsemide 20 mg tablet 30 mg (1.5 x 20 mg) PO QAM #60 tabs 08/22/24 01/05/25 Rx gabapentin 100 mg capsule 200 mg PO BID 01/05/25 01/05/25 History polyvinyl alcohol 1.4 % eye drops 2 drp ophthalmic (eye) QID 01/05/25 01/05/25 History Patient History Medical History (Updated 01/06/25 @ 07:45 by Riddhi Gordon MD, PhD) Follicular lymphoma ESRD (end stage renal disease) Family History Other No pertinent family history Social History Smoking Status: Never smoker Tobacco Type: Cigarettes Second Hand Exposure: No; Do You Dip or Chew Tobacco: No; Tobacco Cessation Education Requested by Patient: No Hx Alcohol Use: No Hx Substance Use: No Preferred Language: Mosotho Communication Ability: Impaired Communication Ability Comment: hearing aids 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 Beliefs That Will Affect Care: None marital status: / Current Living Situation: Snf Current Living Situation Comment: [place] current occupational status: retired Other Information That Helps Us Care for You: No Feels Safe at Home: Yes Safety Concerns: Feels Safe At This Time Assistive Devices: Walker Review of Systems 2 Review of Systems: All systems reviewed & are unremarkable except as noted in HPI & below Physical Exam 2 Constitutional: well developed, well nourished, + obese and cooperative; no acute distress Eyes: EOM intact bilaterally ENMT: Ears: + hearing impairment Mouth: + dry oral mucous membranes Respiratory: normal respiratory effort Auscultation: lungs clear to auscultation bilaterally and + diminished lung sounds Cardiovascular: Rate/Rhythm: regular rate and regular rhythm Extremities: + edema (trace distal w/ some redness on RLE) Gastrointestinal (Abdomen): Inspection/Auscultation: normal bowel sounds P ercussion/Palpation: abdomen soft; abdomen nontender Musculoskeletal: Extremities: strength 5/5 throughout Skin: no rashes, warm and dry Neurologic: sears, fluent speech, no tremor Psychiatric: Orientation: alert, oriented to person, oriented to place and cooperative; + not oriented to time Results & Data Vital Signs (Past 12 Hours) Vital Signs Temp Pulse Pulse Resp BP Pulse Ox O2 Del Method 01/06/25 07:19 37.0 C 62 20 173/72 H 97 Nasal Cannula 01/06/25 04:08 36.8 C 76 16 192/45 H 95 Nasal Cannula 01/06/25 02:58 78 178/80 H 01/06/25 02:12 181/68 H 01/06/25 01:48 199/67 H 01/06/25 00:36 183/67 H 01/05/25 23:30 36.5 C 69 16 197/66 H 97 Nasal Cannula 01/05/25 21:50 63 01/05/25 20:13 65 O2 Flow Rate 01/06/25 07:19 2 01/06/25 04:08 2 01/06/25 02:58 01/06/25 02:12 01/06/25 01:48 01/06/25 00:36 01/05/25 23:30 2 01/05/25 21:50 01/05/25 20:13 Laboratory Results 01/06/25 05:14 01/06/25 05:14 Diagnostic Findings CXR IMPRESSION: Hazy opacity in the lung bases could represent atelectasis, pneumonia, or small pleural effusions. venous doppler BLE No evidence of right lower extremity deep venous thrombosis. Redemonstrated thrombosis of 1 of 2 distal left popliteal veins, likely chronic thrombus. (3) Cellulitis Laterality: unspecified laterality Site of cellulitis: extremity Site of cellulitis of extremity: lower extremity Qualified Code(s): L03.119 - Cellulitis of unspecified part of limb
--- NOTE | 2025-01-06 07:55 | Hospitalist Progress Note ---
Date of Service January 06, 2025 Assessment & Plan (1) Cellulitis: Plan BLE cellulitis Volume overload: Likely secondary to worsening stage V renal disease. Bilateral pleural effusion Likely 2/2 volume overload ISO worsening ESRD 08/18/2024 ECHO with EF of 60 to 65%, normal LV wall thickness, normal LV systolic function, normal LV wall motion. No diastolic dysfunction noted. CXR w/ possible b/l small pleural effusion. Started on cefepime in the ED, blood cultures remain pending on 01/06; continue for now Procal and Lactate normal Venous Doppler US: Re-demonstration thrombosis distal L popliteal veins; chronic thrombosis. See below. Continue home probiotic. Nephrology recc DC torsemide; start Bumex. Required supplemental O2 on admission; weaned to RA ESRD: Creatinine 3.23; baseline 3.4 for years Follows with [facility] as an OPT; previous conversation for conservative management vs HD given advanced dementia Nephro consult placed on admission given creatinine; appreciate reccs. Stop Torsemide and start Bumex. Goals of care conversation: Lengthy conversation with patient daughter Kerline at bedside to discuss goals of care/advanced care planning. Patient is an established DNR/DNI. Pt being evaluated for lymphoma and has already decided not to pursue hemodialysis for her ESRD given her dementia. Pt just had a PET scan for lymphoma and has a follow up appointment on Wednesday. Kerline stated that even if aggressive treatment was recommended that they would not proceed. Overarching goal is establishing Hospice SErvices to be able to allow pt to remain at [facility] as long as possible. Discussed differences between Palliative care and Hospice services. Case management aware and will provide Hospice selection list to be ar ranged for day of discharge. Hospice Diagnosis: ESRD Chronic LE thrombosis: Initial DVT unprovoked 05/2022; was on Eliquis for short term treatment Venous Doppler US: Redemonstration thrombosis distal L popliteal veins; chronic thrombosis. Not on any AC given increased fall risk Dementia: FAST score: 6B; relatively able to perform most of her ADL's independently. HTN: Continue home hydralazine, Imdur and felodipine Stop Torsemide per Nephro T2DM: A1c 8.3 appropriate, given elderly. FSBS SSI while inpt. No need for chronic glycemic control. Hyperlipidemia: Chronic Takes Atorvastatin; consider discontinuation given age and decreased benefits at DC DVT prophylaxis: Heparin SQ CODE STATUS: DNR/DNI Disposition: Anticipate inpt stay 1-2 days; return to [facility] with hospice services when able I spent a total of 54 minutes coordinating, documenting, and providing care for this patient excluding time spent inthe performance of separately billed services or time spent by another provider/QHP. Admission and Anticipated Discharge Date Admission Date: January 05, 2025 Supervising Physician Co-Signing Physician Notes Attending Addendum: Case reviewed with the advanced practitioner. I have reviewed the advanced practitioner's documentation on the date of service referenced in note, and I agree with, and take responsibility for the plan of care. please refer to her notes for full details patient seen and examined, records reviewed by myself as well diagnoses and plan of care as per advanced practitioner's notes I spent a total of 40 minutes coordinating, documenting, and providing care for this patient, excluding time spent in the performance of separately billed services or time spent by another provider/QHP. Jacobo Casas MD Subjective pt pleasantly confused; able to hold meaningful conversation, but unable to participate in medical decision making. Lengthy conversation with pt daughter, Kerline, at bedside. Overarching goal is hospice (not comfort) upon discharge. See below. Pt denies chest pain, SOB, N/V/D. BL LE swelling in both legs; no overt adventitious lung sounds on examination. See A/P for further details. Review of Systems Review of Systems: Neuro: (-) Falls, trauma, slurred speech HEENT: (-) ANGEL, dizziness, dysphagia, visual or auditory changes CV: (-) CP, palpitations, swelling Resp: (-) SOB GI: (-) appetite changes, N/V/D, bowel changes : (-) urinary changes Skin: (-) rashes Psych: (-) anxiety, depression Physical Exam Physical Exam: Neuro: AAOx4, PERRLA, no aphagia, memory changes, CNII-XII grossly intact HEENT: head normocephalic, moist mucus membranes CV: S1/S2, (-) M/G/R, (-) edema, cap refill < 3 seconds; BL LE +3 edema Resp: Lungs CTA in all [place]. On 2LNC; weaning off GI: Abdomen S/NT/ND, Ax4 bowel sounds, (-) CVA tenderness Musculoskeletal: 5/5 B/L UE strength, 5/5 B/L LE strength. No gait disturbance; uses a walker Skin: (-) rashes , (+) erythema RLE cellulitis Psych: euthymic mood Results & Data Results & Data Vital Signs (Past 12 Hours) Vital Signs Temp Pulse Pulse Resp BP Pulse Ox O2 Del Method 01/06/25 07:36 64 01/06/25 07:33 36.7 C 82 20 129/70 95 Room Air 01/06/25 07:30 Nasal Cannula 01/06/25 07:19 37.0 C 62 20 173/72 H 97 Nasal Cannula 01/06/25 04:08 36.8 C 76 16 192/45 H 95 Nasal Cannula 01/06/25 02:58 78 178/80 H 01/06/25 02:12 181/68 H 01/06/25 01:48 199/67 H 01/06/25 00:36 183/67 H 01/05/25 23:30 36.5 C 69 16 197/66 H 97 Nasal Cannula 01/05/25 21:50 63 01/05/25 20:13 65 O2 Flow Rate 01/06/25 07:36 01/06/25 07:33 01/06/25 07:30 2 01/06/25 07:19 2 01/06/25 04:08 2 01/06/25 02:58 01/06/25 02:12 01/06/25 01:48 01/06/25 00:36 01/05/25 23:30 2 01/05/25 21:50 01/05/25 20:13 Laboratory Results Short CBC 01/05/25 01/06/25 Range/Units 14:42 05:14 WBC 10.20 10.47 (4.8-10.8) K/ul Hgb 9.1 L 8.2 L (12.0-16.0) g/dl Hct 30.0 L 27.5 L (37.0-47.0) % Plt Count 187 164 (130-400) K/uL BMP 01/05/25 01/06/25 14:42 05:14 Sodium 139 141 Potassium 4.7 4.7 Chloride 104 107 Carbon Dioxide 29 27 BUN 51 H 50 H Creatinine 3.36 H 3.23 H Glucose 236 H 152 H Calcium 9.1 8.7 Liver Function 01/05/25 Range/Units 14:42 Total Bilirubin 0.6 (0.2-1.0) mg/dl Direct Bilirubin 0.1 (0-0.2) mg/dl AST 9 L (13-39) U/L ALT 9 (7-52) U/L Alkaline Phosphatase 65 (34-104) U/L Albumin 3.9 (3.4-5.0) gm/dl Urine 01/05/25 Range/Units 16:44 Urine Color Yellow Urine Appearance Clear (Clear) Urine pH 6.5 (4.5-7.5) Ur Specific [place] 1.014 (1.000-1.030) Urine Protein 3+ H (Negative) Urine Glucose (UA) 1+ H (Negative) Diagnostic Findings Venous Doppler Study 01/05/25 17:59 Exam(s): US VENOUS BILATERAL LOWER EXTREMITIES EXAM: US Duplex Bilateral Lower Extremities Veins CLINICAL HISTORY: ro dvt. TECHNIQUE: Real-time duplex ultrasound scan of the bilateral lower extremity veins integrating B-mode two-dimensional vascular structure, Doppler spectral analysis, color flow Doppler imaging and compression. COMPARISON: 05/12/2022. FINDINGS: Right deep veins: Unremarkable. No DVT in the right common femoral, femoral, proximal deep femoral or popliteal veins. The veins demonstrate normal color flow, are normally compressible, with normal phasic flow and/or augmentation response. Right superficial veins: Unremarkable. No thrombus in the visualized right great saphenous vein. Left deep veins: No DVT in the left common femoral or superficial femoral or popliteal veins. 1 of 2 distal popliteal veins demonstrates thrombus in a similar location to the prior study.. Left superficial veins: Unremarkable. No thrombus in the visualized left great saphenous vein. Soft tissues: No acute abnormality. No popliteal cyst. IMPRESSION: No evidence of right lower extremity deep venous thrombosis. Redemonstrated thrombosis of 1 of 2 distal left popliteal veins, likely chronic thrombus. Electronically signed by: Julio Cesar Smith M.D. 01/06/25 02:06 AM (1) Cellulitis Laterality: unspecified laterality Site of cellulitis: extremity Site of cellulitis of extremity: lower extremity Qualified Code(s): L03.119 - Cellulitis of unspecified part of limb
[2025-01-06] MEDS: ISOSORBIDE MONO EXTENDED REL 60 MG TABCR PO SCH (08:34)
[2025-01-06] MEDS: ASPIRIN 81 MG ECTAB PO SCH (08:34)
[2025-01-06] MEDS: ADVANCED PROBIOTIC 625 MG CAPSULE PO SCH (08:35)
[2025-01-06] MEDS: FELODIPINE 5 MG TABCR PO SCH (08:35)
[2025-01-06] MEDS: BUMETANIDE 1 MG in SYRINGE 0 ML IV SCH ×2 (08:45→17:11)
[2025-01-06] MEDS ORDERED: TORSEMIDE 10 MG TAB PO SCH (09:00)
--- NOTE | 2025-01-06 10:19 | Electrocardiogram Report ---
Test Reason : Blood Pressure : */* mmHG Vent. Rate : 68 BPM Atrial Rate : * BPM P-R Int : * ms QRS Dur : 88 ms QT Int : 418 ms P-R-T Axes : * 14 56 degrees QTcB Int : 444 ms Sinus rhythm When compared with ECG of 05-Jan-2025 15:32, (unconfirmed) No significant change was found Confirmed by Bryan Acuña ([id number]) on 01/06/2025 10:18:53 AM Referred By: REFERRED SELF Confirmed By: Bryan Acuña
--- NOTE | 2025-01-06 10:21 | Electrocardiogram Report ---
Test Reason : Blood Pressure : */* mmHG Vent. Rate : 73 BPM Atrial Rate : * BPM P-R Int : * ms QRS Dur : 78 ms QT Int : 392 ms P-R-T Axes : * 7 18 degrees QTcB Int : 431 ms Sinus rhythm Low voltage QRS Abnormal ECG When compared with ECG of 17-Aug-2024 19:29, Nonspecific T wave abnormality now evident in Anterior leads Confirmed by Bryan Acuña ([id number] on 01/06/2025 10:21:03 AM Referred By: REFERRED SELF Confirmed By: Bryan Acuña
--- NOTE | 2025-01-06 14:24 | Pharmacy Report ---
Pharmacy Glycemic Short Note 2 - Date of Service January 06, 2025 - Glycemic Short BSG Results (Last 24 hours): 01/05/25 01/05/25 01/06/25 14:42 20:12 05:14 Glucose 236 H 152 H POC Glucose 225 H 01/06/25 01/06/25 07:22 11:06 Glucose POC Glucose 166 H 168 H OUTPATIENT ANTIDIABETIC REGIMEN: * n/a HbA1c: 8.35 on 01/06/25 ASSESSMENT: * Fidelia is an 89 year old female who was admitted 01/05 with shortness of breath, hypoxia, and cellulitis. Pharmacy was consulted for glycemic management while she is admitted. * BSG on admit yesterday was 236mg/dL and was 225mg/dL at HS. No basal insulin was started a bolus insulin regimen with loose parameters was started. * Fasting BSG was 166mg/dL this morning. Tightened the CR of the bolus insulin for tighter control. Will not yet add basal insulin. PLAN FOR INPATIENT GLYCEMIC CONTROL: * Basal insulin * none * Bolus insulin * NovoLog per scale ACHS or Q6hrs while NPO * Goal Range: Low 120 mg/dL - High 160 mg/dL * Correction Factor: 35 mg/dL/unit * Nutritional / Prandial insulin per carb ratio of 1 unit per 15 grams CHO consumed
[2025-01-06] MEDS ORDERED: CEFEPIME 2 GM VIAL IV SCH (16:00)
[2025-01-06] MEDS ORDERED: BUMETANIDE 2 MG in SYRINGE 0 ML IV SCH (17:00)
[2025-01-07 06:40] LABS: Hematocrit (blood only) 28.4 % (37.0-47.0); Hemoglobin 8.4 g/dl (12.0-16.0); Mean Corpuscular Hemoglobin 26.6 pg (25.0-34.0); Mean Corpuscular Volume 89.9 fL (80.0-100.0); Platelet Count 147 K/uL (130-400); RDW Standard Deviation 43.2 fL (36.4-46.3); Red Blood Count 3.16 M/uL (4.20-5.40); White Blood Count 6.67 K/ul (4.8-10.8)
[2025-01-07 07:00] LABS: Anion Gap 6.0 (3-11); Blood Urea Nitrogen 52.0 mg/dl (6-23); Calcium 8.5 mg/dl (8.6-10.3); Carbon Dioxide 28.0 mmol/L (21-32); Chloride 108.0 mmol/L (98-107); Creatinine Clr Calc Pharmacy 11.4 ml/min; Glucose 151.0 mg/dl (70-99(Fasting)); Potassium 4.9 mmol/L (3.5-5.1); Sodium 142.0 mmol/L (136-145)
--- NOTE | 2025-01-07 08:28 | Nephrology Progress Note ---
Date of Service January 07, 2025 Assessment & Plan (1) ESRD (end stage renal disease): Plan: for conservative management. Her renal function is the same or in fact better than it has been for the past several months: baseline creatinine runs 3.4-3.8 from April 2024-December 2024. That said creatinine may be diluted down somewhat from volume overload. Agree with fluid and sodium limits -diuresis as below -BP acceptable currently for most part (though high this am likely d/t pain)> would avoid further clonidine due to rebound concerns - low threshold for palliative discussions in this frail patient with multiple comorbidities >> appreciate efforts of primary service >>>>>ordered renal diet Because of pain concerns will order PTH and phosphorus to be measured for tomorrow labs a.m. (Please check with dot net architect prior to incorporating these in discharge paperwork) NEPHROLOGY PRELIMINARY D/C RECS DX: -CKD 5/ESRD for conservative mgt -mild vol OL RX: -continue bumex IV current dose 1-2 days more then transition back to OP torsemide dose OTHER D/C CARE: -consider weights standing at facility weekly adn bring log to neph appts >>>daily STANDING weights in house if able >>>>STRICT I/O if able in house -low Na diet, lower K diet, FR 1.8 L after d/c -bmp to be ordered by Irma's nurses for no more than 3 days before appt F/U appt -in 3 wks w/ Dr Solis in [facility] hospital d/c Care coordinated ALEJA Stinson via [employer] re pain mgt, diuretics, BP control; we are in agreement. (2) Volume overload: Plan: As evidenced by bilateral pleural effusions and worsening lower extremity edema. likely multifactorial including from ESRD, HFpEF/cardiorenal syndrome, medications. No new DVT found on lower extremity Dopplers. medications like hydralazine, Imdur, gabapentin can all worsened lower extremity edema. At this point would consider gabapentin and Imdur obligate and agree with holding hydralazine. 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 if role here or not w/ overload Admission and Anticipated Discharge Date Admission Date: January 05, 2025 Subjective Severe left hip pain abrupt onset this morning unlike any previous discomfort and no history of trauma. X-ray negative. Relieved somewhat but not fully by Tylenol and for lidocaine patch. Denies shortness of breath. Patient somewhat agitated and distressed by hip pain. No nausea vomiting. Stable chronic neuropathy pain. Daughter at bedside Review of Systems 2 Review of Systems: All systems reviewed & are unremarkable except as noted in Subjective Physical Exam 2 Constitutional: well developed, well nourished, + acute distress (As above), + obese and cooperative Eyes: EOM intact bilaterally ENMT: Ears: + hearing impairment Mouth: + dry oral mucous membranes Respiratory: normal respiratory effort Auscultation: lungs clear to auscultation bilaterally and + diminished lung sounds Cardiovascular: Rate/Rhythm: regular rate and regular rhythm Extremities: + edema (trace distal w/ some redness on RLE) Gastrointestinal (Abdomen): Inspection/Auscultation: normal bowel sounds P ercussion/Palpation: abdomen soft; abdomen nontender Musculoskeletal: Extremities: strength 5/5 throughout Skin: no rashes, warm and dry Psychiatric: Orientation: alert, oriented to person, oriented to place and cooperative; + not oriented to time Results & Data Vital Signs (Past 12 Hours) Vital Signs Temp Pulse Pulse Resp BP Pulse Ox O2 Del Method 01/07/25 07:27 Nasal Cannula 01/07/25 07:27 64 01/07/25 07:13 37.4 C 62 20 178/65 H 95 Nasal Cannula 01/07/25 03:33 36.9 C 78 18 136/72 94 Nasal Cannula 01/06/25 23:18 60 01/06/25 23:13 37.0 C 60 18 146/70 H 98 Nasal Cannula O2 Flow Rate 01/07/25 07:27 2 01/07/25 07:27 01/07/25 07:13 2 01/07/25 03:33 2 01/06/25 23:18 01/06/25 23:13 2 Laboratory Results 01/07/25 06:24 01/07/25 06:24 (3) Cellulitis Laterality: unspecified laterality Site of cellulitis: extremity Site of cellulitis of extremity: lower extremity Qualified Code(s): L03.119 - Cellulitis of unspecified part of limb
[2025-01-07 08:47] LABS: Iron 24.0 mcg/dl (35-150); Transferrin 216.0 mg/dl (200-360)
[2025-01-07 09:07] LABS: Ferritin 41.0 ng/ml (8-388)
[2025-01-07] MEDS: ACETAMINOPHEN 1,000 MG/100 ML VIAL IV PRN (11:50)
--- NOTE | 2025-01-07 11:57 | Electrocardiogram Report ---
Test Reason : Blood Pressure : */* mmHG Vent. Rate : 65 BPM Atrial Rate : 65 BPM P-R Int : 168 ms QRS Dur : 88 ms QT Int : 410 ms P-R-T Axes : 2 19 66 degrees QTcB Int : 426 ms Normal sinus rhythm Normal ECG When compared with ECG of 06-Jan-2025 05:39, Sinus rhythm has replaced Junctional rhythm Confirmed by Bryan Acuña ([id number]) on 01/07/2025 11:57:13 AM Referred By: REFERRED SELF Confirmed By: Bryan Acuña
--- NOTE | 2025-01-07 12:24 | XRay Report ---
XR femur LT 2V routine, XR pelvis 1-2V routine HISTORY: 89 years-old Female left femur pain . Pain of the left thigh COMPARISON: Pelvis radiograph 10/19/2023 TECHNIQUE: AP view of the pelvis with 2 views of the left femur FINDINGS: FEMUR: Moderate osteoarthritis of the left hip. No acute fracture, dislocation or avascular necrosis. Mild lateral soft tissue swelling. PELVIS: Mild right and moderate left hip osteoarthritis. No acute fracture or dislocation. IMPRESSION: 1. No acute fracture or dislocation. 2. Moderate osteoarthritis of the left hip. ACT 112: Negative or not required by law. The above report was generated using voice recognition software. It may contain grammatical, syntax o r spelling errors. Electronically signed by: Hilton Martinez M.D. 01/07/2025 12:22 PM
--- NOTE | 2025-01-07 13:21 | Hospitalist Progress Note ---
Date of Service January 07, 2025 Assessment & Plan (1) Cellulitis: Plan BLE cellulitis Volume overload: Likely secondary to worsening stage V renal disease. Bilateral pleural effusion Likely 2/2 volume overload ISO worsening ESRD 08/18/2024 ECHO with EF of 60 to 65%, normal LV wall thickness, normal LV systolic function, normal LV wall motion. No diastolic dysfunction noted. CXR w/ possible b/l small pleural effusion. Started on cefepime in the ED, blood cultures remain pending on 01/06; continue for now Procal and Lactate normal Venous Doppler US: Re-demonstration thrombosis distal L popliteal veins; chronic thrombosis. See below. Continue home probiotic. Nephrology recc DC torsemide; start Bumex. Required supplemental O2 on admission; weaned to RA ESRD: Creatinine 3.23; baseline 3.4 for years Follows with Nephro as an OPT; previous conversation for conservative management vs HD given advanced dementia Nephro consult placed on admission given creatinine; appreciate reccs. Stop Torsemide and start Bumex. Had -700 I/O from Bumex. Per Nephro, will continue Bumex for another two days Add on Phosphorus level Left thigh pain: Acute severe left hip/femur pain abrupt today unlike any previous discomfort and no history of trauma. Unable to describe or discern exact location-->points to her left femur area without radiation Given her possible lymphoma; considered spontaneous fracture; see below for imaging results. L Femur and pelvic x-ray: negative for acute fracture or dislocation. Mild lateral soft tissue swelling. moderate OA of left hip. Last Venous Doppler US: 01/05; outlined below. Scheduled IV Tylenol and Lidocaine patch. Given chronic thrombosis; if no improvement with scheduled IV Tylenol and Lidocaine patch; consider repeating Doppler US. Goals of care conversation: Lengthy conversation with patient daughter Kerline at bedside to discuss goals of care/advanced care planning. Patient is an established DNR/DNI. Pt being evaluated for lymphoma and has already decided not to pursue hemodialysis for her ESRD given her dementia. Pt just had a PET scan for lymphoma and has a follow up appointment on Wednesday. Kerline stated that even if aggressive treatment was recommended that they would not proceed. Overarching goal is establishing Hospice SErvices to be able to allow pt to remain at [facility] as long as possible. Discussed differences between Palliative care and Hospice services. Case management aware and will provide Hospice selection list to be arranged for day of discharge. Hospice Diagnosis: ESRD Chronic LE thrombosis: Initial DVT unprovoked 05/2022; was on Eliquis for short term treatment Venous Doppler US: Redemonstration thrombosis distal L popliteal veins; chronic thrombosis. Not on any AC given increased fall risk Dementia: FAST score: 6B; relatively able to perform most of her ADL's independently. HTN: Continue home hydralazine, Imdur and felodipine Stop Torsemide per Nephro T2DM: A1c 8.3 appropriate, given elderly. FSBS SSI while inpt. No need for chronic glycemic control. Hyperlipidemia: Chronic Takes Atorvastatin; consider discontinuation given age and decreased benefits at DC DVT prophylaxis: Heparin SQ CODE STATUS: DNR/DNI Disposition: Anticipate inpt stay 2-3 days; return to [facility] with hospice services when able I spent a total of 54 minutes coordinating, documenting, and providing care for this patient excluding time spent inthe performance of separately billed services or time spent by another provider/QHP. Admission and Anticipated Discharge Date Admission Date: January 05, 2025 Supervising Physician Co-Signing Physician Notes Attending Addendum: Case reviewed with the advanced practitioner. I have reviewed the advanced practitioner's documentation on the date of service referenced in note, and I agree with, and take responsibility for the plan of care. please refer to her notes for full details patient seen and examined, records reviewed by myself as well diagnoses and plan of care as per advanced practitioner's notes I spent a total of 25 minutes coordinating, documenting, and providing care for this patient, excluding time spent in the performance of separately billed services or time spent by another provider/QHP. Jacobo Casas MD Subjective Pt originally seen around 0900 and she was sitting in her hospital bedside chair in no apparent distress. No complaints at that time. Nursing message that she was placed back into bed and was experiencing severe left hip/femur pain abrupt onset this morning unlike any previous discomfort and no history of trauma. Unable to describe or discern exact location, but points to her left femur area. Does not radiate. Denies chest pain, SOB, N/V/D. Had a BM this morning. Given her possible lymphoma; considered spontaneous fracture; see below for imaging results. Daughter at bedside and updated. Review of Systems Review of Systems: Neuro: (-) Falls, trauma, slurred speech HEENT: (-) ANGEL, dizziness, dysphagia, visual or auditory changes CV: (-) CP, palpitations, swelling Resp: (-) SOB GI: (-) appetite changes, N/V/D, bowel changes : (-) urinary changes Skin: (-) rashes (+) left thigh pain; does not appear visceral. Psych: (-) anxiety, depression Physical Exam Physical Exam: Neuro: AAOx4, PERRLA, no aphagia, memory changes, CNII-XII grossly intact HEENT: head normocephalic, moist mucus membranes CV: S1/S2, (-) M/G/R, (-) edema, cap refill < 3 seconds; BL LE +3 edema Resp: Lungs CTA in all goldman. On 2LNC; weaning off GI: Abdomen S/NT/ND, Ax4 bowel sounds, (-) CVA tenderness Musculoskeletal: 5/5 B/L UE strength, 5/5 B/L LE strength. No gait disturbance; uses a walker. (+) left thigh pain; able to wiggle toes, no radiation. Skin: (-) rashes , (+) erythema RLE cellulitis; improving Psych: euthymic mood Results & Data Results & Data Vital Signs (Past 12 Hours) Vital Signs Temp Pulse Pulse Resp BP Pulse Ox O2 Del Method 01/07/25 11:12 36.5 C 78 18 165/66 H 97 Nasal Cannula 01/07/25 07:27 Nasal Cannula 01/07/25 07:27 64 01/07/25 07:13 37.4 C 62 20 178/65 H 95 Nasal Cannula 01/07/25 03:33 36.9 C 78 18 136/72 94 Nasal Cannula O2 Flow Rate 01/07/25 11:12 2 01/07/25 07:27 2 01/07/25 07:27 01/07/25 07:13 2 01/07/25 03:33 2 Laboratory Results Short CBC 01/07/25 Range/Units 06:24 WBC 6.67 (4.8-10.8) K/ul Hgb 8.4 L (12.0-16.0) g/dl Hct 28.4 L (37.0-47.0) % Plt Count 147 (130-400) K/uL BMP 01/07/25 06:24 Sodium 142 Potassium 4.9 Chloride 108 H Carbon Dioxide 28 BUN 52 H Creatinine 3.38 H Glucose 151 H Calcium 8.5 L Diagnostic Findings Femur X-Ray 01/07/25 11:34 XR femur LT 2V routine, XR pelvis 1-2V routine HISTORY: 89 years-old Female left femur pain . Pain of the left thigh COMPARISON: Pelvis radiograph 10/19/2023 TECHNIQUE: AP view of the pelvis with 2 views of the left femur FINDINGS: FEMUR: Moderate osteoarthritis of the left hip. No acute fracture, dislocation or avascular necrosis. Mild lateral soft tissue swelling. PELVIS: Mild right and moderate left hip osteoarthritis. No acute fracture or dislocation. IMPRESSION: 1. No acute fracture or dislocation. 2. Moderate osteoarthritis of the left hip. ACT 112: Negative or not required by law. The above report was generated using voice recognition software. It may contain grammatical, syntax or spelling errors. Electronically signed by: Hilton Martinez M.D. 01/07/2025 12:22 PM Pelvis X-Ray 01/07/25 11:34 XR femur LT 2V routine, XR pelvis 1-2V routine HISTORY: 89 years-old Female left femur pain . Pain of the left thigh COMPARISON: Pelvis radiograph 10/19/2023 TECHNIQUE: AP view of the pelvis with 2 views of the left femur FINDINGS: FEMUR: Moderate osteoarthritis of the left hip. No acute fracture, dislocation or avascular necrosis. Mild lateral soft tissue swelling. PELVIS: Mild right and moderate left hip osteoarthritis. No acute fracture or dislocation. IMPRESSION: 1. No acute fracture or dislocation. 2. Moderate osteoarthritis of the left hip. ACT 112: Negative or not required by law. The above report was generated using voice recognition software. It may contain grammatical, syntax or spelling errors. Electronically signed by: Hilton Martinez M.D. 01/07/2025 12:22 PM (1) Cellulitis Laterality: unspecified laterality Site of cellulitis: extremity Site of cellulitis of extremity: lower extremity Qualified Code(s): L03.119 - Cellulitis of unspecified part of limb
[2025-01-07] MEDS: LIDOCAINE 5% 1 PATCH TD SCH (13:33)
[2025-01-07 14:41] LABS: Appearance Urine Clear (Clear); Bacteria Urine Automated None Seen (None Seen); Cast Urine Automated 0-2 /lpf (0-2); Epithelial Cell Urine Auto 0-2 /hpf (0-2); Glucose Urine UA 1+ (Negative); RBC Urine Automated 0-2 /hpf (0-2); WBC Urine Automated 0-5 /hpf (0-5)
[2025-01-07] MEDS: IRON SUCROSE 400 MG in SODIUM CHLORIDE 0.9% 250 ML IV ONE (16:56)
[2025-01-07] MEDS: ACETAMINOPHEN 1,000 MG/100 ML VIAL IV SCH (20:46)
[2025-01-07] MEDS: REMOVE LIDODERM PATCH SCH (20:50)
--- NOTE | 2025-01-08 04:13 | Communication Note ---
Date of Service: January 08, 2025 4 AM Patient with involuntary upper extremity twitching as per RN. Noted to be aphasic, having trouble getting words out. More confused than usual as per RN. BSG 140s. SBP 180s PPE Aphasic, hard of hearing No facial asymmetry Unable to comprehend instructions for MMTs NIHSS 12 as per staff AP Aphasia Involuntary upper extremity twitching CVA, history TIA as per records ? Cefepime neurotoxicity Stroke alert called CT head: Suboptimal study with motion artifact. 1. No intra or extra axial fresh blood denisty seen at the time of examination. 2. No definite acute infarction by CT criteria. MRI is recommended if acute ischemic insult is clinically warranted. 3. Age-related involutional changes. 4. 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 5. Resolution of the previous right frontal subgaleal hematoma, as compared to the prior CT Study. Patient examined by Dr. Michelle ([facility] stroke neurologist) via stroke telecart. Aphasia not appreciated as per conversation. Clinical asterixis as explanation for involuntary movements as per neurologist. Asterixis possibly from ongoing infection, okay to continue cefepime as per specialist. No indication for TNK. She recommends MRI brain to rule out stroke if patient PPM found to be MRI compatible. Patient daughter updated of developments over the phone.
[2025-01-08 04:57] LABS: Hematocrit (blood only) 30.6 % (37.0-47.0); Hemoglobin 9.2 g/dl (12.0-16.0); Immature Granulocytes # (auto) 0.04 K/uL (0.01-0.20); Immature Granulocytes % (auto) 0.4 %; Mean Corpuscular Hemoglobin 26.5 pg (25.0-34.0); Mean Corpuscular Volume 88.2 fL (80.0-100.0); Platelet Count 192 K/uL (130-400); RDW Standard Deviation 41.5 fL (36.4-46.3); Red Blood Count 3.47 M/uL (4.20-5.40); White Blood Count 10.13 K/ul (4.8-10.8)
[2025-01-08 05:14] LABS: Alanine Aminotransferase 7.0 U/L (7-52); Albumin Globulin Ratio 1.1 (0.9-2); Alkaline Phosphatase 59.0 U/L (34-104); Anion Gap 9.0 (3-11); Bilirubin,Total 0.5 mg/dl (0.2-1.0); Blood Urea Nitrogen 52.0 mg/dl (6-23); Calcium 8.8 mg/dl (8.6-10.3); Carbon Dioxide 25.0 mmol/L (21-32); Chloride 105.0 mmol/L (98-107); Creatinine Clr Calc Pharmacy 10.9 ml/min; Globulin 3.0 gm/dl (2.5-4.0); Glucose 146.0 mg/dl (70-99(Fasting)); Potassium 4.6 mmol/L (3.5-5.1); Sodium 139.0 mmol/L (136-145); Total Protein 6.3 gm/dl (6.0-8.3)
--- NOTE | 2025-01-08 05:23 | CT Scan Report ---
EXAM: CT head/brain wo con CLINICAL HISTORY: neuro deficit, acute stroke suspected; neuro deficit, acute stroke suspected TECHNIQUE: Axial non-contrast CT scan of the brain was performed from the skull base to the high parietal region. One of the following dose reduction techniques were utilized for this exam: Automated exposure control, adjustment of the mA and/or kV according to patient size, use of iterative reconstruction. DLP: 1016.05 mGy.cm COMPARISON: 06/18/2024 CT. FINDINGS: Suboptimal study with motion artifact. Brain Parenchyma: Mild accentuated hypoattenuation of the periventricular deep white matter denoting atherosclerotic microvascular ischemic changes. No definite acute infraction. No intra or extra axial fresh blood denisty seen at the time of examination. The Ventricular System and Subarachnoid Spaces: Brain parenchymal mild involutional changes in the form of dilated ventricular system, basal cistern with prominent cortical sulci and sylvian fissures. No evidence of subarachnoid hemorrhage or extra-axial fluid collections. Cerebellum and Brainstem: No masses, lesions, or areas of abnormal density. Orbits: Normal appearance of the globes, optic nerves, and extraocular muscles. No evidence of orbital masses or abnormal density. Sinuses: Clear paranasal sinuses. No evidence of sinusitis or mucosal thickening. Mastoid Air Cells: Clear mastoid air cells. No evidence of mastoiditis. Skull: Evidence of hyperostosis frontalis. IMPRESSION: Suboptimal study with motion artifact. 1. No intra or extra axial fresh blood denisty seen at the time of examination. 2. No definite acute infarction by CT criteria. MRI is recommended if acute ischemic insult is clinically warranted. 3. Age-related involutional changes. 4. 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 5. Resolution of the previous right frontal subgaleal hematoma, as compared to the prior CT Study. The report was ready at 05:17 AM EST, 01/08/2025 and the call was completed at 05:22 AM EST, 01/08/2025 at [phone] and Norberto Koehler was informed regarding the negative stroke findings in the report Electronically signed by Klaus Kellogg 01-08-2025 05:23 AM
[2025-01-08 05:29] LABS: INR 1.0 (0.9-1.1); Partial Thromboplastin Time 26 Seconds (21-31); Prothrombin Time 10.9 Seconds (9.0-12.0)
[2025-01-08] MEDS: cefTRIAXone SODIUM 2,000 MG/50 ML BAG IV SCH (09:12)
--- NOTE | 2025-01-08 09:38 | Electrocardiogram Report ---
Test Reason : Blood Pressure : */* mmHG Vent. Rate : 79 BPM Atrial Rate : * BPM P-R Int : * ms QRS Dur : 84 ms QT Int : 396 ms P-R-T Axes : * 42 57 degrees QTcB Int : 454 ms Poor data quality, interpretation may be adversely affected Normal sinus rhythm Abnormal ECG When compared with ECG of 07-Jan-2025 05:20, Non-specific change in ST segment in Lateral leads T wave inversion now evident in Lateral leads Confirmed by Case Moya ([id number]) on 01/08/2025 9:37:30 AM Referred By: REFERRED SELF Confirmed By: Case Moya
--- NOTE | 2025-01-08 11:32 | Pharmacy Report ---
Pharmacy Glycemic Short Note 2 - Date of Service January 08, 2025 - Glycemic Short BSG Results (Last 24 hours): 01/07/25 01/07/25 01/07/25 11:30 16:06 20:00 Glucose POC Glucose 250 H 152 H 195 H 01/08/25 01/08/25 01/08/25 04:01 04:40 07:14 Glucose 146 H POC Glucose 145 H 146 H 01/08/25 11:22 Glucose POC Glucose 163 H OUTPATIENT ANTIDIABETIC REGIMEN: * n/a HbA1c: 8.35 on 01/06/25 ASSESSMENT: 01/08 * Fidelia received 13 units of insulin yesterday (all were bolus). BSGs were [phone]/dL. * Fasting BSG was 145mg/dL this morning. Bolus insulin parameters were tightened yesterday so will continue without change. Will not start basal insulin yet. 01/06 * Fidelia is an 89 year old female who was admitted 01/05 with shortness of breath, hypoxia, and cellulitis. Pharmacy was consulted for glycemic management while she is admitted. * BSG on admit yesterday was 236mg/dL and was 225mg/dL at HS. No basal insulin was started a bolus insulin regimen with loose parameters was started. * Fasting BSG was 166mg/dL this morning. Tightened the CR of the bolus insulin for tighter control. Will not yet add basal insulin. PLAN FOR INPATIENT GLYCEMIC CONTROL: * Basal insulin * none * Bolus insulin * NovoLog per scale ACHS or Q6hrs while NPO * Goal Range: Low 120 mg/dL - High 160 mg/dL * Correction Factor: 35 mg/dL/unit * Nutritional / Prandial insulin per carb ratio of 1 unit per 10 grams CHO consumed
--- NOTE | 2025-01-08 12:35 | Hospitalist Progress Note ---
Date of Service January 08, 2025 Assessment & Plan (1) Cellulitis: Plan Goals of care conversation: Lengthy conversation with patient daughter Kerline at bedside to discuss goals of care/advanced care planning. Patient is an established DNR/DNI. Pt being luis luated for lymphoma and has already decided not to pursue hemodialysis for her ESRD given her dementia. Pt just had a PET scan for lymphoma and has a follow up appointment on Wednesday. Kerline stated that even if aggressive treatment was recommended that they would not proceed. Overarching goal is establishing Hospice Services to be able to allow pt to remain at [facility] as long as possible. Discussed differences between Palliative care and Hospice services. Case management aware and will provide Hospice selection list to be arranged for day of discharge. Hospice Diagnosis: ESRD Stroke alert overnight Delirium vs acute metabolic encephalopathy Nursing alerted provider of aphasia, mental status change around 0400, was evaluated and stroke alert called Stat head CT negative for acute intracranial findings Telestroke neurologist noted asterixis on exam, possibly 2/2 abx. Tpa not indicated due to resolving symptoms, felt mentation 2/2 baseline dementia Remained confused this AM, seems consistent with hospital based delirium. Also complicated by ESRD and cefepime side effect possibly contributing to mentation change Discussed pursuit of MRI brain with daughter, but based on overarching goals of transitioning to hospice approach, does not want to pursue MRI brain work up for possible stroke at this time Per costume technician, even if decision to pursue MRI brain changes, she is not eligible until oriented due to pacemaker in situ, needs to be clear to communicate if develops cardiac sx during study Transitioned from cefepime to ceftriaxone Lytes WNL Delirium precautions, re-orientation Plan for dc to on hospice once mentation closer to baseline Discussed plan with daughter at bedside again this afternoon, in agreement BLE cellulitis Volume overload: Likely secondary to worsening stage V renal disease Bilateral pleural effusion Likely 2/2 volume overload ISO worsening ESRD 08/18/2024 ECHO with EF of 60-65%, normal LV wall thickness, normal LV systolic function, normal LV wall motion. No diastolic dysfunction noted CXR w/ possible b/l small pleural effusion. Started on cefepime in the ED, blood cultures remain pending on 01/06; continue for now Procal and Lactate normal Venous Doppler US: Re-demonstration thrombosis distal L popliteal veins; chronic thrombosis. See below. Continue home probiotic. Nephrology recc DC torsemide; start Bumex Required supplemental O2 on admission; weaned to RA ESRD: Creatinine 3.55; baseline mid-3s for years Follows with Nephro as an outpatient; previous conversation for conservative management vs HD given advanced dementia Nephro consult placed on admission given creatinine; appreciate recs. Stop Torsemide and start Bumex. Had -65ml I/O cumulative, continue trending Phos level WNL Left thigh pain: Acute severe left hip/femur pain abrupt today unlike any previous discomfort and no history of trauma. Unable to describe or discern exact location-->points to her left femur area without radiation Given her possible lymphoma; considered spontaneous fracture; see below for imaging results. L Femur and pelvic x-ray: negative for acute fracture or dislocation. Mild lateral soft tissue swelling. moderate OA of left hip. Last Venous Doppler US: 01/05; outlined below Scheduled IV Tylenol and Lidocaine patch, appears more comfortable today Chronic LE thrombosis: Initial DVT unprovoked 05/2022; was on Eliquis for short term treatment Venous Doppler US: Redemonstration thrombosis distal L popliteal veins; chronic thrombosis Not on any AC given increased fall risk Dementia: FAST score: 6B; relatively able to perform most of her ADL's independently HTN: Continue home hydralazine, Imdur and felodipine Stop Torsemide per Nephro T2DM: A1c 8.3 appropriate, given elderly. FSBS SSI while inpt. No need for chronic glycemic control Hyperlipidemia: Chronic Takes Atorvastatin; consider discontinuation given age and decreased benefits at DC DVT prophylaxis: Heparin SQ CODE STATUS: DNR/DNI Disposition: Anticipate inpt stay 2-3 days; return to [facility] with hospice services when able Care coordinated with Dr. Casas. I spent a total of 60 minutes coordinating, documenting, and providing care for this patient excluding time spent in the performance of separately billed services or time spent by another provider/QHP. Admission and Anticipated Discharge Date Admission Date: January 05, 2025 Supervising Physician Co-Signing Physician Notes delayed entry date of service noted above Attending Addendum: Case reviewed with the advanced practitioner. I have reviewed the advanced practitioner's documentation on the date of service referenced in note, and I agree with, and take responsibility for the plan of care. please refer to her notes for full details diagnoses and plan of care as per advanced practitioner's notes I spent a total of 20 minutes coordinating, documenting, and providing care for this patient, excluding time spent in the performance of separately billed services or time spent by another provider/QHP. Jacobo Casas MD Subjective Seen and examined in 229-2. Oriented to person only and was repeating to myself and nursing staff "I need to go" repeatedly. Able to follow very simple commands only. Denies pain but difficult to fully assess. Discussed with daughter at bedside later in the AM - patient seems to calm down when resting in the room alone and become agitated with conversation nearby. Review of Systems Review of Systems: Unobtainable due to cognitive status Physical Exam Physical Exam: Gen: WD/WN, NAD, resting in bed, intermittently agitated/delirious, A&Ox person only HEENT: Normocephalic, atraumatic Lung: Clear to Auscultation bilaterally Heart: Regular rate, regular rhythm Abdomen: Soft, NT, ND +BS x 4 Extremities: 2+ BLE edema, fading erythema noted Skin: Warm, no rash Results & Data Results & Data Vital Signs (Past 12 Hours) Vital Signs Temp Pulse Pulse Pulse Resp BP Pulse Ox 01/08/25 11:36 36.7 C 75 17 136/63 92 01/08/25 08:06 36.5 C 70 18 189/67 H 93 01/08/25 07:00 61 01/08/25 04:19 65 178/61 H 92 01/08/25 03:00 36.6 C 66 18 186/73 H 93 01/08/25 01:28 64 149/72 H O2 Del Method 01/08/25 11:36 Room Air 01/08/25 08:06 Room Air 01/08/25 07:00 01/08/25 04:19 Room Air 01/08/25 03:00 Room Air 01/08/25 01:28 Laboratory Results Short CBC 01/08/25 Range/Units 04:40 WBC 10.13 (4.8-10.8) K/ul Hgb 9.2 L (12.0-16.0) g/dl Hct 30.6 L (37.0-47.0) % Plt Count 192 (130-400) K/uL BMP 01/08/25 04:40 Sodium 139 Potassium 4.6 Chloride 105 Carbon Dioxide 25 BUN 52 H Creatinine 3.55 H Glucose 146 H Calcium 8.8 Liver Function 01/08/25 Range/Units 04:40 Total Bilirubin 0.5 (0.2-1.0) mg/dl AST 11 L (13-39) U/L ALT 7 (7-52) U/L Alkaline Phosphatase 59 (34-104) U/L Albumin 3.3 L (3.4-5.0) gm/dl Urine 01/07/25 Range/Units 14:15 Urine Color Yellow Urine Appearance Clear (Clear) Urine pH 5.5 (4.5-7.5) Ur Specific [place] 1.014 (1.000-1.030) Urine Protein 3+ H (Negative) Urine Glucose (UA) 1+ H (Negative) Diagnostic Findings Chest X-Ray 01/05/25 14:34 XR chest 1V portable CLINICAL HISTORY: Sepsis COMPARISON STUDY: 08/17/2024 FINDINGS: Stable pacemaker. Heart size and pulmonary vasculature are normal. There is hazy opacity in the lung bases. No pneumothorax. IMPRESSION: Hazy opacity in the lung bases could represent atelectasis, pneumonia, or small pleural effusions. ACT 112: Negative or not required by law. Electronically signed by: Christos Salmeron M.D. 01/05/2025 3:19 PM Venous Doppler Study 01/05/25 17:59 Exam(s): US VENOUS BILATERAL LOWER EXTREMITIES EXAM: US Duplex Bilateral Lower Extremities Veins CLINICAL HISTORY: ro dvt. TECHNIQUE: Real-time duplex ultrasound scan of the bilateral lower extremity veins integrating B-mode two-dimensional vascular structure, Doppler spectral analysis, color flow Doppler imaging and compression. COMPARISON: 05/12/2022. FINDINGS: Right deep veins: Unremarkable. No DVT in the right common femoral, femoral, proximal deep femoral or popliteal veins. The veins demonstrate normal color flow, are normally compressible, with normal phasic flow and/or augmentation response. Right superficial veins: Unremarkable. No thrombus in the visualized right great saphenous vein. Left deep veins: No DVT in the left common femoral or superficial femoral or popliteal veins. 1 of 2 distal popliteal veins demonstrates thrombus in a similar location to the prior study.. Left superficial veins: Unremarkable. No thrombus in the visualized left great saphenous vein. Soft tissues: No acute abnormality. No popliteal cyst. IMPRESSION: No evidence of right lower extremity deep venous thrombosis. Redemonstrated thrombosis of 1 of 2 distal left popliteal veins, likely chronic thrombus. Electronically signed by: Julio Cesar Smith M.D. 01/06/25 02:06 AM Femur X-Ray 01/07/25 11:34 XR femur LT 2V routine, XR pelvis 1-2V routine HISTORY: 89 years-old Female left femur pain . Pain of the left thigh COMPARISON: Pelvis radiograph 10/19/2023 TECHNIQUE: AP view of the pelvis with 2 views of the left femur FINDINGS: FEMUR: Moderate osteoarthritis of the left hip. No acute fracture, dislocation or avascular necrosis. Mild lateral soft tissue swelling. PELVIS: Mild right and moderate left hip osteoarthritis. No acute fracture or dislocation. IMPRESSION: 1. No acute fracture or dislocation. 2. Moderate osteoarthritis of the left hip. ACT 112: Negative or not required by law. The above report was generated using voice recognition software. It may contain grammatical, syntax or spelling errors. Electronically signed by: Hilton Martinez M.D. 01/07/2025 12:22 PM Pelvis X-Ray 01/07/25 11:34 XR femur LT 2V routine, XR pelvis 1-2V routine HISTORY: 89 years-old Female left femur pain . Pain of the left thigh COMPARISON: Pelvis radiograph 10/19/2023 TECHNIQUE: AP view of the pelvis with 2 views of the left femur FINDINGS: FEMUR: Moderate osteoarthritis of the left hip. No acute fracture, dislocation or avascular necrosis. Mild lateral soft tissue swelling. PELVIS: Mild right and moderate left hip osteoarthritis. No acute fracture or dislocation. IMPRESSION: 1. No acute fracture or dislocation. 2. Moderate osteoarthritis of the left hip. ACT 112: Negative or not required by law. The above report was generated using voice recognition software. It may contain grammatical, syntax or spelling errors. Electronically signed by: Hilton Martinez M.D. 01/07/2025 12:[address] 01/08/25 04:30 EXAM: CT head/brain wo con CLINICAL HISTORY: neuro deficit, acute stroke suspected; neuro deficit, acute stroke suspected TECHNIQUE: Axial non-contrast CT scan of the brain was performed from the skull base to the high parietal region. One of the following dose reduction techniques were utilized for this exam: Automated exposure control, adjustment of the mA and/or kV according to patient size, use of iterative reconstruction. DLP: 1016.05 mGy.cm COMPARISON: 06/18/2024 CT. FINDINGS: Suboptimal study with motion artifact. Brain Parenchyma: Mild accentuated hypoattenuation of the periventricular deep white matter denoting atherosclerotic microvascular ischemic changes. No definite acute infraction. No intra or extra axial fresh blood denisty seen at the time of examination. The Ventricular System and Subarachnoid Spaces: Brain parenchymal mild involutional changes in the form of dilated ventricular system, basal cistern with prominent cortical sulci and sylvian fissures. No evidence of subarachnoid hemorrhage or extra-axial fluid collections. Cerebellum and Brainstem: No masses, lesions, or areas of abnormal density. Orbits: Normal appearance of the globes, optic nerves, and extraocular muscles. No evidence of orbital masses or abnormal density. Sinuses: Clear paranasal sinuses. No evidence of sinusitis or mucosal thickening. Mastoid Air Cells: Clear mastoid air cells. No evidence of mastoiditis. Skull: Evidence of hyperostosis frontalis. IMPRESSION: Suboptimal study with motion artifact. 1. No intra or extra axial fresh blood denisty seen at the time of examination. 2. No definite acute infarction by CT criteria. MRI is recommended if acute ischemic insult is clinically warranted. 3. Age-related involutional changes. 4. 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 5. Resolution of the previous right frontal subgaleal hematoma, as compared to the prior CT Study. The report was ready at 05:17 AM EST, 01/08/2025 and the call was completed at 05:22 AM EST, 01/08/2025 at [phone] and Norberto Koehler was informed regarding the negative stroke findings in the report Electronically signed by Klaus Kellogg 01-08-2025 05:23 AM (1) Cellulitis Laterality: unspecified laterality Site of cellulitis: extremity Site of cellulitis of extremity: lower extremity Qualified Code(s): L03.119 - Cellulitis of unspecified part of limb
[2025-01-08] MEDS ORDERED: LANTUS PER UNIT CHARGE SC SCH (21:00)
[2025-01-09] MEDS: LABETALOL HCL IV 5 MG/ML 20ML IV STA (03:41)
[2025-01-09 07:37] LABS: Hematocrit (blood only) 31.3 % (37.0-47.0); Hemoglobin 9.4 g/dl (12.0-16.0); Mean Corpuscular Hemoglobin 26.3 pg (25.0-34.0); Mean Corpuscular Volume 87.4 fL (80.0-100.0); Platelet Count 191 K/uL (130-400); RDW Standard Deviation 42.2 fL (36.4-46.3); Red Blood Count 3.58 M/uL (4.20-5.40); White Blood Count 7.85 K/ul (4.8-10.8)
[2025-01-09 07:54] LABS: Anion Gap 10.0 (3-11); Blood Urea Nitrogen 54.0 mg/dl (6-23); Calcium 8.9 mg/dl (8.6-10.3); Carbon Dioxide 25.0 mmol/L (21-32); Chloride 107.0 mmol/L (98-107); Creatinine Clr Calc Pharmacy 10.1 ml/min; Glucose 139.0 mg/dl (70-99(Fasting)); Magnesium 2.4 mg/dl (1.7-2.4); Potassium 4.8 mmol/L (3.5-5.1); Sodium 142.0 mmol/L (136-145)
--- NOTE | 2025-01-09 10:07 | Hospitalist Progress Note ---
Date of Service January 09, 2025 Assessment & Plan (1) Cellulitis: Plan Goals of care conversation: Lengthy conversation with patient daughter Kerline at bedside to discuss goals of care/advanced care planning. Patient is an established DNR/DNI. Pt being eval uated for lymphoma and has already decided not to pursue hemodialysis for her ESRD given her dementia. Pt just had a PET scan for lymphoma and has a follow up appointment on Wednesday. Kerline stated that even if aggressive treatment was recommended that they would not proceed. Overarching goal is establishing Hospice Services to be able to allow pt to remain at [facility] as long as possible. Plan was to establish with hospice on discharge but given deterioration of clinical status in-patient, consulted palliative care for further discussion and discussed case with Dr. Kaur, who met with family this afternoon. Family is now electing for Comfort measures only as on 01/09. Goal is for discharge on hospice to [facility] vs SNF Appreciate CM assistance, made aware of updated GOC this afternoon Family requesting inpatient hospice assessment Daughter is concerned with elevated BP and elects to continue BP medications as long as patient can tolerate PO Dr. Kaur to do comfort care orders - medications and plan below likely to change Acute metabolic encephalopathy in setting of progressing ESRD, possible CVA Nursing alerted provider of aphasia, mental status change around 0400, was evaluated and stroke alert called early on 01/[address] negative for acute intracranial findings Telestroke neurologist noted asterixis on exam, possibly 2/2 abx. Tpa not indicated due to resolving symptoms, felt mentation 2/2 baseline dementia Remained confused this AM, concern for hospital based delirium vs CVA in setting of known ESRD. 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, even if decision to pursue MRI brain changes, she is not eligible until oriented due to pacemaker in situ, needs to be clear to communicate if develops cardiac sx during study Transitioned from cefepime to ceftriaxone but disorientation persisted into 01/09, now felt to be most consistent with progressing ESRD given worsening Cr and hyperphosphatemia Discussed with palliative care, who met with family this afternoon to discuss comfort measures given clinical deterioration -> please see above ESRD Creatinine 3.55; baseline mid-3s for years Follows with Nephro as an outpatient; previous conversation for conservative management vs HD given advanced dementia Nephro consult placed on admission given creatinine; appreciate recs. Stop Torsemide and treated with Bumex Progressing ESRD given worsening Cr and hyperphosphatemia as above BLE cellulitis Volume overload Likely secondary to worsening stage V renal disease Bilateral pleural effusion Likely 2/2 volume overload ISO worsening ESRD 08/18/2024 ECHO with EF of 60-65%, normal LV wall thickness, normal LV systolic function, normal LV wall motion. No diastolic dysfunction noted CXR w/ possible b/l small pleural effusion. Started on cefepime in the ED, blood cultures remain pending on 01/06; continue for now Procal and Lactate normal Venous Doppler US: Re-demonstration thrombosis distal L popliteal veins; chronic thrombosis. See below. Continue home probiotic. Nephrology recommended DC torsemide; IV Bumex Required supplemental O2 on admission; weaned to RA Left thigh pain: Acute severe left hip/femur pain abrupt today unlike any previous discomfort and no history of trauma. Unable to describe or discern exact location-->points to her left femur area without radiation Given her possible lymphoma; considered spontaneous fracture; see below for imaging results. L Femur and pelvic x-ray: negative for acute fracture or dislocation. Mild lateral soft tissue swelling. moderate OA of left hip. Last Venous Doppler US: 01/05; outlined below Scheduled IV Tylenol and Lidocaine patch, appears more comfortable today Chronic LE thrombosis: Initial DVT unprovoked 05/2022; was on Eliquis for short term treatment Venous Doppler US: Redemonstration thrombosis distal L popliteal veins; chronic thrombosis Not on any AC given increased fall risk Dementia HTN Continue home hydralazine, Imdur and felodipine as long as able as daughter is concerned about BP T2DM: A1c 8.3 appropriate, given elderly. FSBS SSI while inpt. 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 Care coordinated with Dr. Casas. I spent a total of 60 minutes coordinating, documenting, and providing care for this patient excluding time spent in the performance of separately billed services or time spent by another provider/QHP. Admission and Anticipated Discharge Date Admission Date: January 05, 2025 Supervising Physician Co-Signing Physician Notes delayed entry date of service noted above Attending Addendum: Case reviewed with the advanced practitioner. I have reviewed the advanced practitioner's documentation on the date of service referenced in note, and I agree with, and take responsibility for the plan of care. please refer to her notes for full details diagnoses and plan of care as per advanced practitioner's notes I spent a total of 20 minutes coordinating, documenting, and providing care for this patient, excluding time spent in the performance of separately billed services or time spent by another provider/QHP. Jacobo Casas MD Subjective Seen and examined in 229-2. Remains disoriented and unable to meaningfully communicate. Requiring more cueing to take medications, per RN. Denies pain but difficult to fully assess. Discussed with daughter and son-in-law at length this AM. 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 Family agreeable and Dr. Kaur to meet with them today. Review of Systems Review of Systems: Unobtainable due to cognitive status Physical Exam Physical Exam: Gen: WD/WN, NAD, resting in bed, aphasic, disoriented, unable to follow commands HEENT: Normocephalic, atraumatic Lung: Clear to Auscultation bilaterally Heart: Regular rate, regular rhythm Abdomen: Soft, NT, ND +BS x 4 Extremities: 2+ BLE Skin: Warm, no rash Results & Data Results & Data Vital Signs (Past 12 Hours) Vital Signs Temp Pulse Pulse Resp BP BP Pulse Ox 01/09/25 07:44 75 01/09/25 07:30 36.6 C 88 16 167/86 H 96 01/09/25 03:56 71 176/67 H 01/09/25 03:41 72 190/74 H 01/09/25 03:04 36.6 C 72 18 190/74 H 95 01/08/25 23:11 36.8 C 69 18 173/67 H 93 01/08/25 22:26 69 O2 Del Method 01/09/25 07:44 01/09/25 07:30 Room Air 01/09/25 03:56 01/09/25 03:41 01/09/25 03:04 Room Air 01/08/25 23:11 Room Air 01/08/25 22:26 Laboratory Results Short CBC 01/09/25 Range/Units 07:17 WBC 7.85 (4.8-10.8) K/ul Hgb 9.4 L (12.0-16.0) g/dl Hct 31.3 L (37.0-47.0) % Plt Count 191 (130-400) K/uL BMP 01/09/25 07:17 Sodium 142 Potassium 4.8 Chloride 107 Carbon Dioxide 25 BUN 54 H Creatinine 3.71 H Glucose 139 H Calcium 8.9 Diagnostic Findings Chest X-Ray 01/05/25 14:34 XR chest 1V portable CLINICAL HISTORY: Sepsis COMPARISON STUDY: 08/17/2024 FINDINGS: Stable pacemaker. Heart size and pulmonary vasculature are normal. There is hazy opacity in the lung bases. No pneumothorax. IMPRESSION: Hazy opacity in the lung bases could represent atelectasis, pneumonia, or small pleural effusions. ACT 112: Negative or not required by law. Electronically signed by: Christos Salmeron M.D. 01/05/2025 3:19 PM Venous Doppler Study 01/05/25 17:59 Exam(s): US VENOUS BILATERAL LOWER EXTREMITIES EXAM: US Duplex Bilateral Lower Extremities Veins CLINICAL HISTORY: ro dvt. TECHNIQUE: Real-time duplex ultrasound scan of the bilateral lower extremity veins integrating B-mode two-dimensional vascular structure, Doppler spectral analysis, color flow Doppler imaging and compression. COMPARISON: 05/12/2022. FINDINGS: Right deep veins: Unremarkable. No DVT in the right common femoral, femoral, proximal deep femoral or popliteal veins. The veins demonstrate normal color flow, are normally compressible, with normal phasic flow and/or augmentation response. Right superficial veins: Unremarkable. No thrombus in the visualized right great saphenous vein. Left deep veins: No DVT in the left common femoral or superficial femoral or popliteal veins. 1 of 2 distal popliteal veins demonstrates thrombus in a similar location to the prior study.. Left superficial veins: Unremarkable. No thrombus in the visualized left great saphenous vein. Soft tissues: No acute abnormality. No popliteal cyst. IMPRESSION: No evidence of right lower extremity deep venous thrombosis. Redemonstrated thrombosis of 1 of 2 distal left popliteal veins, likely chronic thrombus. Electronically signed by: Julio Cesar Smith M.D. 01/06/25 02:06 AM Femur X-Ray 01/07/25 11:34 XR femur LT 2V routine, XR pelvis 1-2V routine HISTORY: 89 years-old Female left femur pain . Pain of the left thigh COMPARISON: Pelvis radiograph 10/19/2023 TECHNIQUE: AP view of the pelvis with 2 views of the left femur FINDINGS: FEMUR: Moderate osteoarthritis of the left hip. No acute fracture, dislocation or avascular necrosis. Mild lateral soft tissue swelling. PELVIS: Mild right and moderate left hip osteoarthritis. No acute fracture or dislocation. IMPRESSION: 1. No acute fracture or dislocation. 2. Moderate osteoarthritis of the left hip. ACT 112: Negative or not required by law. The above report was generated using voice recognition software. It may contain grammatical, syntax or spelling errors. Electronically signed by: Hilton Martinez M.D. 01/07/2025 12:22 PM Pelvis X-Ray 01/07/25 11:34 XR femur LT 2V routine, XR pelvis 1-2V routine HISTORY: 89 years-old Female left femur pain . Pain of the left thigh COMPARISON: Pelvis radiograph 10/19/2023 TECHNIQUE: AP view of the pelvis with 2 views of the left femur FINDINGS: FEMUR: Moderate osteoarthritis of the left hip. No acute fracture, dislocation or avascular necrosis. Mild lateral soft tissue swelling. PELVIS: Mild right and moderate left hip osteoarthritis. No acute fracture or dislocation. IMPRESSION: 1. No acute fracture or dislocation. 2. Moderate osteoarthritis of the left hip. ACT 112: Negative or not required by law. The above report was generated using voice recognition software. It may contain grammatical, syntax or spelling errors. Electronically signed by: Hilton Martinez M.D. 01/07/2025 12:[address] 01/08/25 04:30 EXAM: CT head/brain wo con CLINICAL HISTORY: neuro deficit, acute stroke suspected; neuro deficit, acute stroke suspected TECHNIQUE: Axial non-contrast CT scan of the brain was performed from the skull base to the high parietal region. One of the following dose reduction techniques were utilized for this exam: Automated exposure control, adjustment of the mA and/or kV according to patient size, use of iterative reconstruction. DLP: 1016.05 mGy.cm COMPARISON: 06/18/2024 CT. FINDINGS: Suboptimal study with motion artifact. Brain Parenchyma: Mild accentuated hypoattenuation of the periventricular deep white matter denoting atherosclerotic microvascular ischemic changes. No definite acute infraction. No intra or extra axial fresh blood denisty seen at the time of examination. The Ventricular System and Subarachnoid Spaces: Brain parenchymal mild involutional changes in the form of dilated ventricular system, basal cistern with prominent cortical sulci and sylvian fissures. No evidence of subarachnoid hemorrhage or extra-axial fluid collections. Cerebellum and Brainstem: No masses, lesions, or areas of abnormal density. Orbits: Normal appearance of the globes, optic nerves, and extraocular muscles. No evidence of orbital masses or abnormal density. Sinuses: Clear paranasal sinuses. No evidence of sinusitis or mucosal thickening. Mastoid Air Cells: Clear mastoid air cells. No evidence of mastoiditis. Skull: Evidence of hyperostosis frontalis. IMPRESSION: Suboptimal study with motion artifact. 1. No intra or extra axial fresh blood denisty seen at the time of examination. 2. No definite acute infarction by CT criteria. MRI is recommended if acute ischemic insult is clinically warranted. 3. Age-related involutional changes. 4. 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 5. Resolution of the previous right frontal subgaleal hematoma, as compared to the prior CT Study. The report was ready at 05:17 AM EST, 01/08/2025 and the call was completed at 05:22 AM EST, 01/08/2025 at [phone] and Norberto Koehler was informed regarding the negative stroke findings in the report Electronically signed by Klaus Kellogg 01-08-2025 05:23 AM (1) Cellulitis Laterality: unspecified laterality Site of cellulitis: extremity Site of cellulitis of extremity: lower extremity Qualified Code(s): L03.119 - Cellulitis of unspecified part of limb
[2025-01-09] MEDS ORDERED: HALOPERIDOL ORAL SOLN 2 MG/ML PO PRN (15:08)
[2025-01-09] MEDS ORDERED: GLYCOPYRROLATE 0.2 MG/ML VIAL IV PRN (15:08)
--- NOTE | 2025-01-09 15:39 | Palliative Care Consultation ---
Date of Consultation January 09, 2025 Assessment & Plan (1) Weakness generalized: (2) Altered mental status: (3) Discussion about advance care planning held with family member: I met with Mrs Hidalgo's daughter and son in law face to face in family waiting room for a 60min ACP discussion. Overall progression, medical issues and declining status discussed. Clinical overview provided. 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 They would like her to return to [place] with hospice and said they are worried the [facility] folks might not be able to manage hospice without more support/family are unable to help provide care at [facility]. IF this is the case, they would be interested in having pt moved to [facility] with hospice/comfort care. No hospice agency preference. They would like an inpatient hospice assessment and are aware this will not be until tomorrow at the earliest. they have family en route and will plan visits with pt as they arrive. Advised we will stop non comfort meds and interventions and focus on those which improve comfort and QOL. (4) Palliative care by specialist: Introduced Palliative Medicine and explained our role in patient's care. Patient and/or family were receptive to palliative services for goals of care discussions. Reviewed we are different from hospice, a home health nurse visiting service. Plan As above BALL TRUING MACHINE OPERATOR, rx written Thank you for allowing us to participate in the ongoing care of this patient. Please page with any additional concerns. Angelica Kaur DNP Director, Palliative Medicine History of Present Illness Reason for Consultation: [facility] Attending Physician: Jacobo Casas MD History of Present Illness Fidelia Hidalgo is an 89yo female with AMS, acute decline. Per chart review: " acute metabolic encephalopathy in setting of progressing ESRD, possible CVA Stat head CT negative for acute intracranial findings Telestroke neurologist noted asterixis on exam, possibly 2/2 abx. Tpa not indicated due to resolving symptoms, felt mentation 2/2 baseline dementia Discussed pursuit of MRI brain with daughter, but based on overarching goals of transitioning to hospice approach, does not want to pursue MRI brain work up for possible stroke at this time Per ophthalmic technician, even if decision to pursue MRI brain changes, she is not eligible until oriented due to pacemaker in situ, needs to be clear to communicate if develops cardiac sx during study Transitioned from cefepime to ceftriaxone but disorientation persisted into 01/09, now felt to be most consistent with progressing ESRD given worsening Cr and hyperphosphatemia ESRD: Progressing ESRD given worsening Cr and hyperphosphatemia as above BLE cellulitis Volume overload Likely secondary to worsening stage V renal disease Bilateral pleural effusions.: She is seen bedside no family present she is restless and slightly agitated she has nonsensical/garbled speech she cannot follow commands Allergies Allergy/AdvReac Type Severity Reaction Status Date / Time cephalexin Allergy Intermediate Hives Verified 01/05/25 17:06 codeine Allergy Intermediate "BAD" RASH Verified 01/05/25 17:06 Penicillins Allergy Intermediate RASH - HAS Verified 01/05/25 17:06 TOLERATED ROCEPHIN ferrous fumarate AdvReac Intermediate stomach Verified 01/05/25 17:06 upset meloxicam AdvReac Intermediate Gastrointestinal Verified 01/05/25 17:06 Upset Home Medications Medication Instructions Recorded Confirmed Type atorvastatin 40 mg tablet 40 mg PO QPM 10/28/18 01/05/25 History isosorbide mononitrate 60 mg 60 mg PO QAM 10/28/18 01/05/25 History tablet,extended release 24 hr acetaminophen 500 mg capsule 500 mg PO Q6H 05/11/22 01/05/25 History aspirin 81 mg chewable tablet 81 mg PO DAILY 05/11/22 01/05/25 History (Aspirin Childrens) calcium 600 mg (as 1 tab PO QPM 05/11/22 01/05/25 History carbonate)-vitamin D3 10 mcg (400 unit) tablet (Calcium 600 + D(3)) cyanocobalamin (vitamin B-12) 1,000 mcg PO QAM 05/11/22 01/05/25 History 1,000 mcg tablet (Vitamin B-12) hydralazine 50 mg tablet 50 mg PO TID 05/11/22 01/05/25 History Ghfzenwmticrl-Yscwrbaiiyyzswg-Q.thermophilus 2 cap PO TID 06/12/22 01/05/25 History 3 billion cell capsule (Advanced Probiotic-14) meclizine 12.5 mg tablet 12.5 mg PO Q6 PRN Dizziness 06/12/22 01/05/25 History felodipine 10 mg tablet,extended 10 mg PO QAM 08/17/24 01/05/25 History release 24 hr isosorbide mononitrate 30 mg 30 mg PO DAILY PRN SBP > 170 08/17/24 01/05/25 History tablet,extended release 24 hr omeprazole 20 mg capsule,delayed 20 mg PO QAM 08/17/24 01/05/25 History release loperamide 2 mg capsule 2 mg PO Q4H PRN loose stool #15 08/22/24 01/05/25 Rx caps torsemide 20 mg tablet 30 mg (1.5 x 20 mg) PO QAM #60 tabs 08/22/24 01/05/25 Rx gabapentin 100 mg capsule 200 mg PO BID 01/05/25 01/05/25 History polyvinyl alcohol 1.4 % eye drops 2 drp ophthalmic (eye) QID 01/05/25 01/05/25 History Patient History Medical History (Updated 01/09/25 @ 15:38 by Alice Kaur DNP) Follicular lymphoma ESRD (end stage renal disease) Family History Other No pertinent family history Social History Smoking Status: Never smoker Tobacco Type: Cigarettes Second Hand Exposure: No; Do You Dip or Chew Tobacco: No; Tobacco Cessation Education Requested by Patient: No Hx Alcohol Use: No Hx Substance Use: No Preferred Language: Kiswahili Communication Ability: Impaired Communication Ability Comment: hearing aids Mark Up Designer Required: No Beliefs That Will Affect Care: Spiritual marital status: / Current Living Situation: [facility] Current Living Situation Comment: [place] current occupational status: retired Other Information That Helps Us Care for You: No Feels Safe at Home: Yes Safety Concerns: Feels Safe At This Time Assistive Devices: Walker Review of Systems Review of Systems: Unobtainable due to cognitive status Physical Exam Physical Exam: Elderly frail female, supine in bed sl restless garbled and non sensical speech. mild bitemp wasting perrla dentition fair neck without stridor, no thyromegaly s1s2 abd softly distended BS+ gen weakness BLE +2 edema, +venous insuff changes skin pale opens eyes to name, unable to follow commands, nonsensical and garbled speech restless Results & Data Vital Signs (Past 12 Hours) Vital Signs Temp Pulse Pulse Resp BP BP Pulse Ox 01/09/25 14:15 75 01/09/25 11:39 36.8 C 78 16 171/89 H 97 01/09/25 07:44 75 01/09/25 07:30 36.6 C 88 16 167/86 H 96 01/09/25 03:56 71 176/67 H 01/09/25 03:41 72 190/74 H O2 Del Method 01/09/25 14:15 01/09/25 11:39 Room Air 01/09/25 07:44 01/09/25 07:30 Room Air 01/09/25 03:56 01/09/25 03:41 Laboratory Results 01/09/25 01/09/25 01/09/25 Range/Units 11:15 07:17 07:13 WBC 7.85 (4.8-10.8) K/ul RBC 3.58 L (4.20-5.40) M/uL Hgb 9.4 L (12.0-16.0) g/dl Hct 31.3 L (37.0-47.0) % MCV 87.4 (80.0-100.0) fL MCH 26.3 (25.0-34.0) pg MCHC 30.0 L (32.0-36.0) g/dL RDW Std Deviation 42.2 (36.4-46.3) fL RDW Coeff of Paul 13.4 (11.5-14.5) % Plt Count 191 (130-400) K/uL MPV 9.4 (9.4-12.4) fL Immature Gran % (Auto) % Neut % (Auto) % Lymph % (Auto) % [place] % (Auto) % Eos % (Auto) % Baso % (Auto) % Neut # (Auto) (1.40-6.50) K/uL Lymph # (Auto) (1.20-3.40) K/uL [place] # (Auto) (0.11-0.59) K/uL Eos # (Auto) (0.00-0.50) K/uL Baso # (Auto) (0.00-0.20) K/uL Immature Gran # (Auto) (0.01-0.20) K/uL PT (9.0-12.0) Seconds INR (0.9-1.1) APTT (21-31) Seconds PTT Ratio Sodium 142 (136-145) mmol/L Potassium 4.8 (3.5-5.1) mmol/L Chloride 107 (98-107) mmol/L Carbon Dioxide 25 (21-32) mmol/L Anion Gap 10 (3-11) BUN 54 H (6-23) mg/dl Creatinine 3.71 H (0.6-1.2) mg/dl Est Cr Clr Drug Dosing 10.1 ml/min eGFR 11.24 BUN/Creatinine Ratio 14.6 (10-20) Glucose 139 H (70-99(Fasting)) mg/dl POC Glucose 175 H 140 H (70-99) mg/dl Estimat Average Glucose mg/dl Hemoglobin A1c (4.5-5.6) % Lactate (0.4-2.0) mmol/L Calcium 8.9 (8.6-10.3) mg/dl Phosphorus 5.1 H (2.5-4.9) mg/dl Magnesium 2.4 (1.7-2.4) mg/dl Iron (35-150) mcg/dl Transferrin (200-360) mg/dl Ferritin (8-388) ng/ml Total Bilirubin (0.2-1.0) mg/dl Direct Bilirubin (0-0.2) mg/dl AST (13-39) U/L ALT (7-52) U/L Alkaline Phosphatase (34-104) U/L Ammonia (18-72) umol/L Troponin I High Sens (0-14) pg/ml B-Natriuretic Peptide (0-100) pg/ml Total Protein (6.0-8.3) gm/dl Albumin (3.4-5.0) gm/dl Globulin (2.5-4.0) gm/dl Albumin/Globulin Ratio (0.9-2) Vitamin B12 (180-914) pg/ml Procalcitonin (0-0.5) ng/ml PTH Intact (12.0-88.0) pg/ml Urine Color Urine Appearance (Clear) Urine pH (4.5-7.5) Ur Specific [place] (1.000-1.030) Urine Protein (Negative) Urine Glucose (UA) (Negative) Urine Ketones (Negative) Urine Blood (Negative) Urine Nitrite (Negative) Urine Bilirubin (Negative) Urine Urobilinogen (Negative) Ur Leukocyte Esterase (Negative) Urine WBC (Auto) (0-5) /hpf Urine RBC (Auto) (0-2) /hpf U Hyaline Cast (Auto) (0-2) /lpf U Epithel Cells (Auto) (0-2) /hpf Urine Bacteria (Auto) (None Seen) Urine Comment Nasal Screen MRSA (PCR) (Negative) Blood Type Antibody Screen 01/08/25 01/08/25 01/08/25 Range/Units 20:13 16:13 11:22 WBC (4.8-10.8) K/ul RBC (4.20-5.40) M/uL Hgb (12.0-16.0) g/dl Hct (37.0-47.0) % MCV (80.0-100.0) fL MCH (25.0-34.0) pg MCHC (32.0-36.0) g/dL RDW Std Deviation (36.4-46.3) fL RDW Coeff of Paul (11.5-14.5) % Plt Count (130-400) K/uL MPV (9.4-12.4) fL Immature Gran % (Auto) % Neut % (Auto) % Lymph % (Auto) % [place] % (Auto) % Eos % (Auto) % Baso % (Auto) % Neut # (Auto) (1.40-6.50) K/uL Lymph # (Auto) (1.20-3.40) K/uL [place] # (Auto) (0.11-0.59) K/uL Eos # (Auto) (0.00-0.50) K/uL Baso # (Auto) (0.00-0.20) K/uL Immature Gran # (Auto) (0.01-0.20) K/uL PT (9.0-12.0) Seconds INR (0.9-1.1) APTT (21-31) Seconds PTT Ratio Sodium (136-145) mmol/L Potassium (3.5-5.1) mmol/L Chloride (98-107) mmol/L Carbon Dioxide (21-32) mmol/L Anion Gap (3-11) BUN (6-23) mg/dl Creatinine (0.6-1.2) mg/dl Est Cr Clr Drug Dosing ml/min eGFR BUN/Creatinine Ratio (10-20) Glucose (70-99(Fasting)) mg/dl POC Glucose 142 H 136 H 163 H (70-99) mg/dl Estimat Average Glucose mg/dl Hemoglobin A1c (4.5-5.6) % Lactate (0.4-2.0) mmol/L Calcium (8.6-10.3) mg/dl Phosphorus (2.5-4.9) mg/dl Magnesium (1.7-2.4) mg/dl Iron (35-150) mcg/dl Transferrin (200-360) mg/dl Ferritin (8-388) ng/ml Total Bilirubin (0.2-1.0) mg/dl Direct Bilirubin (0-0.2) mg/dl AST (13-39) U/L ALT (7-52) U/L Alkaline Phosphatase (34-104) U/L Ammonia (18-72) umol/L Troponin I High Sens (0-14) pg/ml B-Natriuretic Peptide (0-100) pg/ml Total Protein (6.0-8.3) gm/dl Albumin (3.4-5.0) gm/dl Globulin (2.5-4.0) gm/dl Albumin/Globulin Ratio (0.9-2) Vitamin B12 (180-914) pg/ml Procalcitonin (0-0.5) ng/ml PTH Intact (12.0-88.0) pg/ml Urine Color Urine Appearance (Clear) Urine pH (4.5-7.5) Ur Specific [place] (1.000-1.030) Urine Protein (Negative) Urine Glucose (UA) (Negative) Urine Ketones (Negative) Urine Blood (Negative) Urine Nitrite (Negative) Urine Bilirubin (Negative) Urine Urobilinogen (Negative) Ur Leukocyte Esterase (Negative) Urine WBC (Auto) (0-5) /hpf Urine RBC (Auto) (0-2) /hpf U Hyaline Cast (Auto) (0-2) /lpf U Epithel Cells (Auto) (0-2) /hpf Urine Bacteria (Auto) (None Seen) Urine Comment Nasal Screen MRSA (PCR) (Negative) Blood Type Antibody Screen 01/08/25 01/08/25 01/08/25 Range/Units 07:14 04:46 04:40 WBC 10.13 (4.8-10.8) K/ul RBC 3.47 L (4.20-5.40) M/uL Hgb 9.2 L (12.0-16.0) g/dl Hct 30.6 L (37.0-47.0) % MCV 88.2 (80.0-100.0) fL MCH 26.5 (25.0-34.0) pg MCHC 30.1 L (32.0-36.0) g/dL RDW Std Deviation 41.5 (36.4-46.3) fL RDW Coeff of Paul 13.1 (11.5-14.5) % Plt Count 192 (130-400) K/uL MPV 9.9 (9.4-12.4) fL Immature Gran % (Auto) 0.4 % Neut % (Auto) 73.9 % Lymph % (Auto) 12.0 % [place] % (Auto) 9.8 % Eos % (Auto) 3.1 % Baso % (Auto) 0.8 % Neut # (Auto) 7.49 H (1.40-6.50) K/uL Lymph # (Auto) 1.22 (1.20-3.40) K/uL [place] # (Auto) 0.99 H (0.11-0.59) K/uL Eos # (Auto) 0.31 (0.00-0.50) K/uL Baso # (Auto) 0.08 (0.00-0.20) K/uL Immature Gran # (Auto) 0.04 (0.01-0.20) K/uL PT 10.9 (9.0-12.0) Seconds INR 1.0 (0.9-1.1) APTT 26 (21-31) Seconds PTT Ratio 1.0 Sodium 139 (136-145) mmol/L Potassium 4.6 (3.5-5.1) mmol/L Chloride 105 (98-107) mmol/L Carbon Dioxide 25 (21-32) mmol/L Anion Gap 9 (3-11) BUN 52 H (6-23) mg/dl Creatinine 3.55 H (0.6-1.2) mg/dl Est Cr Clr Drug Dosing 10.9 ml/min eGFR 11.85 BUN/Creatinine Ratio 14.6 (10-20) Glucose 146 H (70-99(Fasting)) mg/dl POC Glucose 146 H (70-99) mg/dl Estimat Average Glucose mg/dl Hemoglobin A1c (4.5-5.6) % Lactate 0.8 (0.4-2.0) mmol/L Calcium 8.8 (8.6-10.3) mg/dl Phosphorus 4.0 (2.5-4.9) mg/dl Magnesium (1.7-2.4) mg/dl Iron (35-150) mcg/dl Transferrin (200-360) mg/dl Ferritin (8-388) ng/ml Total Bilirubin 0.5 (0.2-1.0) mg/dl Direct Bilirubin (0-0.2) mg/dl AST 11 L (13-39) U/L ALT 7 (7-52) U/L Alkaline Phosphatase 59 (34-104) U/L Ammonia 24.0 (18-72) umol/L Troponin I High Sens 14.3 H (0-14) pg/ml B-Natriuretic Peptide (0-100) pg/ml Total Protein 6.3 (6.0-8.3) gm/dl Albumin 3.3 L (3.4-5.0) gm/dl Globulin 3.0 (2.5-4.0) gm/dl Albumin/Globulin Ratio 1.1 (0.9-2) Vitamin B12 (180-914) pg/ml Procalcitonin (0-0.5) ng/ml PTH Intact 118.8 H (12.0-88.0) pg/ml Urine Color Urine Appearance (Clear) Urine pH (4.5-7.5) Ur Specific [place] (1.000-1.030) Urine Protein (Negative) Urine Glucose (UA) (Negative) Urine Ketones (Negative) Urine Blood (Negative) Urine Nitrite (Negative) Urine Bilirubin (Negative) Urine Urobilinogen (Negative) Ur Leukocyte Esterase (Negative) Urine WBC (Auto) (0-5) /hpf Urine RBC (Auto) (0-2) /hpf U Hyaline Cast (Auto) (0-2) /lpf U Epithel Cells (Auto) (0-2) /hpf Urine Bacteria (Auto) (None Seen) Urine Comment Nasal Screen MRSA (PCR) (Negative) Blood Type A Positive Antibody Screen NEGATIVE 01/08/25 01/07/2501/07/25 Range/Units 04:01 20:00 16:06 WBC (4.8-10.8) K/ul RBC (4.20-5.40) M/uL Hgb (12.0-16.0) g/dl Hct (37.0-47.0) % MCV (80.0-100.0) fL MCH (25.0-34.0) pg MCHC (32.0-36.0) g/dL RDW Std Deviation (36.4-46.3) fL RDW Coeff of Paul (11.5-14.5) % Plt Count (130-400) K/uL MPV (9.4-12.4) fL Immature Gran % (Auto) % Neut % (Auto) % Lymph % (Auto) % [place] % (Auto) % Eos % (Auto) % Baso % (Auto) % Neut # (Auto) (1.40-6.50) K/uL Lymph # (Auto) (1.20-3.40) K/uL [place] # (Auto) (0.11-0.59) K/uL Eos # (Auto) (0.00-0.50) K/uL Baso # (Auto) (0.00-0.20) K/uL Immature Gran # (Auto) (0.01-0.20) K/uL PT (9.0-12.0) Seconds INR (0.9-1.1) APTT (21-31) Seconds PTT Ratio Sodium (136-145) mmol/L Potassium (3.5-5.1) mmol/L Chloride (98-107) mmol/L Carbon Dioxide (21-32) mmol/L Anion Gap (3-11) BUN (6-23) mg/dl Creatinine (0.6-1.2) mg/dl Est Cr Clr Drug Dosing ml/min eGFR BUN/Creatinine Ratio (10-20) Glucose (70-99(Fasting)) mg/dl POC Glucose 145 H 195 H 152 H (70-99) mg/dl Estimat Average Glucose mg/dl Hemoglobin A1c (4.5-5.6) % Lactate (0.4-2.0) mmol/L Calcium (8.6-10.3) mg/dl Phosphorus (2.5-4.9) mg/dl Magnesium (1.7-2.4) mg/dl Iron (35-150) mcg/dl Transferrin (200-360) mg/dl Ferritin (8-388) ng/ml Total Bilirubin (0.2-1.0) mg/dl Direct Bilirubin (0-0.2) mg/dl AST (13-39) U/L ALT (7-52) U/L Alkaline Phosphatase (34-104) U/L Ammonia (18-72) umol/L Troponin I High Sens (0-14) pg/ml B-Natriuretic Peptide (0-100) pg/ml Total Protein (6.0-8.3) gm/dl Albumin (3.4-5.0) gm/dl Globulin (2.5-4.0) gm/dl Albumin/Globulin Ratio (0.9-2) Vitamin B12 (180-914) pg/ml Procalcitonin (0-0.5) ng/ml PTH Intact (12.0-88.0) pg/ml Urine Color Urine Appearance (Clear) Urine pH (4.5-7.5) Ur Specific [place] (1.000-1.030) Urine Protein (Negative) Urine Glucose (UA) (Negative) Urine Ketones (Negative) Urine Blood (Negative) Urine Nitrite (Negative) Urine Bilirubin (Negative) Urine Urobilinogen (Negative) Ur Leukocyte Esterase (Negative) Urine WBC (Auto) (0-5) /hpf Urine RBC (Auto) (0-2) /hpf U Hyaline Cast (Auto) (0-2) /lpf U Epithel Cells (Auto) (0-2) /hpf Urine Bacteria (Auto) (None Seen) Urine Comment Nasal Screen MRSA (PCR) (Negative) Blood Type Antibody Screen 01/07/25 01/07/25 01/07/25 Range/Units 14:15 11:30 07:21 WBC (4.8-10.8) K/ul RBC (4.20-5.40) M/uL Hgb (12.0-16.0) g/dl Hct (37.0-47.0) % MCV (80.0-100.0) fL MCH (25.0-34.0) pg MCHC (32.0-36.0) g/dL RDW Std Deviation (36.4-46.3) fL RDW Coeff of Paul (11.5-14.5) % Plt Count (130-400) K/uL MPV (9.4-12.4) fL Immature Gran % (Auto) % Neut % (Auto) % Lymph % (Auto) % [place] % (Auto) % Eos % (Auto) % Baso % (Auto) % Neut # (Auto) (1.40-6.50) K/uL Lymph # (Auto) (1.20-3.40) K/uL [place] # (Auto) (0.11-0.59) K/uL Eos # (Auto) (0.00-0.50) K/uL Baso # (Auto) (0.00-0.20) K/uL Immature Gran # (Auto) (0.01-0.20) K/uL PT (9.0-12.0) Seconds INR (0.9-1.1) APTT (21-31) Seconds PTT Ratio Sodium (136-145) mmol/L Potassium (3.5-5.1) mmol/L Chloride (98-107) mmol/L Carbon Dioxide (21-32) mmol/L Anion Gap (3-11) BUN (6-23) mg/dl Creatinine (0.6-1.2) mg/dl Est Cr Clr Drug Dosing ml/min eGFR BUN/Creatinine Ratio (10-20) Glucose (70-99(Fasting)) mg/dl POC Glucose 250 H 150 H (70-99) mg/dl Estimat Average Glucose mg/dl Hemoglobin A1c (4.5-5.6) % Lactate (0.4-2.0) mmol/L Calcium (8.6-10.3) mg/dl Phosphorus (2.5-4.9) mg/dl Magnesium (1.7-2.4) mg/dl Iron (35-150) mcg/dl Transferrin (200-360) mg/dl Ferritin (8-388) ng/ml Total Bilirubin (0.2-1.0) mg/dl Direct Bilirubin (0-0.2) mg/dl AST (13-39) U/L ALT (7-52) U/L Alkaline Phosphatase (34-104) U/L Ammonia (18-72) umol/L Troponin I High Sens (0-14) pg/ml B-Natriuretic Peptide (0-100) pg/ml Total Protein (6.0-8.3) gm/dl Albumin (3.4-5.0) gm/dl Globulin (2.5-4.0) gm/dl Albumin/Globulin Ratio (0.9-2) Vitamin B12 (180-914) pg/ml Procalcitonin (0-0.5) ng/ml PTH Intact (12.0-88.0) pg/ml Urine Color Yellow Urine Appearance Clear (Clear) Urine pH 5.5 (4.5-7.5) Ur Specific [place] 1.014 (1.000-1.030) Urine Protein 3+ H (Negative) Urine Glucose (UA) 1+ H (Negative) Urine Ketones Negative (Negative) Urine Blood Negative (Negative) Urine Nitrite Negative (Negative) Urine Bilirubin Negative (Negative) Urine Urobilinogen Negative (Negative) Ur Leukocyte Esterase Negative (Negative) Urine WBC (Auto) 0-5 (0-5) /hpf Urine RBC (Auto) 0-2 (0-2) /hpf U Hyaline Cast (Auto) 0-2 (0-2) /lpf U Epithel Cells (Auto) 0-2 (0-2) /hpf Urine Bacteria (Auto) None Seen (None Seen) Urine Comment Nasal Screen MRSA (PCR) (Negative) Blood Type Antibody Screen 01/07/25 01/06/25 01/06/25 Range/Units 06:24 19:40 16:08 WBC 6.67 (4.8-10.8) K/ul RBC 3.16 L (4.20-5.40) M/uL Hgb 8.4 L (12.0-16.0) g/dl Hct 28.4 L (37.0-47.0) % MCV 89.9 (80.0-100.0) fL MCH 26.6 (25.0-34.0) pg MCHC 29.6 L (32.0-36.0) g/dL RDW Std Deviation 43.2 (36.4-46.3) fL RDW Coeff of Paul 13.1 (11.5-14.5) % Plt Count 147 (130-400) K/uL MPV 9.6 (9.4-12.4) fL Immature Gran % (Auto) % Neut % (Auto) % Lymph % (Auto) % [place] % (Auto) % Eos % (Auto) % Baso % (Auto) % Neut # (Auto) (1.40-6.50) K/uL Lymph # (Auto) (1.20-3.40) K/uL [place] # (Auto) (0.11-0.59) K/uL Eos # (Auto) (0.00-0.50) K/uL Baso # (Auto) (0.00-0.20) K/uL Immature Gran # (Auto) (0.01-0.20) K/uL PT (9.0-12.0) Seconds INR (0.9-1.1) APTT (21-31) Seconds PTT Ratio Sodium 142 (136-145) mmol/L Potassium 4.9 (3.5-5.1) mmol/L Chloride 108 H (98-107) mmol/L Carbon Dioxide 28 (21-32) mmol/L Anion Gap 6 (3-11) BUN 52 H (6-23) mg/dl Creatinine 3.38 H (0.6-1.2) mg/dl Est Cr Clr Drug Dosing 11.4 ml/min eGFR 12.57 BUN/Creatinine Ratio 15.4 (10-20) Glucose 151 H (70-99(Fasting)) mg/dl POC Glucose 235 H 146 H (70-99) mg/dl Estimat Average Glucose mg/dl Hemoglobin A1c (4.5-5.6) % Lactate (0.4-2.0) mmol/L Calcium 8.5 L (8.6-10.3) mg/dl Phosphorus (2.5-4.9) mg/dl Magnesium (1.7-2.4) mg/dl Iron 24 L (35-150) mcg/dl Transferrin 216 (200-360) mg/dl Ferritin 41.0 (8-388) ng/ml Total Bilirubin (0.2-1.0) mg/dl Direct Bilirubin (0-0.2) mg/dl AST (13-39) U/L ALT (7-52) U/L Alkaline Phosphatase (34-104) U/L Ammonia (18-72) umol/L Troponin I High Sens (0-14) pg/ml B-Natriuretic Peptide (0-100) pg/ml Total Protein (6.0-8.3) gm/dl Albumin (3.4-5.0) gm/dl Globulin (2.5-4.0) gm/dl Albumin/Globulin Ratio (0.9-2) Vitamin B12 > 1500 H (180-914) pg/ml Procalcitonin (0-0.5) ng/ml PTH Intact (12.0-88.0) pg/ml Urine Color Urine Appearance (Clear) Urine pH (4.5-7.5) Ur Specific [place] (1.000-1.030) Urine Protein (Negative) Urine Glucose (UA) (Negative) Urine Ketones (Negative) Urine Blood (Negative) Urine Nitrite (Negative) Urine Bilirubin (Negative) Urine Urobilinogen (Negative) Ur Leukocyte Esterase (Negative) Urine WBC (Auto) (0-5) /hpf Urine RBC (Auto) (0-2) /hpf U Hyaline Cast (Auto) (0-2) /lpf U Epithel Cells (Auto) (0-2) /hpf Urine Bacteria (Auto) (None Seen) Urine Comment Nasal Screen MRSA (PCR) (Negative) Blood Type Antibody Screen 01/06/25 01/06/25 01/06/25 Range/Units 11:06 07:22 05:14 WBC 10.47 (4.8-10.8) K/ul RBC 3.11 L (4.20-5.40) M/uL Hgb 8.2 L (12.0-16.0) g/dl Hct 27.5 L (37.0-47.0) % MCV 88.4 (80.0-100.0) fL MCH 26.4 (25.0-34.0) pg MCHC 29.8 L (32.0-36.0) g/dL RDW Std Deviation 41.6 (36.4-46.3) fL RDW Coeff of Paul 13.1 (11.5-14.5) % Plt Count 164 (130-400) K/uL MPV 9.8 (9.4-12.4) fL Immature Gran % (Auto) % Neut % (Auto) % Lymph % (Auto) % [place] % (Auto) % Eos % (Auto) % Baso % (Auto) % Neut # (Auto) (1.40-6.50) K/uL Lymph # (Auto) (1.20-3.40) K/uL [place] # (Auto) (0.11-0.59) K/uL Eos # (Auto) (0.00-0.50) K/uL Baso # (Auto) (0.00-0.20) K/uL Immature Gran # (Auto) (0.01-0.20) K/uL PT (9.0-12.0) Seconds INR (0.9-1.1) APTT (21-31) Seconds PTT Ratio Sodium 141 (136-145) mmol/L Potassium 4.7 (3.5-5.1) mmol/L Chloride 107 (98-107) mmol/L Carbon Dioxide 27 (21-32) mmol/L Anion Gap 7 (3-11) BUN 50 H (6-23) mg/dl Creatinine 3.23 H (0.6-1.2) mg/dl Est Cr Clr Drug Dosing 12.0 ml/min eGFR 13.27 BUN/Creatinine Ratio 15.5 (10-20) Glucose 152 H (70-99(Fasting)) mg/dl POC Glucose 168 H 166 H (70-99) mg/dl Estimat Average Glucose 192 mg/dl Hemoglobin A1c 8.3 H (4.5-5.6) % Lactate (0.4-2.0) mmol/L Calcium 8.7 (8.6-10.3) mg/dl Phosphorus 4.0 (2.5-4.9) mg/dl Magnesium 2.1 (1.7-2.4) mg/dl Iron (35-150) mcg/dl Transferrin (200-360) mg/dl Ferritin (8-388) ng/ml Total Bilirubin (0.2-1.0) mg/dl Direct Bilirubin (0-0.2) mg/dl AST (13-39) U/L ALT (7-52) U/L Alkaline Phosphatase (34-104) U/L Ammonia (18-72) umol/L Troponin I High Sens (0-14) pg/ml B-Natriuretic Peptide (0-100) pg/ml Total Protein (6.0-8.3) gm/dl Albumin (3.4-5.0) gm/dl Globulin (2.5-4.0) gm/dl Albumin/Globulin Ratio (0.9-2) Vitamin B12 (180-914) pg/ml Procalcitonin (0-0.5) ng/ml PTH Intact (12.0-88.0) pg/ml Urine Color Urine Appearance (Clear) Urine pH (4.5-7.5) Ur Specific [place] (1.000-1.030) Urine Protein (Negative) Urine Glucose (UA) (Negative) Urine Ketones (Negative) Urine Blood (Negative) Urine Nitrite (Negative) Urine Bilirubin (Negative) Urine Urobilinogen (Negative) Ur Leukocyte Esterase (Negative) Urine WBC (Auto) (0-5) /hpf Urine RBC (Auto) (0-2) /hpf U Hyaline Cast (Auto) (0-2) /lpf U Epithel Cells (Auto) (0-2) /hpf Urine Bacteria (Auto) (None Seen) Urine Comment Nasal Screen MRSA (PCR) (Negative) Blood Type Antibody Screen 01/05/25 01/05/25 01/05/25 Range/Units 22:10 20:12 17:20 WBC (4.8-10.8) K/ul RBC (4.20-5.40) M/uL Hgb (12.0-16.0) g/dl Hct (37.0-47.0) % MCV (80.0-100.0) fL MCH (25.0-34.0) pg MCHC (32.0-36.0) g/dL RDW Std Deviation (36.4-46.3) fL RDW Coeff of Paul (11.5-14.5) % Plt Count (130-400) K/uL MPV (9.4-12.4) fL Immature Gran % (Auto) % Neut % (Auto) % Lymph % (Auto) % [place] % (Auto) % Eos % (Auto) % Baso % (Auto) % Neut # (Auto) (1.40-6.50) K/uL Lymph # (Auto) (1.20-3.40) K/uL [place] # (Auto) (0.11-0.59) K/uL Eos # (Auto) (0.00-0.50) K/uL Baso # (Auto) (0.00-0.20) K/uL Immature Gran # (Auto) (0.01-0.20) K/uL PT (9.0-12.0) Seconds INR (0.9-1.1) APTT (21-31) Seconds PTT Ratio Sodium (136-145) mmol/L Potassium (3.5-5.1) mmol/L Chloride (98-107) mmol/L Carbon Dioxide (21-32) mmol/L Anion Gap (3-11) BUN (6-23) mg/dl Creatinine (0.6-1.2) mg/dl Est Cr Clr Drug Dosing ml/min eGFR BUN/Creatinine Ratio (10-20) Glucose (70-99(Fasting)) mg/dl POC Glucose 225 H (70-99) mg/dl Estimat Average Glucose mg/dl Hemoglobin A1c (4.5-5.6) % Lactate (0.4-2.0) mmol/L Calcium (8.6-10.3) mg/dl Phosphorus (2.5-4.9) mg/dl Magnesium (1.7-2.4) mg/dl Iron (35-150) mcg/dl Transferrin (200-360) mg/dl Ferritin (8-388) ng/ml Total Bilirubin (0.2-1.0) mg/dl Direct Bilirubin (0-0.2) mg/dl AST (13-39) U/L ALT (7-52) U/L Alkaline Phosphatase (34-104) U/L Ammonia (18-72) umol/L Troponin I High Sens (0-14) pg/ml B-Natriuretic Peptide 252 H (0-100) pg/ml Total Protein (6.0-8.3) gm/dl Albumin (3.4-5.0) gm/dl Globulin (2.5-4.0) gm/dl Albumin/Globulin Ratio (0.9-2) Vitamin B12 (180-914) pg/ml Procalcitonin (0-0.5) ng/ml PTH Intact (12.0-88.0) pg/ml Urine Color Urine Appearance (Clear) Urine pH (4.5-7.5) Ur Specific [place] (1.000-1.030) Urine Protein (Negative) Urine Glucose (UA) (Negative) Urine Ketones (Negative) Urine Blood (Negative) Urine Nitrite (Negative) Urine Bilirubin (Negative) Urine Urobilinogen (Negative) Ur Leukocyte Esterase (Negative) Urine WBC (Auto) (0-5) /hpf Urine RBC (Auto) (0-2) /hpf U Hyaline Cast (Auto) (0-2) /lpf U Epithel Cells (Auto) (0-2) /hpf Urine Bacteria (Auto) (None Seen) Urine Comment Nasal Screen MRSA (PCR) Negative (Negative) Blood Type Antibody Screen 01/05/25 01/05/25 Range/Units 16:44 14:42 WBC 10.20 (4.8-10.8) K/ul RBC 3.42 L (4.20-5.40) M/uL Hgb 9.1 L (12.0-16.0) g/dl Hct 30.0 L (37.0-47.0) % MCV 87.7 (80.0-100.0) fL MCH 26.6 (25.0-34.0) pg MCHC 30.3 L (32.0-36.0) g/dL RDW Std Deviation 42.0 (36.4-46.3) fL RDW Coeff of Paul 13.1 (11.5-14.5) % Plt Count 187 (130-400) K/uL MPV 9.5 (9.4-12.4) fL Immature Gran % (Auto) 0.4 % Neut % (Auto) 79.2 % Lymph % (Auto) 11.4 % [place] % (Auto) 7.6 % Eos % (Auto) 0.4 % Baso % (Auto) 1.0 % Neut # (Auto) 8.08 H (1.40-6.50) K/uL Lymph # (Auto) 1.16 L (1.20-3.40) K/uL [place] # (Auto) 0.78 H (0.11-0.59) K/uL Eos # (Auto) 0.04 (0.00-0.50) K/uL Baso # (Auto) 0.10 (0.00-0.20) K/uL Immature Gran # (Auto) 0.04 (0.01-0.20) K/uL PT 10.6 (9.0-12.0) Seconds INR 1.0 (0.9-1.1) APTT 24 (21-31) Seconds PTT Ratio 0.9 Sodium 139 (136-145) mmol/L Potassium 4.7 (3.5-5.1) mmol/L Chloride 104 (98-107) mmol/L Carbon Dioxide 29 (21-32) mmol/L Anion Gap 6 (3-11) BUN 51 H (6-23) mg/dl Creatinine 3.36 H (0.6-1.2) mg/dl Est Cr Clr Drug Dosing 11.5 ml/min eGFR 12.66 BUN/Creatinine Ratio 15.2 (10-20) Glucose 236 H (70-99(Fasting)) mg/dl POC Glucose (70-99) mg/dl Estimat Average Glucose mg/dl Hemoglobin A1c (4.5-5.6) % Lactate 1.1 (0.4-2.0) mmol/L Calcium 9.1 (8.6-10.3) mg/dl Phosphorus (2.5-4.9) mg/dl Magnesium 2.2 (1.7-2.4) mg/dl Iron (35-150) mcg/dl Transferrin (200-360) mg/dl Ferritin (8-388) ng/ml Total Bilirubin 0.6 (0.2-1.0) mg/dl Direct Bilirubin 0.1 (0-0.2) mg/dl AST 9 L (13-39) U/L ALT 9 (7-52) U/L Alkaline Phosphatase 65 (34-104) U/L Ammonia (18-72) umol/L Troponin I High Sens 14.7 H (0-14) pg/ml B-Natriuretic Peptide (0-100) pg/ml Total Protein 6.5 (6.0-8.3) gm/dl Albumin 3.9 (3.4-5.0) gm/dl Globulin (2.5-4.0) gm/dl Albumin/Globulin Ratio (0.9-2) Vitamin B12 (180-914) pg/ml Procalcitonin 0.08 (0-0.5) ng/ml PTH Intact (12.0-88.0) pg/ml Urine Color Yellow Urine Appearance Clear (Clear) Urine pH 6.5 (4.5-7.5) Ur Specific [place] 1.014 (1.000-1.030) Urine Protein 3+ H (Negative) Urine Glucose (UA) 1+ H (Negative) Urine Ketones Negative (Negative) Urine Blood Negative (Negative) Urine Nitrite Negative (Negative) Urine Bilirubin Negative (Negative) Urine Urobilinogen Negative (Negative) Ur Leukocyte Esterase Negative (Negative) Urine WBC (Auto) 0-5 (0-5) /hpf Urine RBC (Auto) 0-2 (0-2) /hpf U Hyaline Cast (Auto) 0-2 (0-2) /lpf U Epithel Cells (Auto) 0-2 (0-2) /hpf Urine Bacteria (Auto) None Seen (None Seen) Urine Comment Nasal Screen MRSA (PCR) (Negative) Blood Type Antibody Screen Diagnostic Findings Chest X-Ray 01/05/25 14:34 XR chest 1V portable CLINICAL HISTORY: Sepsis COMPARISON STUDY: 08/17/2024 FINDINGS: Stable pacemaker. Heart size and pulmonary vasculature are normal. There is hazy opacity in the lung bases. No pneumothorax. IMPRESSION: Hazy opacity in the lung bases could represent atelectasis, pneumonia, or small pleural effusions. ACT 112: Negative or not required by law. Electronically signed by: Christos Salmeron M.D. 01/05/2025 3:19 PM Venous Doppler Study 01/05/25 17:59 Exam(s): US VENOUS BILATERAL LOWER EXTREMITIES EXAM: US Duplex Bilateral Lower Extremities Veins CLINICAL HISTORY: ro dvt. TECHNIQUE: Real-time duplex ultrasound scan of the bilateral lower extremity veins integrating B-mode two-dimensional vascular structure, Doppler spectral analysis, color flow Doppler imaging and compression. COMPARISON: 05/12/2022. FINDINGS: Right deep veins: Unremarkable. No DVT in the right common femoral, femoral, proximal deep femoral or popliteal veins. The veins demonstrate normal color flow, are normally compressible, with normal phasic flow and/or augmentation response. Right superficial veins: Unremarkable. No thrombus in the visualized right great saphenous vein. Left deep veins: No DVT in the left common femoral or superficial femoral or popliteal veins. 1 of 2 distal popliteal veins demonstrates thrombus in a similar location to the prior study.. Left superficial veins: Unremarkable. No thrombus in the visualized left great saphenous vein. Soft tissues: No acute abnormality. No popliteal cyst. IMPRESSION: No evidence of right lower extremity deep venous thrombosis. Redemonstrated thrombosis of 1 of 2 distal left popliteal veins, likely chronic thrombus. Electronically signed by: Julio Cesar Smith M.D. 01/06/25 02:06 AM Femur X-Ray 01/07/25 11:34 XR femur LT 2V routine, XR pelvis 1-2V routine HISTORY: 89 years-old Female left femur pain . Pain of the left thigh COMPARISON: Pelvis radiograph 10/19/2023 TECHNIQUE: AP view of the pelvis with 2 views of the left femur FINDINGS: FEMUR: Moderate osteoarthritis of the left hip. No acute fracture, dislocation or avascular necrosis. Mild lateral soft tissue swelling. PELVIS: Mild right and moderate left hip osteoarthritis. No acute fracture or dislocation. IMPRESSION: 1. No acute fracture or dislocation. 2. Moderate osteoarthritis of the left hip. ACT 112: Negative or not required by law. The above report was generated using voice recognition software. It may contain grammatical, syntax or spelling errors. Electronically signed by: Hilton Martinez M.D. 01/07/2025 12:22 PM Pelvis X-Ray 01/07/25 11:34 XR femur LT 2V routine, XR pelvis 1-2V routine HISTORY: 89 years-old Female left femur pain . Pain of the left thigh COMPARISON: Pelvis radiograph 10/19/2023 TECHNIQUE: AP view of the pelvis with 2 views of the left femur FINDINGS: FEMUR: Moderate osteoarthritis of the left hip. No acute fracture, dislocation or avascular necrosis. Mild lateral soft tissue swelling. PELVIS: Mild right and moderate left hip osteoarthritis. No acute fracture or dislocation. IMPRESSION: 1. No acute fracture or dislocation. 2. Moderate osteoarthritis of the left hip. ACT 112: Negative or not required by law. The above report was generated using voice recognition software. It may contain grammatical, syntax or spelling errors. Electronically signed by: Hilton Martinez M.D. 01/07/2025 12:[address] 01/08/25 04:30 EXAM: CT head/brain wo con CLINICAL HISTORY: neuro deficit, acute stroke suspected; neuro deficit, acute stroke suspected TECHNIQUE: Axial non-contrast CT scan of the brain was performed from the skull base to the high parietal region. One of the following dose reduction techniques were utilized for this exam: Automated exposure control, adjustment of the mA and/or kV according to patient size, use of iterative reconstruction. DLP: 1016.05 mGy.cm COMPARISON: 06/18/2024 CT. FINDINGS: Suboptimal study with motion artifact. Brain Parenchyma: Mild accentuated hypoattenuation of the periventricular deep white matter denoting atherosclerotic microvascular ischemic changes. No definite acute infraction. No intra or extra axial fresh blood denisty seen at the time of examination. The Ventricular System and Subarachnoid Spaces: Brain parenchymal mild involutional changes in the form of dilated ventricular system, basal cistern with prominent cortical sulci and sylvian fissures. No evidence of subarachnoid hemorrhage or extra-axial fluid collections. Cerebellum and Brainstem: No masses, lesions, or areas of abnormal density. Orbits: Normal appearance of the globes, optic nerves, and extraocular muscles. No evidence of orbital masses or abnormal density. Sinuses: Clear paranasal sinuses. No evidence of sinusitis or mucosal thickening. Mastoid Air Cells: Clear mastoid air cells. No evidence of mastoiditis. Skull: Evidence of hyperostosis frontalis. IMPRESSION: Suboptimal study with motion artifact. 1. No intra or extra axial fresh blood denisty seen at the time of examination. 2. No definite acute infarction by CT criteria. MRI is recommended if acute ischemic insult is clinically warranted. 3. Age-related involutional changes. 4. 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 5. Resolution of the previous right frontal subgaleal hematoma, as compared to the prior CT Study. The report was ready at 05:17 AM EST, 01/08/2025 and the call was completed at 05:22 AM EST, 01/08/2025 at [phone] and Norberto Koehler was informed regarding the negative stroke findings in the report Electronically signed by Klaus Kellogg 01-08-2025 05:23 AM PG Care Time/CCT Total # of Minutes Spent Total Time Spent with Patient: Total time spent is greater than 50% in coordination of care (as documented) at patient's floor/unit and/or counseling patient: I spent 140 minutes overall addressing this case: 20 min in medical data review/discussion with referring provider(s) and/or preparation for the visit incl d/w nephro and primary team 20 min in direct interaction with the patient/exam 60 min in Advance Care Planning/Goals of Care discussions as detailed above in note (must be >16min) 20 min in subsequent review and synthesis of assessment and plan 20 min communicating with other providers regarding the patient's case: primary tea, nephro, care mgt, nursing Advanced Care Planning 74506 Advanced Care Planning 30 Min 06555 Advanced Care Planning Additional 30 [place] [address] IN/OBS CONSULT LVL 5,80M (25 - SIGNIFICANT, SEPARATELY IDENTIFIABLE ) Patient Type New Medical Decision Making High Complexity Diagnoses Weakness generalized R53.1 Altered mental status R41.82 Discussion about advance care planning held with family member Z71.0 Palliative care by specialist Z51.5 Additional Codes Advanced Care Planning - 93862 Advanced Care Planning 30 Min: 02583 Advanced Care Planning 30 Min ([id number]) Advanced Care Planning - 61806 Advanced Care Planning Additional 30 Min: 33718 Advanced Care Planning Additional 30 Min ([id number]) Comment [id number], [id number]
[2025-01-10] MEDS: ACETAMINOPHEN 325 MG TAB PO PRN (09:46)
--- NOTE | 2025-01-10 10:55 | Palliative Family Discussion ---
Date of Service January 10, 2025 Patient Directed Conference Time of [id number] Participants: Alice Kaur DNP Patient participation: slightly, she was tangential and [facility] Patient Support System: daughter Other Healthcare Provider Participation: None Meeting Location: bedside Advanced Directive available: none in hand but pt is DNR/DNI, focus on Comfort/QOL, no escalation of care The patient's surrogate medical decision maker participated: lakesha Wright A face to face ACP bedside family meeting was held for LEV BRODY. This meeting was necessary for determining the appropriate course of treatment. Topics of Discussion Topics of Discussion: 1. I met with Lev and her daughter Adriana at bedside. Lev is much brighter this morning and alert/vocal/taking PO easily. Adriana is going to hold off on hospice for now and is calling PJ at hospice to let him know to cancel their meeting. Someone named Dania from [place] is supposed to be coming today to eval pt for returning to their [facility] vs SN[facility]. I may follow her in OP clinic if the overall trend remains stability/improvement. The plan is still to focus on comfort and no escalation but for now, continue current meds and do not stop anything unless pt is not able to take the meds, most kaykay her BP meds, per dtr's wishes. Other Content of Meetin. Opportunity given for participants to speak and ask questions. 2. Participants were assured of attention to patient comfort. 3. Reassurance provided. 4. Support was provided for informed, good-rachael decisions. 5. Emotions expressed by family were acknowledged and addressed. 6. Follow-up Outpatient: [facility] Med clinic offered, Adriana agreed to followup within 3 weeks of ita chisholm dd appt info to ks summary. Comfort Focused Care Discharge Summary & Plan of Care For [facility]NF/[facility] Patient Name: Lev Brody 1935 Comfort plan of care agreed upon by: family/dtr CASEY Discussed with Patient/Family on: 01/09 and 01/10/25 Comfort plan of care parameters: 1. Patient/Family want hospice added to their care when pt is in acute decline, but since she seems brighter and more engaged, for now they would like comfort focused and continue her regular meds. 2. NO escalation of care: do not increase oxygen, escalate therapies, etc. The focus is on comfort through end of life, assure this is accomplished with aggressive symptom management (i.e. relief of dyspnea, pain, etc.) 3. NO labs, imaging, surgery 4. Oral intake as desired for comfort and pleasure: NO dietary restriction 5. If difficulty urinating/commode/bedpan, ok to place Dooley catheter for comfort/hygiene/skin protection AND/OR Continue Dooley catheter for comfort/hygiene/skin protection 6. NO: calorie counts, artificial nutrition, feeding tubes or IV fluids Medications to continue are noted on discharge summary. Provider to contact if any questions about comfort plan of care: SNF/PCP Thank you for allowing us to participate in the ongoing care of this patient. Please page with any additional concerns. Angelica Kaur DNP Director, Palliative Medicine
--- NOTE | 2025-01-10 11:19 | Nephrology Progress Note ---
Date of Service January 10, 2025 Assessment & Plan Admission and Anticipated Discharge Date Admission Date: January 05, 2025 Subjective Assessment & Plan (1) ESRD (end stage renal disease): Plan: for conservative management. Her renal function is the same or in fact better than it has been for the past several months: baseline creatinine runs 3.4-3.8 from April 2024-December 2024. That said creatinine may be diluted down somewhat from volume overload. Agree with fluid and sodium limits Overall quite bad prognosis. Advanced CKD 5--current creat of 3.7 is within baseline. hgb of 9.4 is acceptable for CKD 5. No need of LAISHA. Acceptable vol overload. Can use torsemide from now. was on torsemide 30 Pre admission--raise it to 60 daily. 30 was not enough. with her overall situation no need for nephrology follow up--unless daughter really insists on. Goal is to do only the most important things and manage her Symptoms Care coordinated with primary team and we are in agreement. Subjective Was going to be [facility]IDENTIAL SPECIALIST yesterday but overnight some Unexpected improvement and is not on hospice anymore. Breathing is much better. still has edema though. She could talk to me briefly and fairly Accurate. Bumex iv off now. Review of Systems Review of Systems: All systems reviewed & are unremarkable except as noted in Subjective Physical Exam Constitutional: well developed, well nourished, no distress Eyes: EOM intact bilaterally ENMT: Ears: + hearing impairment Mouth: + dry oral mucous membranes Respiratory: normal respiratory effort Auscultation: lungs clear to auscultation bilaterally and + diminished lung sounds Cardiovascular: Rate/Rhythm: regular rate and regular rhythm Extremities: + edema (trace distal w/ some redness on RLE) Gastrointestinal (Abdomen): Inspection/Auscultation: normal bowel sounds Percussion/Palpation: abdomen soft; abdomen nontender Musculoskeletal: Extremities: strength 5/5 throughout Skin: no rashes, warm and dry Psychiatric: Orientation: alert, oriented to person, oriented to place and cooperative; + not oriented to time Results & Data Vital Signs (Past 12 Hours) Vital Signs Temp Pulse Resp BP Pulse Ox O2 Del Method 01/10/25 10:35 36.5 C 68 17 145/64 H 93 Room Air 01/10/25 07:21 36.9 C 70 17 176/49 H 94 Room Air 01/10/25 03:06 36.7 C 72 18 170/63 H 93 Room Air
[2025-01-10] MEDS: TORSEMIDE 20 MG TAB PO SCH (12:25)
--- NOTE | 2025-01-10 14:01 | Hospitalist Progress Note ---
Date of Service January 10, 2025 Assessment & Plan (1) Cellulitis: Plan Per previous provider on 01/09: Goals of care conversation: Lengthy conversation with patient daughter Kerline at bedside to discuss goals of care/advanced care planning. Patient is an established DNR/DNI. Pt being evaluated for lymphoma and has already decided not to pursue hemodialysis for her ESRD given her dementia. Pt just had a PET scan for lymphoma and has a follow up appointment on Wednesday. Kerline stated that even if aggressive treatment was recommended that they would not proceed. Overarching goal is establishing Hospice Services to be able to allow pt to remain at [facility] as long as possible. Plan was to establish with hospice on discharge but given deterioration of clinical status in-patient, consulted palliative care for further discussion and discussed case with Dr. Kaur, who met with family this afternoon. Family is now electing for Comfort measures only as of 01/09. Patient more alert and engaged today. After eval/discussion with palliative, daughter planned on holding off on hospice for now, however daughter then met with hospice sales utility representative as would like to continue to pursue hospice. Plan to continue current meds as patient is able to take PO Goal is for discharge on hospice to [facility] vs SNF - awaiting eval from staff at [place] at 1600 to determine if patient can return. If accepted, anticipate discharge tomorrow. Acute metabolic encephalopathy in setting of progressing ESRD, possible CVA Nursing alerted provider of aphasia, mental status change around 0400, was evaluated and stroke alert called early on 01/[address] negative for acute intracranial findings Telestroke neurologist noted asterixis on exam, possibly 2/2 abx. Tpa not indicated due to resolving symptoms, felt mentation 2/2 baseline dementia Remained confused on 01/09, concern for hospital based delirium vs CVA in setting of known ESRD. Also considering cefepime side effect possibly contributing to mentation change Previous provider discussed pursuit of MRI brain with daughter, but based on overarching goals of transitioning to hospice approach, does not want to pursue MRI brain work up for possible stroke at this time Per lead pharmacy technician, even if decision to pursue MRI brain changes, she is not eligible until oriented due to pacemaker in situ, needs to be clear to communicate if develops cardiac sx during study Transitioned from cefepime to ceftriaxone but disorientation persisted into 01/09, now felt to be most consistent with progressing ESRD given worsening Cr and hyperphosphatemia Mental status improved today ESRD Creatinine 3.7 on 01/09; baseline mid-3s for years Follows with Nephro as an outpatient; previous conversation for conservative management vs HD given advanced dementia Nephro consult placed on admission given creatinine; appreciate recs. 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 No diastolic dysfunction noted CXR w/ possible b/l small pleural effusion. Nephrology recommended DC torsemide; IV Bumex Per nephro, stop IV Bumex today and start Torsemide 60mg daily (increased from 30mg daily GEOPHYSICAL PROSPECTOR dose) Required supplemental O2 on admission; weaned to RA BLE Cellulitis Improved Started on cefepime in the ED -> IV ceftriaxone - d/c'd 01/09 due to WAXER status Blood cultures NGTD Procal and Lactate normal Venous Doppler US: Re-demonstration thrombosis distal L popliteal veins; chronic thrombosis. See below. Left thigh pain: Acute severe left hip/femur pain abrupt unlike any previous discomfort and no history of trauma. Unable to describe or discern exact location-->points to her left femur area without radiation Given her possible lymphoma; considered spontaneous fracture L Femur and pelvic x-ray: negative for acute fracture or dislocation. Mild lateral soft tissue swelling. moderate OA of left hip. Last Venous Doppler US: 01/05; outlined below Seems improved Chronic LE thrombosis: Initial DVT unprovoked 05/2022; was on Eliquis for short term treatment Venous Doppler US: Redemonstration thrombosis distal L popliteal veins; chronic thrombosis Not on any AC given increased fall risk Dementia HTN Continue home hydralazine, Imdur and felodipine as long as able as daughter is concerned about BP T2DM: A1c 8.3 appropriate, given elderly, WAXER status No need for chronic glycemic control Hyperlipidemia: Chronic Statin d/c'd given age and decreased benefits, WAXER status DVT prophylaxis: deferred due to WAXER status CODE STATUS: DNR/DNI Disposition: WAXER now, plan to dc on hospice to [facility] vs [facility] - assisting Care coordinated with Dr. Caba. I spent a total of 35 minutes coordinating, documenting, and providing care for this patient excluding time spent in the performance of separately billed services or time spent by another provider/QHP. Admission and Anticipated Discharge Date Admission Date: January 05, 2025 Supervising Physician Co-Signing Physician Notes Pt seen and examined by me , care coordinated w/ Nick. Rita CHOUDHURY, pls refer to her note above for further detail. Pt lying in bed in NAD. Has hx of ESRD. Yesterday discussion w/ palliative med., and made WAXER however pt's mental status much improved today. She is awake, alert, able to communicate, currently denies any complaints. Denies any chest pain, shortness of breath, abd. pain. Tells me she knows she is in the hospital and tells me she is going to be discharged tomorrow. Updated by palliative medicine and CM - plan likely to DC tmrw w/ hospice. Lung sounds decreased, heart sounds regular, abdomen soft, nontender. Discussed w/ nephrology and palliative med. - likely will DC on increased dose of torsemide. MD Daryn Subjective Follow up for ESRD, WAXER status. Patient seen and examined. Daughter visiting at bedside. Patient much more alert and engaged today. Complains of BL hand pain. Asking when she is going to be discharged. Review of Systems Review of Systems: ROS per HPI, all other systems reviewed and negative Physical Exam Constitutional: no acute distress Chronically ill appearing Respiratory: normal respiratory effort, lungs clear to auscultation Cardiovascular: Rate/Rhythm: regular rate and regular rhythm Vessels: normal peripheral pulses Extremities: no edema Skin: no rashes, warm and dry Neurologic: no focal motor deficits Psychiatric: Orientation: alert, oriented x 3 and cooperative Insight: + limited insight forgetful Results & Data Results & Data Vital Signs (Past 12 Hours) Vital Signs Temp Pulse Resp BP Pulse Ox O2 Del Method 01/10/25 10:35 36.5 C 68 17 145/64 H 93 Room Air 01/10/25 07:21 36.9 C 70 17 176/49 H 94 Room Air 01/10/25 03:06 36.7 C 72 18 170/63 H 93 Room Air Laboratory Results 01/10/25 Range/Units 07:39 POC Glucose 139 H (70-99) mg/dl Medications Administered Current Inpatient Medications Acetaminophen (Acetaminophen 325 Mg Tab) 650 mg PO Q4H PRN PRN Reason: Mild Pain (Scale 1, 2, 3) Stop: 02/09/25 09:35 Last Admin: 01/10/25 09:46 Dose: 650 mg Al Hydrox/Mg Hydrox/Simethicone (Aluminum/Magnesium Susp 30 Ml Udc) 15 ml PO Q4H PRN PRN Reason: Dyspepsia Stop: 02/04/25 17:32 Artificial Tears (Artificial Tears) 1 drops OP QID PRN PRN Reason: Dryness Stop: 02/04/25 18:56 Felodipine (Felodipine 5 Mg Tabcr) 10 mg PO QAM [facility] Stop: 02/05/25 08:59 Last Admin: 01/10/25 07:51 Dose: 10 mg Gabapentin (Gabapentin 100 Mg Cap) 200 mg PO BID [facility] Stop: 02/09/25 20:59 Glycopyrrolate (Glycopyrrolate 0.2 Mg/Ml Vial) 0.4 mg IV Q4H PRN PRN Reason: Rattling Secretions or Pulm Congestion Stop: 02/08/25 15:07 Haloperidol (Haloperidol Oral Soln 2 Mg/Ml) 0.5 mg PO Q4H PRN PRN Reason: delirium Stop: 02/08/25 15:07 Hydralazine HCl (Hydralazine Hcl 25 Mg Tab) 75 mg PO TID [facility] Stop: 02/05/25 08:59 Last Admin: 01/10/25 15:21 Dose: 75 mg Hydralazine HCl (Hydralazine Hcl 20 Mg/Ml Vial) 5 mg IV Q6H PRN PRN Reason: Hypertension Stop: 02/08/25 21:07 Last Admin: 01/09/25 21:20 Dose: 5 mg Hydromorphone HCl (Hydromorphone Inj 0.5 Mg/0.5 Ml Syr) 0.5 mg IV Q2H PRN PRN Reason: Pain or Respiratory Distress Stop: 01/23/25 15:07 Ceftriaxone Sodium (Rocephin) 1,000 mg in 50 mls @ 100 mls/hr IV Q24H [facility] Stop: 01/17/25 18:29 Isosorbide Mononitrate (Isosorbide [place] Extended Rel 30 Mg Tabcr) 30 mg PO DAILY PRN PRN Reason: SBP > 170 Stop: 02/04/25 17:36 Last Admin: 01/06/25 00:59 Dose: 30 mg Isosorbide Mononitrate (Isosorbide [place] Extended Rel 60 Mg Tabcr) 60 mg PO [facility] Stop: 02/05/25 08:59 Last Admin: 01/10/25 07:52 Dose: 60 mg Lidocaine (Lidocaine 5% 1 Patch) 1 patch TD [facility] Stop: 02/06/25 12:29 Last Admin: 01/10/25 07:51 Dose: 1 patch Lorazepam (Lorazepam 2 Mg/1 Ml Vial) 0.5 mg IV Q2H PRN PRN Reason: Agitation,spasms/shaking Stop: 02/08/25 15:07 Last Admin: 01/10/25 06:29 Dose: 0.5 mg Miscellaneous (Remove Lidoderm Patch) 1 each N/A DAILY@2100 [facility] Stop: 02/06/25 20:59 Last Admin: 01/09/25 21:20 Dose: 1 each Ondansetron HCl (Ondansetron Inj 2 Mg/Ml 2 Ml Vial) 4 mg IV Q6H PRN PRN Reason: Nausea Stop: 02/04/25 17:32 Pantoprazole Sodium (Pantoprazole 40 Mg Tab) 40 mg PO [facility] Stop: 02/05/25 08:59 Last Admin: 01/10/25 07:53 Dose: 40 mg Polyethylene Glycol (Polyethylene (Miralax) 17 Gm Pack) 17 gm PO DAILY PRN PRN Reason: Constipation Stop: 02/04/25 17:32 Torsemide (Torsemide 20 Mg Tab) 60 mg PO [facility] Stop: 02/09/25 11:29 Last Admin: 01/10/25 12:25 Dose: 60 mg (1) Cellulitis Laterality: unspecified laterality Site of cellulitis: extremity Site of cellulitis of extremity: lower extremity Qualified Code(s): L03.119 - Cellulitis of unspecified part of limb
[2025-01-10 19:30] VITALS: RESP 18
[2025-01-10] MEDS: cefTRIAXone SODIUM 1,000 MG/50 ML BAG IV SCH (19:41)
[2025-01-10] MEDS: GABAPENTIN 100 MG CAP PO SCH (20:23)
[2025-01-10] MEDS: HYDROmorphone INJ 0.5 MG/0.5 ML SYR IV PRN (22:40)
[2025-01-11 07:00] VITALS: TEMP 97.7; O2SAT 96
--- NOTE | 2025-01-11 12:52 | Palliative Care Progress Note ---
Date of Service January 11, 2025 Assessment & Plan (1) Palliative care by specialist: Plan: Palliative care will continue to follow for ongoing EOL pt care and family support. (2) Comfort measures only status: Plan: Pt transitioned to CORPORATE AUDITOR on 01/09/25. (3) Need for comfort care: Plan: pending discharge today, returning to [facility] vs SNF level of care with hospice. Pt appears comfortable and denies complaint, states that she wants to go home. Plan as above Admission and Anticipated Discharge Date Admission Date: January 05, 2025 Subjective Assessed pt at bedside, she was transitioned to CORPORATE AUDITOR on 01/09/25. Pt awake and alert and denies any discomfort. Respiratory effort normal,rate 14/min. No visitors at bedside. Review of Systems Review of Systems: All systems reviewed & are unremarkable except as noted in Subjective Physical Exam Constitutional: WD/WN, vitals as above Eyes: PERRL, conjunctivae normal, anicteric sclerae ENMT: external ear and nose normal, oropharynx normal Neck: trachea midline, no thyromegaly Respiratory: normal respiratory effort, lungs clear to auscultation Gastrointestinal (Abdomen): normal bowel sounds, soft, nontender, no hepatosplenomegaly Musculoskeletal: no cyanosis or clubbing, extremities motor strength 5/5 generalized weakness Skin: no rashes, warm and dry normal turgor and + pallor Neurologic: PERRL, EOMI, accommodation nl, no face palsy, no dysarthria Psychiatric: Orientation: alert, oriented to person and oriented to place Results & Data Vital Signs (Past 12 Hours) Vital Signs Temp Pulse Resp BP Pulse Ox O2 Del Method 01/11/25 06:59 36.5 C 68 18 166/65 H 96 Room Air 01/11/25 02:44 36.6 C 63 18 180/65 H 93 Room Air Laboratory Results No further labs or diagnostics in concert with comfort directed care. Diagnostic Findings No further labs or diagnostics in concert with comfort directed care. Medications Administered Current Inpatient Medications Acetaminophen (Acetaminophen 325 Mg Tab) 650 mg PO Q4H PRN PRN Reason: Mild Pain (Scale 1, 2, 3) Stop: 02/09/25 09:35 Last Admin: 01/10/25 09:46 Dose: 650 mg Al Hydrox/Mg Hydrox/Simethicone (Aluminum/Magnesium Susp 30 Ml Udc) 15 ml PO Q4H PRN PRN Reason: Dyspepsia Stop: 02/04/25 17:32 Artificial Tears (Artificial Tears) 1 drops OP QID PRN PRN Reason: Dryness Stop: 02/04/25 18:56 Felodipine (Felodipine 5 Mg Tabcr) 10 mg PO QAM [facility] Stop: 02/05/25 08:59 Last Admin: 01/11/25 08:40 Dose: 10 mg Gabapentin (Gabapentin 100 Mg Cap) 200 mg PO BID [facility] Stop: 02/09/25 20:59 Last Admin: 01/11/25 08:41 Dose: 200 mg Glycopyrrolate (Glycopyrrolate 0.2 Mg/Ml Vial) 0.4 mg IV Q4H PRN PRN Reason: Rattling Secretions or Pulm Congestion Stop: 02/08/25 15:07 Haloperidol (Haloperidol Oral Soln 2 Mg/Ml) 0.5 mg PO Q4H PRN PRN Reason: delirium Stop: 02/08/25 15:07 Hydralazine HCl (Hydralazine Hcl 25 Mg Tab) 75 mg PO TID [facility] Stop: 02/05/25 08:59 Last Admin: 01/11/25 08:40 Dose: 75 mg Hydralazine HCl (Hydralazine Hcl 20 Mg/Ml Vial) 5 mg IV Q6H PRN PRN Reason: Hypertension Stop: 02/08/25 21:07 Last Admin: 01/11/25 05:18 Dose: 5 mg Hydromorphone HCl (Hydromorphone Inj 0.5 Mg/0.5 Ml Syr) 0.5 mg IV Q2H PRN PRN Reason: Pain or Respiratory Distress Stop: 01/23/25 15:07 Last Admin: 01/10/25 22:40 Dose: 0.5 mg Ceftriaxone Sodium (Rocephin) 1,000 mg in 50 mls @ 100 mls/hr IV Q24H [facility] Stop: 01/17/25 18:29 Last Infusion: 01/10/25 20:11 Dose: Infused Isosorbide Mononitrate (Isosorbide [place] Extended Rel 30 Mg Tabcr) 30 mg PO DAILY PRN PRN Reason: SBP > 170 Stop: 02/04/25 17:36 Last Admin: 01/06/25 00:59 Dose: 30 mg Isosorbide Mononitrate (Isosorbide [place] Extended Rel 60 Mg Tabcr) 60 mg PO [facility] Stop: 02/05/25 08:59 Last Admin: 01/11/25 08:42 Dose: 60 mg Lidocaine (Lidocaine 5% 1 Patch) 1 patch TD [facility] Stop: 02/06/25 12:29 Last Admin: 01/11/25 08:40 Dose: 1 patch Lorazepam (Lorazepam 2 Mg/1 Ml Vial) 0.5 mg IV Q2H PRN PRN Reason: Agitation,spasms/shaking Stop: 02/08/25 15:07 Last Admin: 01/10/25 22:04 Dose: 0.5 mg Miscellaneous (Remove Lidoderm Patch) 1 each N/A DAILY@2100 [facility] Stop: 02/06/25 20:59 Last Admin: 01/10/25 20:23 Dose: 1 each Ondansetron HCl (Ondansetron Inj 2 Mg/Ml 2 Ml Vial) 4 mg IV Q6H PRN PRN Reason: Nausea Stop: 02/04/25 17:32 Pantoprazole Sodium (Pantoprazole 40 Mg Tab) 40 mg PO [facility] Stop: 02/05/25 08:59 Last Admin: 01/11/25 08:41 Dose: 40 mg Polyethylene Glycol (Polyethylene (Miralax) 17 Gm Pack) 17 gm PO DAILY PRN PRN Reason: Constipation Stop: 02/04/25 17:32 Torsemide (Torsemide 20 Mg Tab) 60 mg PO [facility] Stop: 02/09/25 11:29 Last Admin: 01/11/25 08:41 Dose: 60 mg PG Care Time/CCT Total # of Minutes Spent Total Time Spent with Patient: Total time spent is greater than 50% in coordination of care (as documented) at patient's floor/unit and/or counseling patient: Coding [place] [address] SUB INP/OBS CARE 08/05MIN Patient Type Established History Problem Focused Exam Problem Focused Medical Decision Making Low Complexity Diagnoses Palliative care by specialist Z51.5 Comfort measures only status Z51.5 Need for comfort care
[2025-01-11 14:06] VITALS: BP 181/71; PULSE 65
--- NOTE | 2025-01-11 14:06 | Discharge Summary ---
Date of Service January 11, 2025 Admission HPI Per Admitting Provider 89-year-old lady with PMH of T2DM, HLD, HTN, Finley's esophagus, CKD stage V, fibromyalgia, dementia was brought in from [facility] due to concern of low-grade fever and lower extremity cellulitis. Patiently recently underwent PET scan on 01/02/2025 which showed fluid overload in the lung and they were notified yesterday of the findings and advised to come to the ED if with any shortness of breath. Patient also noted to have shortness of breath and increasing lower extremity swelling today per patient's daughter at bedside. Fever noted to be 102 F at [facility] per daughter. Patient reports her appetite has been down since 1 day, denies sore throat or cough or chest pain or belly pain or nausea or vomiting/burning with passing urine. Patient is not use oxygen at home, was saturating at 88% on room air at presentation, currently needing 2 L oxygen via nasal cannula at bedside exam. 01/02/2025 PET scan done for history of lymphoma showed interstitial edema and small bilateral pleural effusions. Patient denies smoking/alcohol use. Medications reviewed with the patient's daughter at bedside. Plan of care discussed with the patient and patient's daughter at bedside. DNR/DNI Admission Exam Per Admitting Provider GENERAL: Alert and oriented x3. NAD, on 2L NC O2 HEENT: No pallor, no icterus. Pupils equal, round and reactive to light. Oral mucosa moist. NECK: No JVD, no neck masses. HEART: S1 and S2 heard. Regular rate and rhythm. No murmur, no gallop. RESPIRATORY SYSTEM: Normal AP diameter. No accessory muscle use. No wheezing, no crackles. decreased bb sounds. ABDOMEN: Soft, bowel sounds present, nontender, no distention. CENTRAL NERVOUS SYSTEM: No facial droop. Speech is clear. Obeys simple commands. Moves extremities. EXTREMITIES: 2+ ble edema, RLE > LLE erythema and warmth. Principal Diagnosis ESRD, being discharged on hospice care Discharge Exam Constitutional no acute distress chronically ill appearing Respiratory normal respiratory effort, lungs clear to auscultation Cardiovascular Rate/Rhythm: regular rate and regular rhythm Vessels: normal peripheral pulses Extremities: no edema Skin no rashes, warm and dry Neurologic no focal motor deficits Psychiatric Orientation: alert and oriented x 3 Insight: + limited insight forgetful Discharge Data Allergies Allergy/AdvReac Type Severity Reaction Status Date / Time cephalexin Allergy Intermediate Hives Verified 01/05/25 17:06 codeine Allergy Intermediate "BAD" RASH Verified 01/05/25 17:06 Penicillins Allergy Intermediate RASH - HAS Verified 01/05/25 17:06 TOLERATED ROCEPHIN ferrous fumarate AdvReac Intermediate stomach Verified 01/05/25 17:06 upset meloxicam AdvReac Intermediate Gastrointestinal Verified 01/05/25 17:06 Upset Consultations 01/05/25 17:57 Consult Nephrology Routine 01/09/25 10:06 Consult Palliative Care Routine Ordered Studies Laboratory Results WBC 7.85 K/ul (4.8-10.8) 01/09/25 07:17 RBC 3.58 M/uL (4.20-5.40) L 01/09/25 07:17 Hgb 9.4 g/dl (12.0-16.0) L 01/09/25 07:17 Hct 31.3 % (37.0-47.0) L 01/09/25 07:17 MCV 87.4 fL (80.0-100.0) 01/09/25 07:17 MCH 26.3 pg (25.0-34.0) 01/09/25 07:17 MCHC 30.0 g/dL (32.0-36.0) L 01/09/25 07:17 RDW Std Deviation 42.2 fL (36.4-46.3) 01/09/25 07:17 RDW Coeff of Paul 13.4 % (11.5-14.5) 01/09/25 07:17 Plt Count 191 K/uL (130-400) 01/09/25 07:17 MPV 9.4 fL (9.4-12.4) 01/09/25 07:17 Immature Gran % (Auto) 0.4 % 01/08/25 04:40 Neut % (Auto) 73.9 % 01/08/25 04:40 Lymph % (Auto) 12.0 % 01/08/25 04:40 [place] % (Auto) 9.8 % 01/08/25 04:40 Eos % (Auto) 3.1 % 01/08/25 04:40 Baso % (Auto) 0.8 % 01/08/25 04:40 Neut # (Auto) 7.49 K/uL (1.40-6.50) H 01/08/25 04:40 Lymph # (Auto) 1.22 K/uL (1.20-3.40) 01/08/25 04:40 [place] # (Auto) 0.99 K/uL (0.11-0.59) H 01/08/25 04:40 Eos # (Auto) 0.31 K/uL (0.00-0.50) 01/08/25 04:40 Baso # (Auto) 0.08 K/uL (0.00-0.20) 01/08/25 04:40 Immature Gran # (Auto) 0.04 K/uL (0.01-0.20) 01/08/25 04:40 PT 10.9 Seconds (9.0-12.0) 01/08/25 04:40 INR 1.0 (0.9-1.1) 01/08/25 04:40 APTT 26 Seconds (21-31) 01/08/25 04:40 PTT Ratio 1.0 01/08/25 04:40 Sodium 142 mmol/L (136-145) 01/09/25 07:17 Potassium 4.8 mmol/L (3.5-5.1) 01/09/25 07:17 Chloride 107 mmol/L (98-107) 01/09/25 07:17 Carbon Dioxide 25 mmol/L (21-32) 01/09/25 07:17 Anion Gap 10 (3-11) 01/09/25 07:17 BUN 54 mg/dl (6-23) H 01/09/25 07:17 Creatinine 3.71 mg/dl (0.6-1.2) H 01/09/25 07:17 Est Cr Clr Drug Dosing 10.1 ml/min 01/09/25 07:17 eGFR 11.24 01/09/25 07:17 BUN/Creatinine Ratio 14.6 (10-20) 01/09/25 07:17 Glucose 139 mg/dl (70-99(Fasting)) H 01/09/25 07:17 POC Glucose 139 mg/dl (70-99) H 01/10/25 07:39 Estimat Average Glucose 192 mg/dl 01/06/25 05:14 Hemoglobin A1c 8.3 % (4.5-5.6) H 01/06/25 05:14 Lactate 0.8 mmol/L (0.4-2.0) 01/08/25 04:46 Calcium 8.9 mg/dl (8.6-10.3) 01/09/25 07:17 Phosphorus 5.1 mg/dl (2.5-4.9) H 01/09/25 07:17 Magnesium 2.4 mg/dl (1.7-2.4) 01/09/25 07:17 Iron 24 mcg/dl (35-150) L 01/07/25 06:24 Transferrin 216 mg/dl (200-360) 01/07/25 06:24 Ferritin 41.0 ng/ml (8-388) 01/07/25 06:24 Total Bilirubin 0.5 mg/dl (0.2-1.0) 01/08/25 04:40 Direct Bilirubin 0.1 mg/dl (0-0.2) 01/05/25 14:42 AST 11 U/L (13-39) L 01/08/25 04:40 ALT 7 U/L (7-52) 01/08/25 04:40 Alkaline Phosphatase 59 U/L (34-104) 01/08/25 04:40 Ammonia 24.0 umol/L (18-72) 01/08/25 04:40 Troponin I High Sens 14.3 pg/ml (0-14) H 01/08/25 04:40 B-Natriuretic Peptide 252 pg/ml (0-100) H 01/05/25 17:20 Total Protein 6.3 gm/dl (6.0-8.3) 01/08/25 04:40 Albumin 3.3 gm/dl (3.4-5.0) L 01/08/25 04:40 Globulin 3.0 gm/dl (2.5-4.0) 01/08/25 04:40 Albumin/Globulin Ratio 1.1 (0.9-2) 01/08/25 04:40 Vitamin B12 > 1500 pg/ml (180-914) H 01/07/25 06:24 Procalcitonin 0.08 ng/ml (0-0.5) 01/05/25 14:42 PTH Intact 118.8 pg/ml (12.0-88.0) H 01/08/25 04:40 Urine Color Yellow 01/07/25 14:15 Urine Appearance Clear (Clear) 01/07/25 14:15 Urine pH 5.5 (4.5-7.5) 01/07/25 14:15 Ur Specific [place] 1.014 (1.000-1.030) 01/07/25 14:15 Urine Protein 3+ (Negative) H 01/07/25 14:15 Urine Glucose (UA) 1+ (Negative) H 01/07/25 14:15 Urine Ketones Negative (Negative) 01/07/25 14:15 Urine Blood Negative (Negative) 01/07/25 14:15 Urine Nitrite Negative (Negative) 01/07/25 14:15 Urine Bilirubin Negative (Negative) 01/07/25 14:15 Urine Urobilinogen Negative (Negative) 01/07/25 14:15 Ur Leukocyte Esterase Negative (Negative) 01/07/25 14:15 Urine WBC (Auto) 0-5 /hpf (0-5) 01/07/25 14:15 Urine RBC (Auto) 0-2 /hpf (0-2) 01/07/25 14:15 U Hyaline Cast (Auto) 0-2 /lpf (0-2) 01/07/25 14:15 U Epithel Cells (Auto) 0-2 /hpf (0-2) 01/07/25 14:15 Urine Bacteria (Auto) None Seen (None Seen) 01/07/25 14:15 Urine Comment 01/07/25 14:15 Nasal Screen MRSA (PCR) Negative (Negative) 01/05/25 22:10 Blood Type A Positive 01/08/25 04:40 Antibody Screen NEGATIVE 01/08/25 04:40 Impressions Chest X-Ray 01/05/25 14:34 XR chest 1V portable CLINICAL HISTORY: Sepsis COMPARISON STUDY: 08/17/2024 FINDINGS: Stable pacemaker. Heart size and pulmonary vasculature are normal. There is hazy opacity in the lung bases. No pneumothorax. IMPRESSION: Hazy opacity in the lung bases could represent atelectasis, pneumonia, or small pleural effusions. ACT 112: Negative or not required by law. Electronically signed by: Christos Salmeron M.D. 01/05/2025 3:19 PM Venous Doppler Study 01/05/25 17:59 Exam(s): US VENOUS BILATERAL LOWER EXTREMITIES EXAM: US Duplex Bilateral Lower Extremities Veins CLINICAL HISTORY: ro dvt. TECHNIQUE: Real-time duplex ultrasound scan of the bilateral lower extremity veins integrating B-mode two-dimensional vascular structure, Doppler spectral analysis, color flow Doppler imaging and compression. COMPARISON: 05/12/2022. FINDINGS: Right deep veins: Unremarkable. No DVT in the right common femoral, femoral, proximal deep femoral or popliteal veins. The veins demonstrate normal color flow, are normally compressible, with normal phasic flow and/or augmentation response. Right superficial veins: Unremarkable. No thrombus in the visualized right great saphenous vein. Left deep veins: No DVT in the left common femoral or superficial femoral or popliteal veins. 1 of 2 distal popliteal veins demonstrates thrombus in a similar location to the prior study.. Left superficial veins: Unremarkable. No thrombus in the visualized left great saphenous vein. Soft tissues: No acute abnormality. No popliteal cyst. IMPRESSION: No evidence of right lower extremity deep venous thrombosis. Redemonstrated thrombosis of 1 of 2 distal left popliteal veins, likely chronic thrombus. Electronically signed by: Julio Cesar Smith M.D. 01/06/25 02:06 AM Femur X-Ray 01/07/25 11:34 XR femur LT 2V routine, XR pelvis 1-2V routine HISTORY: 89 years-old Female left femur pain . Pain of the left thigh COMPARISON: Pelvis radiograph 10/19/2023 TECHNIQUE: AP view of the pelvis with 2 views of the left femur FINDINGS: FEMUR: Moderate osteoarthritis of the left hip. No acute fracture, dislocation or avascular necrosis. Mild lateral soft tissue swelling. PELVIS: Mild right and moderate left hip osteoarthritis. No acute fracture or dislocation. IMPRESSION: 1. No acute fracture or dislocation. 2. Moderate osteoarthritis of the left hip. ACT 112: Negative or not required by law. The above report was generated using voice recognition software. It may contain grammatical, syntax or spelling errors. Electronically signed by: Hilton Martinez M.D. 01/07/2025 12:22 PM Pelvis X-Ray 01/07/25 11:34 XR femur LT 2V routine, XR pelvis 1-2V routine HISTORY: 89 years-old Female left femur pain . Pain of the left thigh COMPARISON: Pelvis radiograph 10/19/2023 TECHNIQUE: AP view of the pelvis with 2 views of the left femur FINDINGS: FEMUR: Moderate osteoarthritis of the left hip. No acute fracture, dislocation or avascular necrosis. Mild lateral soft tissue swelling. PELVIS: Mild right and moderate left hip osteoarthritis. No acute fracture or dislocation. IMPRESSION: 1. No acute fracture or dislocation. 2. Moderate osteoarthritis of the left hip. ACT 112: Negative or not required by law. The above report was generated using voice recognition software. It may contain grammatical, syntax or spelling errors. Electronically signed by: Hilton Martinez M.D. 01/07/2025 12:[address] 01/08/25 04:30 EXAM: CT head/brain wo con CLINICAL HISTORY: neuro deficit, acute stroke suspected; neuro deficit, acute stroke suspected TECHNIQUE: Axial non-contrast CT scan of the brain was performed from the skull base to the high parietal region. One of the following dose reduction techniques were utilized for this exam: Automated exposure control, adjustment of the mA and/or kV according to patient size, use of iterative reconstruction. DLP: 1016.05 mGy.cm COMPARISON: 06/18/2024 CT. FINDINGS: Suboptimal study with motion artifact. Brain Parenchyma: Mild accentuated hypoattenuation of the periventricular deep white matter denoting atherosclerotic microvascular ischemic changes. No definite acute infraction. No intra or extra axial fresh blood denisty seen at the time of examination. The Ventricular System and Subarachnoid Spaces: Brain parenchymal mild involutional changes in the form of dilated ventricular system, basal cistern with prominent cortical sulci and sylvian fissures. No evidence of subarachnoid hemorrhage or extra-axial fluid collections. Cerebellum and Brainstem: No masses, lesions, or areas of abnormal density. Orbits: Normal appearance of the globes, optic nerves, and extraocular muscles. No evidence of orbital masses or abnormal density. Sinuses: Clear paranasal sinuses. No evidence of sinusitis or mucosal thickening. Mastoid Air Cells: Clear mastoid air cells. No evidence of mastoiditis. Skull: Evidence of hyperostosis frontalis. IMPRESSION: Suboptimal study with motion artifact. 1. No intra or extra axial fresh blood denisty seen at the time of examination. 2. No definite acute infarction by CT criteria. MRI is recommended if acute ischemic insult is clinically warranted. 3. Age-related involutional changes. 4. 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 5. Resolution of the previous right frontal subgaleal hematoma, as compared to the prior CT Study. The report was ready at 05:17 AM EST, 01/08/2025 and the call was completed at 05:22 AM EST, 01/08/2025 at [phone] and Norberto Koehler was informed regarding the negative stroke findings in the report Electronically signed by Klaus Kellogg 01-08-2025 05:23 AM Hospital Course (1) Cellulitis: Plan Per previous provider on 01/09: Goals of care conversation: Lengthy conversation with patient daughter Kerline at bedside to discuss goals of care/advanced care planning. Patient is an established DNR/DNI. Pt being evaluated for lymphoma and has already decided not to pursue hemodialysis for her ESRD given her dementia. Pt just had a PET scan for lymphoma and has a follow up appointment on Wednesday. Kerline stated that even if aggressive treatment was recommended that they would not proceed. Overarching goal is establishing Hospice Services to be able to allow pt to remain at [facility] as long as possible. Plan was to establish with hospice on discharge but given deterioration of clinical status in-patient, consulted palliative care for further discussion and discussed case with Dr. Kaur, who met with family this afternoon. Family is now electing for Comfort measures only as of 01/09. Patient became more alert and engaged on 01/10. After eval/discussion with palliative, daughter planned on holding off on hospice, however daughter then met with hospice representative personal service as would like to continue to pursue hospice. Plan to continue current meds as patient is able to take PO Discharging back to [facility] with hospice services Acute metabolic encephalopathy in setting of progressing ESRD, possible CVA Nursing alerted provider of aphasia, mental status change around 0400, was evaluated and stroke alert called early on 01/[address] negative for acute intracranial findings Telestroke neurologist noted asterixis on exam, possibly 2/2 abx. Tpa not indicated due to resolving symptoms, felt mentation 2/2 baseline dementia Remained confused on 01/09, concern for hospital based delirium vs CVA in setting of known ESRD. Also considering cefepime side effect possibly contributing to mentation change Previous provider discussed pursuit of MRI brain with daughter, but based on overarching goals of transitioning to hospice approach, does not want to pursue MRI brain work up for possible stroke at this time Per instructional technology coordinator, even if decision to pursue MRI brain changes, she is not eligible until oriented due to pacemaker in situ, needs to be clear to communicate if develops cardiac sx during study Transitioned from cefepime to ceftriaxone but disorientation persisted into 01/09, now felt to be most consistent with progressing ESRD given worsening Cr and hyperphosphatemia Mental status improved on 01/10 ESRD Creatinine 3.7 on 01/09; baseline mid-3s for years Follows with Nephro as an outpatient; previous conversation for conservative management vs HD given advanced dementia Nephro consult placed on admission given creatinine; appreciate recs. 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 No diastolic dysfunction noted CXR w/ possible b/l small pleural effusion. 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 See below. Left thigh pain: Acute severe left hip/femur pain abrupt unlike any previous discomfort and no history of trauma. Unable to describe or discern exact location-->points to her left femur area without radiation Given her possible lymphoma; considered spontaneous fracture L Femur and pelvic x-ray: negative for acute fracture or dislocation. Mild lateral soft tissue swelling. moderate OA of left hip. 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 Total Time Total Time Spent Total Time Spent (In Minutes): 40 Discharge Plan Discharge Items Patient Disposition: Hospice - Home Reason For Visit: LE CELLULITIS, SOB, LE SWELLING Discharge Diagnosis: ESRD, being discharged on hospice care Condition on Discharge: Fair Activity: As commented below Activity Comment: as tolerated Non-emergency contact: Primary Care Provider Call non-emergency contact if: you have any medication questions, your symptoms worsen and your pain is not controlled Follow-up/Referrals: Harjeet Meneses MD [Primary Care Provider] - Alice Kaur DNP [Nurse Practitioner] - 02/01/25 9:00 am (Hospital follow up on February 01 at 9 am.) Diet: Carb Consistent or DM2, Heart Healthy and Low Potassium (2gm) Fluids: 1800ml (7 cups) Abhijit Attending Provider Instructions: Patient presented for evaluation of fever and BL leg cellulitis. Patient was treated with IV antobiotics. Patient also noted to have ESRD in the setting of lymphoma. Nephrology was consulted for management of volume overload and was treated with IV Bumex. PO Torsemide increased to 60mg daily and hydralazine increased to 75mg three times per day Given history of lymphoma and ESRD and patient not wanting to pursue treatment for either, palliative was consulted and patient was transitioned to comfort measures on 01/09. Patient's mental status did improve however given lymphoma/ESRD, daughter decided to continue pursue hospice. Chronic meds are to be continued as long as patient is able to take PO. Abhijit Instrument Maker Provider Instructions: DIABETES RECOMMENDATIONS: 1.) Hemoglobin A1c levels can possibly be inaccurate in persons with chronic kidney disease. Due to this, recommend checking blood sugar 2x/day (before breakfast and before supper) x 2 days/week (Mondays and ) to help guide need/no need for diabetes medication. 2.) Notify provider of blood sugar levels frequently above 200. Pending Studies at Discharge: No Stand-Alone Forms: My [facility] Medications and DC Order Prescriptions: Continued isosorbide mononitrate 60 mg Tablet Extended Release 24 Hr 60 mg PO QAM aspirin [Aspirin Childrens] 81 mg Tablet,Chewable 81 mg PO DAILY calcium carbonate-vitamin D3 [Calcium 600 + D(3)] 600 mg-10 mcg (400 unit) Tablet 1 tab PO QPM cyanocobalamin (vitamin B-12) [Vitamin B-12] 1,000 mcg tablet 1,000 mcg PO QAM acetaminophen 500 mg Capsule 500 mg PO Q6H Rx Instructions: 1100, 1700, 2300 DO NOT AWAKEN TO ADMINISTER Advanced Probiotic-14 3 billion cell Capsule 2 cap PO TID meclizine 12.5 mg Tablet 12.5 mg PO Q6 PRN (Reason: Dizziness) felodipine 10 mg tablet extended release 24 hr 10 mg PO QAM omeprazole 20 mg capsule,delayed release(DR/EC) 20 mg PO QAM isosorbide mononitrate 30 mg tablet extended release 24 hr 30 mg PO DAILY PRN (Reason: SBP > 170) Rx Instructions: GIVE IN ADDITION TO THE REGULAR ISOSORBIDE 60 MG loperamide 2 mg Capsule 2 mg PO Q4H PRN (Reason: loose stool) Qty: 15 0RF polyvinyl alcohol 1.4 % Drops 2 drp OPHTHALMIC (EYE) QID gabapentin 100 mg capsule 200 mg PO BID Changed torsemide 20 mg tablet 60 mg PO QAM Qty: 60 0RF hydralazine 50 mg tablet 75 mg PO TID Qty: 0 0RF Rx Instructions: HOLD BP <120/70 Discontinued atorvastatin 40 mg Tablet 40 mg PO QPM Discharge Orders: Discharge Order (Routine); Ordered 01/11/25 Ordered By: Shey Argueta/Other Patient Handouts: Managing Type 2 Diabetes Admission Data Admit Date/Time: 01/05/25 17:33 Attending Provider: Andrew Stearns Admit Provider: Theodora Plunkett Primary Care Provider: Harjeet Meneses Other Providers: Theodora Plunkett; Riddhi Gordon; Danna Olmos; Alice Kaur; Jacobo Casas Other Interventions: Discharge Summary Assessment (RN) Last Done: 01/11/25 14:04 Supervising Physician Co-Signing Physician Notes Pt seen and examined by me , care coordinated w/ Dwight CHOUDHURY, pls refer to her note above for further detail. Pt lying in bed in NAD. Has hx of ESRD. During hospitalization had discussion w/ palliative med., and made CATHODE RAY TUBE ASSEMBLER however pt's mental status much improved now. She is awake, alert, able to communicate, currently denies any complaints. Denies any chest pain, shortness of breath, abd. pain. Lung sounds decreased, heart sounds regular, abdomen soft, nontender. LE edema, erythema now resolved. Discussed w/ nephrology and palliative med. - plan to DC w/ hospice on increased dose of torsemide. MD Daryn
== END 2025-01-11 17:07 | disposition hospice, home (50) | DRG 682 ==
LOC: ED 14:01 → 2S 17:33 → SUATTDRO 17:33 → 2S 18:41